=== PATIENT | female | born 1970 | race Caucasian/White ===

== ENCOUNTER 2018-02-13 13:00 | Outpatient (RCR) | payer BC, SELFPAY ==
--- NOTE | 2018-02-12 08:00 | IE_ITS ---
Date: February 12, 2018 Referring: Uche Dyer MD M.D. Diagnosis: Internal derangement of R knee, injected 02/06/18 P.T. 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 She states she was bending down cleaning underneath the bottom of a computer desk, she went to stand up and felt a ripping in her R knee. She had severe pain and had to hobble in order to walk She clocked out of work that day and presented to the Emergency Dept due to her pain level. They provided her with an maria r bandage and gave her crutches which she utilized for about 2 days, eventually had a consultation with Manisha Tse who suggested referral to outpatient PT. She will be following up with him later in the month to determine PT response. She is now ambulating without crutches, but with a limp due to pain on the R side. Utilizes 1 crutch if she is going to be on her feet for some time. She reports a constant sensation of her R LE giving out She really feels she has had no remarkable change in her symptoms since onset of her injury. 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 Pain Location: Posterior knee and medial, anterior knee. Prior Level of Function: WNL Current Level of Function: She has difficulty getting comfortable and falling sleep, awakening 2-3 night. She originally woke up 2-3x a night prior to injury , but was easy for her to fall back to sleep. She is unable to ascend or descend stairs without use of a rail and has to go 1 step at a time, She cannot do any prolonged standing or sitting beyond 30 mins at a time and she cannot do any squatting. 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 Previous Treatment: Injection by Dr. Dyer which only gave her about 48 hours relief. 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 She also takes care of her grandchildren in the evenings, but without difficulty. Comorbidities: Sleep apnea, restless leg, aortic valve replacement Mar 2005, high blood pressure, chronic migraines and headaches, hx of dizziness and hx of a stroke. Falls in the last year: __X__ No ____Yes - How many? ____ - (if over 2, balance SM needs to be completed) Reported hospitalizations in the last year - __X__ No ____ Yes - Dates of admission/reason: Medications: Metoprolol, HCTZ, Warfarin and Iron Quality of Life: ____ Excellent __X__ Good ____ Fair ____ Poor Standardized Measures: LEFS score: 91% OBJECTIVE: Posture: Appears to stand with hyper extension of the L knee, which she is unable to acquire at the R knee due to her pain. Observation: (behavior, atrophy, skin color, etc.) Morbidly obese, visual increase in swelling over the R superior patella compared to the L. Gait: Antalgic, decreased stance R LE, but demonstrating good ROM through all phases. In standing, however she doesn't like to full extend the R knee. Unable to do ascension or dissension of stairs reciprocally, leading with good leg. Palpation: Tenderness along the medial joint line compartment of the R knee compared to the L. Edema: Visually present along the superior patella region R knee. Girth measurements: R superior patella measures 62cm compared to L of 59cm, however has 2cm decrease in size of the R central patella vs the L. ROM: Full and non-irritable even with over pressure, end range extension and flexion. No pain with over pressure into rotation, or valgus and varus positions. Joint Accessory Motion: Patellofemoral motion is WNL, but demonstrating crepitus, tibiofemoral WNL and non-irritable. Strength: 4/5 with pain particularly with quad resistance. Neuro: WNL R LE screen. Balance: Impaired due to pain with R LE weight bearing. Special Tests: (-) Thessaly's, (-) Froilan's, (-) patellofemoral compression, (-) Amanda's, (-) Apley's, (-) Squat test, (-) step up test, but does have crepitus. She is cautious with all movements. Treatment: IE: [id number] Therapeutic procedures ([id number]). Develop and review a HEP (see file for specifics) Direct treatment time: 60 mins Total treatment time: 60 mins ASSESSMENT: Patient is a 47-year-old female, referred for PT services with the diagnosis of R knee internal derangement. Patient presents with clinical signs and symptoms consistent with R knee strain, there is certainly potential for internal derangement, but considering patient's clinical presentation of good ROM, only mild gait antalgia, and lack of response to special testing, feel strain is likely more of a convincing diagnosis at this point. Time will time pending her healing changes and response to PT management, as demonstrated by the following impairment level findings: swelling R knee, poor proprioception of the R LE, gross strength deficits. Impairments are contributing to the following functional limitations: Poor tolerance to prolonged sitting, or weight bearing activity, sleep disruption. Difficulty ascending and descending stairs reciprocally and complaints of discomfort with squatting, unable to carry out job duties Patient is assessed as: ____ Low 46716 __X__ Moderate 87370 ____ High 90527 complexity, based on the following: History: (list): X See comorbidities and social history. Examination: (list): X See above for functional limitations and impairments. Presentation: Stable . X Evolving Unstable Decision-Making: Low complexity X Moderate complexity High complexity % Disability based on LEFS of 91% __X__ Patient requires skilled PT intervention to remediate the above functional limitations to return to: __X__ Premorbid level of function __X__ Return to full functional mobility __X__ Return to work demands Prognosis: ____ Excellent __x__ Good ____ Fair ____ Poor STG: __4__ weeks. 1: LEFS improved to 60% disability. 2: Ascending and descending stairs reciprocally with mild antalgia. 3: Gait pattern on even terrain is non-antalgic. 4: As able to squat down and slate picker a 10# object off the floor without pain exceeding a 2/10. 5: Denies sensation of instability of the R knee. LTG: __10__ weeks. 1: Return to premorbid level of function. 2: Return to full, pain-free, functional mobility and work demands 3: Independent with self-maintenance program. PLAN: Patient to be seen 2 x per week, for 10 weeks, adjusting frequency of visits per patient symptoms and response to treatment. Treatment to include: Aquatic therapy: for initial stages of PT to decompress the joint mainly for pain management to encourage facilitation of better proprioception control, motor control and stabilization, leading her through a series of close and open chain strengthening efforts for strengthening of R LE. Gait Training Therapeutic Exercise for gross open/close chain land base strengthening of the R LE. Manual therapy for mobilization of the R knee and soft tissue efforts as needed and edema reduction effort per session presentation. Thank you for this referral. Please do not hesitate to contact me with any questions or concerns regarding this patient's plan of care.
--- NOTE | 2018-02-13 11:04 | PTTR_ITS ---
DATE: 02/13/18 SUBJECTIVE: Juani states that she is uncomfortable with single-leg activities without support because I don't trust my R knee. OBJECTIVE: * [X] Aquatic Therapy - (90022 x2): Patient completed a therapeutic exercise program in an aquatic setting for LE strengthening and ROM, as per flow sheet. Patient required skilled instruction for appropriate exercise performance and to avoid compensatory movement patterns. Patient was encouraged to perform activities without pool wall support, to focus on improved LE stability. Patient ended with deep water biking. Direct treatment time: 30 minutes Total treatment time: 35 minutes
--- NOTE | 2018-02-20 11:13 | NT_ITS ---
02/20/18 Cancelled today's aquatic therapy session, as her son is on the hospital. Elda Garzon, SERVICE ARCHITECT
--- NOTE | 2018-03-01 11:13 | NT_ITS ---
03/01/18 Cancelled today's scheduled aquatic therapy session. Elda Garzon, LATEX FOAM WORKER
== END 2018-03-09 23:59 | disposition home or self-care (01) ==
LOC: PT 13:00
PROVIDERS: PCP Family Medicine; Referring Provider Orthopaedic Surgery; Visit Provider Orthopaedic Surgery
DX: S89.91XD Unspecified injury of right lower leg, subsequent encounter (principal); M23.91 Unspecified internal derangement of right knee
CPT/HCPCS: 97110; 97113; 97162

== ENCOUNTER 2018-03-02 20:33 | Emergency (ER) | payer BC, SELFPAY ==
[2018-03-02 20:38] VITALS: BP 146/99; PULSE 80; RESP 16; TEMP 36.8; O2SAT 98
[2018-03-02 21:34] LABS: Abs Immature Grans 0.02 k/cumm (0.0-0.09); Absolute Basophil Count 0.03 k/cumm (0.0-0.2); Absolute Eosinophil Count 0.21 k/cumm (0.0-0.7); Absolute Lymphocyte Count 1.84 k/cumm (1.2-3.4); Absolute Monocyte Count 1.17 k/cumm (0.11-0.7); Absolute Neutrophil Count 5.66 k/cumm (1.2-6.7); Basophils % 0.3; Eosinophils % 2.4; HCT 41.9 % (36.0-46.0); HGB 13.7 g/dL (12.0-15.5); Immature Grans % 0.2; Lymphocytes % 20.6; Mean Corp. HGB Concentration 32.7 g/dL (32.0-36.0); Mean Corpuscular Hemoglobin 27.7 pg (27.0-33.0); Mean Corpuscular Volume 84.6 fL (80-95); Mean Platelet Volume 10.3 fL (8.0-11.0); Monocytes % 13.1; Neutrophils % 63.4; Platelet Count 292 x1000/uL (130-400); RBC 4.95 m/cumm (4.00-5.20); RBC Distribution Width 13.9 % (11.7-14.6); White Blood Cell Count 8.93 k/cumm (4.4-10.8)
--- NOTE | 2018-03-02 21:40 | ED.GENADUL_ITS ---
Disposition Clinical Impression: Viral exanthem Disposition: HOME Condition: Fair Instructions: Acute Rash (ED) Additional Instructions: Encourage hydration. Hydrocortisone as needed for itch. Please follow-up with primary care in 1 week if symptoms persist. If you develop new or worsening symptoms please seek care urgently once again. Referrals: Luca Dominguez [Primary Care Provider] - Medical Decision Making - Lab Data Laboratory Tests 03/02/18 03/02/18 21:25 21:25 WBC 8.93 RBC 4.95 Hgb 13.7 Hct 41.9 MCV 84.6 MCH 27.7 MCHC 32.7 RDW 13.9 Plt Count 292 MPV 10.3 Immature Gran % 0.2 Neutrophils % 63.4 Lymphocytes % 20.6 Monocytes % 13.1 Eosinophils % 2.4 Basophils % 0.3 Absolute Neutrophils 5.66 Absolute Lymphocytes 1.84 Absolute Monocytes 1.17 H Absolute Eosinophils 0.21 Absolute Basophils 0.03 Sodium 139 Potassium 3.6 Chloride 104 Carbon Dioxide 27.1 Anion Gap 7.9 BUN 9 Creatinine 0.97 Estimated GFR/1.73 m2 >= 60.00 Glucose 90 Calcium 8.5 Total Bilirubin 0.3 AST 20 ALT 29 Alkaline Phosphatase 89 Total Protein 7.5 Albumin 3.0 L Results reviewed for labs ordered during visit: Yes - Medical Decision Making Patient presents today with chief complaint of rash. Rash is noted initially in the abdomen is since spread to back and extremities. On exam, rash is circular and erythematous with varying sizes. Noted on the abdomen, chest, proximal lower extremities and back. Also Dr. Reynolds to evaluate this rash. Patient has been afebrile. Appears nontoxic. Vital signs are within normal limits. Had initially been questioning possibly tinea infection. However, this is fairly limited to just a few of the areas. Degraded because he did not agree with this assessment. He was more concerned for possible bull's-eye rash. However, there is so many separate lesions is not consistent with this nor do all of these lesions have the appearance of a bull's-eye. With her initial symptoms of headache and neck pain he advises most consistent with a viral exanthem. Patient denies any neck pain or headache at this time. She is afebrile. No nuchal rigidity. Will obtain laboratory evaluation. In particular, we were looking for, cytopenia and elevated liver enzymes to evaluate for possible evidence of tickborne illness. Patient does report that she has history of thrombocytopenia. Laboratory evaluation without significant abnormality. No thrombocytopenia. I did review the patient's previous platelet counts and did not see these being low historically. Liver enzymes within normal limits. No leukocytosis. I discussed these findings with the patient. Advises most consistent with viral exanthem. Tick panel was sent and is pending. Encourage hydration. We discussed symptomatic management. Advised on new or worsening symptoms when to seek care urgently once again. Advise follow-up with primary care in 1 week if symptoms persist. All of her questions and concerns were addressed and she is in agreement this plan. History of Present Illness - General Chief complaint: RashLesion Stated complaint: RASH Time Seen by Provider: 03/02/18 21:09 Source: patient, RN notes reviewed Mode of arrival: ambulatory Limitations: no limitations - History of Present Illness Initial comments: Patient is a 47-year-old female presenting today with chief complaint of rash. Patient reports that she first noted 2 days ago. States that it started on the central abdomen and was pruritic at that time. However, rash has not spread to extremities,, particularly proximal extremities and back. Patient states that they are minimally pruritic at this time, she does have one large area of erythema over the central chest which she states is quite itchy. States that a few days ago she was endorsing headache and neck discomfort. This was after spending several days at [facility] visiting her sick son. However, she reports that the neck discomfort and headache subsided. She denies any fevers or chills. No GI upset. Denies any known tick exposure. States that daughter has had similar symptoms but has not yet begun rash. - Related Data Acetaminophen [Tylenol] 500 mg PO PRN PRN 08/19/13 Ferrous Sulfate [Iron] 325 mg PO BID 05/12/17 Warfarin Sodium [Coumadin] 5 - 15 mg PO HS #100 tab-cap 07/25/17 Hydrochlorothiazide [Hydrodiuril] 25 mg PO DAILY #90 tab-cap 11/27/17 Metoprolol [Lopressor] 1 tab PO BID #180 tab-cap 11/27/17 Allergies Allergy/AdvReac Type Severity Reaction Status Date / Time adhesive Allergy Intermediate plastic Unverified 03/02/18 20:43 tape-blisters Penicillins Allergy Unverified 03/02/18 20:43 ibuprofen AdvReac Unverified 03/02/18 20:43 Review of Systems Constitutional: no symptoms reported, see HPI Respiratory: no symptoms reported Cardiovascular: denies: chest pain Musculoskeletal: denies: back pain, joint swelling, arthralgia Skin: as per HPI Neurological: as per HPI Past Medical History - Past Medical History Medical history: CVA/TIA, hypertension Surgical history: other (Heart valve replacement) - Social History Alcohol use: none Drug use: none General Exam - General Limitations: no limitations General appearance: alert, in no apparent distress - Eye Eye exam: Present: normal apperance - Neck Neck exam: Present: normal inspection - Respiratory Respiratory exam: Present: normal lung sounds bilaterally. Absent: respiratory distress - Cardiovascular Cardiovascular Exam: Present: regular rate, normal rhythm, systolic murmur - GI/Abdominal GI/Abdominal exam: Present: other (Patient has areas of circumferential erythema of varying sizes across the abdomen. There is a pertinent for across the abdomen and one large central 1 over the superior aspect of her chest. Most of these are fairly pale. Some have surrounding area of erythema with area of clearing centrally. The area of erythema over the chest appears excoriated and some deeper red.). Absent: tenderness - Rectal Rectal exam: Present: deferred - Extremities Exam Extremities exam: Absent: normal inspection (Patient has area of circumferential erythema over the proximal thigh. These are fairly dispersed. Nontender. No swelling. No discharge. One is noted on the dorsal aspect of the mid right forearm.) - Back Exam Back exam: Present: rash noted (Rash appears similar to that of the abdomen, fairly diffuse about the back, more dense in the superior aspect. Again, no pain with palpation. No discharge.) - Neurological Exam Neurological exam: Present: alert, normal gait - Psychiatric Psychiatric exam: Present: normal affect, normal mood - Skin Skin exam: Present: rash (As above) Course Vital Signs - 24 hr 03/02/18 20:38 Temperature 36.8 C Pulse 80 Respiratory 16 Rate Blood Pressure 146/99 Pulse Oximetry 98
[2018-03-02 21:48] LABS: ALT 29 U/L (12-78); AST 20 U/L (15-37); Alkaline Phosphatase 89 U/L (46-116); Anion Gap 7.9 mmol/L (3-11); BUN 9 mg/dL (7-18); Bilirubin, Total 0.3 mg/dL (0.2-1.0); CO2 27.1 mmol/L (21.0-32.0); CREATININE 0.97 mg/dL (0.55-1.02); Calcium 8.5 mg/dL (8.5-10.1); Chloride 104 mmol/L (98-107); Glucose 90 mg/dL (70-100); Potassium 3.6 mmol/L (3.5-5.1); Sodium 139 mmol/L (136-145); Total Protein 7.5 g/dL (6.4-8.2)
[2018-03-02 22:07] VITALS: BP 146/99; PULSE 80; RESP 16; TEMP 36.8; O2SAT 98
[2018-03-05 20:53] LABS: Anaplasma phagocytophilum Negative (Negative); B. miyamotoi PCR Negative (Negative); Babesia divergens/MO-1 Negative (Negative); Babesia duncani Negative (Negative); Babesia microti Negative (Negative); Ehrlichia chaffeensis Negative (Negative); Ehrlichia ewingii/canis Negative (Negative); Ehrlichia muris eauclairensis Negative (Negative)
== END 2018-03-02 22:07 | disposition home or self-care (01) ==
LOC: ER 05-08 15:44
PROVIDERS: Physician Assistant; Emergency Provider Emergency Medicine; PCP Family Medicine
DX: B09 Unspecified viral infection characterized by skin and mucous membrane lesions (principal); I10 Essential (primary) hypertension
CPT/HCPCS: 36415; 80053; 99282; 85025; 87798

== ENCOUNTER 2018-05-19 09:57 | Emergency (ER) | payer BC, SELFPAY ==
[2018-05-19 10:00] VITALS: BP 178/103; PULSE 71; RESP 16; TEMP 36.6; O2SAT 97
--- NOTE | 2018-05-19 10:20 | ED.GENADUL_ITS ---
Discharge Plan Disposition Patient Disposition: HOME Condition: Stable Discharge Details Chief Complaint: RespSymp Clinical Impression: Cough Primary Care Provider: Luca Dominguez ED Provider: Florentin Adams Home Meds and New Rx's Prescriptions: New prednisone 20 mg tablet 60 mg PO DAILY 5 Days Qty: 15 RF: 0 doxycycline hyclate 100 mg tablet 100 mg PO BID Qty: 14 RF: 0 Continue ferrous sulfate 325 MG tablet 325 mg PO BID RF: 0 warfarin [Coumadin] 10 MG tablet 5 - 15 mg PO HS Qty: 100 RF: 4 hydrochlorothiazide 25 MG tablet 25 mg PO DAILY Qty: 90 RF: 4 metoprolol tartrate 25 MG tablet 1 tab PO BID Qty: 180 RF: 4 acetaminophen [Mapap Extra Strength] 500 MG tablet 500 mg PO PRN PRNRF: 0 Discharge Instructions Instructions: Acute Cough (ED) Additional Instructions: if symptoms continue this week follow up with your primary care provider. Your blood pressure was elevated here which should be rechecked at your primary care office within 2 weeks You should have evaluation done with your primary care provider to test for copd if you have significant worsening shortness of breath despite using the inhaler return to the emergency department Medical Decision Making 48 yo female with hx of aortic valve replacement on coumadin, tia, asthma, chronic smoker comes in with cough productive of yellow phlegm for a week. She denies fevers, significant dyspnea or chest pressure. She has wheezing at the bases bilaterally, speaking in full sentences. Has mild erythema of posterior pharynx with midline uvula, no pain over hyoid or restricted neck movements so doubt rpa, vessel captain, epiglotitis. Given her smoking hx I suspect she likely has copd and will tx as copd exacerbation with steroids and abx. Given no fever and well apperaance doubt pna and do not feel xray indicated at this time. ADvised f/u with pcp this week and return if worsening Differential Diagnosis copd, asthma, pna, uri HPI General Mode of arrival: ambulatory . Date/Time Provider Initiated Documentation: 05/19/18 10:05 . Limitations to Documentation: no limitations . Information obtained by: patient . History of Present Illness 48 year old F presents to the emergency department with the chief complaint of cough, described as moderate, Patient reports no radiation. Patient started experiencing this week(s) (1) and it has been intermittent. No relieving factors improve symptom(s), No exacerbating factors reported . Patient notes other (sore throat). Patient did receive the following treatments prior to arrival, none Related Data Home Medications Medication Instructions Recorded Confirmed acetaminophen [Mapap Extra 500 mg PO PRN PRN 08/19/13 05/19/18 Strength] ferrous sulfate 325 mg PO BID 05/12/17 05/19/18 warfarin [Coumadin] 5 - 15 mg PO HS #100 tab-cap 07/25/17 05/19/18 hydrochlorothiazide 25 mg PO DAILY #90 tab-cap 11/27/17 05/19/18 metoprolol tartrate 1 tab PO BID #180 tab-cap 11/27/17 05/19/18 doxycycline hyclate 100 mg PO BID #14 tab 05/19/18 prednisone 60 mg PO DAILY 5 Days #15 tab 05/19/18 Previous Rx's Medication Instructions Recorded warfarin [Coumadin] 5 - 15 mg PO HS #100 tab-cap 07/25/17 hydrochlorothiazide 25 mg PO DAILY #90 tab-cap 11/27/17 metoprolol tartrate 1 tab PO BID #180 tab-cap 11/27/17 doxycycline hyclate 100 mg PO BID #14 tab 05/19/18 prednisone 60 mg PO DAILY 5 Days #15 tab 05/19/18 Allergies Allergy/AdvReac Type Severity Reaction Status Date / Time adhesive Allergy Intermediate plastic Unverified 05/19/18 10:04 tape-blisters Penicillins Allergy Unverified 05/19/18 10:04 ibuprofen AdvReac Unverified 05/19/18 10:04 General Stated Complaint: RespSymp SURENDRA: 3 Review of Systems Review of Systems All systems reviewed & are unremarkable except as noted in HPI and below Constitutional Denies fever(s) and Denies weakness Eyes Denies loss of vision ENT Denies change in voice Cardiovascular Denies chest pain Gastrointestinal Denies abdominal pain, Denies nausea and Denies vomiting Genitourinary Denies dysuria Musculoskeletal Denies joint swelling Integumentary/Breasts Denies rash Neurologic Denies loss of vision and Denies weakness Psychiatric Denies depression Endocrine Denies cold intolerance and Denies heat intolerance Allergic/Immunologic Denies urticaria PFSH Family History Mother Neoplasm Father Essential hypertension Heart disease Hyperlipidemia Asthma Sister No problems noted. Sister No problems noted. Brother No problems noted. Grandfather No problems noted. Grandfather No problems noted. Grandmother Heart disease Grandmother No problems noted. Son Depression Son Substance abuse Depression Son Substance abuse Daughter No problems noted. Medical History Abnormal uterine bleeding (AUB) Acute ITP BMI 45.0-49.9, adult Chronic anticoagulation Hypertension Restless leg syndrome Tobacco use Uterine fibroid Social History Smoking/Tobacco Use Status: Current every day Surgical History Dilation and curettage Ligation of fallopian tube Tooth extraction Valve Replacement Exam Const General: no acute distress Orientation: alert HENMT Head: normal to inspection Ears: external ears normal General nose exam: external nose normal Mouth: moist mucous membranes Eyes General: appearance normal, both eyes and all related structures Neck Neck: normal visual inspection Resp Effort & Inspection: normal respiratory effort and able to speak in complete sentences Cardio Rate: regular rate Skin General skin exam: no rashes or lesions noted Neuro General: alert and oriented x3 Extrem General: normal to inspection Psych Mental Status: mental status grossly normal Course Vital Signs Temperature 36.6 C 05/19/18 10:00 Pulse 71 05/19/18 10:00 Respiratory Rate 16 05/19/18 10:00 Blood Pressure 178/103 H 05/19/18 10:00 Pulse Oximetry 97 05/19/18 10:00 Temperature 36.6 C 05/19/18 10:00 Temperature Source Temporal Artery Scan 05/19/18 10:00 Pulse 71 05/19/18 10:00 Respiratory Rate 16 05/19/18 10:00 Respiratory Effort Non-Labored 05/19/18 10:03 Blood Pressure 178/103 H 05/19/18 10:00 Blood Pressure Position Sitting 05/19/18 10:00 Pulse Oximetry 97 05/19/18 10:00 Oxygen Delivery Method Room Air 05/19/18 10:00 Oxygen Flow Rate 0 05/19/18 10:00 Pain Level 5 05/19/18 10:00
[2018-05-19] MEDS: Albuterol HFA 8 GM 60 PUFF INH IH (10:55)
[2018-05-19] MEDS: Inhaler, Assist Device 1 EACH MC (10:57)
[2018-05-19 11:02] VITALS: BP 137/88; PULSE 60; RESP 22; TEMP 36.6; O2SAT 92
[2018-05-19 11:05] VITALS: BP 137/88; PULSE 60; RESP 22; TEMP 36.6; O2SAT 92
== END 2018-05-19 11:08 | disposition home or self-care (01) ==
LOC: ER 10:51
PROVIDERS: Emergency Provider Emergency Medicine; PCP Family Medicine
DX: R05 Cough (principal); J45.909 Unspecified asthma, uncomplicated; I10 Essential (primary) hypertension; F17.210 Nicotine dependence, cigarettes, uncomplicated
CPT/HCPCS: 99283

== ENCOUNTER 2018-05-26 11:24 | Emergency (ER) | payer BC, SELFPAY ==
[2018-05-26 11:55] VITALS: BP 155/91; PULSE 65; RESP 16; TEMP 36.7; O2SAT 95
--- NOTE | 2018-05-26 12:19 | W.ED.GENAD ---
Discharge Plan Disposition Patient Disposition: HOME Condition: Good Discharge Details Chief Complaint: Nk/Back Pain Clinical Impression: Lumbago, URI (upper respiratory infection) Primary Care Provider: Luca Dominguez ED Provider: Herson Hernandez Home Meds and New Rx's Prescriptions: New cyclobenzaprine 10 mg tablet 10 mg PO TID 5 Days Qty: 15 RF: 0 acetaminophen [Mapap Extra Strength] 500 MG tablet 1,000 mg PO Q6H 5 Days Qty: 60 RF: 0 lidocaine [Lidoderm] 1 PATCH patch 1 patch Topical Q24H Qty: 4 RF: 0 benzonatate [Tessalon Perles] 100 mg capsule 100 mg PO TID PRN (Reason: cough) Qty: 20 RF: 0 clotrimazole 2 % cream 1 appful VG ONCE 3 Days RF: 0 No Action ferrous sulfate 325 MG tablet 325 mg PO BID RF: 0 warfarin [Coumadin] 10 MG tablet 5 - 15 mg PO HS Qty: 100 RF: 4 hydrochlorothiazide 25 MG tablet 25 mg PO DAILY Qty: 90 RF: 4 metoprolol tartrate 25 MG tablet 1 tab PO BID Qty: 180 RF: 4 acetaminophen [Mapap Extra Strength] 500 MG tablet 500 mg PO PRN PRNRF: 0 doxycycline hyclate 100 mg tablet 100 mg PO BID Qty: 14 RF: 0 Discharge Instructions Instructions: Low Back Strain (ED) Additional Instructions: Please continue taking your antibiotic until it is completed. Please continue to use your albuterol every 4-6 hours. Do not lift anything heavier than 5 pounds. If you notice any worsening of your symptoms, or any new symptoms such as vomiting, diarrhea, fever, chills, shortness of breath, chest pain, numbness, weakness, or fainting , please return immediately to the emergency department for reevaluation. Please follow up with your primary care provider as soon as possible for reassessment and reevaluation. As always, it was a pleasure participating in your medical care today. Referrals: Luca Dominguez [Primary Care Provider] - Discharge Data Discharge Date/Time-TO BE ENTERED AT DEPARTURE: 05/26/18 13:15 Medical Decision Making This is a very pleasant 48-year-old female with past medical history of an upper respiratory infection has been receiving steroids antibiotics and breathing treatments. However she has had notable coughing, because of this and activities at home feel that she threw out her back. She does demonstrate mild lumbar pain paraspinally, no midline tenderness. Symptoms are made worse with movement, improved by rest Tylenol and Motrin. She has no associated red flags of saddle anesthesia, bowel or bladder incontinence, weakness or numbness or tingling of the lower extremities. Patient's upper respiratory infection symptoms have been notably improving over the last few days per the patient. This time with signs and symptoms consistent with a muscular skeletal low back strain, with no concerning red flags a few she can be safely discharged home. Patient will be started on Flexeril, Tylenol Motrin and Lidoderm patch. Discussed red flags which to return the patient understands I have extensively reviewed the treatment plan and discharge instructions with the patient. I have addressed all patient concerns at this time. The patient was made aware of what symptoms to monitor for that would warrant a return to the emergency department. Discussed the plan with the patient, they demonstrate verbal understanding and agreement with our assessment and plan at this time. . HPI General Date/Time Provider Initiated Documentation: 05/26/18 11:56. HPI Narrative: This is a pleasant 48-year-old female with a past medical history of tobacco use, hypertension, aortic valve replacement on Coumadin, as well as a D&C, who presents today for complaint of back pain. Patient states that she has had an upper respiratory infection for the last week with some associated cough, but no fevers or chills. She has been on an antibiotic, steroids and an inhaler. She is only assisted through her antibiotic dose at this time. Patient states that this morning she woke up and noticed some mild back pain. She did do some extra moving activity and she feels it may have been brought on by her initial coughing episodes. Symptoms are worse when she bends over or tries to lift things up. Improved by Tylenol or Motrin. She denies any red flag symptoms of saddle anesthesia, bowel or bladder incontinence, numbness tingling or weakness of her lower extremities. Patient states that she has thrown her back out in the past and it felt similar to this. Patient denies any other associated complaints at this time. Patient states that she does feel that her cough and upper respiratory infection symptoms are getting better. She is still smoking. She denies any IV or illicit drug use. Related Data Home Medications Medication Instructions Recorded Confirmed acetaminophen [Mapap Extra 500 mg PO PRN PRN 08/19/13 05/26/18 Strength] ferrous sulfate 325 mg PO BID 05/12/17 05/26/18 warfarin [Coumadin] 5 - 15 mg PO HS #100 tab-cap 07/25/17 05/26/18 hydrochlorothiazide 25 mg PO DAILY #90 tab-cap 18 05/26/18 metoprolol tartrate 1 tab PO BID #180 tab-cap 11/27/17 05/26/18 doxycycline hyclate 100 mg PO BID #14 tab 05/19/18 05/26/18 acetaminophen [Mapap Extra 1,000 mg PO Q6H 5 Days #60 tab 05/26/18 Strength] benzonatate [Tessalon Perles] 100 mg PO TID PRN #20 cap 05/26/18 clotrimazole 1 appful VG ONCE 3 Days gm 05/26/18 cyclobenzaprine 10 mg PO TID 5 Days #15 tab 05/26/18 lidocaine [Lidoderm] 1 patch TOPICAL Q24H #4 patch 05/26/18 Previous Rx's Medication Instructions Recorded warfarin [Coumadin] 5 - 15 mg PO HS #100 tab-cap 07/25/17 hydrochlorothiazide 25 mg PO DAILY #90 tab-cap 11/27/17 metoprolol tartrate 1 tab PO BID #180 tab-cap 11/27/17 doxycycline hyclate 100 mg PO BID #14 tab 05/19/18 acetaminophen [Mapap Extra 1,000 mg PO Q6H 5 Days #60 tab 05/26/18 Strength] benzonatate [Tessalon Perles] 100 mg PO TID PRN #20 cap 05/26/18 clotrimazole 1 appful VG ONCE 3 Days gm 05/26/18 cyclobenzaprine 10 mg PO TID 5 Days #15 tab 05/26/18 lidocaine [Lidoderm] 1 patch TOPICAL Q24H #4 patch 05/26/18 Allergies Allergy/AdvReac Type Severity Reaction Status Date / Time adhesive Allergy Intermediate plastic Unverified 05/26/18 11:58 tape-blisters Penicillins Allergy Unverified 05/26/18 11:58 ibuprofen AdvReac Unverified 05/26/18 11:58 General Stated Complaint: Nk/Back Pain SURENDRA: 4 Review of Systems Review of Systems All systems reviewed & are unremarkable except as noted in HPI and below Exam Narrative Exam Narrative: 1.Const: Well-nourished, Well-developed, appearing stated age 2.Eyes: PERRL, no conjunctival injection, and symmetrical lids. 3.ENT: Atraumatic external nose and ears. Moist MM. Neck: Symmetric, trachea midline, No thyromegaly. 4.CVS: +S1/S2, No murmurs or gallops. Peripheral pulses 2+ and equal in all extremities. Brisk capillary refill in all extremities. 5.RESP: Unlabored respiratory effort. Clear to auscultation bilaterally. No wheezes rales or rhonchi 6.GI: Soft, Nontender/Nondistended, No hepatosplenomegaly. No guarding or rebound. 7.MSK: Normocephalic/Atraumatic, Extremities w/o deformity or ttp No cyanosis or clubbing, Normal movement of all extremities. Mild paraspinal tenderness over the lower lumbar region. No midline tenderness to palpation over the CTLS spine. Normal ROM in flexion, extension, side bend, and rotation. Patient has +5 out of 5 strength in the lower extremities in dorsiflexion and plantarflexion, knee flexion and extension, hip flexion and extension. There is +2 over 2 dorsalis pedis pulses bilaterally. There is normal sensation to the skin with light touch at the foot, knee, and hip. Normal saddle sensation. Good sensation over the deep sural nerve area bilaterally. Rectal exam deferred. Reflexes are +2 over 4 in the patellar reflex bilaterally. +5 out of 5 strength in the medial, ulnar, radial nerve distribution bilaterally in the hands as well as intact light touch sensation to these dermatomes on the hands 8.Skin: Warm, Dry. No rashes or lesions. 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 Sensation grossly intact, no focal neurologic deficits. 10.Psych: (AAO) x3. Appropriate mood and affect Course Vital Signs Temperature 36.7 C 05/26/18 11:55 Pulse 65 05/26/18 11:55 Respiratory Rate 16 05/26/18 11:55 Blood Pressure 155/91 H 05/26/18 11:55 Pulse Oximetry 95 05/26/18 11:55 Temperature 36.7 C 05/26/18 11:55 Temperature Source Skin 05/26/18 11:55 Pulse 65 05/26/18 11:55 Respiratory Rate 16 05/26/18 11:55 Respiratory Effort Non-Labored 05/26/18 11:55 Blood Pressure 155/91 H 05/26/18 11:55 Blood Pressure Position Sitting 05/26/18 11:55 Pulse Oximetry 95 05/26/18 11:55 Oxygen Delivery Method Room Air 05/26/18 11:55 Oxygen Flow Rate 0 05/26/18 11:55 Pain Level 10 05/26/18 11:55
[2018-05-26 12:33] LABS: Bilirubin Negative (Negative); Blood Negative (Negative); Clarity Clear; Glucose Negative (Negative); Ketones Negative (Negative); Leukocyte Esterase Negative (Negative); Nitrite Negative (Negative); Specific Gravity 1.025 (1.005-1.025); Urobilinogen 0.2 EU/dL (Up TO 0.2)
[2018-05-26 12:50] LABS: Bacteria Few HPF (Negative); Casts Negative LPF (Negative); Crystals Negative HPF (Negative); Epithelial Cells Moderate HPF (Negative); Mucus Trace (Negative); RBC Negative (0-2); WBC 0-2 HPF (0-5)
[2018-05-26 12:51] LABS: C & S Indicated? No
[2018-05-26] MEDS: Acetaminophen 500 MG TAB 1000 MG PO (13:08)
[2018-05-26] MEDS: Lidocaine 5% Patch 1 PATCH TP (13:09)
[2018-05-26] MEDS: Cyclobenzaprine 10 MG TAB PO (13:09)
--- NOTE | 2018-05-26 23:55 | ED.GENADUL_ITS ---
Discharge Plan Disposition Patient Disposition: HOME Condition: Good Discharge Details Chief Complaint: Nk/Back Pain Clinical Impression: Lumbago, URI (upper respiratory infection) Primary Care Provider: Luca Dominguez ED Provider: Herson Hernandez Home Meds and New Rx's Prescriptions: New cyclobenzaprine 10 mg tablet 10 mg PO TID 5 Days Qty: 15 RF: 0 acetaminophen [Mapap Extra Strength] 500 MG tablet 1,000 mg PO Q6H 5 Days Qty: 60 RF: 0 lidocaine [Lidoderm] 1 PATCH patch 1 patch Topical Q24H Qty: 4 RF: 0 benzonatate [Tessalon Perles] 100 mg capsule 100 mg PO TID PRN (Reason: cough) Qty: 20 RF: 0 clotrimazole 2 % cream 1 appful VG ONCE 3 Days RF: 0 No Action ferrous sulfate 325 MG tablet 325 mg PO BID RF: 0 warfarin [Coumadin] 10 MG tablet 5 - 15 mg PO HS Qty: 100 RF: 4 hydrochlorothiazide 25 MG tablet 25 mg PO DAILY Qty: 90 RF: 4 metoprolol tartrate 25 MG tablet 1 tab PO BID Qty: 180 RF: 4 acetaminophen [Mapap Extra Strength] 500 MG tablet 500 mg PO PRN PRNRF: 0 doxycycline hyclate 100 mg tablet 100 mg PO BID Qty: 14 RF: 0 Discharge Instructions Instructions: Low Back Strain (ED) Additional Instructions: Please continue taking your antibiotic until it is completed. Please continue to use your albuterol every 4-6 hours. Do not lift anything heavier than 5 pounds. If you notice any worsening of your symptoms, or any new symptoms such as vomiting, diarrhea, fever, chills, shortness of breath, chest pain, numbness , weakness, or fainting , please return immediately to the emergency department for reevaluation. Please follow up with your primary care provider as soon as possible for reassessment and reevaluation. As always, it was a pleasure participating in your medical care today. Referrals: Luca Dominguez [Primary Care Provider] - Discharge Data Discharge Date/Time-TO BE ENTERED AT DEPARTURE: 05/26/18 13:15 Medical Decision Making This is a very pleasant 48-year-old female with past medical history of an upper respiratory infection has been receiving steroids antibiotics and breathing treatments. However she has had notable coughing, because of this and activities at home feel that she threw out her back. She does demonstrate mild lumbar pain paraspinally, no midline tenderness. Symptoms are made worse with movement, improved by rest Tylenol and Motrin. She has no associated red flags of saddle anesthesia, bowel or bladder incontinence, weakness or numbness or tingling of the lower extremities. Patient's upper respiratory infection symptoms have been notably improving over the last few days per the patient. This time with signs and symptoms consistent with a muscular skeletal low back strain, with no concerning red flags a few she can be safely discharged home. Patient will be started on Flexeril, Tylenol Motrin and Lidoderm patch. Discussed red flags which to return the patient understands I have extensively reviewed the treatment plan and discharge instructions with the patient. I have addressed all patient concerns at this time. The patient was made aware of what symptoms to monitor for that would warrant a return to the emergency department. Discussed the plan with the patient, they demonstrate verbal understanding and agreement with our assessment and plan at this time. . HPI General Date/Time Provider Initiated Documentation: 05/26/18 11:56 . HPI Narrative: This is a pleasant 48-year-old female with a past medical history of tobacco use, hypertension, aortic valve replacement on Coumadin, as well as a D&C, who presents today for complaint of back pain. Patient states that she has had an upper respiratory infection for the last week with some associated cough, but no fevers or chills. She has been on an antibiotic, steroids and an inhaler. She is only half-way through her antibiotic dose at this time. Patient states that this morning she woke up and noticed some mild back pain. She did do some extra moving activity and she feels it may have been brought on by her initial coughing episodes. Symptoms are worse when she bends over or tries to lift things up. Improved by Tylenol or Motrin. She denies any red flag symptoms of saddle anesthesia, bowel or bladder incontinence, numbness tingling or weakness of her lower extremities. Patient states that she has thrown her back out in the past and it felt similar to this. Patient denies any other associated complaints at this time. Patient states that she does feel that her cough and upper respiratory infection symptoms are getting better. She is still smoking. She denies any IV or illicit drug use. Related Data Home Medications Medication Instructions Recorded Confirmed acetaminophen [Mapap Extra 500 mg PO PRN PRN 08/19/13 05/26/18 Strength] ferrous sulfate 325 mg PO BID 05/12/17 05/26/18 warfarin [Coumadin] 5 - 15 mg PO HS #100 tab-cap 07/25/17 05/26/18 hydrochlorothiazide 25 mg PO DAILY #90 tab-cap 18 05/26/18 metoprolol tartrate 1 tab PO BID #180 tab-cap 11/27/17 05/26/18 doxycycline hyclate 100 mg PO BID #14 tab 05/19/18 05/26/18 acetaminophen [Mapap Extra 1,000 mg PO Q6H 5 Days #60 tab 05/26/18 Strength] benzonatate [Tessalon Perles] 100 mg PO TID PRN #20 cap 05/26/18 clotrimazole 1 appful VG ONCE 3 Days gm 05/26/18 cyclobenzaprine 10 mg PO TID 5 Days #15 tab 05/26/18 lidocaine [Lidoderm] 1 patch TOPICAL Q24H #4 patch 05/26/18 Previous Rx's Medication Instructions Recorded warfarin [Coumadin] 5 - 15 mg PO HS #100 tab-cap 07/25/17 hydrochlorothiazide 25 mg PO DAILY #90 tab-cap 11/27/17 metoprolol tartrate 1 tab PO BID #180 tab-cap 11/27/17 doxycycline hyclate 100 mg PO BID #14 tab 05/19/18 acetaminophen [Mapap Extra 1,000 mg PO Q6H 5 Days #60 tab 05/26/18 Strength] benzonatate [Tessalon Perles] 100 mg PO TID PRN #20 cap 05/26/18 clotrimazole 1 appful VG ONCE 3 Days gm 05/26/18 cyclobenzaprine 10 mg PO TID 5 Days #15 tab 05/26/18 lidocaine [Lidoderm] 1 patch TOPICAL Q24H #4 patch 05/26/18 Allergies Allergy/AdvReac Type Severity Reaction Status Date / Time adhesive Allergy Intermediate plastic Unverified 05/26/18 11:58 tape-blisters Penicillins Allergy Unverified 05/26/18 11:58 ibuprofen AdvReac Unverified 05/26/18 11:58 General Stated Complaint: Nk/Back Pain SURENDRA: 4 Review of Systems Review of Systems All systems reviewed & are unremarkable except as noted in HPI and below Exam Narrative Exam Narrative: 1.Const: Well-nourished, Well-developed, appearing stated age 2.Eyes: PERRL, no conjunctival injection, and symmetrical lids. 3.ENT: Atraumatic external nose and ears. Moist MM. Neck: Symmetric, trachea midline, No thyromegaly. 4.CVS: +S1/S2, No murmurs or gallops. Peripheral pulses 2+ and equal in all extremities. Brisk capillary refill in all extremities. 5.RESP: Unlabored respiratory effort. Clear to auscultation bilaterally. No wheezes rales or rhonchi 6.GI: Soft, Nontender/Nondistended, No hepatosplenomegaly. No guarding or rebound. 7.MSK: Normocephalic/Atraumatic, Extremities w/o deformity or ttp No cyanosis or clubbing, Normal movement of all extremities. Mild paraspinal tenderness over the lower lumbar region. No midline tenderness to palpation over the CTLS spine. Normal ROM in flexion, extension, side bend, and rotation. Patient has + 5 out of 5 strength in the lower extremities in dorsiflexion and plantarflexion , knee flexion and extension, hip flexion and extension. There is +2 over 2 dorsalis pedis pulses bilaterally. There is normal sensation to the skin with light touch at the foot, knee, and hip. Normal saddle sensation. Good sensation over the deep sural nerve area bilaterally. Rectal exam deferred. Reflexes are + 2 over 4 in the patellar reflex bilaterally. +5 out of 5 strength in the medial , ulnar, radial nerve distribution bilaterally in the hands as well as intact light touch sensation to these dermatomes on the hands 8.Skin: Warm, Dry. No rashes or lesions. 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 Sensation grossly intact, no focal neurologic deficits. 10.Psych: (AAO) x3. Appropriate mood and affect Course Vital Signs Temperature 36.7 C 05/26/18 11:55 Pulse 65 05/26/18 11:55 Respiratory Rate 16 05/26/18 11:55 Blood Pressure 155/91 H 05/26/18 11:55 Pulse Oximetry 95 05/26/18 11:55 Temperature 36.7 C 05/26/18 11:55 Temperature Source Skin 05/26/18 11:55 Pulse 65 05/26/18 11:55 Respiratory Rate 16 05/26/18 11:55 Respiratory Effort Non-Labored 05/26/18 11:55 Blood Pressure 155/91 H 05/26/18 11:55 Blood Pressure Position Sitting 05/26/18 11:55 Pulse Oximetry 95 05/26/18 11:55 Oxygen Delivery Method Room Air 05/26/18 11:55 Oxygen Flow Rate 0 05/26/18 11:55 Pain Level 10 05/26/18 11:55
== END 2018-05-26 13:15 | disposition home or self-care (01) ==
PROVIDERS: Emergency Provider Student in an Organized Health Care Education/Training Program; PCP Family Medicine
DX: M54.5 Low back pain (principal); J06.9 Acute upper respiratory infection, unspecified
CPT/HCPCS: 81025; 99283; 81003; 81015

== ENCOUNTER 2018-06-13 00:31 | Outpatient (CLI) | payer BC, SELFPAY ==
--- NOTE | 2018-06-13 15:46 | DI.MRI_ITS ---
SYMPTOM/DIAGNOSIS: RT INTERNAL DERANGEMENT M23.91 MRI RIGHT KNEE: Comparison is made with plain films dated 23 January 2018. The exam is limited by patient body habitus. The knee coil was unable to be used. The spine coil was utilized. Proton density and FS T2 sagittal, T1 and FS T2 coronal, FS T2 sagittal and proton density of leak sagittal sequences were performed. There is a small joint effusion and small Lacy's cyst. The cruciate ligament, lateral collateral ligaments and extensor mechanism appear intact. There is some edema around the medial collateral ligament, greater near the tibial attachment, consistent with a sprain. The menisci are suboptimally evaluated due to decreased resolution on this exam. The medial meniscus appears peripherally displaced and somewhat diminutive consistent with degenerative changes. There is some amorphous increased signal in the body and posterior horn but no definite superimposed tear. There is cartilage thinning over the medial femoral condyle and medial tibial plateau. Additional focal area of cartilage thinning is seen in the anterior aspect of the lateral femoral condyle. The patella cartilage shows normal thickness. There is some lateral patellar subluxation. The patella retinacula appear intact. The marrow signal shows red marrow reconversion, seen with obesity. IMPRESSION: Medial collateral ligament sprain. Degenerative changes of the medial meniscus without definite superimposed tear. Cartilage thinning extending down to bone seen in the anterior aspect of the lateral femoral condyle.
== END 2018-06-13 00:51 ==
PROVIDERS: PCP Family Medicine; Visit Provider Orthopaedic Surgery
DX: M23.91 Unspecified internal derangement of right knee (principal); S83.411A Sprain of medial collateral ligament of right knee, initial encounter; M17.11 Unilateral primary osteoarthritis, right knee; M25.461 Effusion, right knee
CPT/HCPCS: 73721

== ENCOUNTER 2018-06-18 09:24 | Outpatient (CLI) | payer BC, SELFPAY ==
[2018-06-18 10:42] LABS: INR 1.8 (1.0-3.5); Prothrombin Time 17.3 sec (9.3-10.8)
== END 2018-06-18 09:44 ==
PROVIDERS: PCP Family Medicine; Visit Provider Family Medicine
DX: Z95.2 Presence of prosthetic heart valve (principal); Z79.01 Long term (current) use of anticoagulants; Z79.899 Other long term (current) drug therapy
CPT/HCPCS: 36415; 85610

== ENCOUNTER 2018-07-11 09:46 | Outpatient (CLI) | payer SELFPAY ==
[2018-07-11 10:33] LABS: INR 1.9 (1.0-3.5); Prothrombin Time 19.3 sec (9.3-11.0)
== END 2018-07-11 10:06 ==
PROVIDERS: PCP Family Medicine; Visit Provider Family Medicine
DX: Z95.2 Presence of prosthetic heart valve (principal); Z79.01 Long term (current) use of anticoagulants; Z79.899 Other long term (current) drug therapy
CPT/HCPCS: 36415; 85610

== ENCOUNTER 2018-07-19 11:00 | Outpatient (CLI) | payer SELFPAY ==
[2018-07-19 11:42] LABS: Abs Immature Grans 0.03 k/cumm (0.0-0.09); Absolute Basophil Count 0.04 k/cumm (0.0-0.2); Absolute Eosinophil Count 0.19 k/cumm (0.0-0.7); Absolute Lymphocyte Count 2.07 k/cumm (1.2-3.4); Absolute Monocyte Count 0.93 k/cumm (0.11-0.7); Absolute Neutrophil Count 6.03 k/cumm (1.2-6.7); Basophils % 0.4; HCT 47.3 % (36.0-46.0); HGB 15.2 g/dL (12.0-15.5); Immature Grans % 0.3; Lymphocytes % 22.3; Mean Corp. HGB Concentration 32.1 g/dL (32.0-36.0); Mean Corpuscular Hemoglobin 27.3 pg (27.0-33.0); Mean Corpuscular Volume 85.1 fL (80-95); Platelet Count 206 x1000/uL (130-400); RBC 5.56 m/cumm (4.00-5.20); RBC Distribution Width 16.8 % (11.7-14.6); White Blood Cell Count 9.29 k/cumm (4.4-10.8)
[2018-07-19 11:51] LABS: INR 2.7 (0.9-1.1); Prothrombin Time 26.8 sec (9.3-11.0)
== END 2018-07-19 11:20 ==
PROVIDERS: PCP Family Medicine; Visit Provider Family Medicine
DX: Z95.2 Presence of prosthetic heart valve (principal); Z79.01 Long term (current) use of anticoagulants; Z79.899 Other long term (current) drug therapy
CPT/HCPCS: 36415; 85025; 85610

== ENCOUNTER 2019-01-29 16:52 | Emergency (ER) | payer SELFPAY ==
[2019-01-29 16:55] VITALS: BP 173/91; PULSE 83; RESP 20; TEMP 36.8; O2SAT 96
--- NOTE | 2019-01-29 17:37 | ED.GENADUL_ITS ---
Discharge Plan Disposition Patient Disposition: HOME Condition: Stable Discharge Details Chief Complaint: Sorethroat Clinical Impression: Pharyngitis Primary Care Provider: Luca Dominguez ED Provider: Florentin Adams Dorothy Meds and New Rx's Prescriptions: New azithromycin 250 mg tablet See Rx Instructions .ROUTE .COMPLEX Qty: 6 RF: 0 No Action ferrous sulfate 325 MG tablet 325 mg PO BID RF: 0 hydrochlorothiazide 25 MG tablet 25 mg PO DAILY Qty: 90 RF: 4 metoprolol tartrate 25 MG tablet 1 tab PO BID Qty: 180 RF: 4 warfarin [Coumadin] 10 mg tablet 5 - 15 mg PO HS Qty: 100 RF: 4 acetaminophen [Mapap Extra Strength] 500 MG tablet 500 mg PO PRN PRNRF: 0 benzonatate [Tessalon Perles] 100 mg capsule 100 mg PO TID PRN (Reason: cough) Qty: 20 RF: 0 Discharge Instructions Instructions: Pharyngitis (ED) Additional Instructions: follow up with your primary care provider if pain continues after the antibi otics. If you feel more ill, are unable to swallow any liquids return to the emergency department Medical Decision Making 48 yo female comes in with several days of sore throat and cough. Denies dyspnea and has no difficulty swallowing. She is in no distress on exam, does have posterior pharynx erythema, no exudates, midline uvula, no pain over hyoid, no restricted neck movements, no findings to suggest rpa, [employer], epiglotitis or orhter indications to suggest rpa, [employer], epiglotitis. Strep negative, pt requested abx despite this as she states it feels similar to prior strep. Educated on viral causes but still requesting abx, will start her on azithromycin given pcn allergy and return precautions given Differential Diagnosis strep, viral pharyngitis HPI General Mode of arrival: ambulatory . Date/Time Provider Initiated Documentation: 01/29/19 16:59 . Limitations to Documentation: no limitations . Information obtained by: patient . History of Present Illness 48 year old F presents to the emergency department with the chief complaint of sore throat, described as moderate, Quality is described as aching, Patient started experiencing this day(s) (4) and it has been constant. No relieving factors improve symptom(s), No exacerbating factors reported . Patient did receive the following treatments prior to arrival, none Related Data Home Medications Medication Instructions Recorded Confirmed acetaminophen [Mapap Extra 500 mg PO PRN PRN 08/19/13 01/29/19 Strength] ferrous sulfate 325 mg PO BID 05/12/17 01/29/19 hydrochlorothiazide 25 mg PO DAILY #90 tab-cap 18 01/29/19 metoprolol tartrate 1 tab PO BID #180 tab-cap 18 01/29/19 benzonatate [Tessalon Perles] 100 mg PO TID PRN #20 cap 05/26/18 01/29/19 warfarin 10 mg tablet 5 - 15 mg PO HS #100 tab-cap 06/18/18 01/29/19 azithromycin See Rx Instructions .ROUTE 01/29/19 .COMPLEX #6 tab Previous Rx's Medication Instructions Recorded hydrochlorothiazide 25 mg PO DAILY #90 tab-cap 11/27/17 metoprolol tartrate 1 tab PO BID #180 tab-cap 11/27/17 benzonatate [Tessalon Perles] 100 mg PO TID PRN #20 cap 05/26/18 warfarin 10 mg tablet 5 - 15 mg PO HS #100 tab-cap 06/18/18 azithromycin See Rx Instructions .ROUTE 01/29/19 .COMPLEX #6 tab Allergies Allergy/AdvReac Type Severity Reaction Status Date / Time adhesive Allergy Intermediate plastic Verified 01/29/19 16:56 tape-blisters Penicillins Allergy Verified 01/29/19 16:56 ibuprofen AdvReac Verified 01/29/19 16:56 General Stated Complaint: Sorethroat SURENDRA: 4 Review of Systems Review of Systems All systems reviewed & are unremarkable except as noted in HPI and below Constitutional Denies chills and Denies fever(s) Cardiovascular Denies chest pain and Denies dyspnea Respiratory Denies cough and Denies dyspnea Gastrointestinal Denies abdominal pain, Denies nausea and Denies vomiting PFSH Social History Smoking/Tobacco Use Status: Current every day Alcohol Intake: current Alcohol Intake frequency: holidays/special occasions only Drug use: Never Substance use type: does not use Do you feel safe at home: Yes Do you feel safe in your relationship?: Yes Exam Const General: no acute distress Orientation: alert HENMT Head: normal to inspection Ears: external ears normal General nose exam: external nose normal Mouth: moist mucous membranes Eyes General: appearance normal, both eyes and all related structures Neck Neck: normal visual inspection Resp Effort & Inspection: normal respiratory effort and able to speak in complete sentences Cardio Rate: regular rate Skin General skin exam: no rashes or lesions noted Neuro General: alert and oriented x3 Extrem General: normal to inspection Psych Mental Status: mental status grossly normal Course Vital Signs Temperature 36.8 C 01/29/19 16:55 Pulse 83 01/29/19 16:55 Respiratory Rate 20 01/29/19 16:55 Blood Pressure 173/91 H 01/29/19 16:55 Pulse Oximetry 96 01/29/19 16:55 Temperature 36.8 C 01/29/19 16:55 Temperature Source Temporal Artery Scan 01/29/19 16:55 Pulse 83 01/29/19 16:55 Respiratory Rate 20 01/29/19 16:55 Respiratory Effort Non-Labored 01/29/19 16:55 Blood Pressure 173/91 H 01/29/19 16:55 Pulse Oximetry 96 01/29/19 16:55 Oxygen Delivery Method Room Air 01/29/19 16:55 Oxygen Flow Rate 0 01/29/19 16:55 Pain Level 7 01/29/19 16:55 Lab/Test Results Lab/Test Results: 01/29/19 16:58 Pharynx Streptococcus Screen (SASHA) - Pending POC Strep Test-JUAN(Rapid) Start: 01/29/19 16:57 Freq: Status: Complete Protocol: Document 01/29/19 17:06 SGL (Rec: 01/29/19 17:06 SGL [id number]) Strep test-JUAN(Rapid)-POC POC-Strep test-JUAN (Rapid) Negative POC Strep Test-JUAN(Rapid) Start: 01/29/19 17:00 Freq: .Rapid Strep Test Status: Active Protocol: Document 01/29/19 17:07 AB (Rec: 01/29/19 17:07 AB [id number]) Strep test-JUAN(Rapid)-POC POC-Strep test-JUAN (Rapid) Negative POC-Strep test-JUAN (Rapid) Negative
== END 2019-01-29 17:45 | disposition home or self-care (01) ==
PROVIDERS: Emergency Provider Emergency Medicine; PCP Family Medicine
DX: J02.9 Acute pharyngitis, unspecified (principal)
CPT/HCPCS: 87880; 99283; 87081

== ENCOUNTER 2019-05-19 14:58 | Emergency (ER) | payer SELFPAY ==
[2019-05-19 15:00] VITALS: BP 168/107; PULSE 117; RESP 26; TEMP 39.3; O2SAT 100
--- NOTE | 2019-05-19 15:25 | ED.GENADUL_ITS ---
Discharge Plan Disposition Patient Disposition: HOME Condition: Improving Discharge Details Chief Complaint: RespSymp Clinical Impression: Acute viral syndrome Primary Care Provider: Luca Dominguez ED Provider: Rayray Wilkerson Home Meds and New Rx's Prescriptions: No Action ferrous sulfate 325 MG tablet 325 mg PO BID RF: 0 hydrochlorothiazide 25 MG tablet 25 mg PO DAILY Qty: 90 RF: 4 metoprolol tartrate 25 MG tablet 1 tab PO BID Qty: 180 RF: 4 warfarin [Coumadin] 10 mg tablet 5 - 15 mg PO HS Qty: 100 RF: 4 acetaminophen [Mapap Extra Strength] 500 MG tablet 500 mg PO PRN PRNRF: 0 benzonatate [Tessalon Perles] 100 mg capsule 100 mg PO TID PRN (Reason: cough) Qty: 20 RF: 0 Discharge Instructions Instructions: Viral Syndrome (ED) Additional Instructions: 1. Drink plenty of fluids. 2. Continue all medications as prescribed. 3. Acetaminophen 1000mg every 4 hours (up to 5 time a day) and/or ibuprofen 600mg every 6 hours as needed for fever or pain. Return to the Emergency Department (ED) if your condition worsens, does not improve as expected, or for ANY other concerns. Specifically, return if you have new or uncontrolled pain, worsening fever, difficulty breathing, vomiting, or are unable to drink fluids. Stand Alone Forms: Work Release Medical Decision Making 49-year-old woman with a history of chronic anticoagulation, hypertension, tobacco use. Presents with days of congestion, fever/chills, and fatigue. Nonfocal examination except for dry mucosa. Labs significant for WBC = 22, glucose 162, and a negative influenza swab. Clinically improved after receiving IV crystalloid. Discharged with a plan for aggressive oral hydration, OTC analgesics/antipyretics, and outpatient follow-up as needed. Given usual and customary return instructions prior to discharge. Medical Records Medical records reviewed: Yes I reviewed the patient's medical records. Lab Data Lab results reviewed: Yes I reviewed the patient's lab results. HPI 49-year-old woman with a history of ITP, hypertension, restless leg syndrome, and tobacco use. She is chronically anticoagulated on warfarin. Presents with 2 days of fever, weakness, congestion, decreased oral intake. Denies chest pain, palpitations, abdominal pain, change in bowel habits, urinary symptoms. Smokes and uses inhalers at baseline but denies significant dyspnea. She has had no atypical lower extremity pain or swelling. General Date/Time Provider Initiated Documentation: 05/19/19 15:15 . Related Data Home Medications Medication Instructions Recorded Confirmed acetaminophen [Mapap Extra 500 mg PO PRN PRN 08/19/13 05/19/19 Strength] ferrous sulfate 325 mg PO BID 05/12/17 05/19/19 hydrochlorothiazide 25 mg PO DAILY #90 tab-cap 18 05/19/19 metoprolol tartrate 1 tab PO BID #180 tab-cap 18 05/19/19 benzonatate [Tessalon Perles] 100 mg PO TID PRN #20 cap 05/26/18 05/19/19 warfarin 10 mg tablet 5 - 15 mg PO HS #100 tab-cap 06/18/18 05/19/19 Previous Rx's Medication Instructions Recorded hydrochlorothiazide 25 mg PO DAILY #90 tab-cap 11/27/17 metoprolol tartrate 1 tab PO BID #180 tab-cap 11/27/17 benzonatate [Tessalon Perles] 100 mg PO TID PRN #20 cap 05/26/18 warfarin 10 mg tablet 5 - 15 mg PO HS #100 tab-cap 06/18/18 Allergies Allergy/AdvReac Type Severity Reaction Status Date / Time adhesive Allergy Intermediate plastic Verified 05/19/19 15:08 tape-blisters Penicillins Allergy Verified 05/19/19 15:08 ibuprofen AdvReac Verified 05/19/19 15:08 General Stated Complaint: RespSymp SURENDRA: 3 Review of Systems All systems reviewed & are unremarkable except as noted in HPI and below PFSH Medical History Abnormal uterine bleeding (AUB) onset 2005 after AVR and chronic anticoagulation. Nl EMBx 2018. Pt will begin Aygestin for menstrual control. 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 takes Coumadin Hypertension Restless leg syndrome Tobacco use Uterine fibroid Uterus [id number] with multiple uterine fibroids. Surgical History Dilation and curettage Ligation of fallopian tube Tooth extraction WISDOM TEETH REMOVAL Valve Replacement [facility]; [facility] Family History Mother Neoplasm LUNG Father Essential hypertension Heart disease STENTS Hyperlipidemia Asthma Sister No problems noted. Sister No problems noted. Brother No problems noted. Grandfather No problems noted. Grandfather No problems noted. Grandmother , BLOOD CLOTT Heart disease Grandmother No problems noted. Son Depression Son Substance abuse Depression Son Substance abuse Daughter No problems noted. Social History Smoking/Tobacco Use Status: Current every day Tobacco Type: cigarettes Alcohol Intake: current Alcohol Intake frequency: holidays/special occasions only Drug use: Never Substance use type: does not use Do you feel safe at home: Yes Do you feel safe in your relationship?: Yes Exam Narrative Exam Narrative: Nursing note and vital signs have been reviewed and noted. GENERAL: alert, active, uncomfortable in appearance, well -hydrated, well- nourished HEENT: atraumatic/normocephalic, PERRLA, EOMI, conjunctiva clear, external ea rs/canals normal, nasal mucosa normal NECK: supple, full range of motion, no mass, normal lymphadenopathy, no thyromegaly CARDIOVASCULAR: RRR, no murmurs, nl pulses, no edema PULMONARY: nl effort, no audible wheezing or stridor, nl breath sounds with no focal deficit. no chest wall tenderness ABDOMEN: soft, non-tender, non-distended, no mass, no organomegaly EXTREMITY: normal muscle tone, all joints with FROM, no deformity or tenderness SKIN: no exanthem appreciated NEURO: gross motor exam normal, normal stance and gait PSYCH: alert and oriented, Course Vital Signs Vital signs: Vital Signs Temperature 102.7 F H 05/19/19 15:00 Pulse 117 H 05/19/19 15:00 Respiratory Rate 26 H 05/19/19 15:00 Blood Pressure 168/107 H 05/19/19 15:00 Pulse Oximetry 100 05/19/19 15:00 Temperature 102.7 F H 05/19/19 15:00 Temperature Source Oral 05/19/19 15:00 Pulse 117 H 05/19/19 15:00 Respiratory Rate 26 H 05/19/19 15:00 Respiratory Effort 05/19/19 15:10 Respiratory Depth Normal 05/19/19 15:10 Blood Pressure 168/107 H 05/19/19 15:00 Blood Pressure Position Sitting 05/19/19 15:00 Pulse Oximetry 100 05/19/19 15:00 Oxygen Delivery Method Room Air 05/19/19 15:00 Oxygen Flow Rate 0 05/19/19 15:00 Pain Level 10 05/19/19 15:00 Lab/Test Results Lab/Test Results: 05/19/19 15:03 Nasopharynx Influenza Types A,B Antigen - Final
[2019-05-19] MEDS: Normal Saline 1,000 ML 1000 ML IV (15:38)
[2019-05-19 15:41] LABS: Abs Immature Grans 0.08 k/cumm (0.0-0.09); Absolute Basophil Count 0.04 k/cumm (0.0-0.2); Basophils % 0.2; Eosinophils % 0.1; HCT 46.9 % (36.0-46.0); HGB 15.5 g/dL (12.0-15.5); Immature Grans % 0.4; Lymphocytes % 5.4; Mean Corpuscular Hemoglobin 29.2 pg (27.0-33.0); Mean Corpuscular Volume 88.5 fL (80-95); Mean Platelet Volume 10.4 fL (8.0-11.0); Monocytes % 9.8; Neutrophils % 84.1; Platelet Count 191 x1000/uL (130-400); RBC Distribution Width 13.6 % (11.7-14.6); White Blood Cell Count 22.37 k/cumm (4.4-10.8)
[2019-05-19 15:43] LABS: Absolute Eosinophil Count 0.02 k/cumm (0.0-0.7); Absolute Lymphocyte Count 1.21 k/cumm (1.2-3.4); Absolute Monocyte Count 2.19 k/cumm (0.11-0.7); Absolute Neutrophil Count 18.81 k/cumm (1.2-6.7)
[2019-05-19 15:51] LABS: Anion Gap 9.3 mmol/L (3-11); BUN 10 mg/dL (7-18); CO2 26.7 mmol/L (21.0-32.0); CREATININE 1.06 mg/dL (0.55-1.02); Calcium 8.9 mg/dL (8.5-10.1); Chloride 99 mmol/L (98-107); Glucose 162 mg/dL (70-100); Potassium 3.6 mmol/L (3.5-5.1); Sodium 135 mmol/L (136-145)
[2019-05-19 16:15] LABS: Diff Comment Agrees w/ Instrument; RBC Morphology Normal
[2019-05-19] MEDS: Lactated Ringers 1,000 ML 1000 ML IV (16:24)
== END 2019-05-19 17:10 | disposition home or self-care (01) ==
PROVIDERS: Emergency Provider Emergency Medicine; PCP Family Medicine
DX: B34.9 Viral infection, unspecified (principal); I10 Essential (primary) hypertension; Z79.01 Long term (current) use of anticoagulants
CPT/HCPCS: 36415; 80048; 87449; 96360; 96361; 99283; 85025

== ENCOUNTER 2019-05-20 11:49 | Emergency (ER) | payer SELFPAY ==
[2019-05-20 12:01] VITALS: BP 140/91; PULSE 91; RESP 16; TEMP 37; O2SAT 96
--- NOTE | 2019-05-20 12:15 | ED.GENADUL_ITS ---
Discharge Plan Disposition Patient Disposition: HOME Condition: Stable Discharge Details Chief Complaint: Sorethroat Clinical Impression: Strep pharyngitis Primary Care Provider: Luca Dominguez ED Provider: Fifi Flood Home Meds and New Rx's Prescriptions: New clindamycin HCl 300 mg capsule 300 mg PO TID 10 Days Qty: 30 RF: 0 prednisone 20 mg tablet 60 mg PO DAILY Qty: 12 RF: 0 No Action ferrous sulfate 325 MG tablet 325 mg PO BID RF: 0 hydrochlorothiazide 25 MG tablet 25 mg PO DAILY Qty: 90 RF: 4 metoprolol tartrate 25 MG tablet 1 tab PO BID Qty: 180 RF: 4 warfarin [Coumadin] 10 mg tablet 5 - 15 mg PO HS Qty: 100 RF: 4 acetaminophen [Mapap Extra Strength] 500 MG tablet 500 mg PO PRN PRNRF: 0 benzonatate [Tessalon Perles] 100 mg capsule 100 mg PO TID PRN (Reason: cough) Qty: 20 RF: 0 Discharge Instructions Instructions: Clindamycin (By mouth), Prednisone (By mouth), Pharyngitis (ED) Stand Alone Forms: Work Release Referrals: Luca Dominguez [Primary Care Provider] - Discharge Data Discharge Date/Time-TO BE ENTERED AT DEPARTURE: 05/20/19 12:55 Medical Decision Making Juani Arias is a 49 y/o woman with a history of hypertension, aortic valve replacement, TIA, anticoagulated on Coumadin, hypertension who presented to the emergency department with sore throat since last night after being seen here yesterday for fevers, fatigue, generalized body aches over the past 4 to 5 days. On exam patient is well and nontoxic appearing. She has bilateral tonsillar edema and bilateral tonsillar exudates, uvula midline, normal voice, handling secretions without issue, full painless range of motion of the neck. Patient taking p.o. in the emergency department without issue. Concern for bacterial versus viral pharyngitis. Rapid strep is positive. Exam/history is not co nsistent with peritonsillar abscess, retropharyngeal abscess, Ke[place] angina, impending airway compromise, meningitis, sepsis. Given significant tonsillar edema, plan for steroids for comfort, will also treat with clindamycin given penicillin allergy. I had a lengthy discussion with the patient regarding return to emergency department precautions, importance of outpatient follow-up with her PCP, home care. Patient verbalized understanding of the plan was amenable. All questions were answered. Patient was discharged home with clear plan for outpatient follow-up. Medical Records Medical records reviewed: Yes I reviewed the patient's medical records. Lab Data Lab results reviewed: Yes I reviewed the patient's lab results. HPI General Mode of arrival: ambulatory . Date/Time Provider Initiated Documentation: 05/20/19 12:15 . Limitations to Documentation: no limitations . Information obtained by: patient, RN notes reviewed and old records reviewed . HPI Narrative: Juani Arias is a 49 y/o woman with a history of hypertension, aortic valve replacement, TIA, anticoagulated on Coumadin, hypertension presenting to the emergency department with sore throat. Per patient and record review, patient was seen here yesterday for generalized arthralgias and myalgias, fatigue, fever, had screening labs performed, was given IV fluid, discharged home. Patient reports that sore throat developed last night after being seen in ED. She reports that she has continued to have fever, generalized body aches, but now sore throat is her most severe symptom. She reports that she has been able to drink fluids without issue, but has had too much pain with swallowing to food. She denies shortness of breath, vomiting, diarrhea, skin rash. Able to lie flat without issue. Related Data Home Medications Medication Instructions Recorded Confirmed acetaminophen [Mapap Extra 500 mg PO PRN PRN 08/19/13 05/20/19 Strength] ferrous sulfate 325 mg PO BID 05/12/17 05/20/19 hydrochlorothiazide 25 mg PO DAILY #90 tab-cap 11/27/17 05/20/19 metoprolol tartrate 1 tab PO BID #180 tab-cap 11/27/17 05/20/19 benzonatate [Tessalon Perles] 100 mg PO TID PRN #20 cap 05/26/18 05/20/19 warfarin 10 mg tablet 5 - 15 mg PO HS #100 tab-cap 06/18/18 05/20/19 clindamycin HCl 300 mg PO TID 10 Days #30 cap 05/20/19 prednisone 60 mg PO DAILY #12 tab 05/20/19 Previous Rx's Medication Instructions Recorded hydrochlorothiazide 25 mg PO DAILY #90 tab-cap 11/27/17 metoprolol tartrate 1 tab PO BID #180 tab-cap 11/27/17 benzonatate [Tessalon Perles] 100 mg PO TID PRN #20 cap 05/26/18 warfarin 10 mg tablet 5 - 15 mg PO HS #100 tab-cap 06/18/18 clindamycin HCl 300 mg PO TID 10 Days #30 cap 05/20/19 prednisone 60 mg PO DAILY #12 tab 05/20/19 Allergies Allergy/AdvReac Type Severity Reaction Status Date / Time adhesive Allergy Intermediate plastic Verified 05/20/19 12:07 tape-blisters Penicillins Allergy Verified 05/20/19 12:07 ibuprofen AdvReac Verified 05/20/19 12:07 General Stated Complaint: Sorethroat SURENDRA: 4 Review of Systems Narrative: Constitutional: Reports fevers, fatigue Eyes: denies eye pain ENT: denies facial pain, dental pain, reports sore throat Cardiovascular: denies chest pain, edema Respiratory: denies SOB, cough GI: denies abdominal pain, vomiting, diarrhea : denies flank pain MSK: denies back pain, neck pain, reports generalized arthralgias and myalgias Skin: denies rash Neuro: denies headaches, numbness, weakness PFSH Medical History Abnormal uterine bleeding (AUB) onset 2005 after AVR and chronic anticoagulation. Nl EMBx 2018. Pt will begin Aygestin for menstrual control. 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 takes Coumadin Hypertension Restless leg syndrome Tobacco use Uterine fibroid Uterus [id number] with multiple uterine fibroids. Social History Smoking/Tobacco Use Status: Current every day Tobacco Type: cigarettes Alcohol Intake: current Alcohol Intake frequency: holidays/special occasions o nly Drug use: Never Substance use type: does not use Do you feel safe at home: Yes Do you feel safe in your relationship?: Yes Exam Narrative Exam Narrative: Constitutional: well and [id number], pleasant, conversing normally HENT: head atraumatic/normocephalic/normal inspection, mucous membranes moist, tonsils 3+ bilaterally with exudate bilaterally, uvula midline, otherwise normal oropharynx without intraoral lesion, no drooling or pooling of secretions, normal voice, no tongue elevation Eyes: conjunctiva normal, sclera normal, pupils 3mm b/l Neck: no stridor, normal painless ROM, trachea midline, no anterior or posterior lymphadenopathy Chest: normal inspection Resp: normal work of breathing, LCTAB Cardio: normal rate, normal rhythm, no murmur appreciated Back: normal inspection, no rash Skin: warm, dry, normal color, no rash Neuro: alert, not altered, grossly non-focal, normal tone Ext: Moving all extremities equally Psych: normal mood, normal affect, normal behavior Course Vital Signs Vital signs: Vital Signs Temperature 37 C 05/20/19 12:01 Pulse 91 H 05/20/19 12:01 Respiratory Rate 16 05/20/19 12:01 Blood Pressure 140/91 H 05/20/19 12:01 Pulse Oximetry 96 05/20/19 12:01 Temperature 37 C 05/20/19 12:01 Temperature Source Temporal Artery Scan 05/20/19 12:01 Pulse 91 H 05/20/19 12:01 Respiratory Rate 16 05/20/19 12:01 Respiratory Effort Non-Labored 05/20/19 12:06 Blood Pressure 140/91 H 05/20/19 12:01 Blood Pressure Position Sitting 05/20/19 12:01 Pulse Oximetry 96 05/20/19 12:01 Oxygen Delivery Method Room Air 05/20/19 12:01 Oxygen Flow Rate 0 05/20/19 12:01 Pain Level 8 05/20/19 12:01
[2019-05-20] MEDS: predniSONE 20 MG TAB 60 MG PO (12:46)
[2019-05-20] MEDS: Clindamycin 300 MG CAP PO (12:46)
== END 2019-05-20 12:55 | disposition home or self-care (01) ==
PROVIDERS: Emergency Provider Student in an Organized Health Care Education/Training Program; PCP Family Medicine
DX: J02.0 Streptococcal pharyngitis (principal); I10 Essential (primary) hypertension; Z79.01 Long term (current) use of anticoagulants
CPT/HCPCS: 87880; 99283; J7512

== ENCOUNTER 2019-08-26 14:55 | Outpatient (CLI) | payer SELFPAY ==
[2019-08-26 15:43] LABS: Abs Immature Grans 0.01 k/cumm (0.0-0.09); Absolute Basophil Count 0.04 k/cumm (0.0-0.2); Absolute Eosinophil Count 0.21 k/cumm (0.0-0.7); Absolute Lymphocyte Count 2.11 k/cumm (1.2-3.4); Absolute Monocyte Count 1.12 k/cumm (0.11-0.7); Absolute Neutrophil Count 5.85 k/cumm (1.2-6.7); Basophils % 0.4; Eosinophils % 2.2; HCT 46.3 % (36.0-46.0); Immature Grans % 0.1 %; Lymphocytes % 22.6; Mean Corp. HGB Concentration 32.4 g/dL (32.0-36.0); Mean Corpuscular Hemoglobin 28.8 pg (27.0-33.0); Mean Corpuscular Volume 88.9 fL (80-95); Mean Platelet Volume 10.4 fL (8.0-11.0); Neutrophils % 62.7; Platelet Count 228 x1000/uL (130-400); RBC 5.21 m/cumm (4.00-5.20); RBC Distribution Width 13.7 % (11.7-14.6); White Blood Cell Count 9.34 k/cumm (4.4-10.8)
[2019-08-26 15:59] LABS: INR 1.3 (0.9-1.1)
== END 2019-08-26 15:15 ==
PROVIDERS: Visit Provider Family Medicine
DX: Z95.2 Presence of prosthetic heart valve (principal); Z79.899 Other long term (current) drug therapy
CPT/HCPCS: 36415; 85025; 85610

== ENCOUNTER 2020-01-17 15:59 | Outpatient (REF) | payer SELFPAY ==
[2020-01-23 20:34] LABS: SARS-CoV-2 RNA Undetected (Undetected)
== END 2020-01-17 16:19 ==
LOC: NCHCN 15:59
PROVIDERS: PCP Nurse Practitioner Family; Visit Provider Nurse Practitioner Family
DX: Z20.828 Contact with and (suspected) exposure to other viral communicable diseases (principal)
CPT/HCPCS: U0003

== ENCOUNTER 2020-07-16 20:25 | Inpatient (IN) | payer SELFPAY ==
[2020-07-16] VITALS (11 sets, daily range): BP systolic 148–191; BP diastolic 91–147; PULSE 84–97; RESP 12–31; TEMP 36.1; O2SAT 95–99
--- NOTE | 2020-07-16 20:30 | RT.EKG_ITS ---
APPROVED REPORT Exam: Resting ECG Patient Location: E HR:95 bpm ECG Measurements Heart Rate 95 AXIS [place] 172 P 87 QRSd 111 QRS 33 QT 382 T 132 QTc 475 Conclusion Sinus rhythm...normal P axis, V-rate 60- 99 Atrial premature complexes...SV complexes w/ short R-R intvls Probable LVH with secondary repol abnrm...multiple LVH criteria ST elevation, consider inferior injury...ST >0.08mV, II III aVF No elevation in II. Elevation in III. Inconsistent elevation in aVF. No STEMI. Diffuse ST-T wave changes anterior lateral w/ inverted T waves lateral.
--- NOTE | 2020-07-16 20:45 | W.ED.GENAD ---
Discharge Plan Disposition Patient Disposition: [facility] INPATIENT Condition: Poor Discharge Details Chief Complaint: Chest Pain Clinical Impression: Acute myopericarditis Primary Care Provider: Martha Iraheta ED Provider: Jefferson Reynolds [place] Tam[place] and New Rx's Prescriptions: No Action ferrous sulfate 325 MG tablet 325 mg PO BID RF: 0 hydrochlorothiazide 25 mg tablet 25 mg PO DAILY Qty: 30 RF: 0 metoprolol tartrate 25 mg tablet 25 mg PO BID Qty: 60 RF: 0 warfarin [Coumadin] 10 mg tablet 5 - 15 mg PO HS Qty: 35 RF: 0 acetaminophen [Mapap Extra Strength] 500 MG tablet 500 mg PO PRN PRNRF: 0 prednisone 20 mg tablet 60 mg PO DAILY Qty: 12 RF: 0 benzonatate [Tessalon Perles] 100 mg capsule 100 mg PO TID PRN (Reason: cough) Qty: 20 RF: 0 Medical Decision Making Patient presenting with substernal chest pain that is pleuritic in nature but associated with some shortness of breath as well as possibility of viral symptoms. 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 She also is now saying her daughter has similar mild viral symptoms. EKG is significantly changed from previous but that old EKG is normal 5 years old. She now has evidence of LVH with inverted T waves anterior laterally. Questionable mild ST elevation inferiorly. She is on Coumadin for her heart valve so theoretically should not have PE. By Wells criteria she is low risk. However, because of age unable to PERC her out. Have decided to make patient a PUI. Laboratory studies obtained, Covid testing done, portable chest x-ray ordered. Laboratory studies show slightly elevated white count 11.9. Hemoglobin and platelets normal. INR low at 1.8. D-dimer positive at 656. Chemistries unremarkable. Glucose a little high. Liver function normal. Troponin indeterminant at 0.27. BNP elevated at 3327. Portable chest x-ray with possible atypical pneumonia versus mild pulmonary edema. Patient ordered for aspirin and nitroglycerin as well as repeat EKG. Nitroglycerin without change in symptoms. Continues to have mild discomfort. Repeat EKG now shows sinus rhythm with LVH and inverted T waves anteriorly laterally. Really no significant change from earlier tonight. Does not seem cardiac to me but given indeterminate troponin and elevated BNP still have to consider. Doubt PE but with subtherapeutic INR and positive D-dimer also need to consider this. Also still consider Covid given chest x-ray. Could explain indeterminate troponin as myocarditis related to Covid. Rapid Covid test has been obtained. CTA of the chest ordered. Repeat troponin to be done in 1 hour. Rapid Covid came back negative. CTA of the chest negative for PE. Some evidence of pulmonary edema versus atypical pneumonia. With negative Covid and elevated BNP would favor the former. Second troponin obtained and came back positive now at 2.37. Call placed to [facility] to speak to cardiology. Nitroglycerin started. Will discuss with cardiology anticoagulation given her INR is 1.8 on Coumadin as well as Plavix or not. 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 Discussed with cardiology at [facility]. All 3 EKGs sent for review. IV nitroglycerin not really changing her chest pressure. Discussion with cardiology leads us more towards viral myopericarditis as opposed to NSTEMI. Cardiology recommends not doing heparin or Plavix. Would admit for serial troponins and echo and start nonsteroidal treatment for presumed myopericarditis. Case discussed with hospitalist here. Nitroglycerin discontinued. Her nighttime dose of Coumadin ordered. Indomethacin ordered. Patient to be admitted upstairs for further evaluation and management. Medical Records Medical records reviewed: Yes I reviewed the patient's medical records. Lab Data Lab results reviewed: Yes I reviewed the patient's lab results. ECG Data Attestation: I personally reviewed and interpreted this ECG (s) as follows: Interpretation: see EKG HPI General Mode of arrival: ambulatory. Date/Time Provider Initiated Documentation: 07/16/20 20:45. Limitations to Documentation: no limitations. Information obtained by: patient, RN notes reviewed and old records reviewed. HPI Narrative: Patient presents to the ED with complaint of chest pain. Patient reports she developed chest pain around 4 PM. Reports it as being substernal pressure, but worse with inspiration. She used her albuterol inhaler a couple of times which seemed to help some. She did feel short of breath. She still has some discomfort and some shortness of breath tonight, but nothing like she had this afternoon. She is never really had this previously. She does have a [place] [facility] aortic valve. She is on Coumadin. She does smoke. She does have history of hypertension. She denies leg pain or leg swelling. She denies fever. 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 She reports developing runny nose, headache, fatigue, slight cough this morning. She has no GI symptoms. There is no radiation of the chest pain. She decided to come in tonight because she just was not feeling back to normal. Related Data Home Medications Medication Instructions Recorded Confirmed acetaminophen [Mapap Extra 500 mg PO PRN PRN 08/19/13 07/16/20 Strength] ferrous sulfate 325 mg PO BID 05/12/17 07/16/20 benzonatate [Tessalon Perles] 100 mg PO TID PRN #20 cap 05/26/18 05/20/19 prednisone 60 mg PO DAILY #12 tab 05/20/19 hydrochlorothiazide 25 mg tablet 25 mg PO DAILY #30 tab-cap 08/27/19 07/16/20 metoprolol tartrate 25 mg tablet 25 mg PO BID #60 tab-cap 08/27/19 07/16/20 warfarin 10 mg tablet 5 - 15 mg PO HS #35 tab-cap 08/27/19 07/16/20 Previous Rx's Medication Instructions Recorded benzonatate [Tessalon Perles] 100 mg PO TID PRN #20 cap 05/26/18 prednisone 60 mg PO DAILY #12 tab 05/20/19 hydrochlorothiazide 25 mg tablet 25 mg PO DAILY #30 tab-cap 08/27/19 metoprolol tartrate 25 mg tablet 25 mg PO BID #60 tab-cap 08/27/19 warfarin 10 mg tablet 5 - 15 mg PO HS #35 tab-cap 08/27/19 Allergies Allergy/AdvReac Type Severity Reaction Status Date / Time adhesive Allergy Intermediate plastic Verified 07/16/20 20:35 tape-blisters Penicillins Allergy Verified 07/16/20 20:35 ibuprofen AdvReac Verified 07/16/20 20:35 General Stated Complaint: Chest Pain SURENDRA: 2 Review of Systems Narrative: 04/22 Review of Systems completed and is negative except as stated above in HPI (Systems reviewed: Const, Eyes, ENT, Resp, CV, GI, , MSK, Skin, Neuro) [facility] Medical History (Updated 07/17/20 @ 01:50 by Jefferson Reynolds MD) Abnormal uterine bleeding (AUB) onset 2005 after AVR and chronic anticoagulation. Nl EMBx 2018. Pt will begin Aygestin for menstrual control. 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 takes Coumadin Hypertension Restless leg syndrome Tobacco use Uterine fibroid Uterus [id number] with multiple uterine fibroids. Surgical History Dilation and curettage Ligation of fallopian tube Tooth extraction WISDOM TEETH REMOVAL Valve Replacement [facility]; AORTIC Family History Mother Neoplasm LUNG Father Essential hypertension Heart disease STENTS Hyperlipidemia Asthma Sister No problems noted. Sister No problems noted. Brother No problems noted. Grandfather No problems noted. Grandfather No problems noted. Grandmother , BLOOD CLOTT Heart disease Grandmother No problems noted. Son Depression Son Substance abuse Depression Son Substance abuse Daughter No problems noted. Social History Smoking/Tobacco Use Status: Current every day Tobacco Type: cigarettes Smoking risk assessment performed?: Yes Alcohol Intake: current Alcohol Intake frequency: holidays/special occasions only Drug use: Never Substance use type: does not use Do you feel safe at home: Yes Do you feel safe in your relationship?: Yes Exam Narrative Exam Narrative: Const: Obese female in NAD. HEENT: NC/AT. Normal facial exam. Eyes: Normal conjunctiva and sclera. Neck: Supple. Trachea midline. Lungs: Normal respiratory effort. Lungs are clear. Cor: RRR with murmur. Good radial pulses. GI: Soft. NT/ND. No guarding or rebound. Neuro: A+O x 3. Normal speech, mentation, gait. Cranial nerves II - XII grossly intact. No gross motor or sensory deficit. Ext: No C/C/E. No calf tenderness. Skin: Warm and dry without rash. Course Vital Signs Vital signs: Vital Signs Temperature 97.0 F L 07/16/20 20:30 Pulse 97 H 07/16/20 20:30 Respiratory Rate 29 H 07/16/20 20:30 Blood Pressure 191/98 H 07/16/20 20:30 Pulse Oximetry 99 07/16/20 20:30 Temperature 97.0 F L 07/16/20 20:30 Pulse 97 H 07/16/20 20:30 Respiratory Rate 29 H 07/16/20 20:30 Blood Pressure 191/98 H 07/16/20 20:30 Blood Pressure Position Sitting 07/16/20 20:30 Pulse Oximetry 99 07/16/20 20:30 Pain Level 4 07/16/20 20:30
--- NOTE | 2020-07-16 21:00 | DI.RAD_ITS ---
EXAM: XR PORTABLE CHEST AP CLINICAL HISTORY: SOB TECHNIQUE: 2D digital imaging was performed. COMPARISON: CR CHEST 2 VIEWS PA,LAT from 12/09/2016 FINDINGS: MEDIASTINUM: Normal. HEART: Cardiomegaly. Aortic valve replacement. PULMONARY VASCULATURE: Normal. LUNGS: Clear. PLEURAL SPACE: No pleural effusion or pneumothorax. BONE:Within normal limits for the patient's age. Sternal wires are again seen. OTHER FINDINGS:Normal. IMPRESSION: No acute pulmonary findings. DATA REPOSITORY: RADIATION DOSE DELIVERED:
[2020-07-16 21:18] LABS: Abs Immature Grans 0.05 10^3/uL (0.0-0.06); Absolute Basophil Count 0.05 10^3/uL (0.0-0.2); Absolute Eosinophil Count 0.11 10^3/uL (0.0-0.7); Absolute Monocyte Count 0.94 10^3/uL (0.1-0.8); Basophils % 0.4; Eosinophils % 0.9; HCT 47.7 % (36.0-46.0); HGB 15.5 g/dL (11.2-15.7); Immature Grans % 0.4; Lymphocytes % 15.4; MCH 28.9 pg (27.0-33.0); MCHC 32.5 % (32.0-36.0); MCV 88.8 fL (80-95); MPV 10.9 fL (8.0-11.0); Monocytes % 7.9; Nucleated RBC 0 %; Platelet Count 201 10^3/uL (130-400); RBC 5.37 10^6/uL (3.93-5.22); RDW 12.9 % (11.7-14.6); RDW-SD 42.2 fL; WBC 11.91 10^3/uL (4.4-10.8)
[2020-07-16 21:21] LABS: INR 1.8 (0.9-1.1); Prothrombin Time 18.1 sec (9.3-11.0)
[2020-07-16 21:28] LABS: Absolute Lymphocyte Count 1.83 10^3/uL (1.2-3.4); Absolute Neutrophil Count 8.93 10^3/uL (1.2-6.7)
[2020-07-16 21:32] LABS: ALT 27 U/L (14-59); AST 20 U/L (15-37); Albumin 3.2 g/dL (3.4-5.0); Alkaline Phosphatase 70 U/L (46-116); Anion Gap 7.5 mmol/L (3-11); BUN 12 mg/dL (7-18); Bilirubin, Total 0.3 mg/dL (0.2-1.0); CO2 27.5 mmol/L (21.0-32.0); Calcium 8.7 mg/dL (8.5-10.1); Chloride 104 mmol/L (98-107); Estimated GFR 52.58 (mL/min/1.73m2); Glucose 158 mg/dL (74-106); Magnesium 1.8 mg/dL (1.8-2.4); Potassium 3.6 mmol/L (3.5-5.1); Sodium 139 mmol/L (136-145); Total Protein 7.5 g/dL (6.4-8.2)
[2020-07-16 21:36] LABS: NT-proBNP 3327 pg/mL (<300)
[2020-07-16 21:47] LABS: Troponin I 0.27 ng/mL (<0.06)
--- NOTE | 2020-07-16 22:00 | RT.EKG_ITS ---
APPROVED REPORT Exam: Resting ECG Patient Location: E HR:87 bpm ECG Measurements Heart Rate 87 AXIS ID 156 P 81 QRSd 109 QRS 45 QT 401 T 153 QTc 482 Conclusion Sinus rhythm...normal P axis, V-rate 60- 99 Probable LVH with secondary repol abnrm...multiple LVH criteria No ST elevation in inferior leads at all. There are no significant changes compared to prior EKG performed on 07/16/2020 at 20:34.
[2020-07-16] MEDS: Aspirin 81 MG CHEW 324 MG CH (22:07)
[2020-07-16] MEDS: nitroGLYcerin 0.4 MG TAB SL (22:07)
--- NOTE | 2020-07-16 22:15 | DI.CT_ITS ---
EXAM: CT CHEST PE CTA CLINICAL HISTORY: chest pain, subtheraputic INR, SOB, +d-dimer. TECHNIQUE: Imaging Protocol: Axial CT angiography was performed with multi-slice acquisition and mu lti-planar and/or 3D reconstructions. CONTRAST MATERIAL: Intravenous: Omnipaque 350 Contrast volume:100 mL COMPARISON: CR CHEST 2 VIEWS PA,LAT from 12/09/2016 CT ABD PELVIS WITH CONTRAST from 05/08/2017 CR,XR XR PORTABLE CHEST AP from 07/16/2020 FINDINGS: The examination is limited due to patient motion artifact. Tracheobronchial tree: Patent where visualized. Pulmonary parenchyma: No consolidation or dominant measurable mass. No architectural distortion. Pulmonary Arteries: No evidence of filling defect to suggest pulmonary emboli. Mediastinum and Cynthia: No dominant adenopathy or fluid collection. Small hiatal hernia. Visualized thyroid gland: Unremarkable. Pleura: No effusion or pneumothorax. Heart: Cardiomegaly. Aortic valve prosthesis. No coronary artery calcifications are seen. No perica rdial effusion. Aorta: There is ectasia of the ascending aorta measuring up to 3.9 cm. Atherosclerosis. No evidence of dissection. Upper abdomen: Unremarkable. Bones: Normal.Sternal wires are in place. Soft tissues: Unremarkable. IMPRESSION: No evidence of pulmonary embolism, thoracic aortic dissection or aneurysm. RADIATION DOSE DELIVERED: 539.03mGy.cm Total DLP DATA REPOSITORY: All CT scans at this facility are submitted to the National Radiology Data Registry (NRDR) Dose Index Registry (DIR) with the [employer] (ACR). RADIATION OPTIMIZATION: All CT scans at this facility use at least one of these dose optimization te chniques: automated exposure control; mA and/or kV adjustment per patient size (includes targeted exa ms where dose is matched to clinical indication); or iterative reconstruction.
[2020-07-16 22:22] LABS: D-Dimer 656 ng/mlFEU (<500)
--- NOTE | 2020-07-16 22:24 | DI.VRAD_ITS ---
PROCEDURE INFORMATION: Exam: XR Chest, 1 View Exam date and time: 07/16/2020 9:01 PM Age: 50 years old Clinical indication: Other: SOB; Prior surgery; Surgery date: 6+ months; Surgery type: Valve replacement TECHNIQUE: Imaging protocol: XR of the chest Views: 1 view. COMPARISON: CR CHEST 2 VIEWS PA,LAT 12/09/2016 10:34 AM FINDINGS: Lungs: Pulmonary vascular prominence. No convincing consolidation. Pleural space: Suspected small bilateral pleural effusions. no pneumothorax. Heart/Mediastinum: Cardiac silhouette enlarged. Bones/joints: no acute displaced fractures. Other findings: Surgical changes project over the chest. IMPRESSION: Findings suggestive of mild pulmonary edema. Superimposed infection not excluded in the appropriate clinical setting. Dictated and Authenticated by: Joseph Bradford MD. Ordering:NILSA Paulino MD
[2020-07-16 22:39] LABS: Source Nasopharynx
[2020-07-16 23:16] LABS: COVID-19 PCR Negative (Negative); Influenza A PCR Negative (Negative); Influenza B PCR Negative (Negative); RSV PCR Negative (Negative)
[2020-07-16] MEDS: Omnipaque 350 MG/ML 100 ML BTL IJ (23:22)
[2020-07-16] MEDS: Normal Saline Flush 10 ML SYR IVP (23:23)
[2020-07-16] MEDS: Normal Saline - Diluent 50 ML VIAL IV (23:23)
--- NOTE | 2020-07-16 23:49 | DI.VRAD_ITS ---
PROCEDURE INFORMATION: Exam: CT Angiography Chest With Contrast Exam date and time: 07/16/2020 10:30 PM Age: 50 years old Clinical indication: Other: Chest pain, subtheraputic inr, SOB, +d-dimer; Prior surgery; Surgery date: 6+ months TECHNIQUE: Imaging protocol: Computed tomographic angiography of the chest with intravenous contrast. 3D rendering (Not supervised by radiologist): MIP and/or 3D reconstructed images were created by the technologist. Contrast material: OMNIPAQUE 350; Contrast volume: 100 ml; Contrast route: INTRAVENOUS (IV); COMPARISON: CR XR PORTABLE CHEST AP 07/16/2020 9:51 PM FINDINGS: Pulmonary arteries: Main pulmonary artery dilated up to 3.3 cm. This could be seen in the setting of pulmonary hypertension. 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 Thyroid: Visualized thyroid unremarkable. Lungs: Clear central airways. No focal consolidation. there is suggestion of interlobular septal thickening. Please see image 67 series 6. There is limited evaluation lung parenchyma secondary to areas of motion. Faint ground-glass opacities are present. For example please see left lower lobe image 357 series 6. Mild atelectatic changes are present. Pleural space: No pneumothorax. No sizable pleural effusion. Heart: Heart is prominent however this could be at least partly related to the phase of respiration. No evidence of aortic valve replacement. Mediastinal space: Small hiatal hernia. Lymph nodes: Scattered prominent nodes are nonspecific and may be reactive. Liver: Hepatic steatosis. Bones/joints: Bony degenerative changes. No acute fracture or dislocation. Soft tissues: Unremarkable superficial soft tissues. Other findings: Sternal wires. IMPRESSION: 1. No convincing evidence of pulmonary embolus. 2. 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 Follow-up 6 months. 3. Findings are suggestive of mild pulmonary edema. Vague ground-glass opacities present nonspecific however and could be infectious/inflammatory in origin. Clinical correlation advised. 4. Other findings as above. Dictated and Authenticated by: Joseph Bradford MD. Ordering:NILSA Paulino MD
[2020-07-17] VITALS (42 sets, daily range): BP systolic 109–187; BP diastolic 79–138; PULSE 66–116; RESP 17–28; TEMP 36.7; O2SAT 92–97
--- NOTE | 2020-07-17 00:15 | RT.EKG_ITS ---
APPROVED REPORT Exam: Resting ECG Patient Location: E HR:85 bpm ECG Measurements Heart Rate 85 AXIS VA 167 P 105 QRSd 112 QRS 50 QT 420 T 175 QTc 495 Conclusion Sinus rhythm...normal P axis, V-rate 60- 99 Probable LVH with secondary repol abnrm...multiple LVH criteria There are no significant changes compared to prior EKG performed on 07/16/2020 at 22:10.
[2020-07-17 00:23] LABS: Troponin I 2.36 ng/mL (<0.06)
--- NOTE | 2020-07-17 01:59 | W.PM.HP.N ---
Date of service: 07/17/20 Time of Service: 02:00 Assessment and Plan Assessment and plan (1) Acute myopericarditis: Start date: 07/17/20 Status: Acute Assessment and plan: This is a 50-year-old lady presenting with pleuritic type chest pain retrosternally but also associate with some exertion and recent viral infection. She has had elevated troponins and is a smoker chronically with no history of CAD but aortic valve replacement with prosthetic [facility] Klever's valve. There is a question of mild pulmonary edema and infiltrate which may be infectious. He has had no fever. She is COVID-19 negative testing. She will be started on NSAIDs with indomethacin 50 mg twice daily and follow-up echocardiogram in the morning. Cardiology consultation has been placed. Because of the question of pneumonia will cover her for community-acquired pneumonia and hold on diuretics for possible mild pulmonary edema but patient not significantly hypoxic at this time. This can be reviewed after echocardiogram with cardiology consultation. If her troponins worsen consider rediscussion of transfer to [facility] cardiology. Coumadin therapy will be continued. (2) Pneumonia: Start date: 07/17/20 Status: Acute Assessment and plan: Patient will be treated for community-acquired pneumonia with Rocephin and doxycycline. Follow-up imaging. Qualifiers: Pneumonia type: due to unspecified organism Laterality: unspecified laterality Lung location: unspecified part of lung Qualified Code(s): J18.9 - Pneumonia, unspecified organism (3) Aortic valve replaced: Status: Chronic Assessment and plan: Continue Coumadin therapy with monitoring of PT/INR and adjustment to goal. (4) Essential hypertension: Status: Chronic Assessment and plan: Continue output medication monitoring for control with adjustment while in the hospital. Her metoprolol will be increased in dose because of slight increase in hypertension in the ED. (5) Smoker: Status: Chronic Assessment and plan: Patient is allergic to adhesive patches therefore she will give a negative fall inhaler as needed with Ativan for anxiety. She cannot smoke while in the hospital. (6) Hyperglycemia: Start date: 07/17/20 Status: Acute Assessment and plan: Patient has no history of diabetes mellitus but had hypoglycemia in the ED. Monitor before meals and at bedtime glucometers with coverage using short acting insulin as needed. She is overweight and at risk for diabetes mellitus. History of Present Illness History of Present Illness Chief Complaint: Acute onset substernal chest pain Narrative: This is a 50-year-old female patient who was at work at the end of the day and began to have exertional retrosternal chest pain which was worse with deep breathing more than with activity. It began around 4 PM prior to reporting to the ED and with evaluation she was found to have probable acute pericarditis (see ED HPI and medical decision making). She had positive troponins which were increasing with a positive D-dimer and a negative CT scan for PE. Case was discussed with [facility] cardiology and they advised NSAIDs with local hospitalization and evaluation by cardiology if possible. She will require an echocardiogram in the morning. She did have some slight nausea this morning and recently did have viral URI symptoms which have cleared. He does live in a homeless fpc with her family and works of the local [employer]. She did have a rapid COVID-19 test which was negative. 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 She has been on Coumadin. She is a smoker and is overweight. She has had no bleeding sequelae from her Coumadin therapy. He has had no peripheral edema and no history of PND. She denies any GI symptoms and her respiratory symptoms have cleared except for slight cough in the morning. She has no radiation of her chest discomfort which is retrosternal. She has had no diaphoresis. Review of Systems Narrative: As per HPI and 13 point review of systems otherwise unrevealing or stable. [facility] Medical History (Updated 07/17/20 @ 05:38 by Enzo Villanueva) Abnormal uterine bleeding (AUB) onset 2005 after AVR and chronic anticoagulation. Nl EMBx 2018. Pt will begin Aygestin for menstrual control. 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 takes Coumadin Hypertension Restless leg syndrome Tobacco use Uterine fibroid Uterus [id number] with multiple uterine fibroids. Surgical History (Updated 07/17/20 @ 05:38 by Enzo Villanueva) Dilation and curettage Ligation of fallopian tube Tooth extraction WISDOM TEETH REMOVAL Valve Replacement [facility]; AORTIC Family History Mother Neoplasm LUNG Father Essential hypertension Heart disease STENTS Hyperlipidemia Asthma Sister No problems noted. Sister No problems noted. Brother No problems noted. Grandfather No problems noted. Grandfather No problems noted. Grandmother , BLOOD CLOTT Heart disease Grandmother No problems noted. Son Depression Son Substance abuse Depression Son Substance abuse Daughter No problems noted. Social History Smoking/Tobacco Use Status: Current every day Tobacco Type: cigarettes Smoking risk assessment performed?: Yes Alcohol Intake: current Alcohol Intake frequency: holidays/special occasions only Drug use: Never Substance use type: does not use Do you feel safe at home: Yes Do you feel safe in your relationship?: Yes Meds Home Medications and Allergies Home Medications Medication Instructions Recorded Confirmed Type acetaminophen [Mapap Extra 500 mg PO PRN PRN 08/19/13 07/16/20 History Strength] ferrous sulfate 325 mg PO BID 05/12/17 07/16/20 History benzonatate [Tessalon Perles] 100 mg PO TID PRN #20 cap 05/26/18 05/20/19 Rx prednisone 60 mg PO DAILY #12 tab 05/20/19 Rx hydrochlorothiazide 25 mg tablet 25 mg PO DAILY #30 tab-cap 08/27/19 07/16/20 Rx metoprolol tartrate 25 mg tablet 25 mg PO BID #60 tab-cap 08/27/19 07/16/20 Rx warfarin 10 mg tablet 5 - 15 mg PO HS #35 tab-cap 08/27/19 07/16/20 Rx Allergies Allergy/AdvReac Type Severity Reaction Status Date / Time adhesive Allergy Intermediate plastic Verified 07/16/20 20:35 tape-blisters Penicillins Allergy Verified 07/16/20 20:35 ibuprofen AdvReac Verified 07/16/20 20:35 Exam Narrative Exam Narrative: General: Patient appears older than stated age, in no acute distress, normal affect and variation with good eye contact. She does appear fatigued have been up both at night. She is alert and oriented x3. HEENT: Normocephalic, eyes with pupils equal and reactive light symmetrically, extraocular movement intact and sclera anicteric. External ears and nose normal. Oropharynx with moist mucosa and poor dentition with many missing teeth and discoloration of remaining teeth. Neck: Supple without JVD. Back: Stooped posture without CVA tenderness. Lungs: Clear to auscultation and percussion. Breast: Exam deferred. Heart: Regular rate and rhythm with 3-4/6 pansystolic murmur over left sternal border. No gallops or rubs auscultated. Abdomen: Obese contour, soft nontender to palpation with no palpable hepatosplenomegaly. Genitalia/rectal: Exam deferred. Extremities: Obese lower extremities with no pitting edema, no cyanosis or clubbing. Peripheral pulses intact. Joints have fair range of motion. Skin: Normal color, warm and dry. Normal turgor. Neuro: Cranial nerves II through XII grossly intact, no focalizing motor deficits. Psych: Normal mood and affect, no abnormal thought processes. Remote and recent memory intact. Results Imaging Imaging Studies: Exam: CT Angiography Chest With Contrast Exam date and time: 07/16/2020 10:30 PM Age: 50 years old Clinical indication: Other: Chest pain, subtheraputic inr, SOB, +d-dimer; Prior surgery; Surgery date: 6+ months TECHNIQUE: Imaging protocol: Computed tomographic angiography of the chest with intravenous contrast. 3D rendering (Not supervised by radiologist): MIP and/or 3D reconstructed images were created by the technologist. Contrast material: OMNIPAQUE 350; Contrast volume: 100 ml; Contrast route: INTRAVENOUS (IV); COMPARISON: CR XR PORTABLE CHEST AP 07/16/2020 9:51 PM FINDINGS: Pulmonary arteries: Main pulmonary artery dilated up to 3.3 cm. This could be seen in the setting of pulmonary hypertension. 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 Thyroid: Visualized thyroid unremarkable. Lungs: Clear central airways. No focal consolidation. there is suggestion of interlobular septal thickening. Please see image 67 series 6. There is limited evaluation lung parenchyma secondary to areas of motion. Faint ground-glass opacities are present. For example please see left lower lobe image 357 series 6. Mild atelectatic changes are present. Pleural space: No pneumothorax. No sizable pleural effusion. Heart: Heart is prominent however this could be at least partly related to the phase of respiration. No evidence of aortic valve replacement. Mediastinal space: Small hiatal hernia. Lymph nodes: Scattered prominent nodes are nonspecific and may be reactive. Liver: Hepatic steatosis. Bones/joints: Bony degenerative changes. No acute fracture or dislocation. Soft tissues: Unremarkable superficial soft tissues. Other findings: Sternal wires. IMPRESSION: 1. No convincing evidence of pulmonary embolus. 2. 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 Follow-up 6 months. 3. Findings are suggestive of mild pulmonary edema. Vague ground-glass opacities present nonspecific however and could be infectious/inflammatory in origin. Clinical correlation advised. 4. Other findings as above. Dictated and Authenticated by: Joseph Bradford MD. Exam: XR Chest, 1 View Exam date and time: 07/16/2020 9:01 PM Age: 50 years old Clinical indication: Other: SOB; Prior surgery; Surgery date: 6+ months; Surgery type: Valve replacement TECHNIQUE: Imaging protocol: XR of the chest Views: 1 view. COMPARISON: CR CHEST 2 VIEWS PA,LAT 12/09/2016 10:34 AM FINDINGS: Lungs: Pulmonary vascular prominence. No convincing consolidation. Pleural space: Suspected small bilateral pleural effusions. no pneumothorax. Heart/Mediastinum: Cardiac silhouette enlarged. Bones/joints: no acute displaced fractures. Other findings: Surgical changes project over the chest. IMPRESSION: Findings suggestive of mild pulmonary edema. Superimposed infection not excluded in the appropriate clinical setting. Dictated and Authenticated by: Joseph Bradford MD. Labs Result diagrams: 07/16/20 20:44 07/16/20 20:44 Labs: Laboratory Results - last 24 hr 07/16/20 07/16/20 07/16/20 00:08 20:44 20:44 WBC RBC Hgb Hct MCV MCH MCHC RDW Plt Count MPV Immature Gran % Neutrophils % Lymphocytes % Monocytes % Eosinophils % Basophils % Nucleated RBC % Absolute Neutrophils Absolute Lymphocytes Absolute Monocytes Absolute Eosinophils Absolute Basophils PT 18.1 H INR 1.8 H D-Dimer Sodium Potassium Chloride Carbon Dioxide Anion Gap BUN Creatinine Estimated GFR/1.73 m2 Glucose Calcium Magnesium Total Bilirubin AST ALT Alkaline Phosphatase Troponin I 2.36 H* NT-Pro-B Natriuret Pep 3327 H Total Protein Albumin COVID-19 Source SARS-CoV-2 (PCR) Influenza Type A (PCR) Influenza Type B (PCR) RSV (PCR) 07/16/20 07/16/20 07/16/20 20:44 20:44 20:44 WBC 11.91 H RBC 5.37 H Hgb 15.5 Hct 47.7 H MCV 88.8 MCH 28.9 MCHC 32.5 RDW 12.9 Plt Count 201 MPV 10.9 Immature Gran % 0.4 Neutrophils % 75.0 Lymphocytes % 15.4 Monocytes % 7.9 Eosinophils % 0.9 Basophils % 0.4 Nucleated RBC % 0 Absolute Neutrophils 8.93 H Absolute Lymphocytes 1.83 Absolute Monocytes 0.94 H Absolute Eosinophils 0.11 Absolute Basophils 0.05 PT INR D-Dimer 656 H Sodium 139 Potassium 3.6 Chloride 104 Carbon Dioxide 27.5 Anion Gap 7.5 BUN 12 Creatinine 1.10 H Estimated GFR/1.73 m2 52.58 Glucose 158 H Calcium 8.7 Magnesium 1.8 Total Bilirubin 0.3 AST 20 ALT 27 Alkaline Phosphatase 70 Troponin I 0.27 H* NT-Pro-B Natriuret Pep Total Protein 7.5 Albumin 3.2 L COVID-19 Source SARS-CoV-2 (PCR) Influenza Type A (PCR) Influenza Type B (PCR) RSV (PCR) 07/16/20 22:24 WBC RBC Hgb Hct MCV MCH MCHC RDW Plt Count MPV Immature Gran % Neutrophils % Lymphocytes % Monocytes % Eosinophils % Basophils % Nucleated RBC % Absolute Neutrophils Absolute Lymphocytes Absolute Monocytes Absolute Eosinophils Absolute Basophils PT INR D-Dimer Sodium Potassium Chloride Carbon Dioxide Anion Gap BUN Creatinine Estimated GFR/1.73 m2 Glucose Calcium Magnesium Total Bilirubin AST ALT Alkaline Phosphatase Troponin I NT-Pro-B Natriuret Pep Total Protein Albumin COVID-19 Source Nasopharynx SARS-CoV-2 (PCR) Negative Influenza Type A (PCR) Negative Influenza Type B (PCR) Negative RSV (PCR) Negative Last Vital Signs Temp 36.1 C L 07/16/20 20:30 Pulse 82 07/17/20 00:58 Resp 20 07/17/20 00:58 BP 173/113 H 07/17/20 00:58 Pulse Ox 94 07/17/20 00:58 COVID-19 Screening Have you, or household traveled for leisure in last 14 days?: No Had IN PERSON contact w/suspected or confirmed C-19 person: No
[2020-07-17] MEDS: Indomethacin 25 MG CAP 50 MG PO (02:00)
[2020-07-17] MEDS: Warfarin 5 MG TAB PO (02:00)
[2020-07-17] MEDS: Metoprolol 25 MG TAB PO ×3 (03:55→14:37)
[2020-07-17 06:43] LABS: Abs Immature Grans 0.03 10^3/uL (0.0-0.06); Absolute Basophil Count 0.04 10^3/uL (0.0-0.2); Absolute Eosinophil Count 0.13 10^3/uL (0.0-0.7); Absolute Lymphocyte Count 2.03 10^3/uL (1.2-3.4); Absolute Monocyte Count 1.11 10^3/uL (0.1-0.8); Absolute Neutrophil Count 6.72 10^3/uL (1.2-6.7); Basophils % 0.4; Eosinophils % 1.3; HCT 44.8 % (36.0-46.0); HGB 14.7 g/dL (11.2-15.7); Immature Grans % 0.3; Lymphocytes % 20.2; MCH 28.9 pg (27.0-33.0); MCHC 32.8 % (32.0-36.0); MCV 88.2 fL (80-95); MPV 10.9 fL (8.0-11.0); Neutrophils % 66.8; Nucleated RBC 0 %; Platelet Count 176 10^3/uL (130-400); RBC 5.08 10^6/uL (3.93-5.22); RDW 12.8 % (11.7-14.6); RDW-SD 41.7 fL; WBC 10.06 10^3/uL (4.4-10.8)
[2020-07-17 06:57] LABS: ALT 30 U/L (14-59); AST 78 U/L (15-37); Albumin 2.9 g/dL (3.4-5.0); Alkaline Phosphatase 61 U/L (46-116); Anion Gap 3.4 mmol/L (3-11); BUN 9 mg/dL (7-18); Bilirubin, Total 0.6 mg/dL (0.2-1.0); CO2 26.6 mmol/L (21.0-32.0); CREATININE 0.89 mg/dL (0.55-1.02); Calcium 8.3 mg/dL (8.5-10.1); Chloride 105 mmol/L (98-107); Glucose 104 mg/dL (74-106); INR 1.7 (0.9-1.1); Potassium 3.3 mmol/L (3.5-5.1); Sodium 135 mmol/L (136-145); Total Protein 6.5 g/dL (6.4-8.2)
[2020-07-17 07:04] LABS: TSH (W/Ref FT4) 2.18 uIU/mL (0.36-3.74)
[2020-07-17 07:06] LABS: Troponin I 12.93 ng/mL (<0.06)
--- NOTE | 2020-07-17 07:30 | RT.EKG_ITS ---
APPROVED REPORT Exam: Resting ECG Patient Location: I HR:76 bpm ECG Measurements Heart Rate 76 AXIS MT 164 P 93 QRSd 98 QRS 39 QT 447 T 178 QTc 502 Conclusion Sinus rhythm...normal P axis, V-rate 60- 99 Repol abnrm suggests ischemia, anterolateral...ST dep, T neg, I aVL V2-V6
--- NOTE | 2020-07-17 08:19 | W.PM.PROGNOT ---
Subjective Subjective Interval history since last seen: valve put in 15 years ago. EKG changes. CP 2/10. Worse when she lies flat. BP 160-170's? about to be remeasured. HR 70-80's. 01:12: 9 beat run of VTach (ER). ?symptomatic. Objective Last Vital Signs Temp 36.7 C 07/17/20 03:30 Pulse 81 07/17/20 03:30 Resp 21 07/17/20 03:30 BP 187/113 H 07/17/20 03:30 Pulse Ox 94 07/17/20 03:30 Laboratory Results - last 24 hr 07/16/20 07/16/20 07/16/20 00:08 20:44 20:44 WBC RBC Hgb Hct MCV MCH MCHC RDW Plt Count MPV Immature Gran % Neutrophils % Lymphocytes % Monocytes % Eosinophils % Basophils % Nucleated RBC % Absolute Neutrophils Absolute Lymphocytes Absolute Monocytes Absolute Eosinophils Absolute Basophils PT 18.1 H INR 1.8 H D-Dimer Sodium Potassium Chloride Carbon Dioxide Anion Gap BUN Creatinine Estimated GFR/1.73 m2 Glucose Calcium Magnesium Total Bilirubin AST ALT Alkaline Phosphatase Troponin I 2.36 H* NT-Pro-B Natriuret Pep 3327 H Total Protein Albumin TSH COVID-19 Source SARS-CoV-2 (PCR) Influenza Type A (PCR) Influenza Type B (PCR) RSV (PCR) 07/16/20 07/16/20 07/16/20 20:44 20:44 20:44 WBC 11.91 H RBC 5.37 H Hgb 15.5 Hct 47.7 H MCV 88.8 MCH 28.9 MCHC 32.5 RDW 12.9 Plt Count 201 MPV 10.9 Immature Gran % 0.4 Neutrophils % 75.0 Lymphocytes % 15.4 Monocytes % 7.9 Eosinophils % 0.9 Basophils % 0.4 Nucleated RBC % 0 Absolute Neutrophils 8.93 H Absolute Lymphocytes 1.83 Absolute Monocytes 0.94 H Absolute Eosinophils 0.11 Absolute Basophils 0.05 PT INR D-Dimer 656 H Sodium 139 Potassium 3.6 Chloride 104 Carbon Dioxide 27.5 Anion Gap 7.5 BUN 12 Creatinine 1.10 H Estimated GFR/1.73 m2 52.58 Glucose 158 H Calcium 8.7 Magnesium 1.8 Total Bilirubin 0.3 AST 20 ALT 27 Alkaline Phosphatase 70 Troponin I 0.27 H* NT-Pro-B Natriuret Pep Total Protein 7.5 Albumin 3.2 L TSH COVID-19 Source SARS-CoV-2 (PCR) Influenza Type A (PCR) Influenza Type B (PCR) RSV (PCR) 07/16/20 07/17/20 07/17/20 22:24 06:20 06:20 WBC RBC Hgb Hct MCV MCH MCHC RDW Plt Count MPV Immature Gran % Neutrophils % Lymphocytes % Monocytes % Eosinophils % Basophils % Nucleated RBC % Absolute Neutrophils Absolute Lymphocytes Absolute Monocytes Absolute Eosinophils Absolute Basophils PT INR D-Dimer Sodium 135 L Potassium 3.3 L Chloride 105 Carbon Dioxide 26.6 Anion Gap 3.4 BUN 9 Creatinine 0.89 Estimated GFR/1.73 m2 >= 60.00 Glucose 104 D Calcium 8.3 L Magnesium Total Bilirubin 0.6 AST 78 H ALT 30 Alkaline Phosphatase 61 Troponin I NT-Pro-B Natriuret Pep Total Protein 6.5 Albumin 2.9 L TSH 2.18 COVID-19 Source Nasopharynx SARS-CoV-2 (PCR) Negative Influenza Type A (PCR) Negative Influenza Type B (PCR) Negative RSV (PCR) Negative 07/17/20 07/17/20 07/17/20 06:20 06:20 06:20 WBC 10.06 RBC 5.08 Hgb 14.7 Hct 44.8 MCV 88.2 MCH 28.9 MCHC 32.8 RDW 12.8 Plt Count 176 MPV 10.9 Immature Gran % 0.3 Neutrophils % 66.8 Lymphocytes % 20.2 Monocytes % 11.0 Eosinophils % 1.3 Basophils % 0.4 Nucleated RBC % 0 Absolute Neutrophils 6.72 H Absolute Lymphocytes 2.03 Absolute Monocytes 1.11 H Absolute Eosinophils 0.13 Absolute Basophils 0.04 PT 17.0 H INR 1.7 H D-Dimer Sodium Potassium Chloride Carbon Dioxide Anion Gap BUN Creatinine Estimated GFR/1.73 m2 Glucose Calcium Magnesium Total Bilirubin AST ALT Alkaline Phosphatase Troponin I 12.93 H* NT-Pro-B Natriuret Pep Total Protein Albumin TSH COVID-19 Source SARS-CoV-2 (PCR) Influenza Type A (PCR) Influenza Type B (PCR) RSV (PCR)
[2020-07-17] MEDS: Potassium Chloride 20 MEQ TABCR 40 MEQ PO (08:26)
[2020-07-17] MEDS: Ferrous Sulfate 325 MG TAB PO (08:26)
[2020-07-17] MEDS: INDOMETHACIN 50 MG CAP PO (08:26)
[2020-07-17] MEDS: hydroCHLOROthiazide 25 MG TAB PO (08:26)
[2020-07-17] MEDS: cefTRIAXone 1 GM/50 ML BAG IVPB (08:27)
[2020-07-17] MEDS: Normal Saline 500 ML IV (08:30)
--- NOTE | 2020-07-17 08:31 | PDOC.CMIN ---
- If Service Date Differs Date of service: 07/17/20 Time of Service: 08:31 Care Management Initial Assess REASON FOR HOSPITALIZATION:: Myopericarditis PAST MEDICAL HISTORY/PAST SURGICAL HISTORY:: Medical History (Updated 07/17/20 @ 05:38 by Enzo Villanueva). Abnormal uterine bleeding (AUB). onset 2005 after AVR and chronic anticoagulation. Nl EMBx 2018. Pt will begin Aygestin for menstrual control. Acute ITP. BMI 45.0-49.9, adult. Chronic anticoagulation. 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 takes Coumadin. Hypertension. Restless leg syndrome. Tobacco use. Uterine fibroid. Uterus [id number] with multiple uterine fibroids. Surgical History (Updated 07/17/20 @ 05:38 by Enzo Villanueva). Dilation and curettage. Ligation of fallopian tube. Tooth extraction. WISDOM TEETH REMOVAL. Valve Replacement. [facility]; AORTIC PREVIOUS FUNCTIONAL STATUS/SOCIAL/FAMILY SUPPORTS:: Per ED provider, Juani lives in [facility] in a homeless mcc with her Garcia and family. She works at a local [employer] and is independent at baseline. CURRENT FUNCTIONAL STATUS:: CM unable to meet with patient as she is a PUI. She has been accepted at [facility] for transfer as soon as a bed is available. Juani came in with chest pain last evening and now has markedly elevated troponins, the last 2 being 12.93 and 20.11, respectively. ADVANCE DIRECTIVES:: none on file Has patient been provided with info about the portal/API?: No Did the patient sign up for the portal?: No CODE STATUS:: Full Code INSURANCE COVERAGE / FINANCIAL ISSUES:: self pay CURRENT HOME/COMMUNITY SERVICES/EQUIPMENT:: lives with her family in a homeless mcc in [facility] PRIMARY CARE PHYSICIAN:: kandis tan POTENTIAL DISCHARGE NEEDS:: insurance, transfer to [facility] PATIENT/FAMILY EDUCATION NEEDS:: discharge plan, limitations, follow up plan, Ask Me Three, available services TRANSPORTATION:: via helicopter - DART PLAN:: Juani will be transferred to [facility] as soon as a bed is available. Her final discharge plan will be determined by the facility.
[2020-07-17] MEDS: Aspirin E.C. 81 MG TABEC PO (09:01)
[2020-07-17] MEDS: nitroGLYcerin 0.4 MG TAB SL (09:07)
[2020-07-17] MEDS: MAGNESIUM SULFATE 2 GM/50 ML BAG IVPB (09:30)
[2020-07-17] MEDS: DOXYCYCLINE 100 MG in Normal Saline 100 ML IVPB (10:00)
[2020-07-17 11:05] LABS: Troponin I 20.11 ng/mL (<0.06)
[2020-07-17] MEDS: Clopidogrel 300 MG TAB PO (11:24)
--- NOTE | 2020-07-17 11:49 | W.PM.DS.N ---
Date of service: 07/17/20 Time of Service: 11:49 DS: Diagnosis Discharge Diagnosis (1) NSTEMI (non-ST elevated myocardial infarction): Status: Acute (2) Ground glass opacity present on imaging of lung: Status: Acute Asessment and Plan: COVID-19 vs CHF (3) Person under investigation for COVID-19: Status: Acute (4) Aortic valve replaced: Status: Chronic Asessment and Plan: Mechanical valve 15 years ago (5) Subtherapeutic international normalized ratio (INR): Status: Acute (6) Essential hypertension: Status: Chronic (7) Smoker: Status: Chronic (8) Hypokalemia: Status: Acute Discharge Plan Disposition Patient Disposition: [facility] Condition: Serious Discharge Details Reason For Visit: PERICARDITIS,CHF,HTN Admit Date/Time: 07/17/20 01:46 Admit Provider: Enzo Villanueva Attending Provider: Enzo Villanueva Primary Care Provider: Martha Iraheta [facility] Course Hospital Course: Ms Martinez is a 50 year old female with PMHx of mechanical aortic valve, on anticoagulation with coumadin, as well as h/o hypertension, tobacco abuse, obesity, who was a patient in [facility] ICU under the hospitalist service on 07/17/2020 for NSTEMI. The patient presented with chest pain, which was worse on laying down, as well as elevated troponin I of 2.36, so initially it was felt she might have amie/myocarditis. At this point, [facility] [place] recommended initiating NSAIDs rather than starting plavix and heparinization. However, her dynamic changes in the EKG (anterolateral T wave inversions, progressing to leads II, AVG, and V6, while they were initially only present in V3-V5, no NH segment depressions, and a troponin elevation now to 20.11 (2.36-> 0.27->12.93->20.11) are more consistent with an NSTEMI, per my review of the EKGs/data with Dr Rose (even if this is myocarditis, obstructive CAD needs to be ruled out with a cardiac cath). The patient was initiated on heparin gtt, aspirin, plavix, and nitroglycerin gtt. A transfer to [facility] was pursued as [facility] does not have an interventional cardiology service, and the patient was accepted in transfer by Dr Moreno of cardiology. It is important to note that, while the patient had a negative COVID nasopharyngeal PCR, her daughter, who comes to her house, has had respiratory symptoms and has not gotten tested. 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 Not everyone there consistently wears masks, and neither does the patient. The patient herself endorses a cough and diarrhea since yesterday. She denies fevers, chills (other than her normal symptoms of menopause/hot flashes), shortness of breath. Her cough is nonproductive. She has evidence of groundglass opacities on her imaging, and the patient is still being treated as a PUI for COVID-19 at our facility. Total Critical Care time spent on care for patient, consultations, as well as completion of her transfer summary on day of transfer took 90 minutes. Please, look for MAR for the list of inpatient medications. Home Meds and New Rx's Prescriptions: No Action hydrochlorothiazide 25 mg tablet 25 mg PO DAILY Qty: 30 RF: 0 metoprolol tartrate 25 mg tablet 25 mg PO BID Qty: 60 RF: 0 acetaminophen [Mapap Extra Strength] 500 MG tablet 500 mg PO PRN PRNRF: 0 warfarin 10 mg tablet 10 mg PO QPM RF: 0 albuterol sulfate 90 mcg/actuation HFA aerosol inhaler 1 - 2 puff INHALATION Q4H PRN PRNRF: 0 ferrous gluconate 324 mg (38 mg iron) tablet 324 mg PO DAILY RF: 0 Discharge Instructions Instructions: Heart Attack (DC), COVID-19 (Coronavirus Disease 2019) (DC) Referrals: Martha Iraheta [Primary Care Provider] - Activity:: bedrest Diet:: NPO Discharge Orders Discharge Orders: Discharge Order (Routine); Ordered 07/17/20 Ordered By: Ro Vann DS: Summary Status at Discharge Functional status at discharge: independent ambulation Overall status at discharge: patient is not back to baseline Mental Status: mental status grossly normal Speech and Movement: speech and movement normal Mood: congruent mood Affect: normal affect Exam Narrative Exam Narrative: General: Pleasant middle-aged female who coughed twice while I was in the room. No dyspnea/tachypnea/cyanosis on room air. HEENT: EOMI, MMM Heart: RRR, no m/r/g Lungs: CTAB/diminished Abdomen: soft, nontender, nondistended Extremities: nonpitting edema BLEs Psych Mental Status: mental status grossly normal Speech and Movement: speech and movement normal Mood: congruent mood Affect: normal affect DS: Data Vitals/I&O Vitals and I&O: Vital Signs Temperature 36.7 C 07/17/20 08:30 Temperature Source Temporal Artery Scan 07/17/20 08:30 Pulse 67 07/17/20 10:01 Pulse 67 07/17/20 10:01 Respiratory Rate 18 07/17/20 10:01 Respiratory Effort Non-Labored 07/17/20 08:30 Respiratory Depth Normal 07/17/20 08:30 Respiratory Pattern Normal 07/17/20 08:30 Blood Pressure 139/79 07/17/20 10:01 Blood Pressure Mean 92 07/17/20 10:01 Blood Pressure Position Sitting 07/17/20 08:30 Pulse Oximetry 97 07/17/20 10:01 Oxygen Delivery Method Room Air 07/17/20 08:30 Oxygen Flow Rate 0 07/17/20 08:30 Pain Level 2 07/17/20 09:07 Intake & Output 07/16/20 07/16/20 07/17/20 11:59 23:59 11:59 Intake Total 203.40 / 203.40 Output Total 610 / 610 Balance -406.60 / -406.60 Weight 122.47 kg 130.5 kg Intake: IV 53.40 / 53.40 Oral 150 / 150 Output: Urine 610 / 610 Other: Urine Color Straw Urine Appearance Clear Urine Odor Normal Voiding Methods Bedside Commode Data Completed and Pending Completed studies during hospitalization [Text1]: CTA chest: No evidence of pulmonary embolism, thoracic aortic dissection or aneurysm. Preliminary read also states: Likely ectatic ascending aorta. Follow-up 6 months. Findings are suggestive of mild pulmonary edema (not seen clinically). Vague ground-glass opacities present nonspecific however and could be infectious/inflammatory in origin. Clinical correlation advised. CXR: Findings suggestive of mild pulmonary edema. Superimposed infection not excluded in the appropriate clinical setting. Labs on day of discharge: Labs from last 24 hours 07/17/20 07/17/20 07/17/20 13:30 10:30 06:20 WBC RBC Hgb Hct MCV MCH MCHC RDW Plt Count MPV Immature Gran % Neutrophils % Lymphocytes % Monocytes % Eosinophils % Basophils % Nucleated RBC % Absolute Neutrophils Absolute Lymphocytes Absolute Monocytes Absolute Eosinophils Absolute Basophils PT INR D-Dimer Sodium Potassium Chloride Carbon Dioxide Anion Gap BUN Creatinine Estimated GFR/1.73 m2 Glucose Calcium Magnesium Total Bilirubin AST ALT Alkaline Phosphatase Troponin I Pending 20.11 H* 12.93 H* NT-Pro-B Natriuret Pep Total Protein Albumin TSH COVID-19 Source SARS-CoV-2 (PCR) Nasopharyn COVID-19 PCR Influenza Type A (PCR) Influenza Type B (PCR) RSV (PCR) Ref Test Perform Site 07/17/20 07/17/20 07/17/20 06:20 06:20 06:20 WBC 10.06 RBC 5.08 Hgb 14.7 Hct 44.8 MCV 88.2 MCH 28.9 MCHC 32.8 RDW 12.8 Plt Count 176 MPV 10.9 Immature Gran % 0.3 Neutrophils % 66.8 Lymphocytes % 20.2 Monocytes % 11.0 Eosinophils % 1.3 Basophils % 0.4 Nucleated RBC % 0 Absolute Neutrophils 6.72 H Absolute Lymphocytes 2.03 Absolute Monocytes 1.11 H Absolute Eosinophils 0.13 Absolute Basophils 0.04 PT 17.0 H INR 1.7 H D-Dimer Sodium 135 L Potassium 3.3 L Chloride 105 Carbon Dioxide 26.6 Anion Gap 3.4 BUN 9 Creatinine 0.89 Estimated GFR/1.73 m2 >= 60.00 Glucose 104 D Calcium 8.3 L Magnesium Total Bilirubin 0.6 AST 78 H ALT 30 Alkaline Phosphatase 61 Troponin I NT-Pro-B Natriuret Pep Total Protein 6.5 Albumin 2.9 L TSH COVID-19 Source SARS-CoV-2 (PCR) Nasopharyn COVID-19 PCR Influenza Type A (PCR) Influenza Type B (PCR) RSV (PCR) Ref Test Perform Site 07/17/20 07/16/20 07/16/20 06:20 22:24 21:02 WBC RBC Hgb Hct MCV MCH MCHC RDW Plt Count MPV Immature Gran % Neutrophils % Lymphocytes % Monocytes % Eosinophils % Basophils % Nucleated RBC % Absolute Neutrophils Absolute Lymphocytes Absolute Monocytes Absolute Eosinophils Absolute Basophils PT INR D-Dimer Sodium Potassium Chloride Carbon Dioxide Anion Gap BUN Creatinine Estimated GFR/1.73 m2 Glucose Calcium Magnesium Total Bilirubin AST ALT Alkaline Phosphatase Troponin I NT-Pro-B Natriuret Pep Total Protein Albumin TSH 2.18 COVID-19 Source Nasopharynx SARS-CoV-2 (PCR) Negative Pending Nasopharyn COVID-19 PCR Pending Influenza Type A (PCR) Negative Influenza Type B (PCR) Negative RSV (PCR) Negative Ref Test Perform Site Pending 07/16/20 07/16/20 07/16/20 20:44 20:44 20:44 WBC 11.91 H RBC 5.37 H Hgb 15.5 Hct 47.7 H MCV 88.8 MCH 28.9 MCHC 32.5 RDW 12.9 Plt Count 201 MPV 10.9 Immature Gran % 0.4 Neutrophils % 75.0 Lymphocytes % 15.4 Monocytes % 7.9 Eosinophils % 0.9 Basophils % 0.4 Nucleated RBC % 0 Absolute Neutrophils 8.93 H Absolute Lymphocytes 1.83 Absolute Monocytes 0.94 H Absolute Eosinophils 0.11 Absolute Basophils 0.05 PT INR D-Dimer 656 H Sodium 139 Potassium 3.6 Chloride 104 Carbon Dioxide 27.5 Anion Gap 7.5 BUN 12 Creatinine 1.10 H Estimated GFR/1.73 m2 52.58 Glucose 158 H Calcium 8.7 Magnesium 1.8 Total Bilirubin 0.3 AST 20 ALT 27 Alkaline Phosphatase 70 Troponin I 0.27 H* NT-Pro-B Natriuret Pep Total Protein 7.5 Albumin 3.2 L TSH COVID-19 Source SARS-CoV-2 (PCR) Nasopharyn COVID-19 PCR Influenza Type A (PCR) Influenza Type B (PCR) RSV (PCR) Ref Test Perform Site 07/16/20 07/16/20 07/16/20 20:44 20:44 00:08 WBC RBC Hgb Hct MCV MCH MCHC RDW Plt Count MPV Immature Gran % Neutrophils % Lymphocytes % Monocytes % Eosinophils % Basophils % Nucleated RBC % Absolute Neutrophils Absolute Lymphocytes Absolute Monocytes Absolute Eosinophils Absolute Basophils PT 18.1 H INR 1.8 H D-Dimer Sodium Potassium Chloride Carbon Dioxide Anion Gap BUN Creatinine Estimated GFR/1.73 m2 Glucose Calcium Magnesium Total Bilirubin AST ALT Alkaline Phosphatase Troponin I 2.36 H* NT-Pro-B Natriuret Pep 3327 H Total Protein Albumin TSH COVID-19 Source SARS-CoV-2 (PCR) Nasopharyn COVID-19 PCR Influenza Type A (PCR) Influenza Type B (PCR) RSV (PCR) Ref Test Perform Site [facility] Medical History (Updated 07/17/20 @ 11:53 by Ro Vann MD) Abnormal uterine bleeding (AUB) onset 2005 after AVR and chronic anticoagulation. Nl EMBx 2018. Pt will begin Aygestin for menstrual control. 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 takes Coumadin Hypertension Restless leg syndrome Tobacco use Uterine fibroid Uterus [id number] with multiple uterine fibroids. Surgical History (Updated 07/17/20 @ 05:38 by Enzo Villanueva) Dilation and curettage Ligation of fallopian tube Tooth extraction WISDOM TEETH REMOVAL Valve Replacement [facility]; [facility] Family History Mother Neoplasm LUNG Father Essential hypertension Heart disease STENTS Hyperlipidemia Asthma Sister No problems noted. Sister No problems noted. Brother No problems noted. Grandfather No problems noted. Grandfather No problems noted. Grandmother , BLOOD CLOTT Heart disease Grandmother No problems noted. Son Depression Son Substance abuse Depression Son Substance abuse Daughter No problems noted. Social History Smoking/Tobacco Use Status: Current every day Tobacco Type: cigarettes Smoking risk assessment performed?: Yes Alcohol Intake: current Alcohol Intake frequency: holidays/special occasions only Drug use: Never Substance use type: does not use Do you feel safe at home: Yes Do you feel safe in your relationship?: Yes
[2020-07-17 13:58] LABS: C-Reactive Protein 1.16 mg/dL (0.0-0.3)
[2020-07-17 14:07] LABS: Troponin I 26.48 ng/mL (<0.06)
--- NOTE | 2020-07-17 14:15 | RT.EKG_ITS ---
APPROVED REPORT Exam: Resting ECG Patient Location: I HR:76 bpm ECG Measurements Heart Rate 76 AXIS AR 160 P 86 QRSd 99 QRS 40 QT 441 T 149 QTc 496 Conclusion Sinus rhythm...normal P axis, V-rate 60- 99 Abnrm T, consider ischemia, anterolateral lds...T <-0.20mV, I aVL V2-V6
[2020-07-17] MEDS: Acetaminophen 325 MG TAB 650 MG PO (16:31)
[2020-07-18 15:30] LABS: COVID-19 RT-PCR UVMMC Result Negative (Negative)
== END 2020-07-17 16:40 | disposition short-term general hospital (02) | DRG 280 ==
LOC: ER 07-17 02:04 → ICU 07-17 03:07
PROVIDERS: Internal Medicine; Admitting Provider Family Medicine; Emergency Provider Emergency Medicine; PCP Nurse Practitioner Family; Visit Provider Family Medicine
DX: I21.4 Non-ST elevation (NSTEMI) myocardial infarction (principal); J18.9 Pneumonia, unspecified organism; Z68.42 Body mass index [BMI] 45.0-49.9, adult; Z95.2 Presence of prosthetic heart valve; Z79.01 Long term (current) use of anticoagulants; I10 Essential (primary) hypertension; G25.81 Restless legs syndrome; Z86.73 Personal history of transient ischemic attack (TIA), and cerebral infarction without residual deficits; F17.210 Nicotine dependence, cigarettes, uncomplicated; R73.9 Hyperglycemia, unspecified; Z59.0 Homelessness; E87.6 Hypokalemia; E66.9 Obesity, unspecified; R05 Cough; R19.7 Diarrhea, unspecified; R91.8 Other nonspecific abnormal finding of lung field
CPT/HCPCS: 36415; 71275; 80053; 93005; 96365; 96366; 99223; 99285; 99291; U0003; 71045; 83735; 83880; 84443; 84484; 85025; 85379; 85610; 85730; 86140; 93010; J0696; J1650; J3490

== ENCOUNTER → 2020-07-29 04:21 | Outpatient (CLI) | payer SELFPAY ==
[2020-07-29 14:02] LABS: INR 1.6 (0.9-1.1); Prothrombin Time 16.2 sec (9.3-11.0)
== END ==
PROVIDERS: Thoracic Surgery (Cardiothoracic Vascular Surgery); PCP Nurse Practitioner Family
DX: Z95.2 Presence of prosthetic heart valve; Z79.01 Long term (current) use of anticoagulants
CPT/HCPCS: 36415; 85610

== ENCOUNTER → 2020-07-31 02:05 | Outpatient (CLI) | payer SELFPAY ==
[2020-07-31 13:46] LABS: INR 2.2 (0.9-1.1); Prothrombin Time 22.1 sec (9.3-11.0)
== END ==
PROVIDERS: PCP Nurse Practitioner Family; Visit Provider Thoracic Surgery (Cardiothoracic Vascular Surgery)
DX: Z95.2 Presence of prosthetic heart valve (principal); Z79.01 Long term (current) use of anticoagulants
CPT/HCPCS: 36415; 85610

== ENCOUNTER → 2020-08-04 04:02 | Outpatient (CLI) | payer SELFPAY ==
[2020-08-04 11:18] LABS: INR 2.1 (0.9-1.1); Prothrombin Time 20.8 sec (9.3-11.0)
== END ==
PROVIDERS: PCP Nurse Practitioner Family
DX: Z95.2 Presence of prosthetic heart valve (principal); Z79.01 Long term (current) use of anticoagulants
CPT/HCPCS: 36415; 85610

== ENCOUNTER → 2020-08-07 01:43 | Outpatient (CLI) | payer SELFPAY ==
[2020-08-07 10:29] LABS: Prothrombin Time 42.9 sec (9.3-11.0)
[2020-08-07 11:06] LABS: Anion Gap 5.8 mmol/L (3-11); BUN 18 mg/dL (7-18); CO2 28.2 mmol/L (21.0-32.0); Calcium 9.2 mg/dL (8.5-10.1); Chloride 106 mmol/L (98-107); Estimated GFR 58.69 (mL/min/1.73m2); Glucose 96 mg/dL (74-106); Potassium 3.7 mmol/L (3.5-5.1); Sodium 140 mmol/L (136-145)
[2020-08-07 11:07] LABS: INR 4.4 (0.9-1.1)
== END ==
PROVIDERS: Nurse Practitioner Family; PCP Nurse Practitioner Family; Visit Provider Nurse Practitioner Family
DX: I21.4 Non-ST elevation (NSTEMI) myocardial infarction (principal); I10 Essential (primary) hypertension; Z95.2 Presence of prosthetic heart valve; Z79.01 Long term (current) use of anticoagulants
CPT/HCPCS: 36415; 80048; 85610

== ENCOUNTER 2020-08-11 03:17 | Outpatient (CLI) | payer SELFPAY ==
[2020-08-11 11:53] LABS: INR 3.2 (0.9-1.1); Prothrombin Time 31.3 sec (9.3-11.0)
== END 2020-08-11 03:18 | disposition home or self-care (01) ==
PROVIDERS: PCP Nurse Practitioner Family
DX: Z95.2 Presence of prosthetic heart valve (principal); Z79.01 Long term (current) use of anticoagulants
CPT/HCPCS: 36415; 85610

== ENCOUNTER 2020-08-14 01:28 | Outpatient (CLI) | payer SELFPAY ==
[2020-08-14 11:08] LABS: INR 3.1 (0.9-1.1); Prothrombin Time 30.3 sec (9.3-11.0)
== END 2020-08-14 01:29 | disposition home or self-care (01) ==
PROVIDERS: PCP Nurse Practitioner Family
DX: Z95.2 Presence of prosthetic heart valve (principal); Z79.01 Long term (current) use of anticoagulants
CPT/HCPCS: 36415; 85610

== ENCOUNTER 2020-08-19 02:59 | Outpatient (CLI) | payer SELFPAY ==
[2020-08-19 10:31] LABS: INR 3.7 (0.9-1.1); Prothrombin Time 36.3 sec (9.3-11.0)
== END 2020-08-19 03:00 | disposition home or self-care (01) ==
LOC: LBO 02:59
PROVIDERS: PCP Nurse Practitioner Family; Visit Provider Nurse Practitioner Family
DX: Z95.2 Presence of prosthetic heart valve (principal); Z79.01 Long term (current) use of anticoagulants; I25.2 Old myocardial infarction
CPT/HCPCS: 36415; 85610

== ENCOUNTER 2020-08-28 02:40 | Outpatient (CLI) | payer SELFPAY ==
[2020-08-28 13:26] LABS: INR 2.2 (0.9-1.1); Prothrombin Time 21.3 sec (9.3-11.0)
== END 2020-08-28 02:41 | disposition home or self-care (01) ==
PROVIDERS: PCP Nurse Practitioner Family; Visit Provider Internal Medicine Cardiovascular Disease
DX: Z95.2 Presence of prosthetic heart valve (principal); Z79.01 Long term (current) use of anticoagulants
CPT/HCPCS: 36415; 85610

== ENCOUNTER 2020-09-03 03:19 | Outpatient (CLI) | payer SELFPAY ==
[2020-09-03 14:24] LABS: INR 2.3 (0.9-1.1); Prothrombin Time 22.3 sec (9.3-11.0)
== END 2020-09-03 03:20 | disposition home or self-care (01) ==
PROVIDERS: PCP Nurse Practitioner Family; Visit Provider Internal Medicine Cardiovascular Disease
DX: Z95.2 Presence of prosthetic heart valve (principal); Z79.01 Long term (current) use of anticoagulants
CPT/HCPCS: 36415; 85610

== ENCOUNTER 2020-09-20 12:46 | Emergency (ER) | payer SELFPAY ==
[2020-09-20 12:54] VITALS: BP 141/88; PULSE 84; RESP 22; TEMP 36.6; O2SAT 98
[2020-09-20 13:13] VITALS: RESP 20
--- NOTE | 2020-09-20 13:33 | DI.RAD_ITS ---
EXAM: XR CHEST 2V PA LATERAL CLINICAL HISTORY: coughed blood clot TECHNIQUE: 2D digital imaging was performed. COMPARISON: CR,XR XR PORTABLE CHEST AP from 07/16/2020 FINDINGS: The heart is at the upper limits of normal in size.. There is an aortic valve replacement. The lung s are clear and well expanded. No pleural effusion seen. Mediastinal contours appear intact. IMPRESSION: No evidence of acute process. RADIATION DOSE DELIVERED: Total DLP
[2020-09-20 13:34] LABS: Abs Immature Grans 0.04 10^3/uL (0.0-0.06); Absolute Basophil Count 0.07 10^3/uL (0.0-0.2); Absolute Eosinophil Count 0.25 10^3/uL (0.0-0.7); Absolute Lymphocyte Count 1.72 10^3/uL (1.2-3.4); Absolute Monocyte Count 0.94 10^3/uL (0.1-0.8); Absolute Neutrophil Count 6.88 10^3/uL (1.2-6.7); Basophils % 0.7; Eosinophils % 2.5; HCT 44.4 % (36.0-46.0); HGB 14.5 g/dL (11.2-15.7); Immature Grans % 0.4; Lymphocytes % 17.4; MCH 29.1 pg (27.0-33.0); MCHC 32.7 % (32.0-36.0); Monocytes % 9.5; Neutrophils % 69.5; Nucleated RBC 0 %; Platelet Count 224 10^3/uL (130-400); RBC 4.99 10^6/uL (3.93-5.22); RDW-SD 42.5 fL
[2020-09-20 13:48] LABS: ALT 32 U/L (14-59); AST 15 U/L (15-37); Albumin 3.4 g/dL (3.4-5.0); Alkaline Phosphatase 86 U/L (46-116); Anion Gap 7.2 mmol/L (3-11); BUN 15 mg/dL (7-18); Bilirubin, Total 0.4 mg/dL (0.2-1.0); CO2 29.8 mmol/L (21.0-32.0); CREATININE 1.1 mg/dL (0.55-1.02); Calcium 8.9 mg/dL (8.5-10.1); Chloride 105 mmol/L (98-107); Estimated GFR 52.58 (mL/min/1.73m2); Glucose 113 mg/dL (74-106); Potassium 4.1 mmol/L (3.5-5.1); Sodium 142 mmol/L (136-145); Total Protein 7.6 g/dL (6.4-8.2)
--- NOTE | 2020-09-20 13:56 | DI.VRAD_ITS ---
PROCEDURE INFORMATION: Exam: XR Chest Exam date and time: 09/20/2020 1:13 PM Age: 50 years old Clinical indication: Patient HX: Cough blood clot TECHNIQUE: Imaging protocol: XR of the chest Views: 2 views. COMPARISON: CR XR PORTABLE CHEST AP 07/16/2020 9:51 PM FINDINGS: Lungs: Unremarkable. No consolidation. Pleural spaces: Unremarkable. No pleural effusion. No pneumothorax. Heart/Mediastinum: The patient has undergone aortic valve replacement. The cardiac silhouette is enlarged but unchanged. Bones/joints: Unremarkable. IMPRESSION: No acute cardiopulmonary abnormality. Dictated and Authenticated by: Trevor Mcleod MD. Ordering:TAMMY Paula MD
[2020-09-20 13:59] LABS: Prothrombin Time 45.7 sec (9.3-11.0)
[2020-09-20 14:02] LABS: INR 4.7 (0.9-1.1)
--- NOTE | 2020-09-20 16:03 | ED.GENADUL_ITS ---
Discharge Plan Disposition Patient Disposition: HOME Condition: Stable Discharge Details Clinical Impression: Cough with hemoptysis Primary Care Provider: Martha Iraheta ED Provider: Chai Flood Home Meds and New Rx's Prescriptions: Continued hydrochlorothiazide 25 mg tablet 25 mg PO DAILY Qty: 30 RF: 0 acetaminophen [Mapap Extra Strength] 500 MG tablet 500 mg PO PRN PRNRF: 0 albuterol sulfate 90 mcg/actuation HFA aerosol inhaler 1 - 2 puff INHALATION Q4H PRN PRNRF: 0 ferrous gluconate 324 mg (38 mg iron) tablet 324 mg PO BID RF: 0 atorvastatin 80 mg tablet 80 mg PO QPM RF: 0 lisinopril 20 mg tablet 20 mg PO DAILY RF: 0 metoprolol succinate 100 mg tablet extended release 24 hr 100 mg PO DAILY RF: 0 clopidogrel 75 mg tablet 75 mg PO DAILY RF: 0 amlodipine 10 mg tablet 10 mg PO DAILY RF: 0 pantoprazole 40 mg tablet,delayed release (DR/EC) 40 mg PO DAILY RF: 0 nitroglycerin 0.4 mg tablet, sublingual 0.4 mg sublingual PRN PRNRF: 0 aspirin 81 mg Tablet,Chewable 81 mg PO DAILY RF: 0 No Action warfarin 10 mg tablet See Rx Instructions .ROUTE .COMPLEX RF: 0 Discharge Instructions Instructions: Hemoptysis (ED) Additional Instructions: Your claims representative recommended that you take half your normal dose of Coumadin (warfarin) tonight. Contact anticoagulation clinic tomorrow morning to discuss ongoing dosing. Please contact your primary care physician to arrange follow-up. Return to the ER for any worsening or new concerning symptoms. Referrals: Martha Iraheta [Primary Care Provider] - Discharge Data Discharge Date/Time-TO BE ENTERED AT DEPARTURE: 09/20/20 16:44 Medical Decision Making 1610 -- 50-year-old female with history of aortic valve repair, on Coumadin, aspirin and Plavix, here after coughing spell that was productive of bloody sputum.. Patient has no chest pain or shortness of breath and vital signs are within normal limits. I do not suspect pulmonary embolism.. Patient has had recent cough as she has been trying to quit smoking. Suspect bronchial inflammation. Chest x-ray was reviewed interpreted radiology: No acute cardiopulmonary abnormality, cardiac silhouette is enlarged but unchanged. Labs reviewed and no anemia, normal platelets, INR is supratherapeutic at 4.7. Patient reassessed and remains hemodynamically stable with no recurrent hemoptysis. Call to [facility] to discuss case with on-call claims representative, recommended discharge with outpatient follow-up. He receommends 1/2 dose coumadin. HPI General Mode of arrival: ambulatory . Date/Time Provider Initiated Documentation: 09/20/20 13:11 . Limitations to Documentation: no limitations . Information obtained by: patient . HPI Narrative: 50-year-old female with multiple medical problems including history of aortic valve repair, on Coumadin, here today with chief complaint of coughed up a blood clot. Patient notes that she quit smoking 2 weeks ago and has been coughing up clear mucus. Today she coughed up a large blood clot. This occurred 1 to 2 hours prior to arrival. She called her claims representative who recommended she come to the emergency department for evaluation. Patient denies associated chest pain or shortness of breath. She does have a mild sore throat. Related Data Home Medications Medication Instructions Recorded Confirmed acetaminophen [Mapap Extra 500 mg PO PRN PRN 08/19/13 09/20/20 Strength] hydrochlorothiazide 25 mg tablet 25 mg PO DAILY #30 tab-cap 08/27/19 09/20/20 albuterol sulfate 1 - 2 puff INHALATION Q4H PRN PRN 07/17/20 09/20/20 ferrous gluconate 324 mg PO BID 07/17/20 09/20/20 warfarin See Rx Instructions .ROUTE .COMPLEX 07/17/20 09/20/20 amlodipine 10 mg PO DAILY 09/20/20 09/20/20 aspirin 81 mg PO DAILY 09/20/20 09/20/20 atorvastatin 80 mg PO QPM 09/20/20 09/20/20 clopidogrel 75 mg PO DAILY 09/20/20 09/20/20 lisinopril 20 mg PO DAILY 09/20/20 09/20/20 metoprolol succinate 100 mg PO DAILY 09/20/20 09/20/20 nitroglycerin 0.4 mg SUBLINGUAL PRN PRN 09/20/20 09/20/20 pantoprazole 40 mg PO DAILY 09/20/20 09/20/20 Previous Rx's Medication Instructions Recorded hydrochlorothiazide 25 mg tablet 25 mg PO DAILY #30 tab-cap 08/27/19 Allergies Allergy/AdvReac Type Severity Reaction Status Date / Time adhesive Allergy Intermediate plastic Verified 09/20/20 12:58 tape-blisters Penicillins Allergy Verified 09/20/20 12:58 ibuprofen AdvReac Verified 09/20/20 12:58 General Stated Complaint: GenMedical SURENDRA: 3 Review of Systems All systems reviewed & are unremarkable except as noted in HPI and below Constitutional Constitutional: Denies fever(s) Cardiovascular Comments: Chronic unchanged leg swelling bilateral Respiratory Respiratory: Reports as per HPI [facility] Medical History (Updated 09/20/20 @ 16:37 by Chai Flood MD) Abnormal uterine bleeding (AUB) onset 2005 after AVR and chronic anticoagulation. Nl EMBx 2018. Pt will begin Aygestin for menstrual control. 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 takes Coumadin Hypertension Restless leg syndrome Tobacco use Uterine fibroid Uterus [id number] with multiple uterine fibroids. Surgical History Dilation and curettage Ligation of fallopian tube Tooth extraction WISDOM TEETH REMOVAL Valve Replacement [facility]; [facility] Family History Mother Neoplasm LUNG Father Essential hypertension Heart disease STENTS Hyperlipidemia Asthma Sister No problems noted. Sister No problems noted. Brother No problems noted. Grandfather No problems noted. Grandfather No problems noted. Grandmother , BLOOD CLOTT Heart disease Grandmother No problems noted. Son Depression Son Substance abuse Depression Son Substance abuse Daughter No problems noted. Social History Smoking/Tobacco Use Status: Former Tobacco Use Smoking risk assessment performed?: Yes Alcohol Intake: current Alcohol Intake frequency: holidays/special occasions on ly Drug use: Never Substance use type: does not use Do you feel safe at home: Yes Do you feel safe in your relationship?: Yes Exam Const General: cooperative and no acute distress HENMT Mouth: moist mucous membranes Throat: posterior oropharynx normal Eyes Conjunctivae: normal conjunctivae Sclera: normal sclerae Neck Neck: trachea midline and supple Resp Auscultation: clear to auscultation bilaterally, no rales, no rhonchi and no wheezes Cardio Jugular venous pressure: no JVD Rate: regular rate and not tachycardic Rhythm: regular rhythm Heart Sounds: murmur systolic II/ GI Palpation: soft, not firm, no guarding, no masses, not rigid and nontender Skin General skin exam: no rashes or lesions noted Neuro General: patient alert, patient awake, patient oriented x3 and tone normal Extrem General: no edema Psych Appearance: grossly normal Mental Status: mental status grossly normal Speech and Movement: speech and movement normal Course Vital Signs Vital signs: Vital Signs Temperature 36.6 C 09/20/20 12:54 Pulse 84 09/20/20 12:54 Respiratory Rate 22 09/20/20 12:54 Blood Pressure 141/88 H 09/20/20 12:54 Pulse Oximetry 98 09/20/20 12:54 Temperature 36.6 C 09/20/20 12:54 Temperature Source Skin 09/20/20 12:54 Pulse 84 09/20/20 12:54 Respiratory Rate 20 09/20/20 13:13 Respiratory Effort 09/20/20 13:13 Respiratory Depth Normal 09/20/20 13:13 Respiratory Pattern Irregular 09/20/20 13:13 Blood Pressure 141/88 H 09/20/20 12:54 Blood Pressure Position Sitting 09/20/20 12:54 Pulse Oximetry 98 09/20/20 12:54 Oxygen Delivery Method Room Air 09/20/20 12:54 Oxygen Flow Rate 0 09/20/20 12:54 Pain Level 0 09/20/20 12:54 Lab/Test Results Lab/Test Results: Laboratory Tests Range/Units 09/20/20 09/20/20 09/20/20 13:23 13:23 13:23 WBC (4.4-10.8) 10^3/uL 9.90 RBC (3.93-5.22) 10^6/uL 4.99 Hgb (11.2-15.7) g/dL 14.5 Hct (36.0-46.0) % 44.4 MCV (80-95) fL 89.0 MCH (27.0-33.0) pg 29.1 MCHC (32.0-36.0) % 32.7 RDW (11.7-14.6) % 13.0 Plt Count (130-400) 10^3/uL 224 MPV (8.0-11.0) fL 10.0 Immature Gran % 0.4 Neutrophils % 69.5 Lymphocytes % 17.4 Monocytes % 9.5 Eosinophils % 2.5 Basophils % 0.7 Nucleated RBC % % 0 Absolute Neutrophils (1.2-6.7) 10^3/uL 6.88 H Absolute Lymphocytes (1.2-3.4) 10^3/uL 1.72 Absolute Monocytes (0.1-0.8) 10^3/uL 0.94 H Absolute Eosinophils (0.0-0.7) 10^3/uL 0.25 Absolute Basophils (0.0-0.2) 10^3/uL 0.07 PT (9.3-11.0) sec 45.7 H INR (0.9-1.1) 4.7 H* Sodium (136-145) mmol/L 142 Potassium (3.5-5.1) mmol/L 4.1 Chloride (98-107) mmol/L 105 Carbon Dioxide (21.0-32.0) mmol/L 29.8 Anion Gap (3-11) mmol/L 7.2 BUN (7-18) mg/dL 15 Creatinine (0.55-1.02) mg/dL 1.1 H Estimated GFR/1.73 m2 (mL/min/1.73m2) 52.58 Glucose (74-106) mg/dL 113 H Calcium (8.5-10.1) mg/dL 8.9 Total Bilirubin (0.2-1.0) mg/dL 0.4 AST (15-37) U/L 15 ALT (14-59) U/L 32 Alkaline Phosphatase (46-116) U/L 86 Total Protein (6.4-8.2) g/dL 7.6 Albumin (3.4-5.0) g/dL 3.4
[2020-09-20 16:04] VITALS: BP 120/73; PULSE 72; RESP 18; O2SAT 100
== END 2020-09-20 16:44 | disposition home or self-care (01) ==
PROVIDERS: Emergency Provider Student in an Organized Health Care Education/Training Program; PCP Nurse Practitioner Family
DX: R04.2 Hemoptysis (principal); T45.515A Adverse effect of anticoagulants, initial encounter; Z79.01 Long term (current) use of anticoagulants
CPT/HCPCS: 36415; 80053; 99284; 71046; 85025; 85610

== ENCOUNTER 2020-09-23 02:19 | Outpatient (CLI) | payer SELFPAY ==
[2020-09-23 12:59] LABS: INR 1.3 (0.9-1.1); Prothrombin Time 13.3 sec (9.3-11.0)
== END 2020-09-23 02:20 | disposition home or self-care (01) ==
LOC: LBO 02:19
PROVIDERS: PCP Nurse Practitioner Family; Visit Provider Internal Medicine Cardiovascular Disease
DX: Z95.2 Presence of prosthetic heart valve (principal); Z79.01 Long term (current) use of anticoagulants
CPT/HCPCS: 36415; 85610

== ENCOUNTER 2020-09-29 03:44 | Outpatient (CLI) | payer SELFPAY ==
[2020-09-29 11:36] LABS: INR 1.8 (0.9-1.1)
== END 2020-09-29 03:45 | disposition home or self-care (01) ==
LOC: LBO 03:44
PROVIDERS: PCP Nurse Practitioner Family; Visit Provider Internal Medicine Cardiovascular Disease
DX: Z95.2 Presence of prosthetic heart valve (principal); Z79.01 Long term (current) use of anticoagulants
CPT/HCPCS: 36415; 85610

== ENCOUNTER 2020-10-02 02:37 | Outpatient (CLI) | payer SELFPAY ==
[2020-10-02 09:49] LABS: INR 2.3 (0.9-1.1); Prothrombin Time 22.8 sec (9.3-11.0)
== END 2020-10-02 02:38 | disposition home or self-care (01) ==
LOC: LBO 02:37
PROVIDERS: PCP Nurse Practitioner Family; Visit Provider Internal Medicine Cardiovascular Disease
DX: Z95.2 Presence of prosthetic heart valve (principal); Z79.01 Long term (current) use of anticoagulants
CPT/HCPCS: 36415; 85610

== ENCOUNTER 2020-10-09 02:45 | Outpatient (CLI) | payer SELFPAY ==
[2020-10-09 09:56] LABS: INR 2.4 (0.9-1.1); Prothrombin Time 23.5 sec (9.3-11.0)
== END 2020-10-09 02:46 | disposition home or self-care (01) ==
LOC: LBO 02:45
PROVIDERS: PCP Nurse Practitioner Family; Visit Provider Internal Medicine Cardiovascular Disease
DX: Z95.2 Presence of prosthetic heart valve (principal); Z79.01 Long term (current) use of anticoagulants
CPT/HCPCS: 36415; 85610

== ENCOUNTER 2020-10-11 17:03 | Inpatient (IN) | payer SELFPAY ==
[2020-10-11] VITALS (63 sets, daily range): BP systolic 83–136; BP diastolic 49–118; PULSE 60–105; RESP 15–31; TEMP 36.8–37.6; O2SAT 91–98
--- NOTE | 2020-10-11 17:15 | RT.EKG_ITS ---
APPROVED REPORT Exam: Resting ECG Patient Location: E HR:74 bpm ECG Measurements Heart Rate 74 AXIS DE 181 P 63 QRSd 112 QRS 22 QT 384 T 123 QTc 427 Conclusion Sinus rhythm. Q waves lateral age indeterminate.
--- NOTE | 2020-10-11 17:15 | DI.CT_ITS ---
EXAM: CT ABDOMEN PELVIS W CLINICAL HISTORY: RLQ pain, guarding, febrile TECHNIQUE: Imaging Protocol: Axial computed tomography images with coronal and sagittal reformatted images were created and reviewed CONTRAST MATERIAL: Intravenous: Omnipaque 350 Contrast volume:100 mL Oral: No COMPARISON: CT ABD PELVIS WITH CONTRAST from 05/08/[address] CHEST PE CTA from 07/16/2020 FINDINGS: ABDOMEN: Lung Bases: Normal where visualized. Liver: Normal density. No measurable mass. Portal, Superior Mesenteric, and Splenic Veins: Unremarkable. Gallbladder and Biliary Tract: No radiodense calculus or dilation. Pancreas: Normal density, no abnormal calcifications or inflammatory process. Spleen: There are 2 hyperdense foci in the spleen likely reflecting hemangiomas. Adrenals: No suspicious masses. Stable right adrenal nodule. Kidneys: Normal size, contour and axis. No radiodense stones or obstructive uropathy. There are bilat eral renal cysts. No further follow-up is recommended. Abdominal Aorta: Abdominal portion non-dilated. Mild atherosclerosis. Bowel: No evidence of bowel obstruction. Mild circumferential wall thickening in the cecum with mild mesenteric stranding. No evidence of acute appendicitis. Colonic diverticulosis is present but no evidence of acute diverticulitis. Peritoneal Cavity: No ascites, collection or mesenteric inflammatory response. No free air. Lymph Nodes: Within normal limits. Bones: Within normal limits for the patient's age. Stable sclerotic areas in the iliac bones bilater ally. Soft Tissues: Small fat containing umbilical hernia. PELVIS: Bladder: Symmetric distention, no gross wall thickening. Reproductive Organs: Several uterine fibroids are present. Lymph Nodes: Within normal limits. Bones: Within normal limits for the patient's age. IMPRESSION: Thickening of the wall of the cecum with mesenteric stranding suspicious for an inflammatory or infec tious process. A malignant lesion cannot be entirely excluded. RADIATION DOSE DELIVERED: 1,568.89mGy.cm Total DLP DATA REPOSITORY: All CT scans at this facility are submitted to the National Radiology Data Registry (NRDR) Dose Index Registry (DIR) with the [employer] (A[employer]). RADIATION OPTIMIZATION: All CT scans at this facility use at least one of these dose optimization te chniques: automated exposure control; mA and/or kV adjustment per patient size (includes targeted exa ms where dose is matched to clinical indication); or iterative reconstruction.
[2020-10-11 17:38] LABS: Absolute Basophil Count 0.04 10^3/uL (0.0-0.2); Absolute Neutrophil Count 15.45 10^3/uL (1.2-6.7); Basophils % 0.2; Eosinophils % 0.3; HCT 42.8 % (36.0-46.0); Immature Grans % 0.5; Lymphocytes % 8.4; MCH 28.9 pg (27.0-33.0); MCHC 32.7 % (32.0-36.0); MCV 88.2 fL (80-95); Monocytes % 11.1; Neutrophils % 79.5; Nucleated RBC 0 %; Platelet Count 235 10^3/uL (130-400); RBC 4.85 10^6/uL (3.93-5.22); RDW 13.2 % (11.7-14.6); WBC 19.43 10^3/uL (4.4-10.8)
--- NOTE | 2020-10-11 17:38 | ED.GENADUL_ITS ---
Discharge Plan Discharge Details Chief Complaint: Abd Prob Primary Care Provider: Martha Iraheta ED Provider: Jacquie Ahuja Home Meds and New Rx's Prescriptions: No Action hydrochlorothiazide 25 mg tablet 25 mg PO DAILY Qty: 30 RF: 0 acetaminophen [Mapap Extra Strength] 500 MG tablet 500 mg PO PRN PRNRF: 0 warfarin 10 mg tablet See Rx Instructions .ROUTE .COMPLEX RF: 0 albuterol sulfate 90 mcg/actuation HFA aerosol inhaler 1 - 2 puff INHALATION Q4H PRN PRNRF: 0 ferrous gluconate 324 mg (38 mg iron) tablet 324 mg PO BID RF: 0 atorvastatin 80 mg tablet 80 mg PO QPM RF: 0 lisinopril 20 mg tablet 20 mg PO DAILY RF: 0 metoprolol succinate 100 mg tablet extended release 24 hr 100 mg PO DAILY RF: 0 clopidogrel 75 mg tablet 75 mg PO DAILY RF: 0 amlodipine 10 mg tablet 10 mg PO DAILY RF: 0 pantoprazole 40 mg tablet,delayed release (DR/EC) 40 mg PO DAILY RF: 0 nitroglycerin 0.4 mg tablet, sublingual 0.4 mg sublingual PRN PRNRF: 0 aspirin 81 mg Tablet,Chewable 81 mg PO DAILY RF: 0 Medical Decision Making Patient with evidence of inflammatory changes around her cecum consistent with possible typhlitis She was initiated on aztreonam and Flagyl, she has an elevated lactate of 1.6, leukocytosis of 19,000 INR of 2.8, consistent with chronic anticoagulation EKG does not show acute pathology I did consult with pharmacy given patient's medical complexity and allergy profile Recommendation for aztreonam and Flagyl Received 1 L normal saline, hemodynamically stable Agreeable to admission at this time Reviewed the [facility] interpretation Case discussed with Dr. Montoya who believes patient likely has itchy findings consistent with pericecal inflammation and recommends IV antibiotics and admission Case was discussed with admitting hospitalist, Dr. Hagen who evaluated the patient I did consider mesenteric ischemia and other pathologies for pain, however given chronic anticoagulation I think this is less likely Differential Diagnosis Differential Diagnosis: Appendicitis, pyelonephritis, diverticulitis, colitis Medical Records Medical records reviewed: Yes I reviewed the patient's medical records. Lab Data Lab results reviewed: Yes I reviewed the patient's lab results. HPI This 50-year-old female presents with report of abdominal pain that came on suddenly last evening. She has had fever and chills. T-max of 103 at home. Daughter reportedly had nausea, vomiting, diarrhea but patient does not have any of these symptoms. Her daughter with febrile reportedly. Patient denies cough or shortness of breath. Pain is exacerbated with movement. Has had pressure in the bladder region without any dysuria. Denies history of similar symptoms in the past. Denies any risk of sexually transmitted disease. Denies chest discomfort. Pain has been persistent since onset reportedly. General Date/Time Provider Initiated Documentation: 10/11/20 17:03 . Related Data Home Medications Medication Instructions Recorded Confirmed acetaminophen [Mapap Extra 500 mg PO PRN PRN 08/19/13 10/11/20 Strength] hydrochlorothiazide 25 mg tablet 25 mg PO DAILY #30 tab-cap 08/27/19 10/11/20 albuterol sulfate 1 - 2 puff INHALATION Q4H PRN PRN 07/17/20 10/11/20 ferrous gluconate 324 mg PO BID 07/17/20 10/11/20 warfarin See Rx Instructions .ROUTE .COMPLEX 07/17/20 10/11/20 amlodipine 10 mg PO DAILY 09/20/20 10/11/20 aspirin 81 mg PO DAILY 09/20/20 10/11/20 atorvastatin 80 mg PO QPM 09/20/20 10/11/20 clopidogrel 75 mg PO DAILY 09/20/20 10/11/20 lisinopril 20 mg PO DAILY 09/20/20 10/11/20 metoprolol succinate 100 mg PO DAILY 09/20/20 10/11/20 nitroglycerin 0.4 mg SUBLINGUAL PRN PRN 09/20/20 10/11/20 pantoprazole 40 mg PO DAILY 09/20/20 10/11/20 Previous Rx's Medication Instructions Recorded hydrochlorothiazide 25 mg tablet 25 mg PO DAILY #30 tab-cap 08/27/19 Allergies Allergy/AdvReac Type Severity Reaction Status Date / Time adhesive Allergy Intermediate plastic Verified 10/11/20 17:10 tape-blisters Penicillins Allergy Verified 10/11/20 17:10 ibuprofen AdvReac Verified 10/11/20 17:10 General Stated Complaint: Abd Prob SURENDRA: 3 Review of Systems Narrative: Review of systems obtained x7 aside from where indicated in HPI [facility] Medical History (Updated 09/20/20 @ 16:37 by Chai Flood MD) Abnormal uterine bleeding (AUB) onset 2005 after AVR and chronic anticoagulation. Nl EMBx 2018. Pt will begin Aygestin for menstrual control. 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 Surgical History Dilation and curettage Ligation of fallopian tube Tooth extraction WISDOM TEETH REMOVAL Valve Replacement [facility]; [facility] Family History Mother Neoplasm LUNG Father Essential hypertension Heart disease STENTS Hyperlipidemia Asthma Sister No problems noted. Sister No problems noted. Brother No problems noted. Grandfather No problems noted. Grandfather No problems noted. Grandmother , BLOOD CLOTT Heart disease Grandmother No problems noted. Son Depression Son Substance abuse Depression Son Substance abuse Daughter No problems noted. Social History Smoking/Tobacco Use Status: Former Tobacco Use Smoking risk assessment performed?: Yes Alcohol Intake: current Alcohol Intake frequency: holidays/special occasions only Drug use: Never Substance use type: does not use Do you feel safe at home: Yes Do you feel safe in your relationship?: Yes Exam Const General: cooperative and no acute distress Orientation: alert and oriented x3 HENMT Other: Moist mucous membrane Chest Chest: normal inspection of the chest Resp Effort & Inspection: normal respiratory effort Auscultation: clear to auscultation bilaterally Cardio Rate: regular rate and tachycardic Rhythm: regular rhythm GI Palpation: tender Other: No CVA tenderness, guarding Skin General skin exam: no rashes or lesions noted Neuro General: patient alert and patient oriented x3 Extrem Other: 1+ edema bilaterally lower extremities, neurovascularly intact Course Vital Signs Vital signs: Vital Signs Temperature 37.0 C 10/11/20 17:06 Pulse 97 H 10/11/20 17:06 Respiratory Rate 18 10/11/20 17:06 Blood Pressure 136/118 H 10/11/20 17:06 Pulse Oximetry 98 10/11/20 17:06 Temperature 37.0 C 10/11/20 17:06 Temperature Source Skin 10/11/20 17:06 Pulse 81 10/11/20 17:31 Pulse 83 10/11/20 17:31 Respiratory Rate 20 10/11/20 17:20 Respiratory Effort Non-Labored 10/11/20 17:34 Blood Pressure 99/70 L 10/11/20 17:31 Blood Pressure Mean 77 10/11/20 17:31 Blood Pressure Position Sitting 10/11/20 17:06 Pulse Oximetry 97 10/11/20 17:31 Oxygen Delivery Method Room Air 10/11/20 17:06 Oxygen Flow Rate 0 10/11/20 17:06 Pain Level 10 10/11/20 17:06 Lab/Test Results Lab/Test Results: 10/11/20 17:29 Blood Blood Culture - Pending 10/11/20 17:28 Blood Blood Culture - Pending
[2020-10-11 17:42] LABS: Lactate 1.6 mmol/L (0.6-1.4)
[2020-10-11] MEDS: Normal Saline 1,000 ML 1000 ML IV (17:44)
[2020-10-11] MEDS: fentaNYL 100 MCG/2 ML VIAL 75 MCG IVP ×2 (17:44→20:15)
[2020-10-11 17:55] LABS: INR 2.8 (0.9-1.1); Prothrombin Time 27.5 sec (9.3-11.0)
[2020-10-11 17:57] LABS: Absolute Eosinophil Count 0.06 10^3/uL (0.0-0.7); Absolute Lymphocyte Count 1.63 10^3/uL (1.2-3.4); Absolute Monocyte Count 2.16 10^3/uL (0.1-0.8); Diff Comment Diff Reviewed
[2020-10-11 17:58] LABS: RBC Morphology Normal
[2020-10-11 17:59] LABS: ALT 28 U/L (14-59); AST 14 U/L (15-37); Albumin 3.3 g/dL (3.4-5.0); Alkaline Phosphatase 83 U/L (46-116); BUN 13 mg/dL (7-18); CREATININE 1.2 mg/dL (0.55-1.02); Chloride 102 mmol/L (98-107); Estimated GFR 47.55 (mL/min/1.73m2); Glucose 148 mg/dL (74-106); Lipase 111 U/L (73-393); Potassium 3.3 mmol/L (3.5-5.1); Sodium 137 mmol/L (136-145); Total Protein 7.8 g/dL (6.4-8.2)
[2020-10-11] MEDS: Omnipaque 350 MG/ML 100 ML BTL IJ (18:32)
[2020-10-11] MEDS: Normal Saline - Diluent 50 ML VIAL IV (18:33)
[2020-10-11] MEDS: metroNIDAZOLE 500 MG/100 ML BAG 100 MG IVPB (19:04)
[2020-10-11 19:14] LABS: Source Nasal/Nares
[2020-10-11 19:35] LABS: Bilirubin Negative (Negative); Blood Trace-intact (Negative); Clarity Clear (Clear); Glucose Negative (Negative); Ketones Negative (Negative); Leukocyte Esterase Negative (Negative); Nitrite Negative (Negative); Specific Gravity 1.015 (1.005-1.025); Urobilinogen 0.2 EU/dL (Up TO 0.2)
--- NOTE | 2020-10-11 19:39 | DI.VRAD_ITS ---
PROCEDURE INFORMATION: Exam: CT Abdomen And Pelvis With Contrast Exam date and time: 10/11/2020 5:31 PM Age: 50 years old Clinical indication: Other: Guarding, febrile rlq TECHNIQUE: Imaging protocol: Computed tomography of the abdomen and pelvis with contrast. Total images: 1410 COMPARISON: CT ABD PELVIS WITH CONTRAST 05/08/2017 9:40 AM FINDINGS: Lungs: Status post aortic valve replacement. Liver: Homogeneously enhances without mass. Gallbladder and bile ducts: No calcified stones, wall thickening or biliary dilatation. Pancreas: No mass or peripancreatic edema. Spleen: Homogeneously enhances. No splenomegaly. Adrenal glands: There is a tiny stable nodule involving the lateral limb of the right adrenal gland. Kidneys and ureters: There are few renal cysts . Solitary punctate right cortical calcification with small right renal scars. No hydronephrosis. Stomach and bowel: There are scattered colonic diverticula. There is no evidence of terminal ileitis. There is circumferential wall thickening of the cecum. There is submucosal edema. Minimal adjacent mesenteric stranding. No definite diverticula at the level of the cecum. No small bowel dilatation. Appendix: The appendix is noninflamed. Intraperitoneal space: No free air or free fluid. Vasculature: No abdominal aortic aneurysm. Lymph nodes: No significant adenopathy. Urinary bladder: No definite bladder wall thickening. Reproductive: There is a mildly hyperdense 3 cm right uterine fibroid with smaller left-sided partially calcified fibroid. Bones/joints: There is significant degenerative disc disease at L5-S1. Soft tissues: There is a small umbilical hernia. IMPRESSION: Findings consistent with localized inflammation at the level of the cecum. Differential includes diverticulitis, typhlitis and less likely focal ischemic colitis. Malignant lesion although less likely cannot be completely excluded given the focal nature of the process. Dictated and Authenticated by: Uche Amador MD. Ordering:CHANTAL Dhillon MD
[2020-10-11 19:47] LABS: Bacteria Few HPF (Negative); C & S Indicated? No/Sq. Contamination; Casts Negative LPF (Negative); Crystals Negative HPF (Negative); Epithelial Cells Many HPF (Negative); Mucus Negative (Negative); RBC Negative HPF (0-2)
[2020-10-11 20:02] LABS: COVID-19 PCR Negative (Negative)
--- NOTE | 2020-10-11 20:55 | W.PM.HP.N ---
Date of service: 10/11/20 Time of Service: 20:55 Assessment and Plan Assessment and plan (1) Enterocolitis: Status: Acute Assessment and plan: Nonspecific and focal pericecal enterocolitis. Possible diverticulitis, and I also wonder about relation to daughter's gastroenteritis, possible variant presentation? In any case I think it fair to say we are presumably dealing with some infectious process and will continue empiric abx pending cxx. Will hold Coumadin (given abx) and track INR. Will also hold BP meds (other than beta marilou) until certain that hemodynamics stable. History of Present Illness History of Present Illness Chief Complaint: abdominal pain Narrative: 50 female reports one day of gradual onset RLQ pain (NB, ER report indicates sudden onset, but she is very clear to me that this was gradual). Pain is non-radiating, and worse with for example ghtting a bump in the road while driving. No N/V but does have loss of appetite. No trouble with urine. Last BM around the time of pain onset (unsure if before or after), passing flatus since. Has had fever up to 103. Daughter has apparently had some sort of gastroenteritis, manifesting with nausea, vomiting and diarrhea. In ER findings of note for white count 19, negative urine, and CT showing scattered diverticuli and focal pericecal inflammatory changes, without any definitely involved diverticuli; appendix normal. Case reviewed with surgery who it is reported did not feel this was a surgical matter and advised empiric abx. Patient has been given Aztronam and Flagyl and I was asked to see her. Review of Systems All systems reviewed & are unremarkable except as noted in HPI and below PFSH Medical History (Updated 10/11/20 @ 21:07 by Enzo Hagen MD) Abnormal uterine bleeding (AUB) onset 2005 after AVR and chronic anticoagulation. Nl EMBx 2018. Pt will begin Aygestin for menstrual control. 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 Surgical History Dilation and curettage Ligation of fallopian tube Tooth extraction WISDOM TEETH REMOVAL Valve Replacement [facility]; [facility] Family History Mother Neoplasm LUNG Father Essential hypertension Heart disease STENTS Hyperlipidemia Asthma Sister No problems noted. Sister No problems noted. Brother No problems noted. Grandfather No problems noted. Grandfather No problems noted. Grandmother , BLOOD CLOTT Heart disease Grandmother No problems noted. Son Depression Son Substance abuse Depression Son Substance abuse Daughter No problems noted. Social History Smoking/Tobacco Use Status: Former Tobacco Use Smoking risk assessment performed?: Yes Alcohol Intake: current Alcohol Intake frequency: holidays/special occasions only Drug use: Never Substance use type: does not use Do you feel safe at home: Yes Do you feel safe in your relationship?: Yes Meds Home Medications and Allergies Allergies Allergy/AdvReac Type Severity Reaction Status Date / Time adhesive Allergy Intermediate plastic Verified 10/11/20 17:10 tape-blisters Penicillins Allergy Verified 10/11/20 17:10 ibuprofen AdvReac Verified 10/11/20 17:10 Home Medications Medication Instructions Recorded Confirmed Type acetaminophen [Mapap Extra 500 mg PO PRN PRN 08/19/13 10/11/20 History Strength] hydrochlorothiazide 25 mg tablet 25 mg PO DAILY #30 tab-cap 08/27/19 10/11/20 Rx albuterol sulfate 1 - 2 puff INHALATION Q4H PRN PRN 07/17/20 10/11/20 History ferrous gluconate 324 mg PO BID 07/17/20 10/11/20 History warfarin See Rx Instructions .ROUTE .COMPLEX 07/17/20 10/11/20 History amlodipine 10 mg PO DAILY 09/20/20 10/11/20 History aspirin 81 mg PO DAILY 09/20/20 10/11/20 History atorvastatin 80 mg PO QPM 09/20/20 10/11/20 History clopidogrel 75 mg PO DAILY 09/20/20 10/11/20 History lisinopril 20 mg PO DAILY 09/20/20 10/11/20 History metoprolol succinate 100 mg PO DAILY 09/20/20 10/11/20 History nitroglycerin 0.4 mg SUBLINGUAL PRN PRN 09/20/20 10/11/20 History pantoprazole 40 mg PO DAILY 09/20/20 10/11/20 History Exam Narrative Exam Narrative: 110/73, 74, 37.6, 25, 96% RA. HEENT anicteric; neck supple; lungs clear; heart RRR with mechanical S2; abdomen +BS, soft, minikmal RLQ and LLQ tenderness w/o rebound; extremities w/o pitting edema; neuro Ox3, moves all 4s. Results Labs Result diagrams: 10/11/20 17:29 10/11/20 17:29 Labs: Laboratory Results - last 24 hr 10/11/20 10/11/20 10/11/20 17:29 17:29 17:29 WBC 19.43 H RBC 4.85 Hgb 14.0 Hct 42.8 MCV 88.2 MCH 28.9 MCHC 32.7 RDW 13.2 Plt Count 235 MPV 10.0 Immature Gran % 0.5 Neutrophils % 79.5 Lymphocytes % 8.4 Monocytes % 11.1 Eosinophils % 0.3 Basophils % 0.2 Nucleated RBC % 0 Absolute Neutrophils 15.45 H Absolute Lymphocytes 1.63 Absolute Monocytes 2.16 H Absolute Eosinophils 0.06 Absolute Basophils 0.04 RBC Morphology Normal PT INR VBG Lactate 1.6 H Sodium 137 Potassium 3.3 L Chloride 102 Carbon Dioxide 28.0 Anion Gap 7.0 BUN 13 Creatinine 1.2 H Estimated GFR/1.73 m2 47.55 Glucose 148 H Calcium 9.0 Total Bilirubin 1.0 AST 14 L ALT 28 Alkaline Phosphatase 83 Total Protein 7.8 Albumin 3.3 L Lipase 111 Urine Color Urine Clarity Urine pH Ur Specific [place] Urine Protein Urine Ketones Urine Blood Urine Nitrite Urine Bilirubin Urine Urobilinogen Ur Leukocyte Esterase Urine RBC Urine WBC Ur Epithelial Cells Urine Crystals Urine Bacteria Urine Casts Urine Mucus Ur Culture Indicated? Urine Glucose COVID-19 Source SARS-CoV-2 (PCR) 10/11/20 10/11/20 10/11/20 17:29 18:02 18:45 WBC RBC Hgb Hct MCV MCH MCHC RDW Plt Count MPV Immature Gran % Neutrophils % Lymphocytes % Monocytes % Eosinophils % Basophils % Nucleated RBC % Absolute Neutrophils Absolute Lymphocytes Absolute Monocytes Absolute Eosinophils Absolute Basophils RBC Morphology PT 27.5 H INR 2.8 H VBG Lactate Sodium Potassium Chloride Carbon Dioxide Anion Gap BUN Creatinine Estimated GFR/1.73 m2 Glucose Calcium Total Bilirubin AST ALT Alkaline Phosphatase Total Protein Albumin Lipase Urine Color Urine Clarity Urine pH Ur Specific [place] Urine Protein Urine Ketones Urine Blood Urine Nitrite Urine Bilirubin Urine Urobilinogen Ur Leukocyte Esterase Urine RBC Urine WBC Ur Epithelial Cells Urine Crystals Urine Bacteria Urine Casts Urine Mucus Ur Culture Indicated? Urine Glucose COVID-19 Source Cancelled Nasal/nares SARS-CoV-2 (PCR) Cancelled Negative 10/11/20 18:55 WBC RBC Hgb Hct MCV MCH MCHC RDW Plt Count MPV Immature Gran % Neutrophils % Lymphocytes % Monocytes % Eosinophils % Basophils % Nucleated RBC % Absolute Neutrophils Absolute Lymphocytes Absolute Monocytes Absolute Eosinophils Absolute Basophils RBC Morphology PT INR VBG Lactate Sodium Potassium Chloride Carbon Dioxide Anion Gap BUN Creatinine Estimated GFR/1.73 m2 Glucose Calcium Total Bilirubin AST ALT Alkaline Phosphatase Total Protein Albumin Lipase Urine Color Yellow Urine Clarity Clear Urine pH 6.0 Ur Specific [place] 1.015 Urine Protein 100 H Urine Ketones Negative Urine Blood Trace-intact H Urine Nitrite Negative Urine Bilirubin Negative Urine Urobilinogen 0.2 Ur Leukocyte Esterase Negative Urine RBC Negative Urine WBC 3-5 Ur Epithelial Cells Many Urine Crystals Negative Urine Bacteria Few Urine Casts Negative Urine Mucus Negative Ur Culture Indicated? No/sq. contamination Urine Glucose Negative COVID-19 Source SARS-CoV-2 (PCR) Last Vital Signs Temp 37.6 C 10/11/20 19:06 Pulse 73 10/11/20 19:16 Resp 25 H 10/11/20 19:10 BP 110/63 10/11/20 19:16 Pulse Ox 96 10/11/20 19:20 COVID-19 Screening Have you, or household traveled for leisure in last 14 days?: No Had IN PERSON contact w/suspected or confirmed C-19 person: No
[2020-10-11] MEDS: Normal Saline Flush 10 ML SYR IVP (23:54)
[2020-10-11] MEDS: Zolpidem 5 MG TAB PO (23:54)
[2020-10-11] MEDS: POTASSIUM CHLORIDE/0.9% NACL 1,000 ML 150 MEQ IV (23:55)
[2020-10-12] VITALS (8 sets, daily range): BP systolic 89–114; BP diastolic 58–74; PULSE 66–71; RESP 18–24; TEMP 37–37.9; O2SAT 88–97
[2020-10-12] MEDS: Acetaminophen 325 MG TAB 650 MG PO ×2 (00:38→16:44)
[2020-10-12] MEDS: metroNIDAZOLE 500 MG/100 ML BAG 100 MG IVPB ×4 (01:37→21:31)
[2020-10-12] MEDS: AZTREONAM 2,000 MG in Normal Saline 100 ML 200 MG IVPB ×3 (05:08→20:28)
[2020-10-12 07:26] LABS: INR 2.6 (0.9-1.1); Prothrombin Time 25.3 sec (9.3-11.0)
[2020-10-12 07:33] LABS: HCT 39.7 % (36.0-46.0); HGB 12.7 g/dL (11.2-15.7); MCH 29.3 pg (27.0-33.0); MCV 91.5 fL (80-95); MPV 10.4 fL (8.0-11.0); Platelet Count 179 10^3/uL (130-400); RBC 4.34 10^6/uL (3.93-5.22); RDW 13.5 % (11.7-14.6); RDW-SD 45.9 fL; WBC 13.58 10^3/uL (4.4-10.8)
[2020-10-12 07:39] LABS: BUN 15 mg/dL (7-18); CREATININE 1.1 mg/dL (0.55-1.02); Calcium 8.5 mg/dL (8.5-10.1); Chloride 103 mmol/L (98-107); Estimated GFR 52.58 (mL/min/1.73m2); Glucose 94 mg/dL (74-106); Potassium 3.5 mmol/L (3.5-5.1); Sodium 137 mmol/L (136-145)
[2020-10-12] MEDS: Normal Saline Flush 10 ML SYR IVP ×3 (07:53→20:29)
[2020-10-12] MEDS: MORPHine 4 MG/ML SYR IVP ×2 (07:53→12:33)
[2020-10-12] MEDS: POTASSIUM CHLORIDE/0.9% NACL 1,000 ML 150 MEQ IV (07:53)
[2020-10-12] MEDS: Pantoprazole 40 MG TABCR PO (07:54)
[2020-10-12] MEDS: Metoprolol CR 100 MG TABCR PO (07:55)
[2020-10-12] MEDS: Ferrous Gluconate 324 MG TAB PO ×2 (07:55→20:28)
[2020-10-12] MEDS: Aspirin 81 MG CHEW PO (07:55)
[2020-10-12] MEDS: Clopidogrel 75 MG TAB PO (07:55)
--- NOTE | 2020-10-12 09:32 | PDOC.CMIN ---
- If Service Date Differs Date of service: 10/12/20 Time of Service: 09:32 Care Management Initial Assess REASON FOR HOSPITALIZATION:: Focal Enterocolitis PAST MEDICAL HISTORY/PAST SURGICAL HISTORY:: Abnormal uterine bleeding (AUB). onset 2005 after AVR and chronic anticoagulation. Nl EMBx 2018. Pt will begin Aygestin for menstrual control. Acute ITP. BMI 45.0-49.9, adult. Chronic anticoagulation. 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 takes Coumadin. Hypertension. Restless leg syndrome. Tobacco use. Uterine fibroid. Uterus [id number] with multiple uterine fibroids. Dilation and curettage. Ligation of fallopian tube. Tooth extraction. WISDOM TEETH REMOVAL. Valve Replacement. [facility]; [facility] PREVIOUS FUNCTIONAL STATUS/SOCIAL/FAMILY SUPPORTS:: Juani resides in [facility] with her , Garcia. CURRENT FUNCTIONAL STATUS:: CM spoke with Juani in the morning over the phone to confirm cell phone number on file is accurate. Per chart review, Juani was connected to [employer] at [employer] re: insurance support previously and outreach was attempted in September. CM sent updated referral to [employer] requesting insurance support, providing contact info including direct number to patient room. ADVANCE DIRECTIVES:: None on file. Has patient been provided with info about the portal/API?: Yes Did the patient sign up for the portal?: Yes (Previously) CODE STATUS:: Full Code INSURANCE COVERAGE / FINANCIAL ISSUES:: Self Pay-referral sent to [employer]. CURRENT HOME/COMMUNITY SERVICES/EQUIPMENT:: None, currently. PRIMARY CARE PHYSICIAN:: Martha Iraheta POTENTIAL DISCHARGE NEEDS:: Follow up appointment with PCP, insurance attachment. PATIENT/FAMILY EDUCATION NEEDS:: Review discharge instructions, discuss [employer]. ANTICIPATED BARRIERS TO DISCHARGE:: None identified. TRANSPORTATION:: Via private vehicle with family or via [facility]. PLAN:: Juani continues to be closely monitored and treated. CM faxed referral to [employer] for insurance support, and will support patient in connecting to additional services. Anticipate she will transport via private vehicle with family or via RCT.
--- NOTE | 2020-10-12 12:17 | W.PM.PROGNOT ---
Date of Service Date of service: 10/12/20 Time of Service: 12:17 Assessment and Plan Assessment and plan (1) Enterocolitis: Status: Acute Assessment and plan: Suspected infectious enterocolitis. WBC improved with empiric aztreonam/flagyl - continue. Tolerating clears. Consult general surgery - ?diverticulitis. (2) Acute CHF: Status: Acute Assessment and plan: Causing hypoxia. D/c IVF and give one dose of lasix. Obtain CXR. Obtain Echo. COVID-19 negative. (3) Aortic valve replaced: Status: Chronic Assessment and plan: Resume anticoagulation if no surgical interventions planned. Monitor volume status. Obtain echo. (4) Anticoagulated on warfarin: Status: Acute Assessment and plan: As above (5) Discharge planning issues: Status: Acute Assessment and plan: Full code. Continues to require hospitalization. Subjective Subjective Interval history since last seen: Ms Martinez c/o shortness of breath which is new to her this morning. Denies dizziness, chest pain, nausea. ABdominal pain in RLQ is not stopping her from eating a clear liquid tray. States her mitral valve needs to be replaced again and verbalizes concern that her diuretic was held this morning. Exam Narrative Exam Narrative: General: pleasant obese female who is mildly tachypenic on 2L of O2 HEENT: EOMI, MMM Heart: RRR, LUCHO of mechanical valve Lungs: diminished breath sounds B Abdomen: soft, tender in RLQ Extremities: +2 BLE edema - worse than her baseline Objective Last Vital Signs Temp 37.0 C 10/12/20 11:25 Pulse 71 10/12/20 11:25 Resp 24 10/12/20 11:25 BP 103/69 10/12/20 11:25 Pulse Ox 94 10/12/20 11:53 Laboratory Results - last 24 hr 10/11/20 10/11/20 10/11/20 17:29 17:29 17:29 WBC 19.43 H RBC 4.85 Hgb 14.0 Hct 42.8 MCV 88.2 MCH 28.9 MCHC 32.7 RDW 13.2 Plt Count 235 MPV 10.0 Immature Gran % 0.5 Neutrophils % 79.5 Lymphocytes % 8.4 Monocytes % 11.1 Eosinophils % 0.3 Basophils % 0.2 Nucleated RBC % 0 Absolute Neutrophils 15.45 H Absolute Lymphocytes 1.63 Absolute Monocytes 2.16 H Absolute Eosinophils 0.06 Absolute Basophils 0.04 RBC Morphology Normal PT INR VBG Lactate 1.6 H Sodium 137 Potassium 3.3 L Chloride 102 Carbon Dioxide 28.0 Anion Gap 7.0 BUN 13 Creatinine 1.2 H Estimated GFR/1.73 m2 47.55 Glucose 148 H Calcium 9.0 Total Bilirubin 1.0 AST 14 L ALT 28 Alkaline Phosphatase 83 Total Protein 7.8 Albumin 3.3 L Lipase 111 Urine Color Urine Clarity Urine pH Ur Specific [place] Urine Protein Urine Ketones Urine Blood Urine Nitrite Urine Bilirubin Urine Urobilinogen Ur Leukocyte Esterase Urine RBC Urine WBC Ur Epithelial Cells Urine Crystals Urine Bacteria Urine Casts Urine Mucus Ur Culture Indicated? Urine Glucose COVID-19 Source SARS-CoV-2 (PCR) 10/11/20 10/11/20 10/11/20 17:29 18:02 18:45 WBC RBC Hgb Hct MCV MCH MCHC RDW Plt Count MPV Immature Gran % Neutrophils % Lymphocytes % Monocytes % Eosinophils % Basophils % Nucleated RBC % Absolute Neutrophils Absolute Lymphocytes Absolute Monocytes Absolute Eosinophils Absolute Basophils RBC Morphology PT 27.5 H INR 2.8 H VBG Lactate Sodium Potassium Chloride Carbon Dioxide Anion Gap BUN Creatinine Estimated GFR/1.73 m2 Glucose Calcium Total Bilirubin AST ALT Alkaline Phosphatase Total Protein Albumin Lipase Urine Color Urine Clarity Urine pH Ur Specific [place] Urine Protein Urine Ketones Urine Blood Urine Nitrite Urine Bilirubin Urine Urobilinogen Ur Leukocyte Esterase Urine RBC Urine WBC Ur Epithelial Cells Urine Crystals Urine Bacteria Urine Casts Urine Mucus Ur Culture Indicated? Urine Glucose COVID-19 Source Cancelled Nasal/nares SARS-CoV-2 (PCR) Cancelled Negative 10/11/20 10/12/20 10/12/20 18:55 06:40 06:40 WBC 13.58 H D RBC 4.34 Hgb 12.7 Hct 39.7 MCV 91.5 D MCH 29.3 MCHC 32.0 RDW 13.5 Plt Count 179 MPV 10.4 Immature Gran % Neutrophils % Lymphocytes % Monocytes % Eosinophils % Basophils % Nucleated RBC % Absolute Neutrophils Absolute Lymphocytes Absolute Monocytes Absolute Eosinophils Absolute Basophils RBC Morphology PT INR VBG Lactate Sodium 137 Potassium 3.5 Chloride 103 Carbon Dioxide 24.0 Anion Gap 10.0 BUN 15 Creatinine 1.1 H Estimated GFR/1.73 m2 52.58 Glucose 94 D Calcium 8.5 Total Bilirubin AST ALT Alkaline Phosphatase Total Protein Albumin Lipase Urine Color Yellow Urine Clarity Clear Urine pH 6.0 Ur Specific [place] 1.015 Urine Protein 100 H Urine Ketones Negative Urine Blood Trace-intact H Urine Nitrite Negative Urine Bilirubin Negative Urine Urobilinogen 0.2 Ur Leukocyte Esterase Negative Urine RBC Negative Urine WBC 3-5 Ur Epithelial Cells Many Urine Crystals Negative Urine Bacteria Few Urine Casts Negative Urine Mucus Negative Ur Culture Indicated? No/sq. contamination Urine Glucose Negative COVID-19 Source SARS-CoV-2 (PCR) 10/12/20 06:40 WBC RBC Hgb Hct MCV MCH MCHC RDW Plt Count MPV Immature Gran % Neutrophils % Lymphocytes % Monocytes % Eosinophils % Basophils % Nucleated RBC % Absolute Neutrophils Absolute Lymphocytes Absolute Monocytes Absolute Eosinophils Absolute Basophils RBC Morphology PT 25.3 H INR 2.6 H VBG Lactate Sodium Potassium Chloride Carbon Dioxide Anion Gap BUN Creatinine Estimated GFR/1.73 m2 Glucose Calcium Total Bilirubin AST ALT Alkaline Phosphatase Total Protein Albumin Lipase Urine Color Urine Clarity Urine pH Ur Specific [place] Urine Protein Urine Ketones Urine Blood Urine Nitrite Urine Bilirubin Urine Urobilinogen Ur Leukocyte Esterase Urine RBC Urine WBC Ur Epithelial Cells Urine Crystals Urine Bacteria Urine Casts Urine Mucus Ur Culture Indicated? Urine Glucose COVID-19 Source SARS-CoV-2 (PCR)
[2020-10-12] MEDS: Furosemide 20 MG/2 ML VIAL IVP (12:32)
--- NOTE | 2020-10-12 12:35 | DI.RAD_ITS ---
EXAM: XR PORTABLE CHEST AP CLINICAL HISTORY: new hypoxia and shortness of breath TECHNIQUE: 2D digital imaging was performed. COMPARISON: CR,XR XR PORTABLE CHEST AP from 07/16/2020 FINDINGS: MEDIASTINUM: Normal. HEART: Normal. PULMONARY VASCULATURE: Normal. LUNGS: Clear. PLEURAL SPACE: No pleural effusion or pneumothorax. BONE:Within normal limits for the patient's age. Sternal wires are in place. There is an aortic demetrius ve replacement. OTHER FINDINGS:Normal. IMPRESSION: No acute pulmonary findings. DATA REPOSITORY: RADIATION DOSE DELIVERED:
--- NOTE | 2020-10-12 13:12 | SCONE_ITS ---
Date of service: 10/12/20 Time of Service: 13:12 Assessment and Plan Assessment and plan (1) Enterocolitis: Status: Acute Assessment and plan: Infectious versus autoimmune. She has been on antibiotics. She is not had a bowel movement since she has been in the hospital. She has never had anything like this before. There is no family history of inflammatory bowel disease or colorectal cancer. Her daughter may or may not have been sick as well. Patiently just had an NSTEMI in July that was amendable to percutaneous stenting. They were treating her medically. Patient is currently being evalu ated because she continues to have a symptomatic critical aortic stenosis. She has a [facility] valve in place. There cardiology is going to repeat her echo and a CT angiogram in October. If she still has problems with the valve and they again to schedule her for valve replacement surgery. Patient is fully anticoagulated on Coumadin. She is an extremely poor surgical candidate at this time. I recommend that we repeat the CT scan with IV and oral contrast. Continue antibiotics. Will continue to follow. If her condition changes then she would need to be transferred to [facility] for any consideration of any interventions. Given her recent DC she is extremely poor candidate for any surgical procedures. Patient is chronically anticoagulated. So most likely any Hemoccults would be come back as positive and I do not think it is prudent to perform this test. 45 minutes is spent on consultation of this patient. In discussing the case with Dr. Moore. Reviewing her echo and her cardiac [place] [facility] [place] [facility] and reviewing her labs including CBC, comp, INR. (2) NSTEMI (non-ST elevated myocardial infarction): Status: Acute (3) TIA due to embolism: Status: Acute (4) Smoker: Status: Chronic (5) BMI 40.0-44.9, adult: Status: Acute (6) Aortic valve replaced: Status: Chronic History of Present Illness Narrative: Today she is feeling ok. She still has pain in the RLQ. She doesn't have fever/chills any longer. It hurts when she gets up adn moves around. No n/v. She is not able to move her bowels. She is passing gas. She is tolerating clears. She has never had bowel problems in the past. No family hx of IBD or CRC. SHe has not had rectal bleeding. She has not had problems w/ her bowels prior to this. She is passing gas. She has not had wt loss. She did have an nSTEMI in July. She had a cath and a total occlusion of the LCX that they were not able to stent. She is also waiting to have a revision of aortic vavlve. She is on ASA/plavix/coumadin. Last time he saw cardiology was in 09/11/2020. They did a MAYE which did show that her left ventricular function was normal. She still has symptomatic aortic stenosis. They feel that there is granulation tissue around the valve that is causing it to not see properly. They recommend repeat CT angio of the heart and echo in October. If it is not any better than she needs to have her valve redone. From H&P:Chief Complaint: abdominal pain Narrative: 50 female reports one day of gradual onset RLQ pain (NB, ER report indicates sudden onset, but she is very clear to me that this was gradual). Pain is non-radiating, and worse with for example ghtting a bump in the road while driving. No N/V but does have loss of appetite. No trouble with urine. Last BM around the time of pain onset (unsure if before or after), passing flatus since. Has had fever up to 103. Daughter has apparently had some sort of gastroenteritis, manifesting with nausea, vomiting and diarrhea. In ER findings of note for white count 19, negative urine, and CT showing scattered diverticuli and focal pericecal inflammatory changes, without any definitely involved diverticuli; appendix normal. CT: Thickening of the wall of the cecum with mesenteric stranding suspicious for an inflammatory or infectious process. A malignant lesion cannot be entirely excluded. Consults Consult date: 10/12/20 [facility] Medical History (Updated 10/12/20 @ 21:12 by Ida Knight DO) Abnormal uterine bleeding (AUB) onset 2005 after AVR and chronic anticoagulation. Nl EMBx 2018. Pt will begin Aygestin for menstrual control. 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 takes Coumadin Hypertension Restless leg syndrome Tobacco use Uterine fibroid Uterus [id number] with multiple uterine fibroids. Surgical History (Updated 10/12/20 @ 21:12 by Ida Knight DO) Dilation and curettage Ligation of fallopian tube Tooth extraction WISDOM TEETH REMOVAL Valve Replacement [facility]; AORTIC Family History Mother Neoplasm LUNG Father Essential hypertension Heart disease STENTS Hyperlipidemia Asthma Sister No problems noted. Sister No problems noted. Brother No problems noted. Grandfather No problems noted. Grandfather No problems noted. Grandmother , BLOOD CLOTT Heart disease Grandmother No problems noted. Son Depression Son Substance abuse Depression Son Substance abuse Daughter No problems noted. Social History Smoking/Tobacco Use Status: Former Tobacco Use Smoking risk assessment performed?: Yes Alcohol Intake: current Alcohol Intake frequency: holidays/special occasions only Drug use: Never Substance use type: does not use Do you feel safe at home: Yes Do you feel safe in your relationship?: Yes Exam Const General: cooperative, comfortable and no acute distress Nutritional Appearance: obese Orientation: alert, awake, oriented x3 and oriented to person Eyes General: appearance normal, both eyes and all related structures Visual Waters: normal visual waters by confrontation Eyelids: eyelids normal Sclera: sclerae normal Pupils: PERRL Resp Effort & Inspection: normal respiratory effort and able to speak in complete sentences Auscultation: clear to auscultation bilaterally Cardio Rate: regular rate Rhythm: regular rhythm Heart Sounds: click GI Inspection: normal to inspection and obesity Palpation: soft, hernia and tender in the RLQ; with no rebound tenderness and Rovsing's sign negative Auscultation: normal bowel sounds Neuro General: patient alert, patient awake, patient oriented x3 and moves all extremities Results Last Vital Signs Temp 37.0 C 10/12/20 11:25 Pulse 71 10/12/20 11:25 Resp 24 10/12/20 11:25 BP 103/69 10/12/20 11:25 Pulse Ox 94 10/12/20 11:53 Labs Result diagrams: 10/12/20 06:40 10/12/20 06:40 Labs: Laboratory Results - last 24 hr 10/11/20 10/11/20 10/11/20 17:29 17:29 17:29 WBC 19.43 H RBC 4.85 Hgb 14.0 Hct 42.8 MCV 88.2 MCH 28.9 MCHC 32.7 RDW 13.2 Plt Count 235 MPV 10.0 Immature Gran % 0.5 Neutrophils % 79.5 Lymphocytes % 8.4 Monocytes % 11.1 Eosinophils % 0.3 Basophils % 0.2 Nucleated RBC % 0 Absolute Neutrophils 15.45 H Absolute Lymphocytes 1.63 Absolute Monocytes 2.16 H Absolute Eosinophils 0.06 Absolute Basophils 0.04 RBC Morphology Normal PT INR VBG Lactate 1.6 H Sodium 137 Potassium 3.3 L Chloride 102 Carbon Dioxide 28.0 Anion Gap 7.0 BUN 13 Creatinine 1.2 H Estimated GFR/1.73 m2 47.55 Glucose 148 H Calcium 9.0 Total Bilirubin 1.0 AST 14 L ALT 28 Alkaline Phosphatase 83 Total Protein 7.8 Albumin 3.3 L Lipase 111 Urine Color Urine Clarity Urine pH Ur Specific [place] Urine Protein Urine Ketones Urine Blood Urine Nitrite Urine Bilirubin Urine Urobilinogen Ur Leukocyte Esterase Urine RBC Urine WBC Ur Epithelial Cells Urine Crystals Urine Bacteria Urine Casts Urine Mucus Ur Culture Indicated? Urine Glucose COVID-19 Source SARS-CoV-2 (PCR) 10/11/20 10/11/20 10/11/20 17:29 18:02 18:45 WBC RBC Hgb Hct MCV MCH MCHC RDW Plt Count MPV Immature Gran % Neutrophils % Lymphocytes % Monocytes % Eosinophils % Basophils % Nucleated RBC % Absolute Neutrophils Absolute Lymphocytes Absolute Monocytes Absolute Eosinophils Absolute Basophils RBC Morphology PT 27.5 H INR 2.8 H VBG Lactate Sodium Potassium Chloride Carbon Dioxide Anion Gap BUN Creatinine Estimated GFR/1.73 m2 Glucose Calcium Total Bilirubin AST ALT Alkaline Phosphatase Total Protein Albumin Lipase Urine Color Urine Clarity Urine pH Ur Specific [place] Urine Protein Urine Ketones Urine Blood Urine Nitrite Urine Bilirubin Urine Urobilinogen Ur Leukocyte Esterase Urine RBC Urine WBC Ur Epithelial Cells Urine Crystals Urine Bacteria Urine Casts Urine Mucus Ur Culture Indicated? Urine Glucose COVID-19 Source Cancelled Nasal/nares SARS-CoV-2 (PCR) Cancelled Negative 10/11/20 10/12/20 10/12/20 18:55 06:40 06:40 WBC 13.58 H D RBC 4.34 Hgb 12.7 Hct 39.7 MCV 91.5 D MCH 29.3 MCHC 32.0 RDW 13.5 Plt Count 179 MPV 10.4 Immature Gran % Neutrophils % Lymphocytes % Monocytes % Eosinophils % Basophils % Nucleated RBC % Absolute Neutrophils Absolute Lymphocytes Absolute Monocytes Absolute Eosinophils Absolute Basophils RBC Morphology PT INR VBG Lactate Sodium 137 Potassium 3.5 Chloride 103 Carbon Dioxide 24.0 Anion Gap 10.0 BUN 15 Creatinine 1.1 H Estimated GFR/1.73 m2 52.58 Glucose 94 D Calcium 8.5 Total Bilirubin AST ALT Alkaline Phosphatase Total Protein Albumin Lipase Urine Color Yellow Urine Clarity Clear Urine pH 6.0 Ur Specific [place] 1.015 Urine Protein 100 H Urine Ketones Negative Urine Blood Trace-intact H Urine Nitrite Negative Urine Bilirubin Negative Urine Urobilinogen 0.2 Ur Leukocyte Esterase Negative Urine RBC Negative Urine WBC 3-5 Ur Epithelial Cells Many Urine Crystals Negative Urine Bacteria Few Urine Casts Negative Urine Mucus Negative Ur Culture Indicated? No/sq. contamination Urine Glucose Negative COVID-19 Source SARS-CoV-2 (PCR) 10/12/20 06:40 WBC RBC Hgb Hct MCV MCH MCHC RDW Plt Count MPV Immature Gran % Neutrophils % Lymphocytes % Monocytes % Eosinophils % Basophils % Nucleated RBC % Absolute Neutrophils Absolute Lymphocytes Absolute Monocytes Absolute Eosinophils Absolute Basophils RBC Morphology PT 25.3 H INR 2.6 H VBG Lactate Sodium Potassium Chloride Carbon Dioxide Anion Gap BUN Creatinine Estimated GFR/1.73 m2 Glucose Calcium Total Bilirubin AST ALT Alkaline Phosphatase Total Protein Albumin Lipase Urine Color Urine Clarity Urine pH Ur Specific [place] Urine Protein Urine Ketones Urine Blood Urine Nitrite Urine Bilirubin Urine Urobilinogen Ur Leukocyte Esterase Urine RBC Urine WBC Ur Epithelial Cells Urine Crystals Urine Bacteria Urine Casts Urine Mucus Ur Culture Indicated? Urine Glucose COVID-19 Source SARS-CoV-2 (PCR)
--- NOTE | 2020-10-12 14:03 | DI.US_ITS ---
APPROVED REPORT EXAM: Comprehensive 2D, Doppler, and color-flow Echocardiogram Patient Location: In-Patient Room/Bed: [facility] [place] [facility] Supervisor: Renetta Ramos RDCS (AE) Indications: Acute CHF, Mechanical aortic valve Other Information Study Quality: Fair. Technically limited study due to body habitus. Conclusion Left Ventricle : The left ventricle is normal size. Left ventricular systolic function is borderline. Mild concentric left ventricular hypertrophy. Regional wall motion is normal. LVEF is 55%. The diast olic function is abnormal. Right Ventricle : The right ventricle is normal size. The right ventricular systolic function is norm al. The RVSP is 33.8mmHg. Atria : The left atrium size is normal. The right atrium size is normal. Aortic Valve : Mechanical aortic valve is present. Appears well-seated without any significant parav alvular leak. No hemodynamically significant valvular aortic stenosis. No aortic regurgitation is pre sent. Mitral Valve : Moderate mitral annular calcification. Trace to mild mitral regurgitation. No evidence of mitral valve stenosis. Great Vessels : The aortic root is normal in size. The ascending aorta is moderately dilated (4.0cm). Aortic arch is normal in caliber. IVC is normal in size and collapses >50% with inspiration. Please see remainder of study for further details. Wall motion Left Ventricle The left ventricle is normal size. Left ventricular systolic function is borderline. Mild concentric left ventricular hypertrophy. Regional wall motion is normal. The diastolic function is abnormal. The re is no ventricular septal defect visualized. LVEF is 55%. Right Ventricle The right ventricle is normal size. The right ventricular systolic function is normal. The RVSP is 33 .8mmHg. Atria The left atrium size is normal. The right atrium size is normal. The interatrial septum is intact wit h no evidence for an atrial septal defect. Aortic Valve Mechanical aortic valve is present. Appears well-seated without any significant paravalvular leak. No hemodynamically significant valvular aortic stenosis. No aortic regurgitation is present. Mitral Valve Moderate mitral annular calcification. No evidence of mitral valve stenosis. Trace to mild mitral reg urgitation. Tricuspid Valve The tricuspid valve is normal in structure. There is no tricuspid valve stenosis. Mild tricuspid regu rgitation. Pulmonic Valve Pulmonic valve is grossly normal in structure. There is no pulmonic valvular stenosis. Trace pulmonic regurgitation. Great Vessels The aortic root is normal in size. The ascending aorta is moderately dilated (4.0cm). Aortic arch is normal in caliber. IVC is normal in size and collapses >50% with inspiration. Pericardium There is no pericardial effusion. 2D Dimensions IVSD d PLAX 1.35 cm F: 0.6-1.0 LV Vol A2C d MOD 144.3 mL LVPW d PLAX 1.32 cm F: 0.6 - 1.0 LV Vol A4C d MOD 157.0 mL LVID d PLAX 5.03 cm F: 3.8 - 5.2 LA vol/ BSA A2C s A-L 25.0 mL/m2 LVDs 3.45 cm F: 2.2 - 3.5 LA vol/ BSA A4C s A-L 30.0 mL/m2 Ao Root d 2.78 cm F: 2.7 - 3.3 LA Vol/ BSA Biplane s A-L 29.6 mL/m2 RA Area A4C 26.05 cm2 LA Area A4C s MOD 22.38 cm2 RA Vol/ BSA A4C s A-L 41.9 mL/m2 LA Area A2C s MOD 18.94 cm2 Ao Asc Diam d 3.99 cm F: 2.3 - 3.1 LV EF A4C MOD 55.4 % LV EF Teichholz 58.6 % LV EF A2C MOD 55.2 % LVEF ([employer]) 54.99 % F: 54 - 74 LV EF Biplane MOD 55.0 % LV Volume 108.59 mL F: 46 - 106 SV 82.95 mL LV Volume Index 47.83 mL/m2 F: 29 - 61 SV Index 36.48 mL/m2 LV Vol Biplane MOD 150.8 mL FS 31.10 % M-Mode TAPSE 2.28 cm (M/F) >1.7 LV Diastology MV E' medial 0.075 (>0.07 m/s) E/A Ratio 1.1 LV E/e MED 15.20 (<14) MV E Vmax 1.15 (0.4-1.3 m/s) MV E' lateral 0.077 (>0.1 m/s) MV A Vmax 1.00 (0.4-1.3 m/s) LV E/e LAT 14.85 (<14) MV E/A Ratio 1.09 MV E/E' medial 15.24 MV E/E' lateral 14.85 Aortic Valve LVOT Area 3.03 cm2 AoV Area Vmax 0.85 cm2 LVOT Vmax 1.16 m/s AoV Area/ BSA (Vmax) 0.37 cm2/m2 LVOT Mean Robbie. 0.99 m/s CLARISSA Mean Robbie. 0.95 cm2 LVOT Peak Grad 5.4 mmHg CLARISSA Mean Robbie. Index 0.42 cm2/m2 LVOT Mean Grad 4.0 mmHg LVOT VTI 0.287 m LVOT Diam s 1.95 cm AoV Vmax 4.13 m/s Velocity Ratio 0.28 AoV Mean Robbie. 3.14 m/s AoV Peak Grad 68.4 mmHg LVOT SV 86.88 mL AoV Mean Grad 42.6 mmHg AoV VTI 0.904 m AoV Area VTI 0.96 cm2 AoV Area/ BSA (VTI) 0.42 cm/m2 Mitral Valve MV DT 251 (160-240 msec) MV PHT 73 msec MV Area PHT 3.02 cm2 MV VTI 0.524 m MV VTI Annulus 0.507 m MV Area VTI 1.60 (4.0-6.0 cm2) Pulmonary Valve PV Vmax 1.24 (0.5-1.5 m/s) RVOT Peak Gr. 4.05 mmHg PV Peak Grad 6.2 mmHg RVOT Mean Gr. 2.00 mmHg PV Mean Grad 3.1 mmHg RVOT VTI 0.192 m PV VTI 0.230 m RVOT Vmax 1.01 m/s Tricuspid Valve TR Peak Grad 30.7 mmHg TR Vmax 2.77 m/s RA Pressure 3.00 mmHg RVSP (TR) 33.8 mmHg
--- NOTE | 2020-10-12 14:38 | CHAPLAIN ---
Juani was up in a chair when I visited. She asked for a warm blanket. She is in touch with her , but he has not had the two COVID vaccine shots, so he is not permitted by hospital, to visit. I will continue to visit Juani.
[2020-10-12] MEDS: Atorvastatin 40 MG TAB 80 MG PO (20:28)
[2020-10-12] MEDS: Nicotine 7 MG/24 HR PATCH TD (21:57)
[2020-10-13] VITALS (7 sets, daily range): BP systolic 102–144; BP diastolic 69–85; PULSE 60–70; RESP 18–23; TEMP 36.6–36.9; O2SAT 94–98
[2020-10-13] MEDS: metroNIDAZOLE 500 MG/100 ML BAG 100 MG IVPB ×4 (02:01→20:51)
[2020-10-13] MEDS: Normal Saline Flush 10 ML SYR IVP ×3 (02:01→20:45)
[2020-10-13] MEDS: Acetaminophen 325 MG TAB 650 MG PO ×2 (02:10→07:41)
[2020-10-13] MEDS: AZTREONAM 2,000 MG in Normal Saline 100 ML 200 MG IVPB ×3 (03:25→20:46)
[2020-10-13 06:58] LABS: Abs Immature Grans 0.05 10^3/uL (0.0-0.06); Absolute Basophil Count 0.05 10^3/uL (0.0-0.2); Absolute Eosinophil Count 0.15 10^3/uL (0.0-0.7); Absolute Monocyte Count 1.44 10^3/uL (0.1-0.8); Basophils % 0.4; Eosinophils % 1.3; HCT 35.5 % (36.0-46.0); HGB 11.4 g/dL (11.2-15.7); Immature Grans % 0.4; Lymphocytes % 16.1; MCH 28.9 pg (27.0-33.0); MCHC 32.1 % (32.0-36.0); MCV 89.9 fL (80-95); MPV 10.4 fL (8.0-11.0); Monocytes % 12.2; Neutrophils % 69.6; Nucleated RBC 0 %; Platelet Count 185 10^3/uL (130-400); RBC 3.95 10^6/uL (3.93-5.22); RDW 13.5 % (11.7-14.6); RDW-SD 44.7 fL; WBC 11.77 10^3/uL (4.4-10.8)
[2020-10-13 07:05] LABS: Absolute Lymphocyte Count 1.89 10^3/uL (1.2-3.4); Absolute Neutrophil Count 8.19 10^3/uL (1.2-6.7)
[2020-10-13 07:13] LABS: Anion Gap 5.4 mmol/L (3-11); BUN 12 mg/dL (7-18); CO2 28.6 mmol/L (21.0-32.0); CREATININE 1.2 mg/dL (0.55-1.02); Calcium 8.4 mg/dL (8.5-10.1); Chloride 104 mmol/L (98-107); Estimated GFR 47.55 (mL/min/1.73m2); Glucose 99 mg/dL (74-106); Potassium 3.4 mmol/L (3.5-5.1); Sodium 138 mmol/L (136-145)
[2020-10-13 07:17] LABS: C-Reactive Protein 10.63 mg/dL (0.0-0.3); Magnesium 1.8 mg/dL (1.8-2.4)
[2020-10-13] MEDS: Aspirin 81 MG CHEW PO (07:41)
[2020-10-13] MEDS: Ferrous Gluconate 324 MG TAB PO ×2 (07:41→20:50)
[2020-10-13] MEDS: Pantoprazole 40 MG TABCR PO (07:41)
[2020-10-13] MEDS: Metoprolol CR 100 MG TABCR PO (07:41)
[2020-10-13] MEDS: Clopidogrel 75 MG TAB PO (07:42)
--- NOTE | 2020-10-13 08:00 | W.PM.PROGNOT ---
Documented by User: ELLE Johnston 10/13/20 08:04 Date of Service Date of service: 10/13/20 Time of Service: 08:01 Assessment and Plan Assessment and plan (1) Enterocolitis: Status: Acute Assessment and plan: Infectious versus autoimmune. Abd pain has improved. (+) Flatus & BM Encouraged ambulation as tolerated Activities OOB as tolerated Continue Pulmonary Toilet. Continue medical management and antibiotics. (2) NSTEMI (non-ST elevated myocardial infarction): Status: Acute (3) Smoker: Status: Chronic (4) BMI 40.0-44.9, adult: Status: Acute (5) Aortic valve replaced: Status: Chronic Subjective Subjective Interval history since last seen: Patient reports that her abdominal pain has improved and is no longer constant. Her abdomen waxes and wanes. (+) Flatus and BM Denies any nausea or vomiting. Exam Const General: cooperative, healthy appearing and comfortable Orientation: alert and oriented x3 Resp Effort & Inspection: normal respiratory effort, no audible wheezes and no cough GI Inspection: normal to inspection and obesity Palpation: soft, no guarding and tender in the RLQ Auscultation: normal bowel sounds Objective Last Vital Signs Temp 36.7 C 10/13/20 07:22 Pulse 70 10/13/20 07:22 Resp 21 10/13/20 07:22 BP 130/85 10/13/20 07:22 Pulse Ox 98 10/13/20 07:22 Laboratory Results - last 24 hr 10/13/20 10/13/20 10/13/20 06:19 06:19 06:19 WBC 11.77 H RBC 3.95 Hgb 11.4 Hct 35.5 L MCV 89.9 MCH 28.9 MCHC 32.1 RDW 13.5 Plt Count 185 MPV 10.4 Immature Gran % 0.4 Neutrophils % 69.6 Lymphocytes % 16.1 Monocytes % 12.2 Eosinophils % 1.3 Basophils % 0.4 Nucleated RBC % 0 Absolute Neutrophils 8.19 H Absolute Lymphocytes 1.89 Absolute Monocytes 1.44 H Absolute Eosinophils 0.15 Absolute Basophils 0.05 Sodium 138 Potassium 3.4 L Chloride 104 Carbon Dioxide 28.6 Anion Gap 5.4 BUN 12 Creatinine 1.2 H Estimated GFR/1.73 m2 47.55 Glucose 99 Calcium 8.4 L Magnesium 1.8 C-Reactive Protein 10.63 H Documented by User: Ida Knight, 10/13/20 16:16 Assessment and Plan Assessment and plan (1) NSTEMI (non-ST elevated myocardial infarction): Status: Acute Assessment and plan: I did review her CT w/ Dr. Fuentes. The CT looks signif worse today. There is increase swelling and area w/ ni the cecum and TI. There is also fluid in pelvis- but not abscess. But clinically pt is improved. PT is NOT a candidate for CE b/c of her recent [place] & critical . GI did not feel there was a roll for steriods as clinically she is improving. continue medical management. (2) Valve Replacement: Status: None (3) Chronic anticoagulation: Status: None (4) BMI 45.0-49.9, adult: Status: None
[2020-10-13] MEDS: Omnipaque 350 MG/ML 50 ML BTL IJ (09:24)
[2020-10-13] MEDS: Breeza Beverage 473 ML BTL PO (09:26)
[2020-10-13] MEDS: Omnipaque 350 MG/ML 100 ML BTL IJ (09:54)
[2020-10-13] MEDS: Normal Saline - Diluent 50 ML VIAL IV (09:55)
--- NOTE | 2020-10-13 10:05 | DI.CT_ITS ---
EXAM: CT ABDOMEN PELVIS W INDICATION: F/u enteritis. COMPARISON: CT CT ABDOMEN PELVIS W from 10/11/2020 TECHNIQUE: FINDINGS: CT examination of the abdomen and pelvis was performed with a bolus infusion of 100 cc of Omnipaque 3 50. Oral contrast was administered as well. Images obtained through the lung bases are unremarkable . The liver is mildly enlarged but otherwise unremarkable.. Gallbladder and bile ducts are CT normal. Pancreas appears normal. Spleen is unremarkable in appearance. Adrenals appear normal. The kidneys are unremarkable with no evidence of hydronephrosis, nephrolithiasis, or renal mass.. Ur inary bladder unremarkable. Abdominal aorta is of normal diameter and no major vascular abnormality is seen. No abdominal wall hernia. No abdominal or pelvic adenopathy. Contour abnormalities of the uterus noted consistent with multiple fibroids. There is marked deformity of the cecum with Viktoria cecal fat infiltration, the findings are more promin ent than on prior examination of October 11. There also appears to be wall thickening of the terminal ileum. Remainder of the colon and small bowel is unremarkable. There is moderate free fluid in the pelvis. IMPRESSION: Increasing cecal wall thickening and Viktoria cecal fat inflammation and increasing free fluid in the pel vis since prior examination of October 11. Normal appearance of the appendix. Findings as described are suggestive of an inflammatory process, malignancy not excluded on the basis of this examination. RADIATION DOSE DELIVERED: 1,602.59mGy.cm Total DLP 1,602.59mGy.cm Total DLP RADIATION OPTIMIZATION: All CT scans at this facility use at least one of these dose optimization te chniques: automated exposure control; mA and/or kV adjustment per patient size (includes targeted exa ms where dose is matched to clinical indication); or iterative reconstruction.
--- NOTE | 2020-10-13 11:10 | PDOC.CMDIS ---
LACE Index Scoring Tool - Questions: Length of Stay (in days): 2 Acuity (Admit via E.D.?): Yes E.D. Visits: 1 - Answers: Total Score: 6 Risk of Readmission: Low Risk Care Management Discharge Reason for Hospitalization: Focal Enterocolitis Discharge Plan: Juani will return home when ready per MD. FRANCOIS referral completed for insurance support. Juani will transport via private vehicle with family or via RCT. Patient/Family Education Needs: Review discharge instructions, discuss Ask Me Three.
[2020-10-13] MEDS: POTASSIUM CHLORIDE 20 MEQ/100 ML BAG 50 MEQ IVPB ×2 (11:34→13:16)
[2020-10-13] MEDS: MAGNESIUM SULFATE 2 GM/50 ML BAG IVPB (11:34)
--- NOTE | 2020-10-13 14:00 | RT.EKG_ITS ---
APPROVED REPORT Exam: Resting ECG Patient Location: I HR:62 bpm ECG Measurements Heart Rate 62 AXIS NE 199 P 65 QRSd 111 QRS 17 QT 429 T 118 QTc 435 Conclusion Sinus rhythm...normal P axis, V-rate 60- 99 Abnormal T, consider ischemia, lateral leads...T <-0.20mV, I aVL V5 V6
[2020-10-13 14:41] LABS: Troponin I < 0.05 ng/mL (<0.06)
--- NOTE | 2020-10-13 16:35 | CMPROGNOTE_ITS ---
Care Management Progress Note S/O: Per MD: Per Dr Knight's recommendation, I discussed the case with GI as the patient's CT looks worse. Per Dr Alexandra, since the patient is clinically improving and CT imaging may be delayed at showing improvement, we will continue current management. The patient will need an outpatient colonoscopy at [facility]. However, if she clinically worsens, we are instructed to call back and transfer would be pursued at that point. Juani's diet will continue to be advanced if tolerated. No change to overall plan. CM continues to follow. A: 50 year old female admitted to [facility] P: Juani continues to be closely monitored and treated. FRANCOIS CHW Crystal reported Juani is ineligible for financial assistance or DIANE, information on BC/BS and MVP will be provided. Anticipate Juani will transport home via private vehicle with family.
--- NOTE | 2020-10-13 16:38 | PGE_ITS ---
Date of Service Date of service: 10/13/20 Time of Service: 16:38 Assessment and Plan Assessment and plan (1) Enterocolitis: Status: Acute Assessment and plan: Suspected infectious enterocolitis (foodborne). WBC improved with empiric aztreonam/flagyl - continue. Discussed with surgery - advance diet. Await calprotectin. See Discussion re colonoscopy - would need to be done at a tertiary care facility likely as outpatient due to patient's cardiac history. (2) Acute CHF: Status: Resolved Assessment and plan: Hypoxia resolved. COVID-19 negative. (3) Aortic valve replaced: Status: Chronic Assessment and plan: Resume anticoagulation Monitor volume status. (4) Anticoagulated on warfarin: Status: Acute Assessment and plan: As above (5) IRA on CPAP: Status: Chronic Assessment and plan: Noncompliant at home. Will trial here. (6) Discharge planning issues: Status: Acute Assessment and plan: Full code. Continues to require hospitalization. Subjective Subjective Interval history since last seen: Ms Martinez felt better today. She had not required morphine for abdominal pain since yesterday. She did report diarrhea. Denies dizziness. Did have an episode of chest pain radiating to her L arm - resolved on its own. Denied shortness of breath. Denied nausea. Was interested in having her diet advanced. Per Dr Knight's recommendation, I discussed the case with GI as the patient's CT looks worse. Per Dr Alexandra, since the patient is clinically improving and CT imaging may be delayed at showing improvement, we will continue current management. The patient will need an outpatient colonoscopy at [facility]. However, if she clinically worsens, we are instructed to call back and transfer would be pursued at that point. Exam Narrative Exam Narrative: General: pleasant obese female who is mildly tachypenic on 2L of O2 HEENT: EOMI, MMM Heart: RRR, LUCHO of mechanical valve Lungs: diminished breath sounds B Abdomen: soft, nontender on mild palpation of RLQ Extremities: +2 BLE edema - at her baseline Objective Last Vital Signs Temp 36.8 C 10/13/20 14:09 Pulse 60 10/13/20 14:09 Resp 23 10/13/20 14:09 BP 116/80 10/13/20 14:09 Pulse Ox 95 10/13/20 14:09 Laboratory Results - last 24 hr 10/13/20 10/13/20 10/13/20 06:19 06:19 06:19 WBC 11.77 H RBC 3.95 Hgb 11.4 Hct 35.5 L MCV 89.9 MCH 28.9 MCHC 32.1 RDW 13.5 Plt Count 185 MPV 10.4 Immature Gran % 0.4 Neutrophils % 69.6 Lymphocytes % 16.1 Monocytes % 12.2 Eosinophils % 1.3 Basophils % 0.4 Nucleated RBC % 0 Absolute Neutrophils 8.19 H Absolute Lymphocytes 1.89 Absolute Monocytes 1.44 H Absolute Eosinophils 0.15 Absolute Basophils 0.05 Sodium 138 Potassium 3.4 L Chloride 104 Carbon Dioxide 28.6 Anion Gap 5.4 BUN 12 Creatinine 1.2 H Estimated GFR/1.73 m2 47.55 Glucose 99 Calcium 8.4 L Magnesium 1.8 Troponin I C-Reactive Protein 10.63 H 10/13/20 14:10 WBC RBC Hgb Hct MCV MCH MCHC RDW Plt Count MPV Immature Gran % Neutrophils % Lymphocytes % Monocytes % Eosinophils % Basophils % Nucleated RBC % Absolute Neutrophils Absolute Lymphocytes Absolute Monocytes Absolute Eosinophils Absolute Basophils Sodium Potassium Chloride Carbon Dioxide Anion Gap BUN Creatinine Estimated GFR/1.73 m2 Glucose Calcium Magnesium Troponin I < 0.05 C-Reactive Protein
[2020-10-13 17:25] LABS: Prothrombin Time 19.8 sec (9.3-11.0)
[2020-10-13 20:28] LABS: Troponin I < 0.05 ng/mL (<0.06)
[2020-10-13] MEDS: Atorvastatin 40 MG TAB 80 MG PO (20:50)
[2020-10-13] MEDS: Warfarin 5 MG TAB 10 MG PO (20:50)
[2020-10-13 21:51] LABS: Campylobacter PCR Negative (Negative); Salmonella PCR Negative (Negative); Shiga Toxin PCR Negative (Negative); Shigella/Enteroinvasive Ecoli Negative (Negative)
[2020-10-14] VITALS (7 sets, daily range): BP systolic 106–144; BP diastolic 69–79; PULSE 51–91; RESP 18; TEMP 35.6–36.9; O2SAT 95
[2020-10-14] MEDS: Normal Saline Flush 10 ML SYR IVP ×2 (01:46→20:26)
[2020-10-14] MEDS: Zolpidem 5 MG TAB PO ×2 (01:46→21:49)
[2020-10-14] MEDS: MORPHine 4 MG/ML SYR IVP (01:47)
[2020-10-14] MEDS: metroNIDAZOLE 500 MG/100 ML BAG 100 MG IVPB ×4 (01:48→20:26)
[2020-10-14] MEDS: AZTREONAM 2,000 MG in Normal Saline 100 ML 200 MG IVPB ×3 (03:59→20:24)
[2020-10-14 07:14] LABS: Abs Immature Grans 0.04 10^3/uL (0.0-0.06); Absolute Basophil Count 0.04 10^3/uL (0.0-0.2); Absolute Eosinophil Count 0.27 10^3/uL (0.0-0.7); Absolute Lymphocyte Count 1.58 10^3/uL (1.2-3.4); Absolute Monocyte Count 0.83 10^3/uL (0.1-0.8); Basophils % 0.5; Eosinophils % 3.1; HCT 36.2 % (36.0-46.0); HGB 11.7 g/dL (11.2-15.7); Immature Grans % 0.5; Lymphocytes % 18.2; MCH 28.9 pg (27.0-33.0); MCHC 32.3 % (32.0-36.0); MCV 89.4 fL (80-95); MPV 9.8 fL (8.0-11.0); Monocytes % 9.6; Neutrophils % 68.1; Nucleated RBC 0 %; Platelet Count 182 10^3/uL (130-400); RBC 4.05 10^6/uL (3.93-5.22); RDW 13.2 % (11.7-14.6); RDW-SD 43.3 fL; WBC 8.66 10^3/uL (4.4-10.8)
[2020-10-14 07:27] LABS: Anion Gap 4.8 mmol/L (3-11); BUN 12 mg/dL (7-18); CO2 28.2 mmol/L (21.0-32.0); Calcium 8.6 mg/dL (8.5-10.1); Chloride 105 mmol/L (98-107); Estimated GFR 58.69 (mL/min/1.73m2); Glucose 108 mg/dL (74-106); Potassium 3.5 mmol/L (3.5-5.1); Sodium 138 mmol/L (136-145)
[2020-10-14 07:43] LABS: INR 1.8 (0.9-1.1); Prothrombin Time 18.2 sec (9.3-11.0)
[2020-10-14] MEDS: Aspirin 81 MG CHEW PO (08:27)
[2020-10-14] MEDS: Pantoprazole 40 MG TABCR PO (08:28)
[2020-10-14] MEDS: Metoprolol CR 100 MG TABCR PO (08:28)
[2020-10-14] MEDS: Clopidogrel 75 MG TAB PO (08:28)
[2020-10-14] MEDS: Ferrous Gluconate 324 MG TAB PO ×2 (08:28→20:25)
--- NOTE | 2020-10-14 12:32 | RESPIRATORY ---
Pt stated to RT that she has not used her own home BiPAP unit in over 2 years and is unsure if her settings are still correct on her unit as her grandkids have played with it multiple times. Pt used to use [employer] for supplies.
--- NOTE | 2020-10-14 17:57 | PDOC.CMPRO ---
Care Management Progress Note S/O: Juani's diet continues to be advanced, she was sitting up in her chair, getting ready to eat dinner when CM met with her. No change to overall plan, Juani advised she does not yet know when she will return home; she shared no concerns at this time. CM continues to follow. A: 50 year old female admitted to [facility] P: Juani continues to be closely monitored and treated. FRANCOIS CHW Crystal reported Juani is ineligible for financial assistance or DIANE, information on BC/BS and MVP will be provided. No additional services anticipated at this time. Juani will transport home via private vehicle with family.
--- NOTE | 2020-10-14 19:06 | W.PM.PROGNOT ---
Date of Service Date of service: 10/14/20 Time of Service: 19:07 Assessment and Plan Assessment and plan (1) Enterocolitis: Status: Acute Assessment and plan: Suspected infectious enterocolitis (foodborne). Improving empiric aztreonam/flagyl - continue. Calprotectin pending. See Discussion re colonoscopy - would need to be done at a tertiary care facility likely as outpatient due to patient's cardiac history. (2) Acute CHF: Status: Resolved Assessment and plan: Hypoxia resolved. COVID-19 negative. (3) Aortic valve replaced: Status: Chronic Assessment and plan: Resume anticoagulation Monitor volume status. (4) Anticoagulated on warfarin: Status: Acute Assessment and plan: As above (5) IRA on CPAP: Status: Chronic Assessment and plan: Noncompliant at home. Did not use this last night. (6) Discharge planning issues: Status: Acute Assessment and plan: Full code. Continues to require hospitalization. Subjective Subjective Interval history since last seen: Feels better. Stool no longer as liquid and is now yellow. NO n/v. Tolerating PO. Did need morphine for pain. Denies dizziness, chest pain, shortness of breath. Exam Narrative Exam Narrative: General: pleasant obese female not on O2, A&Ox3, tearful HEENT: EOMI, MMM Heart: RRR, LUCHO of mechanical valve Lungs: diminished breath sounds B Abdomen: soft, tender on mild palpation of RLQ Extremities: +2 BLE edema - at her baseline Objective Last Vital Signs Temp 35.6 C L 10/14/20 11:21 Pulse 51 L 10/14/20 11:21 Resp 18 10/14/20 11:21 BP 106/69 10/14/20 11:21 Pulse Ox 95 10/14/20 11:21 Laboratory Results - last 24 hr 10/13/20 10/13/20 10/14/20 05:15 20:05 07:06 WBC RBC Hgb Hct MCV MCH MCHC RDW Plt Count MPV Immature Gran % Neutrophils % Lymphocytes % Monocytes % Eosinophils % Basophils % Nucleated RBC % Absolute Neutrophils Absolute Lymphocytes Absolute Monocytes Absolute Eosinophils Absolute Basophils PT INR Sodium Potassium Chloride Carbon Dioxide Anion Gap BUN Creatinine Estimated GFR/1.73 m2 Glucose Calcium Magnesium 2.0 Troponin I < 0.05 C-Reactive Protein 6.70 H Stool Campylobacter PCR Negative Stool Salmonella PCR Negative Stool Shigella PCR Negative Shiga Toxin (PCR) Negative 10/14/20 10/14/20 10/14/20 07:06 07:06 07:06 WBC 8.66 RBC 4.05 Hgb 11.7 Hct 36.2 MCV 89.4 MCH 28.9 MCHC 32.3 RDW 13.2 Plt Count 182 MPV 9.8 Immature Gran % 0.5 Neutrophils % 68.1 Lymphocytes % 18.2 Monocytes % 9.6 Eosinophils % 3.1 Basophils % 0.5 Nucleated RBC % 0 Absolute Neutrophils 5.90 Absolute Lymphocytes 1.58 Absolute Monocytes 0.83 H Absolute Eosinophils 0.27 Absolute Basophils 0.04 PT 18.2 H INR 1.8 H Sodium 138 Potassium 3.5 Chloride 105 Carbon Dioxide 28.2 Anion Gap 4.8 BUN 12 Creatinine 1.0 Estimated GFR/1.73 m2 58.69 Glucose 108 H Calcium 8.6 Magnesium Troponin I C-Reactive Protein Stool Campylobacter PCR Stool Salmonella PCR Stool Shigella PCR Shiga Toxin (PCR)
[2020-10-14] MEDS: Nicotine 21 MG/24 HR PATCH TD (20:23)
[2020-10-14] MEDS: Atorvastatin 40 MG TAB 80 MG PO (20:25)
[2020-10-14] MEDS: Acetaminophen 325 MG TAB 650 MG PO (20:40)
[2020-10-15 00:35] VITALS: BP 99/52; PULSE 66; RESP 20; TEMP 36.5; O2SAT 93
[2020-10-15] MEDS: metroNIDAZOLE 500 MG/100 ML BAG 100 MG IVPB ×3 (01:54→13:47)
[2020-10-15] MEDS: AZTREONAM 2,000 MG in Normal Saline 100 ML 200 MG IVPB ×2 (03:41→11:27)
[2020-10-15 07:17] VITALS: BP 135/81; PULSE 65; RESP 21; TEMP 36.5; O2SAT 95
[2020-10-15 07:31] VITALS: PULSE 60
[2020-10-15 07:32] LABS: Abs Immature Grans 0.03 10^3/uL (0.0-0.06); Absolute Basophil Count 0.04 10^3/uL (0.0-0.2); Absolute Eosinophil Count 0.24 10^3/uL (0.0-0.7); Absolute Monocyte Count 0.67 10^3/uL (0.1-0.8); Absolute Neutrophil Count 5.76 10^3/uL (1.2-6.7); Basophils % 0.5; HCT 36.4 % (36.0-46.0); HGB 11.7 g/dL (11.2-15.7); Immature Grans % 0.4; Lymphocytes % 15.1; MCH 28.7 pg (27.0-33.0); MCHC 32.1 % (32.0-36.0); MCV 89.4 fL (80-95); MPV 10.2 fL (8.0-11.0); Monocytes % 8.4; Neutrophils % 72.6; Nucleated RBC 0 %; Platelet Count 207 10^3/uL (130-400); RBC 4.07 10^6/uL (3.93-5.22); RDW 13.2 % (11.7-14.6); RDW-SD 43.3 fL; WBC 7.94 10^3/uL (4.4-10.8)
[2020-10-15 07:46] LABS: INR 1.8 (0.9-1.1); Prothrombin Time 17.7 sec (9.3-11.0)
[2020-10-15] MEDS: Nicotine 21 MG/24 HR PATCH TD (07:46)
[2020-10-15] MEDS: Normal Saline Flush 10 ML SYR IVP ×6 (07:46→14:55)
[2020-10-15 07:47] LABS: Anion Gap 5.6 mmol/L (3-11); BUN 9 mg/dL (7-18); C-Reactive Protein 3.39 mg/dL (0.0-0.3); CO2 27.4 mmol/L (21.0-32.0); CREATININE 0.9 mg/dL (0.55-1.02); Calcium 8.6 mg/dL (8.5-10.1); Chloride 108 mmol/L (98-107); Glucose 103 mg/dL (74-106); Magnesium 1.9 mg/dL (1.8-2.4); Potassium 3.8 mmol/L (3.5-5.1); Sodium 141 mmol/L (136-145)
[2020-10-15] MEDS: Ferrous Gluconate 324 MG TAB PO (07:47)
[2020-10-15] MEDS: Clopidogrel 75 MG TAB PO (07:47)
[2020-10-15] MEDS: Metoprolol CR 100 MG TABCR PO (07:47)
[2020-10-15] MEDS: Aspirin 81 MG CHEW PO (07:47)
[2020-10-15] MEDS: Normal Saline 500 ML 100 ML IVPB (07:47)
[2020-10-15] MEDS: Pantoprazole 40 MG TABCR PO (07:47)
[2020-10-15 11:17] VITALS: BP 125/85; PULSE 72; RESP 18; TEMP 36.8; O2SAT 99
--- NOTE | 2020-10-15 13:43 | DSE_ITS ---
Date of service: 10/15/20 Time of Service: 13:43 DS: Diagnosis Discharge Diagnosis (1) Foodborne gastroenteritis: Status: Acute (2) Acute CHF: Status: Resolved (3) Aortic valve replaced: Status: Chronic (4) Anticoagulated on warfarin: Status: Chronic (5) IRA on CPAP: Status: Chronic Asessment and Plan: Noncompliant with CPAP (6) COVID-19 ruled out by laboratory testing: Status: Ruled-out Discharge Plan Disposition Patient Disposition: HOME Condition: Improving Discharge Details Reason For Visit: FOCAL ENTEROCOLITIS Admit Date/Time: 10/11/20 21:17 Admit Provider: Enzo Hagen Attending Provider: Enzo Hagen [facility]: Ms Martinez is a 50 year old female with PMHx of CAD s/p NSTEMI in 07/2020, mechanical aortic valve on anticoagulation, hypertension, IRA noncompliant with CPAP, who was a patient on [facility] hospitalist service from 10/11/20 until 10/15/2020 for foodborne gastroenteritis/enterocolitis. She was treated with empiric aztreonam and flagyl with significant improvement of her symptoms, even though there was a radiologic worsening of it on CT. She was seen by general surgery in consultation and a consultation with GI at [facility] was suggested. The patient is not a candidate for a colonoscopy at our facility due to the recent NSTEMI in 07/30 for which endovascular treatment was not successful. [facility] GI did not feel that the patient required an inpatient colonoscopy as she was clinically improving, but she does need an outpatient colonoscopy based on her age- appropriate screening. Her stool studies were negative for Campylobacter, Salmonella, and Shigella. Calprotecting is still pending at the time of her discharge. She is being discharged home today with 5 days of ciprofloxacin, metronidazole, prn antiemetics, a referral to [facility] GI, and a follow up with her PCP in 1-2 weeks. Care for patient as well as completion of her discharge summary on day of discharge took 45 minutes. Home Meds and New Rx's Prescriptions: New nicotine 21 mg/24 hr Patch 24 Hour 21 mg transdermal DAILY Qty: 30 RF: 0 ciprofloxacin HCl [Cipro] 250 mg tablet 250 mg PO BID Qty: 10 RF: 0 metronidazole 500 mg tablet 500 mg PO Q8H Qty: 15 RF: 0 lisinopril-hydrochlorothiazide 10-12.5 mg tablet 1 tab PO DAILY Qty: 30 RF: 0 Continued acetaminophen [Mapap Extra Strength] 500 MG tablet 500 mg PO PRN PRNRF: 0 warfarin 10 mg tablet See Rx Instructions .ROUTE .COMPLEX RF: 0 albuterol sulfate 90 mcg/actuation HFA aerosol inhaler 1 - 2 puff INHALATION Q4H PRN PRNRF: 0 ferrous gluconate 324 mg (38 mg iron) tablet 324 mg PO BID RF: 0 atorvastatin 80 mg tablet 80 mg PO QPM RF: 0 metoprolol succinate 100 mg tablet extended release 24 hr 100 mg PO DAILY RF: 0 clopidogrel 75 mg tablet 75 mg PO DAILY RF: 0 amlodipine 10 mg tablet 10 mg PO DAILY RF: 0 pantoprazole 40 mg tablet,delayed release (DR/EC) 40 mg PO DAILY RF: 0 nitroglycerin 0.4 mg tablet, sublingual 0.4 mg sublingual PRN PRNRF: 0 aspirin 81 mg Tablet,Chewable 81 mg PO DAILY RF: 0 Discontinued hydrochlorothiazide 25 mg tablet 25 mg PO DAILY Qty: 30 RF: 0 lisinopril 20 mg tablet 20 mg PO DAILY RF: 0 Discharge Instructions Stand Alone Forms: Nursing Discharge Form Referrals: GASTROENTEROLOGY,[facility] [OTHER] - Martha Iraheta [Primary Care Provider] - Activity:: Activity as Tolerated Equipment/Supplies:: No Equipment Needed Diet:: As Tolerated Discharge Orders Discharge Orders: Discharge Order (Routine); Ordered 10/15/20 Ordered By: Ro Vann DS: Summary Time Spent with Patient providing and/or coordinating discharge services: Greater than 30 minutes Status at Discharge Functional status at discharge: independent ambulation Overall status at discharge: patient is progressing back to baseline Mental Status: mental status grossly normal Speech and Movement: speech and movement normal Mood: congruent mood Affect: normal affect Exam Narrative Exam Narrative: General: pleasant obese female not on O2, A&Ox3, looks better HEENT: EOMI, MMM Heart: RRR, LUCHO of mechanical valve Lungs: diminished breath sounds B Abdomen: soft, tender on mild palpation of RLQ Extremities: +2 BLE edema - at her baseline Psych Mental Status: mental status grossly normal Speech and Movement: speech and movement normal Mood: congruent mood Affect: normal affect DS: Data Vitals/I&O Vitals and I&O: Vital Signs Temperature 36.8 C 10/15/20 11:17 Temperature Source Tympanic 10/15/20 11:17 Pulse 72 10/15/20 11:17 Pulse Rhythm Regular 10/15/20 07:45 Pulse 66 10/11/20 22:46 Respiratory Rate 18 10/15/20 11:17 Respiratory Effort Non-Labored 10/15/20 07:45 Respiratory Depth Normal 10/15/20 07:45 Respiratory Pattern Normal 10/15/20 07:45 Blood Pressure 125/85 10/15/20 11:17 Blood Pressure Mean 64 10/11/20 22:46 Blood Pressure Position Sitting 10/11/20 17:06 Pulse Oximetry 99 10/15/20 11:17 Oxygen Delivery Method Room Air 10/15/20 11:17 Oxygen Flow Rate 0 10/15/20 11:17 Fraction of Inspired Oxygen (FIO2) 21 10/14/20 03:33 Pain Level 1 10/15/20 11:27 Comment 10/13/20 14:09 Intake & Output 10/14/20 10/15/20 10/15/20 23:59 11:59 23:59 Intake Total 520 / 1400 1081.667 / 1390.000 308.333 / 1390.000 Balance 520 / 1400 1081.667 / 1390.000 308.333 / 1390.000 Intake: IV 400 / 800 601.667 / 670.000 68.333 / 670.000 Oral 120 / 600 480 / 720 240 / 720 Other: Urine Color Yellow Urine Appearance Clear Clear Urine Odor None Comment Per pt. report, void x1 in the toilet. Per pt. report, void x1 in the toilet. Stool Size Moderate Stool Characteristics Soft Formed Voiding Methods Toilet Toilet Data Completed and Pending Completed studies during hospitalization [Text1]: CT abdomen/pelvis 10/11/20: Thickening of the wall of the cecum with mesenteric stranding suspicious for an inflammatory or infectious process. A malignant lesion cannot be entirely excluded. CXR: No acute pulmonary findings. Echo 10/12/20: Left Ventricle : The left ventricle is normal size. Left ventricular systolic function is borderline. Mild concentric left ventricular hypertrophy. Regional wall motion is normal. LVEF is 55%. The diastolic function is abnormal. Right Ventricle : The right ventricle is normal size. The right ventricular systolic function is normal. The RVSP is 33.8mmHg. Atria : The left atrium size is normal. The right atrium size is normal. Aortic Valve : Mechanical aortic valve is present. Appears well-seated without any significant paravalvular leak. No hemodynamically significant valvular aortic stenosis. No aortic regurgitation is present. Mitral Valve : Moderate mitral annular calcification. Trace to mild mitral regurgitation. No evidence of mitral valve stenosis. Great Vessels : The aortic root is normal in size. The ascending aorta is moderately dilated (4.0cm). Aortic arch is normal in caliber. IVC is normal in size and collapses >50% with inspiration. Please see remainder of study for further details. CT abdomen/pelvis 10/13/20: Increasing cecal wall thickening and Viktoria cecal fat inflammation and increasing free fluid in the pelvis since prior examination of October 11. Normal appearance of the appendix. Findings as described are suggestive of an inflammatory process, malignancy not excluded on the basis of this examination. Labs on day of discharge: Labs from last 24 hours 10/15/20 10/15/20 10/15/20 06:43 06:43 06:43 WBC 7.94 RBC 4.07 Hgb 11.7 Hct 36.4 MCV 89.4 MCH 28.7 MCHC 32.1 RDW 13.2 Plt Count 207 MPV 10.2 Immature Gran % 0.4 Neutrophils % 72.6 Lymphocytes % 15.1 Monocytes % 8.4 Eosinophils % 3.0 Basophils % 0.5 Nucleated RBC % 0 Absolute Neutrophils 5.76 Absolute Lymphocytes 1.20 Absolute Monocytes 0.67 Absolute Eosinophils 0.24 Absolute Basophils 0.04 PT 17.7 H INR 1.8 H Sodium 141 Potassium 3.8 Chloride 108 H Carbon Dioxide 27.4 Anion Gap 5.6 BUN 9 Creatinine 0.9 Estimated GFR/1.73 m2 >= 60.00 Glucose 103 Calcium 8.6 Magnesium C-Reactive Protein 10/15/20 06:43 WBC RBC Hgb Hct MCV MCH MCHC RDW Plt Count MPV Immature Gran % Neutrophils % Lymphocytes % Monocytes % Eosinophils % Basophils % Nucleated RBC % Absolute Neutrophils Absolute Lymphocytes Absolute Monocytes Absolute Eosinophils Absolute Basophils PT INR Sodium Potassium Chloride Carbon Dioxide Anion Gap BUN Creatinine Estimated GFR/1.73 m2 Glucose Calcium Magnesium 1.9 C-Reactive Protein 3.39 H Preliminary micro results at discharge 10/11/20 17:55 Blood Culture - Preliminary Blood NO GROWTH 72 HOURS 10/11/20 17:29 Blood Culture - Preliminary Blood NO GROWTH 72 HOURS PFSH Medical History (Updated 10/15/20 @ 13:45 by Ro Vann MD) Abnormal uterine bleeding (AUB) onset 2005 after AVR and chronic anticoagulation. Nl EMBx 2018. Pt will begin Aygestin for menstrual control. 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 takes Coumadin Hypertension IRA on CPAP Restless leg syndrome Tobacco use Uterine fibroid Uterus [id number] with multiple uterine fibroids. Surgical History (Updated 10/12/20 @ 21:12 by Ida Knight DO) Dilation and curettage Ligation of fallopian tube Tooth extraction WISDOM TEETH REMOVAL Valve Replacement [facility]; [facility] Family History Mother Neoplasm LUNG Father Essential hypertension Heart disease STENTS Hyperlipidemia Asthma Sister No problems noted. Sister No problems noted. Brother No problems noted. Grandfather No problems noted. Grandfather No problems noted. Grandmother , BLOOD CLOTT Heart disease Grandmother No problems noted. Son Depression Son Substance abuse Depression Son Substance abuse Daughter No problems noted. Social History Smoking/Tobacco Use Status: Former Tobacco Use Smoking risk assessment performed?: Yes Alcohol Intake: current Alcohol Intake frequency: holidays/special occasions only Drug use: Never Substance use type: does not use Do you feel safe at home: Yes Do you feel safe in your relationship?: Yes
[2020-10-15 15:06] LABS: C Diff PCR Negative (Negative)
--- NOTE | 2020-10-15 16:05 | CMDISCH_ITS ---
- If Service Date Differs Date of service: 10/15/20 Time of Service: 16:06 LACE Index Scoring Tool - Questions: Length of Stay (in days): 4 - 6 Acuity (Admit via E.D.?): Yes Comorbidities: Previous M.I., Congestive Heart Failure E.D. Visits: 3 - Answers: Total Score: 13 Risk of Readmission: High Risk Care Management Discharge Reason for Hospitalization: Focal Enterocolitis Discharge Plan: Juani will return home today with no additional services. JAIR p rovided [employer] coupons to Juani for her new prescriptions, as she does not currently have insurance. JAIR connected her with [employer], and although she doesn't qualify for [facility], they have given her resources for other insurance options. She will follow up with her PCP and discharge plan of care. Patient/Family Education Needs: Review discharge instructions regarding activity levels and medications, discussion of self care needs including ask me three.
[2020-10-15 17:44] LABS: Calprotectin 79.8 mcg/g
== END 2020-10-15 15:18 | disposition home or self-care (01) | DRG 392 ==
LOC: ER 21:33 → MS 22:57
PROVIDERS: Internal Medicine; Nurse Practitioner Acute Care; Surgery; Admitting Provider General Practice; Emergency Provider Physician Assistant; PCP Nurse Practitioner Family; Visit Provider General Practice
DX: A05.9 Bacterial foodborne intoxication, unspecified (principal); Z68.42 Body mass index [BMI] 45.0-49.9, adult; G25.81 Restless legs syndrome; F17.210 Nicotine dependence, cigarettes, uncomplicated; D25.9 Leiomyoma of uterus, unspecified; R09.02 Hypoxemia; I50.9 Heart failure, unspecified; I11.0 Hypertensive heart disease with heart failure; E66.9 Obesity, unspecified; G47.33 Obstructive sleep apnea (adult) (pediatric); I35.0 Nonrheumatic aortic (valve) stenosis; Z20.822 Contact with and (suspected) exposure to COVID-19; I25.2 Old myocardial infarction; Z95.4 Presence of other heart-valve replacement; Z86.73 Personal history of transient ischemic attack (TIA), and cerebral infarction without residual deficits; Z79.01 Long term (current) use of anticoagulants
CPT/HCPCS: 36415; 80048; 80053; 83690; 85027; 87040; 87493; 87505; 87635; 93005; 96361; 96365; 96375; 96376; 99222; 99232; 99233; 99239; 99254; 99285; 71045; 74177; 81003; 81015; 83605; 83735; 83993; 84484; 85025; 85610; 86140; 93010; 93306; 94660; J1941; J2270; J3010; J3480; J3490; Q9967

== ENCOUNTER 2020-10-28 03:20 | Outpatient (CLI) | payer SELFPAY ==
[2020-10-28 09:50] LABS: INR 2.1 (0.9-1.1); Prothrombin Time 20.6 sec (9.3-11.0)
== END 2020-10-28 03:21 | disposition home or self-care (01) ==
LOC: LBO 03:20
PROVIDERS: PCP Nurse Practitioner Family; Visit Provider Internal Medicine Cardiovascular Disease
DX: Z95.2 Presence of prosthetic heart valve (principal); Z79.01 Long term (current) use of anticoagulants
CPT/HCPCS: 36415; 85610

== ENCOUNTER 2020-11-11 04:35 | Outpatient (CLI) | payer SELFPAY ==
[2020-11-11 11:39] LABS: INR 2.1 (0.9-1.1); Prothrombin Time 21.1 sec (9.3-11.0)
== END 2020-11-11 04:36 | disposition home or self-care (01) ==
LOC: LBO 04:35
PROVIDERS: PCP Nurse Practitioner Family; Visit Provider Internal Medicine Cardiovascular Disease
DX: Z95.2 Presence of prosthetic heart valve (principal); Z79.01 Long term (current) use of anticoagulants
CPT/HCPCS: 36415; 85610

== ENCOUNTER 2020-11-30 02:24 | Outpatient (CLI) | payer SELFPAY ==
[2020-11-30 12:00] LABS: INR 2.2 (0.9-1.1); Prothrombin Time 21.7 sec (9.3-11.0)
== END 2020-11-30 02:25 | disposition home or self-care (01) ==
PROVIDERS: PCP Nurse Practitioner Family; Visit Provider Internal Medicine Cardiovascular Disease
DX: Z95.2 Presence of prosthetic heart valve (principal); Z79.01 Long term (current) use of anticoagulants
CPT/HCPCS: 36415; 85610

== ENCOUNTER 2020-12-02 15:01 | Emergency (ER) | payer SELFPAY ==
[2020-12-02] VITALS (25 sets, daily range): BP systolic 116–190; BP diastolic 69–140; PULSE 69–85; RESP 16–27; TEMP 36.7; O2SAT 94–98
--- NOTE | 2020-12-02 15:00 | RT.EKG_ITS ---
APPROVED REPORT Exam: Resting ECG Reason for Exam: chest pain Patient Location: E HR:77 bpm ECG Measurements Heart Rate 77 AXIS IN 166 P 91 QRSd 111 QRS 27 QT 420 T 117 QTc 477 Conclusion Sinus rhythm...normal P axis, V-rate 60- 99 Repol abnrm suggests ischemia, lateral leads...ST dep, T neg, I aVL V5 V6
--- NOTE | 2020-12-02 15:19 | ED.GENADUL_ITS ---
Discharge Plan Disposition Patient Disposition: HOME Condition: Stable Discharge Details Clinical Impression: Chest pain, Shortness of breath, Cough Primary Care Provider: Martha Iraheta ED Provider: Florentin Adams Home Meds and New Rx's Prescriptions: New doxycycline hyclate 100 mg tablet 100 mg PO BID Qty: 14 RF: 0 Continued acetaminophen [Mapap Extra Strength] 500 MG tablet 500 mg PO PRN PRNRF: 0 warfarin 10 mg tablet See Rx Instructions .ROUTE .COMPLEX RF: 0 albuterol sulfate 90 mcg/actuation HFA aerosol inhaler 1 - 2 puff INHALATION Q4H PRN PRNRF: 0 ferrous gluconate 324 mg (38 mg iron) tablet 324 mg PO BID RF: 0 atorvastatin 80 mg tablet 80 mg PO QPM RF: 0 metoprolol succinate 100 mg tablet extended release 24 hr 100 mg PO DAILY RF: 0 clopidogrel 75 mg tablet 75 mg PO DAILY RF: 0 amlodipine 10 mg tablet 10 mg PO DAILY RF: 0 pantoprazole 40 mg tablet,delayed release (DR/EC) 40 mg PO DAILY RF: 0 nitroglycerin 0.4 mg tablet, sublingual 0.4 mg sublingual PRN PRNRF: 0 aspirin 81 mg Tablet,Chewable 81 mg PO DAILY RF: 0 nicotine 21 mg/24 hr Patch 24 Hour 21 mg transdermal DAILY Qty: 30 RF: 0 ciprofloxacin HCl [Cipro] 250 mg tablet 250 mg PO BID Qty: 10 RF: 0 metronidazole 500 mg tablet 500 mg PO Q8H Qty: 15 RF: 0 lisinopril-hydrochlorothiazide 10-12.5 mg tablet 1 tab PO DAILY Qty: 30 RF: 0 Discharge Instructions Additional Instructions: You blood work and ekg's did not show any concerning findings to suggest a heart attack. your cat scan did not show any blood clots but you do have evidence of a lung infection follow up with your primary care provider within [address] advise [address] findings and you should have follow up imaging to make sure the infection has resolved if you feel more ill, have worsening difficulty breathing or pain return to the emergency department Medical Decision Making 50 year old female with PMHx of CAD s/p NSTEMI in 07/2020, mechanical aortic valve on anticoagulation, hypertension, IRA, chf, smoker, who comes in with chief complaint of a pinching sensation in her chest starting around 2pm while not exerting herself. She now states the pain is gone. She has also noted a productive cough and dyspnea since yesterday, denies fevers. She is speaking clearly on exam in no distress with clear lungs, does have swollen legs equally without calf tenderness and unclear if this is a change from baseline. EKG nondiagnostic and symptoms seem atypical for acs, will obtain troponin. Given the cough and dyspnea concern for pneumonia vs PE, will obtain CTA to evaluate further for this. No tearing back pain and normal vascular exam so doubt dissection ct shows no pe, stable ascending thoracic aortic aneurysm and atypical infectious appearing infiltrate in right lower lobe. Covid test pending. She remains stable without pain, plan on delta troponin and ecg. Will cover for possible cap with doxy as she has penicillin allergy second troponin and ecg unremarkable and she has been eating and walking without symptoms. Feels well enough for d/c which I feel is reasonable for outpatient management. SHe will f/u with pcp and return precautions given Differential Diagnosis Differential Diagnosis: acs, esophageal spasm, pneumonia, pe Medical Records Medical records reviewed: Yes I reviewed the patient's medical records. Imaging Data Radiologic Study: Attestation: I personally reviewed and interpreted this imaging study as follows: Imaging: CT Scan Radiologist's impression: 1. No PE identified 2. New micronodular infiltrate in right lower lobe anteriorly with associated mild bronchial wall thickening. This is likely due to an atypical infection. Recommend follow-up in 3 months. 2. Aortic valve replacement with a stable 4.3 x 4.1 cm ascending thoracic aortic aneurysm Lab Data Lab results reviewed: Yes I reviewed the patient's lab results. ECG Data Attestation: I personally reviewed and interpreted this ECG (s) as follows: Prior ECG tracings: available for review Interpretation: sinus rhythm, rate of [address] t wave ischemic findings compared to old ekg 2nd ekg shows sinus rhythm, rate of 71, no acute changes from 1st ekg HPI General Mode of arrival: ambulatory . Date/Time Provider Initiated Documentation: 12/02/20 15:08 . Limitations to Documentation: no limitations . Information obtained by: patient . History of Present Illness 50 year old F presents to the emergency department with the chief complaint of chest pinching sensation, described as moderate, Quality is described as other (pinching), and is localized to the chest. Patient reports no radiation. Patient started experiencing this hour(s) (2) and it has been now resolved. No exacerbating factors reported . Patient notes cough. Related Data Home Medications Medication Instructions Recorded Confirmed acetaminophen [Mapap Extra 500 mg PO PRN PRN 08/19/13 10/11/20 Strength] albuterol sulfate 1 - 2 puff INHALATION Q4H PRN PRN 07/17/20 10/11/20 ferrous gluconate 324 mg PO BID 07/17/20 10/11/20 warfarin See Rx Instructions .ROUTE .COMPLEX 07/17/20 10/11/20 amlodipine 10 mg PO DAILY 09/20/20 10/11/20 aspirin 81 mg PO DAILY 09/20/20 10/11/20 atorvastatin 80 mg PO QPM 09/20/20 10/11/20 clopidogrel 75 mg PO DAILY 09/20/20 10/11/20 metoprolol succinate 100 mg PO DAILY 09/20/20 10/11/20 nitroglycerin 0.4 mg SUBLINGUAL PRN PRN 09/20/20 10/11/20 pantoprazole 40 mg PO DAILY 09/20/20 10/11/20 ciprofloxacin HCl [Cipro] 250 mg PO BID #10 tab 10/15/20 lisinopril-hydrochlorothiazide 1 tab PO DAILY #30 tab 10/15/20 metronidazole 500 mg PO Q8H #15 tab 10/15/20 nicotine 21 mg TRANSDERMAL DAILY #30 ea 10/15/20 doxycycline hyclate 100 mg PO BID #14 tab 12/02/20 Previous Rx's Medication Instructions Recorded ciprofloxacin HCl [Cipro] 250 mg PO BID #10 tab 10/15/20 lisinopril-hydrochlorothiazide 1 tab PO DAILY #30 tab 10/15/20 metronidazole 500 mg PO Q8H #15 tab 10/15/20 nicotine 21 mg TRANSDERMAL DAILY #30 ea 10/15/20 doxycycline hyclate 100 mg PO BID #14 tab 12/02/20 Allergies Allergy/AdvReac Type Severity Reaction Status Date / Time adhesive Allergy Intermediate plastic Verified 12/02/20 15:21 tape-blisters Penicillins Allergy Verified 12/02/20 15:21 ibuprofen AdvReac Verified 12/02/20 15:21 General SURENDRA: 3 Review of Systems All systems reviewed & are unremarkable except as noted in HPI and below Constitutional Constitutional: Denies chills, Denies fever(s) and Denies weakness Gastrointestinal Gastrointestinal: Denies abdominal pain, Denies nausea and Denies vomiting Neurologic Neurologic: Denies weakness [facility] Medical History (Updated 12/02/20 @ 18:07 by Florentin Adams MD) Abnormal uterine bleeding (AUB) onset 2005 after AVR and chronic anticoagulation. Nl EMBx 2018. Pt will begin Aygestin for menstrual control. 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 takes Coumadin Hypertension IRA on CPAP Restless leg syndrome Tobacco use Uterine fibroid Uterus [id number] with multiple uterine fibroids. Surgical History (Updated 10/12/20 @ 21:12 by Ida Knight DO) Dilation and curettage Ligation of fallopian tube Tooth extraction WISDOM TEETH REMOVAL Valve Replacement [facility]; AORTIC Family History Mother Neoplasm LUNG Father Essential hypertension Heart disease STENTS Hyperlipidemia Asthma Sister No problems noted. Sister No problems noted. Brother No problems noted. Grandfather No problems noted. Grandfather No problems noted. Grandmother , BLOOD CLOTT Heart disease Grandmother No problems noted. Son Depression Son Substance abuse Depression Son Substance abuse Daughter No problems noted. Social History Smoking/Tobacco Use Status: Former Tobacco Use Smoking risk assessment performed?: Yes Alcohol Intake: current Alcohol Intake frequency: holidays/special occasions only Drug use: Never Substance use type: does not use Do you feel safe at home: Yes Do you feel safe in your relationship?: Yes Exam Const General: no acute distress Orientation: alert [facility] Head: normal to inspection Ears: external ears normal General nose exam: external nose normal Mouth: moist mucous membranes Eyes General: appearance normal, both eyes and all related structures Neck Neck: normal visual inspection Resp Effort & Inspection: normal respiratory effort and able to speak in complete sentences Cardio Rate: regular rate GI Palpation: soft, not rigid and nontender Skin General skin exam: no rashes or lesions noted Neuro General: patient alert and patient oriented x3 Extrem General: normal to inspection Psych Mental Status: mental status grossly normal
--- NOTE | 2020-12-02 15:28 | DI.CT_ITS ---
Exam(s) CT CHEST PE CTA EXAM: CT CHEST PE CTA CLINICAL HISTORY: chest pain and dyspnea. TECHNIQUE: Imaging Protocol: CT angiography of the chest was performed using pulmonary embolus maria del carmen col. Multi planar reconstructions were performed. CONTRAST MATERIAL: Intravenous: Omnipaque 350 Contrast volume: 100 cc COMPARISON: CT CT ABDOMEN PELVIS W from 10/13/2020 FINDINGS: CHEST: PULMONARY ARTERIES: There are no intraluminal filling defects to suggest acute pulmonary emboli. LUNGS: There is mild subtle infiltrate in the right lower lobe. No pleural effusions. Slightly incr eased markings also noted in the left lower lobe but these may be exaggerated by respiratory motion a rtifact.. No pleural effusion on either side. There are no significant focal findings in the trache a and mainstem bronchi. MEDIASTINUM: There is no hilar nor mediastinal adenopathy. Visualized thyroid unremarkable. CARDIAC: There is sternotomy wires.Mild cardiomegaly. Prosthetic aortic valve. The diameter of the ascending thoracic aorta is minimally prominent. No dissection. There is no significant shift of th e interventricular septum. PARTIALLY VISUALIZED UPPERMOST ABDOMEN: No obvious findings OSSEOUS: No significant osseous lesions.. IMPRESSION: 1. No evidence of acute pulmonary emboli. No evidence of pulmonary infarction.No pleural effusions. 2. However, there is mild infiltrate in the right lower lobe noted. No intrathoracic adenopathy. 3. Slightly increased markings in the left lower lobe are probably exaggerated by respiratory motion artifact. RADIATION DOSE DELIVERED: 550.81mGy.cm Total DLP DATA REPOSITORY: All CT scans at this facility are submitted to the National Radiology Data Registry (NRDR) Dose Index Registry (DIR) with the [employer] (ACR). RADIATION OPTIMIZATION: All CT scans at this facility use at least one of these dose optimization te chniques: automated exposure control; mA and/or kV adjustment per patient size (includes targeted exa ms where dose is matched to clinical indication); or iterative reconstruction.
[2020-12-02 15:35] LABS: Abs Immature Grans 0.03 10^3/uL (0.0-0.06); Absolute Basophil Count 0.07 10^3/uL (0.0-0.2); Absolute Eosinophil Count 0.32 10^3/uL (0.0-0.7); Absolute Lymphocyte Count 1.86 10^3/uL (1.2-3.4); Absolute Monocyte Count 1.19 10^3/uL (0.1-0.8); Absolute Neutrophil Count 6.42 10^3/uL (1.2-6.7); Basophils % 0.7; Eosinophils % 3.2; HCT 42.9 % (36.0-46.0); HGB 13.8 g/dL (11.2-15.7); Immature Grans % 0.3; Lymphocytes % 18.8; MCH 28.9 pg (27.0-33.0); MCHC 32.2 % (32.0-36.0); MCV 89.7 fL (80-95); Nucleated RBC 0 %; Platelet Count 214 10^3/uL (130-400); RBC 4.78 10^6/uL (3.93-5.22); RDW 12.8 % (11.7-14.6); RDW-SD 42.1 fL; WBC 9.89 10^3/uL (4.4-10.8)
[2020-12-02] MEDS: Omnipaque 350 MG/ML 100 ML BTL IJ (15:45)
[2020-12-02] MEDS: Normal Saline - Diluent 50 ML VIAL IV (15:46)
[2020-12-02 15:49] LABS: INR 2.6 (0.9-1.1); PTT Activated 35.4 sec (21.0-27.5); Prothrombin Time 25.6 sec (9.3-11.0)
[2020-12-02 15:55] LABS: ALT 29 U/L (14-59); AST 18 U/L (15-37); Albumin 3.2 g/dL (3.4-5.0); Alkaline Phosphatase 79 U/L (46-116); Anion Gap 7.7 mmol/L (3-11); BUN 15 mg/dL (7-18); Bilirubin, Total 0.3 mg/dL (0.2-1.0); CO2 30.3 mmol/L (21.0-32.0); CREATININE 1.1 mg/dL (0.55-1.02); Calcium 8.9 mg/dL (8.5-10.1); Chloride 105 mmol/L (98-107); Estimated GFR 52.58 (mL/min/1.73m2); Glucose 114 mg/dL (74-106); Lipase 166 U/L (73-393); Magnesium 1.9 mg/dL (1.8-2.4); NT-proBNP 641 pg/mL (<300); Potassium 3.8 mmol/L (3.5-5.1); Sodium 143 mmol/L (136-145); Total Protein 7.4 g/dL (6.4-8.2); Troponin I < 0.05 ng/mL (<0.06)
[2020-12-02 16:26] LABS: Source Nasal/Nares
--- NOTE | 2020-12-02 16:44 | DI.VRAD_ITS ---
PROCEDURE INFORMATION: Exam: CTA Chest With Contrast Exam date and time: 12/02/2020 3:51 PM Age: 50 years old Clinical indication: Other: Chest pain and dyspnea; Prior surgery; Surgery type: 2011 aortic valve replacement TECHNIQUE: Imaging protocol: Computed tomographic angiography of the chest with contrast. 3D rendering (Not supervised by radiologist): MIP and/or 3D reconstructed images were created by the technologist. Contrast material: OMNI 350; Contrast volume: 100 ml; Contrast route: INTRAVENOUS (IV); COMPARISON: CT CHEST PE CTA 07/16/2020 10:58 PM FINDINGS: Images are degraded by motion, especially the left lower lung. Pulmonary arteries: Normal. No pulmonary emboli. Aorta: Ascending thoracic aortic aneurysm measuring approximately 4.3 x 4.1 cm in AP and transverse dimensions, grossly unchanged from 07/16/2020. Lungs: New nodular infiltrate in right lower lobe anteriorly with associated mild bronchial wall thickening. Pleural spaces: Unremarkable. No pneumothorax. No pleural effusion. Heart: Aortic valve replacement. Lymph nodes: Unremarkable. No enlarged lymph nodes. Bones/joints: Sternotomy. Soft tissues: Unremarkable. IMPRESSION: 1. No pulmonary embolism identified 2. New micronodular infiltrate in right lower lobe anteriorly with associated mild bronchial wall thickening. This is likely due to an atypical infection. Recommend follow-up in 3 months. 2. Aortic valve replacement with a stable 4.3 x 4.1 cm ascending thoracic aortic aneurysm Dictated and Authenticated by: Arlette Ferris MD. Ordering:ALICIA Lerma MD
[2020-12-02 17:19] LABS: COVID-19 PCR Negative (Negative)
--- NOTE | 2020-12-02 18:00 | RT.EKG_ITS ---
APPROVED REPORT Exam: Resting ECG Reason for Exam: chest pain Patient Location: E HR:71 bpm ECG Measurements Heart Rate 71 AXIS ID 169 P 89 QRSd 110 QRS 25 QT 438 T 112 QTc 477 Conclusion Sinus rhythm...normal P axis, V-rate 60- 99 Abnormal T, consider ischemia, lateral leads...T <-0.20mV, I aVL V5 V6 no significant changes from 1st ekg
[2020-12-02 18:25] LABS: Troponin I < 0.05 ng/mL (<0.06)
== END 2020-12-02 18:52 | disposition home or self-care (01) ==
PROVIDERS: Emergency Provider Emergency Medicine; PCP Nurse Practitioner Family
DX: R07.89 Other chest pain (principal); R06.02 Shortness of breath; R05 Cough; R79.89 Other specified abnormal findings of blood chemistry; I11.0 Hypertensive heart disease with heart failure; I50.9 Heart failure, unspecified; Z03.818 Encounter for observation for suspected exposure to other biological agents ruled out
CPT/HCPCS: 36415; 71275; 80053; 83690; 87635; 93005; 99285; 83735; 83880; 84484; 85025; 85610; 85730; 93010; J3490

== ENCOUNTER 2020-12-07 11:15 | Emergency (ER) | payer SELFPAY ==
--- NOTE | 2020-12-07 11:36 | ED.GENADUL_ITS ---
Discharge Plan Disposition Patient Disposition: HOME Condition: Improving Discharge Details Clinical Impression: Acute bronchospasm, Pneumonia, On antibiotic therapy Primary Care Provider: Martha Iraheta ED Provider: Sandy Milton Home Meds and New Rx's Prescriptions: New prednisone 20 mg tablet See Rx Instructions .ROUTE .COMPLEX Qty: 18 RF: 0 benzonatate [Tessalon Perles] 100 mg capsule 100 mg PO TID PRN (Reason: cough) Qty: 14 RF: 0 albuterol sulfate 90 mcg/actuation aerosol powdr breath activated 2 inh IH Q6H PRN (Reason: shortness of breath or wheezing) Qty: 1 RF: 0 Continued acetaminophen [Mapap Extra Strength] 500 MG tablet 500 mg PO PRN PRNRF: 0 warfarin 10 mg tablet See Rx Instructions .ROUTE .COMPLEX RF: 0 albuterol sulfate 90 mcg/actuation HFA aerosol inhaler 1 - 2 puff INHALATION Q4H PRN PRNRF: 0 ferrous gluconate 324 mg (38 mg iron) tablet 324 mg PO BID RF: 0 atorvastatin 80 mg tablet 80 mg PO QPM RF: 0 metoprolol succinate 100 mg tablet extended release 24 hr 100 mg PO DAILY RF: 0 clopidogrel 75 mg tablet 75 mg PO DAILY RF: 0 amlodipine 10 mg tablet 10 mg PO DAILY RF: 0 pantoprazole 40 mg tablet,delayed release (DR/EC) 40 mg PO DAILY RF: 0 nitroglycerin 0.4 mg tablet, sublingual 0.4 mg sublingual PRN PRNRF: 0 aspirin 81 mg Tablet,Chewable 81 mg PO DAILY RF: 0 nicotine 21 mg/24 hr Patch 24 Hour 21 mg transdermal DAILY Qty: 30 RF: 0 lisinopril-hydrochlorothiazide 10-12.5 mg tablet 1 tab PO DAILY Qty: 30 RF: 0 doxycycline hyclate 100 mg tablet 100 mg PO BID Qty: 14 RF: 0 Discharge Instructions Instructions: How to Stop Smoking (ED), Bronchospasm (ED), Pneumonia (ED) Additional Instructions: Drink plenty of fluids and get plenty of rest. Take the antibiotics as directed until finished. Your prescriptions has been sent electronically to your pharmacy. Call the pharmacy to make sure your prescriptions are ready before pickup. Take the pre scriptions as directed. Follow-up with your primary care doctor in 1 week. Return to the emergency department with any worsening or new concerning symptoms. Discharge Data Discharge Date/Time-TO BE ENTERED AT DEPARTURE: 12/07/20 13:56 Discharge Physician: Sandy Milton Medical Decision Making 50-year-old female with a history of CAD s/p NSTEMI in 07/2020, mechanical aortic valve on anticoagulation, hypertension, IRA, chf, smoker seen here 5 days ago for cough and shortness of breath and discharged home with doxycycline for pneumonia presents today with worsening cough and shortness of breath. Normal respiratory rate and oxygen saturation. She is afebrile and appears nontoxic. She is speaking in full sentences without signs of distress. She has wheezing and rhonchi throughout. Patient is a smoker. Will obtain a chest x- ray, give a DuoNeb and oral steroids. She has history of tubal ligation and denies . Chest x-ray reviewed and negative. Patient reassessed and she states she feels much better. She declines additional neb treatment. As patient is on warfarin, will not switch to Levaquin. She has an allergy to penicillin, so will not add Augmentin. Advised that she will likely see improvement with the addition of steroids and cough suppressant. Advised on the importance of smoking cessation. Advised to follow up with the primary care doctor for re-evaluation. Usual and customary return precautions given prior to discharge. Medical Records Medical records reviewed: Yes I reviewed the patient's medical records. Imaging Data Radiologic Study: Radiologist's impression: XR Chest Exam date and time: 12/07/2020 12:09 PM Age: 50 years old Clinical indication: Condition or disease; Other: F/u pnemonia; Prior surgery; Surgery date: 6+ months TECHNIQUE: Imaging protocol: XR of the chest. Views: 2 views. COMPARISON: CR XR PORTABLE CHEST AP 10/12/2020 12:26 PM FINDINGS: Lungs: Unremarkable. No consolidation. Pleural spaces: Unremarkable. No pleural effusion. No pneumothorax. Heart/Mediastinum: Aortic valve replacement Bones/joints: Median sternotomy IMPRESSION: No focal consolidation HPI General Mode of arrival: ambulatory . Date/Time Provider Initiated Documentation: 12/07/20 11:36 . Limitations to Documentation: no limitations . Information obtained by: patient . HPI Narrative: Patient is a 50yo female with a history of CAD s/p NSTEMI in 07/2020, mechanical aortic valve on anticoagulation, hypertension, IRA, chf, smoker diagnosed here last week with pneumonia on doxycycline presents for worsening cough and shortness of breath. She smokes approximately 4 to 5 cigarettes daily. She has been taking her doxycycline as directed. She has an inhaler at home that she uses as needed but has not been using it as she thought it would make her cough worse. She denies any fever, chest pain, vomiting. She states she has had a normal appetite. Related Data Home Medications Medication Instructions Recorded Confirmed acetaminophen [Mapap Extra 500 mg PO PRN PRN 08/19/13 12/07/20 Strength] albuterol sulfate 1 - 2 puff INHALATION Q4H PRN PRN 07/17/20 12/07/20 ferrous gluconate 324 mg PO BID 07/17/20 12/07/20 warfarin See Rx Instructions .ROUTE .COMPLEX 07/17/20 12/07/20 amlodipine 10 mg PO DAILY 09/20/20 12/07/20 aspirin 81 mg PO DAILY 09/20/20 12/07/20 atorvastatin 80 mg PO QPM 09/20/20 12/07/20 clopidogrel 75 mg PO DAILY 09/20/20 12/07/20 metoprolol succinate 100 mg PO DAILY 09/20/20 12/07/20 nitroglycerin 0.4 mg SUBLINGUAL PRN PRN 09/20/20 12/07/20 pantoprazole 40 mg PO DAILY 09/20/20 12/07/20 lisinopril-hydrochlorothiazide 1 tab PO DAILY #30 tab 10/15/20 12/07/20 nicotine 21 mg TRANSDERMAL DAILY #30 ea 10/15/20 doxycycline hyclate 100 mg PO BID #14 tab 12/02/20 12/07/20 albuterol sulfate 2 inh IH Q6H PRN #1 each 12/07/20 benzonatate [Tessalon Perles] 100 mg PO TID PRN #14 cap 12/07/20 prednisone See Rx Instructions .ROUTE 12/07/20 .COMPLEX #18 tab Previous Rx's Medication Instructions Recorded lisinopril-hydrochlorothiazide 1 tab PO DAILY #30 tab 10/15/20 nicotine 21 mg TRANSDERMAL DAILY #30 ea 10/15/20 doxycycline hyclate 100 mg PO BID #14 tab 12/02/20 albuterol sulfate 2 inh IH Q6H PRN #1 each 12/07/20 benzonatate [Tessalon Perles] 100 mg PO TID PRN #14 cap 12/07/20 prednisone See Rx Instructions .ROUTE 12/07/20 .COMPLEX #18 tab Allergies Allergy/AdvReac Type Severity Reaction Status Date / Time adhesive Allergy Intermediate plastic Verified 12/07/20 11:45 tape-blisters Penicillins Allergy Verified 12/07/20 11:45 ibuprofen AdvReac Verified 12/07/20 11:45 General SURENDRA: 2 Review of Systems All systems reviewed & are unremarkable except as noted in HPI and below Constitutional Constitutional: Reports as per HPI, Denies chills and Denies fever(s) Eyes Eyes: Denies blurry vision ENT Ears, Nose, Mouth, and Throat: Denies dizziness, Denies sore throat and Denies throat swelling Cardiovascular Cardiovascular: Denies chest pain and Reports dyspnea Respiratory Respiratory: Reports cough and Reports dyspnea Gastrointestinal Gastrointestinal: Denies abdominal pain, Denies diarrhea and Denies vomiting Genitourinary Genitourinary: Denies hematuria and Denies dysuria Musculoskeletal Musculoskeletal: Denies back pain and Denies numbness Integumentary/Breasts Skin/Breast: Denies lesions and Denies rash Neurologic Neurologic: Denies dizziness, Denies localized weakness and Denies numbness Allergic/Immunologic Allergic/Immunologic: Denies throat swelling [facility] Medical History (Updated 12/07/20 @ 12:48 by Sandy Milton DO) Abnormal uterine bleeding (AUB) onset 2005 after AVR and chronic anticoagulation. Nl EMBx 2018. Pt will begin Aygestin for menstrual control. 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 takes Coumadin Hypertension IRA on CPAP Restless leg syndrome Tobacco use Uterine fibroid Uterus [id number] with multiple uterine fibroids. Surgical History (Updated 10/12/20 @ 21:12 by Ida Knight DO) Dilation and curettage Ligation of fallopian tube Tooth extraction WISDOM TEETH REMOVAL Valve Replacement [facility]; AORTIC Family History Mother Neoplasm LUNG Father Essential hypertension Heart disease STENTS Hyperlipidemia Asthma Sister No problems noted. Sister No problems noted. Brother No problems noted. Grandfather No problems noted. Grandfather No problems noted. Grandmother , BLOOD CLOTT Heart disease Grandmother No problems noted. Son Depression Son Substance abuse Depression Son Substance abuse Daughter No problems noted. Social History Smoking/Tobacco Use Status: Former Tobacco Use Smoking risk assessment performed?: Yes Alcohol Intake: current Alcohol Intake frequency: holidays/special occasions only Drug use: Never Substance use type: does not use Do you feel safe at home: Yes Do you feel safe in your relationship?: Yes Exam Const General: cooperative and no acute distress HENMT Head: normal to inspection Face and sinus: normal facial exam Eyes General: appearance normal, both eyes and all related structures EOM: EOM intact bilaterally Neck Neck: normal visual inspection and No submandibular swelling Lymphatic: no lymphadenopathy noted Chest Chest: normal inspection of the chest and no tenderness Resp Effort & Inspection: normal respiratory effort and able to speak in complete sentences Auscultation: wheezes expiratory wheezes and inspiratory wheezes Cardio Rate: regular rate Rhythm: regular rhythm Skin General skin exam: no rashes or lesions noted Neuro General: patient alert, patient awake and patient oriented x3 Cognition: normal cognition Speech: speech normal Motor: muscle tone normal throughout Sensory Exam: no sensory deficits noted Extrem General: normal to inspection, full ROM, capillary refill normal, no calf tenderness bilaterally and no edema Psych Appearance: grossly normal Mental Status: mental status grossly normal Speech and Movement: speech and movement normal Affect: normal affect
[2020-12-07 11:41] VITALS: BP 145/69; PULSE 68; RESP 22; TEMP 36.3; O2SAT 96
--- NOTE | 2020-12-07 12:00 | DI.RAD_ITS ---
Exam(s) XR CHEST 2V PA LATERAL EXAM: XR CHEST 2V PA LATERAL CLINICAL HISTORY: cough, sob, recent RLL pneumonia, assess if worse TECHNIQUE: 2D digital imaging was performed. COMPARISON: CR XR PORTABLE CHEST AP from 10/12/2020 FINDINGS: MEDIASTINUM: Normal. HEART: Normal. Aortic valve replacement. PULMONARY VASCULATURE: Normal. LUNGS: Clear. PLEURAL SPACE: No pleural effusion or pneumothorax. BONE:Within normal limits for the patient's age. Sternotomy wires are present. OTHER FINDINGS:Normal. IMPRESSION: No acute pulmonary findings. DATA REPOSITORY: RADIATION DOSE DELIVERED:
--- NOTE | 2020-12-07 12:56 | DI.VRAD_ITS ---
PROCEDURE INFORMATION: Exam: XR Chest Exam date and time: 12/07/2020 12:09 PM Age: 50 years old Clinical indication: Condition or disease; Other: F/u pnemonia; Prior surgery; Surgery date: 6+ months TECHNIQUE: Imaging protocol: XR of the chest. Views: 2 views. COMPARISON: CR XR PORTABLE CHEST AP 10/12/2020 12:26 PM FINDINGS: Lungs: Unremarkable. No consolidation. Pleural spaces: Unremarkable. No pleural effusion. No pneumothorax. Heart/Mediastinum: Aortic valve replacement Bones/joints: Median sternotomy IMPRESSION: No focal consolidation Dictated and Authenticated by: Pam Mendez MD. Ordering:SHWETA Delgado MD
[2020-12-07] MEDS: predniSONE 20 MG TAB 60 MG PO (12:59)
[2020-12-07 13:00] VITALS: PULSE 72; RESP 20; RESP 4; RESP 7; O2SAT 95
[2020-12-07] MEDS: Albuterol/Ipratropium 3 ML UPD VIAL UPD (13:00)
[2020-12-07 13:30] VITALS: PULSE 67; RESP 18; RESP 4; RESP 7; O2SAT 97
[2020-12-07 13:50] VITALS: BP 120/89; PULSE 67; RESP 22; TEMP 36.2; O2SAT 96
[2020-12-07] MEDS: Benzonatate 100 MG CAP 300 MG PO (13:50)
== END 2020-12-07 13:56 | disposition home or self-care (01) ==
PROVIDERS: Emergency Provider Physician Assistant; PCP Nurse Practitioner Family
DX: J98.01 Acute bronchospasm (principal); J18.9 Pneumonia, unspecified organism; F17.210 Nicotine dependence, cigarettes, uncomplicated
CPT/HCPCS: 94640; 99284; 71046; J7512; J7620

== ENCOUNTER 2020-12-17 03:05 | Outpatient (CLI) | payer SELFPAY ==
[2020-12-17 12:10] LABS: Prothrombin Time 61.4 sec (9.3-11.0)
[2020-12-17 12:27] LABS: INR 6.4 (0.9-1.1)
== END 2020-12-17 03:06 | disposition home or self-care (01) ==
LOC: LBO 03:05
PROVIDERS: PCP Nurse Practitioner Family; Visit Provider Internal Medicine Cardiovascular Disease
DX: Z95.2 Presence of prosthetic heart valve (principal); Z79.01 Long term (current) use of anticoagulants
CPT/HCPCS: 36415; 85610

== ENCOUNTER 2020-12-21 17:05 | Outpatient (CLI) | payer SELFPAY ==
[2020-12-21 13:15] LABS: INR 1.2 (0.9-1.1); Prothrombin Time 11.6 sec (9.3-11.0)
== END 2020-12-21 17:06 | disposition home or self-care (01) ==
LOC: LBO 12-23 17:06
PROVIDERS: PCP Nurse Practitioner Family; Visit Provider Internal Medicine Cardiovascular Disease
DX: Z79.01 Long term (current) use of anticoagulants (principal); Z95.2 Presence of prosthetic heart valve
CPT/HCPCS: 36415; 85610

== ENCOUNTER 2020-12-21 22:14 | Emergency (ER) | payer SELFPAY ==
[2020-12-21] VITALS (22 sets, daily range): BP systolic 92–153; BP diastolic 60–87; PULSE 78–86; RESP 1–29; TEMP 37.1; O2SAT 93–100
--- NOTE | 2020-12-21 22:15 | RT.EKG_ITS ---
APPROVED REPORT Exam: Resting ECG Reason for Exam: SOB Patient Location: E HR:82 bpm ECG Measurements Heart Rate 82 AXIS LA 170 P 73 QRSd 110 QRS 26 QT 393 T 114 QTc 467 Conclusion Sinus rhythm...normal P axis, V-rate 60- 99 Ventricular premature complex...V complex w/ short R-R interval Abnormal T, consider ischemia, lateral leads...T <-0.20mV, I aVL V5 V6 Physician: minimal depression in V2-V4, no stemi. these appear to be new changes compared to prior ek g
[2020-12-21 22:42] LABS: Abs Immature Grans 0.09 10^3/uL (0.0-0.06); Absolute Basophil Count 0.06 10^3/uL (0.0-0.2); Absolute Eosinophil Count 0.27 10^3/uL (0.0-0.7); Absolute Lymphocyte Count 1.96 10^3/uL (1.2-3.4); Absolute Monocyte Count 1.68 10^3/uL (0.1-0.8); Basophils % 0.4; Eosinophils % 1.9; HCT 45.2 % (36.0-46.0); HGB 14.4 g/dL (11.2-15.7); Immature Grans % 0.6; MCH 29.4 pg (27.0-33.0); MCHC 31.9 % (32.0-36.0); MCV 92.2 fL (80-95); MPV 10.2 fL (8.0-11.0); Neutrophils % 71.1; Nucleated RBC 0 %; Platelet Count 197 10^3/uL (130-400); RDW 13.1 % (11.7-14.6); RDW-SD 44.2 fL; WBC 13.98 10^3/uL (4.4-10.8)
--- NOTE | 2020-12-21 22:45 | DI.RAD_ITS ---
Exam(s) XR PORTABLE CHEST AP EXAM: XR PORTABLE CHEST AP CLINICAL HISTORY: SOB, HX Pneumonia TECHNIQUE: 2D digital imaging was performed. COMPARISON: CR,XR XR CHEST 2V PA LATERAL from 09/20/2020 CR XR PORTABLE CHEST AP from 10/12/2020 CR,XR XR CHEST 2V PA LATERAL from 12/07/2020 FINDINGS: MEDIASTINUM: Normal. HEART: Normal. Aortic valve prosthesis. PULMONARY VASCULATURE: Normal. LUNGS: No significant change in appearance of the lungs compared to prior examinations. PLEURAL SPACE: No pleural effusion or pneumothorax. BONE:Within normal limits for the patient's age. Median sternotomy. OTHER FINDINGS:Normal. IMPRESSION: No focal consolidating infiltrates. No evidence to suggest congestive heart failure. DATA REPOSITORY: RADIATION DOSE DELIVERED:
[2020-12-21 22:47] LABS: Absolute Neutrophil Count 9.94 10^3/uL (1.2-6.7)
--- NOTE | 2020-12-21 22:51 | W.ED.GENAD ---
Discharge Plan Disposition Patient Disposition: HOME Condition: Stable Discharge Details Clinical Impression: Shortness of breath Primary Care Provider: Martha Iraheta ED Provider: Florentin Adams Home Meds and New Rx's Prescriptions: New prednisone 20 mg tablet 60 mg PO DAILY 4 Days Qty: 12 RF: 0 doxycycline hyclate 100 mg tablet 100 mg PO BID Qty: 14 RF: 0 Continued acetaminophen [Mapap Extra Strength] 500 MG tablet 500 mg PO PRN PRNRF: 0 lisinopril 20 mg tablet 20 mg PO DAILY RF: 0 hydrochlorothiazide 25 mg Tablet 25 mg PO DAILY RF: 0 warfarin 10 mg tablet See Rx Instructions .ROUTE .COMPLEX RF: 0 albuterol sulfate 90 mcg/actuation HFA aerosol inhaler 1 - 2 puff INHALATION Q4H PRN PRNRF: 0 ferrous gluconate 324 mg (38 mg iron) tablet 324 mg PO BID RF: 0 atorvastatin 80 mg tablet 80 mg PO QPM RF: 0 metoprolol succinate 100 mg tablet extended release 24 hr 100 mg PO DAILY RF: 0 clopidogrel 75 mg tablet 75 mg PO DAILY RF: 0 amlodipine 10 mg tablet 10 mg PO DAILY RF: 0 pantoprazole 40 mg tablet,delayed release (DR/EC) 40 mg PO DAILY RF: 0 nitroglycerin 0.4 mg tablet, sublingual 0.4 mg sublingual PRN PRNRF: 0 aspirin 81 mg Tablet,Chewable 81 mg PO DAILY RF: 0 Discharge Instructions Instructions: COPD (Chronic Obstructive Pulmonary Disease) (ED) Additional Instructions: I suspect that you have copd and should get pulmonary function testing done if it hasn't been done recently, discuss this with your primary care provider follow up with your primary care provider within 1 week if you feel more ill, have worsening difficulty breathing return to the emergency department Discharge Data Discharge Date/Time-TO BE ENTERED AT DEPARTURE: 12/22/20 02:05 Medical Decision Making <Itzel Snowden - Last Filed: 12/23/20 08:08> 50-year-old female with a past medical history of NSTEMI in July 2020, TIA, mechanical aorta on anticoagulation, CHF, pneumonia, hypertension who is a daily smoker presents with shortness of breath coughing which began while at work tonight around six or 7 PM. She also reports associated with some chest tightness that she attributed to the coughing which began around that same time. She was recently diagnosed with pneumonia December 07 and was given doxycycline and prednisone which she has since finished. She reports left taking an albuterol neb this afternoon. She denies any fever she reports productive cough of white clear sputum. She is not currently vaccinated for Covid. Work-up ordered including CBC, CMP, serial troponins, chest x-ray, Covid testing did make patient a PUI due to unvaccinated status and shortness of breath. Albuterol ipratropium neb ordered, 125mg Solu-Medrol, Nitropaste ordered. 2223: EKG was reviewed by Dr. Hernandez ER attending, please see his official report and reading. There is questionable ST depression in V2 V3 V4. Patient changes in the anterior leads, old EKG available for review. 2314: 1 inch Nitropaste ordered for possible ischemic changes on EKG, and blood pressure after application is 94/72 instructed staff nurse midwife to remove Nitropaste. 2344: BP improved to 134 systolic. She is c/o 3/10 chest tightness. Wheezing has improved status post nebulizer. I did discuss admission for observation, patient is requesting to wait for the second troponin level which is due at approximately 1 AM deformity on admission versus charge home, patient still having some coughing. Imaging protocol: XR of the chest. Views: 1 view. Total images: 1 COMPARISON: CR XR CHEST 2V PA LATERAL 12/07/2020 12:22 PM FINDINGS: Lungs: Normal pulmonary expansion. Mild central vascular congestion. No gross pulmonary infiltrates. Mild peribronchial thickening and perihilar stranding suggesting possible bronchitis. Pleural spaces: No pleural effusion. No pneumothorax. Heart/Mediastinum: Heart size within normal limits for portable AP technique. Prosthetic heart valve noted with prior median sternotomy. No tracheal/mediastinal shift. Bones/joints: No acute osseous abnormalities are identified. IMPRESSION: 1. No gross pulmonary infiltrates. 2. Mild peribronchial thickening and perihilar stranding suggesting possible bronchitis. 3. Mild vascular congestion. Thank you for allowing us to participate in the care of your patient. Dictated and Authenticated by: Yunior Joseph MD Care is to be handed off to oncoming provider Sp Adams MD pending second troponin and disposition. Second troponin is due at approximately 1:30 AM. I did discuss options with patient regarding discharge home versus waiting and admission. Patient states that she would prefer to wait for the second troponin. Differential diagnosis includes NSTEMI, coronary artery disease, bronchitis, pneumonia, CHF, COVID-19. <Florentin Adams MD - Last Filed: 12/22/20 02:00> Patient states she feels better after neb and has no chest pain and has only mild apical wheezing on exam bilaterally now. She is not formally diagnosed with copd to her knowledge though I suspect she does have this given her extensive smoking history. I offered observation admission but she declined and would prefer outpatient management rather than admission which I feel is reasonable given reassuring workup today. Will start her on doxy for copd exacerbation and steroids and return precautions given Lab Data Lab results reviewed: Yes I reviewed the patient's lab results. ECG Data Attestation: I personally reviewed and interpreted this ECG (s) as follows: Prior ECG tracings: available for review Interpretation: 2nd ekg show sinus rhythm, rate of 78, pr 172, no acute changes from first ekg HPI <Itzel Snowden - Last Filed: 12/23/20 08:08> General Mode of arrival: ambulatory. Date/Time Provider Initiated Documentation: 12/21/20 22:15. Limitations to Documentation: no limitations. Information obtained by: patient. HPI Narrative: 50-year-old female with a past medical history of NSTEMI in July 2020, TIA, mechanical aorta on anticoagulation, CHF, pneumonia, hypertension who is a daily smoker presents with shortness of breath coughing which began while at work tonight around six or 7 PM. She also reports associated with some chest tightness that she attributed to the coughing which began around that same time. She was recently diagnosed with pneumonia December 07 and was given doxycycline and prednisone which she has since finished. She reports left taking an albuterol neb this afternoon. She denies any fever she reports productive cough of white clear sputum. She is not currently vaccinated for Covid. Related Data Home Medications Medication Instructions Recorded Confirmed acetaminophen [Mapap Extra 500 mg PO PRN PRN 08/19/13 12/22/20 Strength] albuterol sulfate 1 - 2 puff INHALATION Q4H PRN PRN 07/17/20 12/22/20 ferrous gluconate 324 mg PO BID 07/17/20 12/22/20 warfarin See Rx Instructions .ROUTE .COMPLEX 07/17/20 12/21/20 amlodipine 10 mg PO DAILY 09/20/20 12/22/20 aspirin 81 mg PO DAILY 09/20/20 12/22/20 atorvastatin 80 mg PO QPM 09/20/20 12/22/20 clopidogrel 75 mg PO DAILY 09/20/20 12/22/20 metoprolol succinate 100 mg PO DAILY 09/20/20 12/22/20 nitroglycerin 0.4 mg SUBLINGUAL PRN PRN 09/20/20 12/21/20 pantoprazole 40 mg PO DAILY 09/20/20 12/21/20 hydrochlorothiazide 25 mg PO DAILY 12/21/20 12/22/20 lisinopril 20 mg PO DAILY 12/21/20 12/22/20 doxycycline hyclate 100 mg PO BID #14 tab 12/22/20 prednisone 60 mg PO DAILY 4 Days #12 tab 12/22/20 Previous Rx's Medication Instructions Recorded doxycycline hyclate 100 mg PO BID #14 tab 12/22/20 prednisone 60 mg PO DAILY 4 Days #12 tab 12/22/20 Allergies Allergy/AdvReac Type Severity Reaction Status Date / Time adhesive Allergy Intermediate plastic Verified 12/21/20 22:22 tape-blisters Penicillins Allergy Verified 12/21/20 22:22 ibuprofen AdvReac Verified 12/21/20 22:22 General Stated Complaint: RespSymp SURENDRA: 2 Review of Systems <Itzel Snowden RebelMouse Last Filed: 12/23/20 08:08> Narrative: Constitutional: Negative for weight loss, alert and oriented, well groomed, obese body habitus, appears comfortable. HEENT: Denies trauma, headaches, blurry vision, nasal discharge, sore throat, trouble swallowing. Chest: Denies positive chest tightness palpitations, irregular rhythm.. Respiratory: Denies hemoptysis. Positive shortness of breath and cough productive of white clear sputum GI: Denies abdominal pain, nausea, vomiting, diarrhea, constipation. : Denies dysuria, hematuria, flank pain, rectal bleeding. Neuro: Denies dizziness, blurry vision, weakness, syncope, headache or facial numbness. Hematologic: Denies easy bruising, intolerance to heat or cold, hair loss. PFS <Itzel Snowden Pixafy Filed: 12/23/20 08:08> Medical History Abnormal uterine bleeding (AUB) onset 2005 after AVR and chronic anticoagulation. Nl EMBx 2018. Pt will begin Aygestin for menstrual control. 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 takes Coumadin Hypertension IRA on CPAP Restless leg syndrome Tobacco use Uterine fibroid Uterus [id number] with multiple uterine fibroids. Surgical History Dilation and curettage Ligation of fallopian tube Tooth extraction WISDOM TEETH REMOVAL Valve Replacement [facility]; [facility] Family History Mother Neoplasm LUNG Father Essential hypertension Heart disease STENTS Hyperlipidemia Asthma Sister No problems noted. Sister No problems noted. Brother No problems noted. Grandfather No problems noted. Grandfather No problems noted. Grandmother , BLOOD CLOTT Heart disease Grandmother No problems noted. Son Depression Son Substance abuse Depression Son Substance abuse Daughter No problems noted. Social History Smoking/Tobacco Use Status: Former Tobacco Use Smoking risk assessment performed?: Yes Alcohol Intake: current Alcohol Intake frequency: holidays/special occasions only Drug use: Never Substance use type: does not use Do you feel safe at home: Yes Do you feel safe in your relationship?: Yes Exam <Itzel Snowden - Last Filed: 12/23/20 08:08> Narrative Exam Narrative: Constitutional: Alert and oriented x3. Appears stated age. Obese body habitus. Head: Normocephalic, no trauma. Eyes: Pupils PERRLA, Red reflex noted, EOM's intact. Eyelids symmetrical without lesions, discharge, or swelling. ENT: Bilateral TM's WNL, External ear normal to inspection, no mastoid TTP, swelling, or erythema, Nasal turbinates WNL, no nasal discharge. Normal dentition, Posterior pharynx WNL, no exudate. Chest: RRR, Normal S1, S2, distal pulses intact. Resp: Expiratory wheezes noted in upper lobes bilaterally, no rales, or rhonchi. Abdomen: Soft, nondistended nontender with palpation. Musculoskeletal: Normal gait, 5/5 strength to all four extremities. No pitting edema noted to bilateral lower extremities. Skin: No suspicious rashes or lesions. Capillary refill less than 2 sec. Neurologic: Cranial nerves II-XII intact. Alert and oriented x 3. DTR's intact. Hematologic/Lymphatic: No ecchymosis, no lymphadenopathy. Course <Itzel Snowden - Last Filed: 12/23/20 08:08> Vital Signs Vital signs: Vital Signs Temperature 37.1 C 12/21/20 22:17 Respiratory Rate 16 12/21/20 22:17 Blood Pressure 153/87 H 12/21/20 22:17 Temperature 37.1 C 12/21/20 22:17 Respiratory Rate 16 12/21/20 22:17 Blood Pressure 153/87 H 12/21/20 22:17 Blood Pressure Position Sitting 12/21/20 22:17 Oxygen Delivery Method Room Air 12/21/20 22:17 Oxygen Flow Rate 0 12/21/20 22:17 Pain Level 0 12/21/20 22:17 Sign Out <Itzel Snowden - Last Filed: 12/23/20 08:08> Sign Out Data: Sign Out Comment: Pending second Troponin and disposition. Suspect Bronchitis, R/O NSTEMI Last updated by Itzel Snowden at 12/22/20 00:02
[2020-12-21 22:56] LABS: ALT 36 U/L (14-59); AST 21 U/L (15-37); Albumin 3.3 g/dL (3.4-5.0); Alkaline Phosphatase 68 U/L (46-116); Anion Gap 6.2 mmol/L (3-11); BUN 16 mg/dL (7-18); Bilirubin, Total 0.4 mg/dL (0.2-1.0); CO2 30.8 mmol/L (21.0-32.0); Calcium 8.6 mg/dL (8.5-10.1); Chloride 107 mmol/L (98-107); Estimated GFR 58.69 (mL/min/1.73m2); Glucose 105 mg/dL (74-106); Potassium 3.4 mmol/L (3.5-5.1); Sodium 144 mmol/L (136-145); Total Protein 7.4 g/dL (6.4-8.2)
[2020-12-21 22:58] LABS: Troponin I < 0.05 ng/mL (<0.06)
[2020-12-21 23:01] LABS: Diff Comment Agrees w/ Instrument; RBC Morphology Normal
[2020-12-21] MEDS: nitroGLYcerin 2% 1 INCH/1 GM PKT TP (23:14)
[2020-12-21] MEDS: methylPREDNISolone SUCC 125 MG VIAL IVP (23:14)
[2020-12-21] MEDS: Albuterol/Ipratropium 3 ML UPD VIAL UPD (23:15)
--- NOTE | 2020-12-21 23:18 | NUR.NOTE ---
FAMILY MEMBER JOSE JERMAINE [phone] Note:
[2020-12-21 23:28] LABS: INR 1.2 (0.9-1.1); PTT Activated 26.5 sec (21.0-27.5); Prothrombin Time 12.3 sec (9.3-11.0)
[2020-12-21 23:34] LABS: NT-proBNP 615 pg/mL (<300)
--- NOTE | 2020-12-21 23:54 | DI.VRAD_ITS ---
PROCEDURE INFORMATION: Exam: XR Chest Exam date and time: 12/21/2020 10:50 PM Age: 50 years old Clinical indication: Shortness of breath; Prior surgery; Patient HX: SOB, HX pneumonia TECHNIQUE: Imaging protocol: XR of the chest. Views: 1 view. Total images: 1 COMPARISON: CR XR CHEST 2V PA LATERAL 12/07/2020 12:22 PM FINDINGS: Lungs: Normal pulmonary expansion. Mild central vascular congestion. No gross pulmonary infiltrates. Mild peribronchial thickening and perihilar stranding suggesting possible bronchitis. Pleural spaces: No pleural effusion. No pneumothorax. Heart/Mediastinum: Heart size within normal limits for portable AP technique. Prosthetic heart valve noted with prior median sternotomy. No tracheal/mediastinal shift. Bones/joints: No acute osseous abnormalities are identified. IMPRESSION: 1. No gross pulmonary infiltrates. 2. Mild peribronchial thickening and perihilar stranding suggesting possible bronchitis. 3. Mild vascular congestion. Dictated and Authenticated by: Yunior Joseph MD. Ordering:SAMANTHA Robbins MD
[2020-12-22] VITALS (29 sets, daily range): BP systolic 73–135; BP diastolic 33–102; PULSE 50–87; RESP 17–31; O2SAT 89–94
[2020-12-22 00:04] LABS: COVID-19 PCR Negative (Negative)
--- NOTE | 2020-12-22 01:00 | RT.EKG_ITS ---
APPROVED REPORT Exam: Resting ECG Reason for Exam: sob Patient Location: E HR:78 bpm ECG Measurements Heart Rate 78 AXIS MT 172 P 72 QRSd 111 QRS 31 QT 431 T 105 QTc 491 Conclusion Sinus rhythm...normal P axis, V-rate 60- 99 Probable lateral infarct, old...Q>35mS, abnormal ST-T, V5-6 I aVL no significant changes from first ekg
[2020-12-22 01:43] LABS: Troponin I < 0.05 ng/mL (<0.06)
[2020-12-22] MEDS: Doxycycline Hyclate 100 MG CAP PO (02:02)
== END 2020-12-22 02:05 | disposition home or self-care (01) ==
PROVIDERS: Registered Nurse Emergency; Emergency Provider Emergency Medicine; PCP Nurse Practitioner Family
DX: R06.02 Shortness of breath (principal)
CPT/HCPCS: 80053; 87635; 93005; 94640; 96374; 99284; 71045; 83880; 84484; 85025; 85610; 85730; 93010; 99283; J2930; J7620

== ENCOUNTER 2020-12-24 02:58 | Outpatient (CLI) | payer SELFPAY ==
[2020-12-24 12:08] LABS: INR 1.6 (0.9-1.1)
== END 2020-12-24 02:59 | disposition home or self-care (01) ==
PROVIDERS: PCP Nurse Practitioner Family; Visit Provider Internal Medicine Cardiovascular Disease
DX: Z79.01 Long term (current) use of anticoagulants (principal); Z95.2 Presence of prosthetic heart valve
CPT/HCPCS: 36415; 85610

== ENCOUNTER 2020-12-30 02:15 | Outpatient (CLI) | payer SELFPAY ==
[2020-12-30 09:30] LABS: INR 2.5 (0.9-1.1); Prothrombin Time 24.5 sec (9.3-11.0)
== END 2020-12-30 02:16 | disposition home or self-care (01) ==
LOC: LBO 02:15
PROVIDERS: PCP Nurse Practitioner Family; Visit Provider Internal Medicine Cardiovascular Disease
DX: Z95.2 Presence of prosthetic heart valve (principal); Z79.01 Long term (current) use of anticoagulants
CPT/HCPCS: 36415; 85610

== ENCOUNTER 2021-01-06 03:24 | Outpatient (CLI) | payer SELFPAY ==
[2021-01-06 10:19] LABS: INR 3.2 (0.9-1.1)
== END 2021-01-06 03:25 | disposition home or self-care (01) ==
LOC: LBO 03:25
PROVIDERS: PCP Nurse Practitioner Family; Visit Provider Internal Medicine Cardiovascular Disease
DX: Z95.2 Presence of prosthetic heart valve (principal); Z79.01 Long term (current) use of anticoagulants
CPT/HCPCS: 36415; 85610

== ENCOUNTER 2021-01-13 02:14 | Outpatient (CLI) | payer SELFPAY ==
[2021-01-14 13:18] LABS: COVID-19 RT-PCR UVMMC Result Negative (Negative)
== END 2021-01-13 02:15 | disposition home or self-care (01) ==
LOC: LBO 02:14
PROVIDERS: PCP Nurse Practitioner Family; Visit Provider Physician Assistant
DX: Z20.822 Contact with and (suspected) exposure to COVID-19 (principal); R50.9 Fever, unspecified; R05 Cough
CPT/HCPCS: U0003

== ENCOUNTER 2021-01-15 01:59 | Outpatient (CLI) | payer SELFPAY ==
[2021-01-15 16:32] LABS: INR 3.6 (0.9-1.1)
== END 2021-01-15 02:00 | disposition home or self-care (01) ==
LOC: LBO 01:59
PROVIDERS: PCP Nurse Practitioner Family; Visit Provider Internal Medicine Cardiovascular Disease
DX: Z95.2 Presence of prosthetic heart valve (principal); Z79.01 Long term (current) use of anticoagulants
CPT/HCPCS: 36415; 85610

== ENCOUNTER 2021-01-20 19:52 | Emergency (ER) | payer SELFPAY ==
[2021-01-20 19:57] VITALS: BP 135/82; PULSE 82; RESP 20; TEMP 36.2; O2SAT 95
--- NOTE | 2021-01-20 20:05 | W.ED.GENAD ---
Discharge Plan Disposition Patient Disposition: HOME Condition: Stable Discharge Details Clinical Impression: Pharyngitis Primary Care Provider: Martha [place]heta ED Provider: Kody Gibbons Home Meds and New Rx's Prescriptions: Continued acetaminophen [Mapap Extra Strength] 500 MG tablet 500 mg PO PRN PRNRF: 0 lisinopril 20 mg tablet 20 mg PO DAILY RF: 0 hydrochlorothiazide 25 mg Tablet 25 mg PO DAILY RF: 0 warfarin 10 mg tablet See Rx Instructions .ROUTE .COMPLEX RF: 0 albuterol sulfate 90 mcg/actuation HFA aerosol inhaler 1 - 2 puff INHALATION Q4H PRN PRNRF: 0 ferrous gluconate 324 mg (38 mg iron) tablet 324 mg PO BID RF: 0 atorvastatin 80 mg tablet 80 mg PO QPM RF: 0 metoprolol succinate 100 mg tablet extended release 24 hr 100 mg PO DAILY RF: 0 clopidogrel 75 mg tablet 75 mg PO DAILY RF: 0 amlodipine 10 mg tablet 10 mg PO DAILY RF: 0 pantoprazole 40 mg tablet,delayed release (DR/EC) 40 mg PO DAILY RF: 0 nitroglycerin 0.4 mg tablet, sublingual 0.4 mg sublingual PRN PRNRF: 0 aspirin 81 mg Tablet,Chewable 81 mg PO DAILY RF: 0 promethazine-DM 6.25-15 mg/5 mL syrup 5 ml PO Q6H PRN PRNRF: 0 Discharge Instructions Instructions: Pharyngitis (ED) Additional Instructions: Rapid strep is negative, culture pending. Single dose of oral steroids given here in the ER. Salt water gargles as tolerated. [id number] Tylenol as directed. Chloraseptic [place] as directed as well. If culture is positive we will contact you to place you on antibiotics. Please watch for new or worsening symptoms and return to the ER for any concerns. Lastly, I recommend reaching out your primary care provider tomorrow to discuss your ER visit and need for outpatient reevaluation. Medical Decision Making 50-year-old female complaining of sore throat and throat swelling over the past couple of days, primary concern of strep throat. Clinically she appears well, nontoxic, speaks in full sentences, manages her secretions, and is afebrile. No evidence of trismus or nuchal rigidity. Airway is patent. No evidence of peritonsillar abscess. Will obtain rapid strep. Rapid strep negative, culture pending Discussed results with patient. Given she cannot take anti-inflammatories, will give a single dose of Decadron now for her mild irritation and swelling. Recommend salt water gargles, Chloraseptic spray and Tylenol. She will be contacted if her culture grows bacteria. She was encouraged to return to the ER for new or worsening symptoms. Standard discharge and return precautions given This documentation was generated using [employer] dictation system, please disregard any oddities of phrase or misspellings. Medical Records Medical records reviewed: Yes I reviewed the patient's medical records. Lab Data Lab results reviewed: Yes I reviewed the patient's lab results. Labs: Rapid strep negative, culture pending HPI General Mode of arrival: ambulatory. Date/Time Provider Initiated Documentation: 01/20/21 19:55. Limitations to Documentation: no limitations. Information obtained by: patient. HPI Narrative: This is a 50-year-old female, past medical history that includes ITP, BMI of 45.2, chronic anticoagulation, hypertension, smoker, negative Covid test less than 2 weeks ago, presenting to the ER reporting slightly sore throat and swollen tonsils for the past couple of days. She denies fever, ear pain, difficulty speaking or swallowing, cough, headache. Does report mild postnasal drip. She denies recent travel or sick contacts. She has not taken any [id number] medications for symptoms. She states that she has had strep frequently in the past and is her primary concern today. Related Data Home Medications Medication Instructions Recorded Confirmed acetaminophen [Mapap Extra 500 mg PO PRN PRN 08/19/13 01/20/21 Strength] albuterol sulfate 1 - 2 puff INHALATION Q4H PRN PRN 07/17/20 01/20/21 ferrous gluconate 324 mg PO BID 07/17/20 01/20/21 warfarin See Rx Instructions .ROUTE .COMPLEX 07/17/20 01/20/21 amlodipine 10 mg PO DAILY 09/20/20 01/20/21 aspirin 81 mg PO DAILY 09/20/20 01/20/21 atorvastatin 80 mg PO QPM 09/20/20 01/20/21 clopidogrel 75 mg PO DAILY 09/20/20 01/20/21 metoprolol succinate 100 mg PO DAILY 09/20/20 01/20/21 nitroglycerin 0.4 mg SUBLINGUAL PRN PRN 09/20/20 01/20/21 pantoprazole 40 mg PO DAILY 09/20/20 01/20/21 hydrochlorothiazide 25 mg PO DAILY 12/21/20 01/20/21 lisinopril 20 mg PO DAILY 12/21/20 01/20/21 promethazine-DM 5 ml PO Q6H PRN PRN 01/20/21 01/20/21 Allergies Allergy/AdvReac Type Severity Reaction Status Date / Time adhesive Allergy Intermediate plastic Verified 12/21/20 22:22 tape-blisters Penicillins Allergy Verified 12/21/20 22:22 ibuprofen AdvReac Verified 12/21/20 22:22 General Stated Complaint: Sorethroat SURENDRA: 4 Review of Systems Constitutional Constitutional: Denies fever(s) and Denies headache(s) ENT Ears, Nose, Mouth, and Throat: Denies headache(s) and Reports sore throat Cardiovascular Cardiovascular: Denies chest pain and Denies dyspnea Respiratory Respiratory: Denies cough and Denies dyspnea Gastrointestinal Gastrointestinal: Denies abdominal pain, Denies nausea and Denies vomiting Neurologic Neurologic: Denies headache(s) [facility] Medical History Abnormal uterine bleeding (AUB) onset 2005 after AVR and chronic anticoagulation. Nl EMBx 2018. Pt will begin Aygestin for menstrual control. 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 takes Coumadin Hypertension IRA on CPAP Restless leg syndrome Tobacco use Uterine fibroid Uterus [id number] with multiple uterine fibroids. Surgical History Dilation and curettage Ligation of fallopian tube Tooth extraction WISDOM TEETH REMOVAL Valve Replacement [facility]; [facility] Family History Mother Neoplasm LUNG Father Essential hypertension Heart disease STENTS Hyperlipidemia Asthma Sister No problems noted. Sister No problems noted. Brother No problems noted. Grandfather No problems noted. Grandfather No problems noted. Grandmother , BLOOD CLOTT Heart disease Grandmother No problems noted. Son Depression Son Substance abuse Depression Son Substance abuse Daughter No problems noted. Social History Smoking/Tobacco Use Status: Current every day Tobacco Type: cigarettes Smoking risk assessment performed?: Yes Alcohol Intake: current Alcohol Intake frequency: holidays/special occasions only Drug use: Never Substance use type: does not use Do you feel safe at home: Yes Do you feel safe in your relationship?: Yes Exam Const General: cooperative, healthy appearing, comfortable and no acute distress Orientation: alert and awake [facility] Head: normal to inspection, normocephalic and atraumatic Ears: external ears normal, TM's normal bilaterally and EAC's normal General nose exam: external nose normal Face and sinus: normal facial exam Mouth: moist mucous membranes Teeth and gingiva: dentition normal Throat: uvula midline, abnormal tonsil bilaterally erythema and hypertrophy 1+, posterior oropharynx abnormal erythema, uvula not displaced and no uvular edema Eyes General: appearance normal, both eyes and all related structures Conjunctivae: conjunctivae normal Neck Neck: normal visual inspection, full ROM, no lymphadenopathy, trachea midline, supple and nontender Resp Effort & Inspection: normal respiratory effort and able to speak in complete sentences Auscultation: clear to auscultation bilaterally Cardio Rate: regular rate Rhythm: regular rhythm Skin General skin exam: no rashes or lesions noted Neuro General: patient alert, patient awake, moves all extremities and no focal motor deficits Sensory Exam: no sensory deficits noted Psych Appearance: grossly normal Mental Status: mental status grossly normal Course Vital Signs Vital signs: Vital Signs Temperature 36.2 C L 01/20/21 19:57 Pulse 82 01/20/21 19:57 Respiratory Rate 20 01/20/21 19:57 Blood Pressure 135/82 01/20/21 19:57 Pulse Oximetry 95 01/20/21 19:57 Temperature 36.2 C L 01/20/21 19:57 Temperature Source Temporal Artery Scan 01/20/21 19:57 Pulse 82 01/20/21 19:57 Respiratory Rate 20 01/20/21 19:57 Respiratory Effort Non-Labored 01/20/21 20:00 Blood Pressure 135/82 01/20/21 19:57 Blood Pressure Position Sitting 01/20/21 19:57 Pulse Oximetry 95 01/20/21 19:57 Oxygen Delivery Method Room Air 01/20/21 19:57 Oxygen Flow Rate 0 01/20/21 19:57 Pain Level 2 01/20/21 19:57
[2021-01-20] MEDS: Dexamethasone 4 MG TAB 10 MG PO (20:25)
== END 2021-01-20 21:35 | disposition home or self-care (01) ==
PROVIDERS: Emergency Provider Physician Assistant; PCP Nurse Practitioner Family
DX: J02.9 Acute pharyngitis, unspecified (principal); J35.1 Hypertrophy of tonsils
CPT/HCPCS: 87880; 99283; 87081; J8540

== ENCOUNTER 2021-03-08 12:23 | Outpatient (REF) | payer MEDICAID, SELFPAY ==
[2021-03-08 16:59] LABS: Prothrombin Time 27.9 sec (9.3-11.0)
[2021-03-08 17:00] LABS: INR 2.8 (0.9-1.1)
== END 2021-03-08 12:24 | disposition home or self-care (01) ==
LOC: LBN 12:23
PROVIDERS: PCP Nurse Practitioner Family; Visit Provider Student in an Organized Health Care Education/Training Program
DX: Z95.2 Presence of prosthetic heart valve (principal); Z79.01 Long term (current) use of anticoagulants
CPT/HCPCS: 85610

== ENCOUNTER 2021-03-17 11:01 | Emergency (ER) | payer MEDICAID, SELFPAY ==
--- NOTE | 2021-03-17 11:00 | RT.EKG_ITS ---
APPROVED REPORT Exam: Resting ECG Reason for Exam: Chest pain Patient Location: E HR:71 bpm ECG Measurements Heart Rate 71 AXIS VT 209 P 59 QRSd 161 QRS 3 QT 483 T 66 QTc 525 Conclusion Sinus rhythm...normal P axis, V-rate 60- 99 Borderline prolonged VT interval...VT >202, V-rate 50- 90 Probable left atrial enlargement...P >50mS, <-0.10mV V1 Right bundle branch block...QRSd>120, terminal axis(90,270) Probable lateral infarct, old...Q>35mS, abnormal ST-T, V5-6 I aVL I have reviewed and interpreted ECG and agree with software generated interpretation.
[2021-03-17 11:32] VITALS: BP 168/88; PULSE 72; RESP 18; TEMP 36.6; O2SAT 95
--- NOTE | 2021-03-17 11:50 | W.ED.GENAD ---
Discharge Plan Disposition Patient Disposition: AGAINST MEDICAL ADVICE Condition: Serious Discharge Details Clinical Impression: Chest pain, Acute dyspnea Primary Care Provider: Martha Iraheta ED Provider: Itzel Snowden Home Meds and New Rx's Prescriptions: No Action acetaminophen [Mapap Extra Strength] 500 MG tablet 500 mg PO PRN PRNRF: 0 lisinopril 20 mg tablet 20 mg PO DAILY RF: 0 warfarin 10 mg tablet See Rx Instructions .ROUTE .COMPLEX RF: 0 albuterol sulfate 90 mcg/actuation HFA aerosol inhaler 1 - 2 puff INHALATION Q4H PRN PRNRF: 0 ferrous gluconate 324 mg (38 mg iron) tablet 324 mg PO BID RF: 0 atorvastatin 80 mg tablet 80 mg PO QPM RF: 0 metoprolol succinate 100 mg tablet extended release 24 hr 100 mg PO DAILY RF: 0 clopidogrel 75 mg tablet 75 mg PO DAILY RF: 0 amlodipine 10 mg tablet 10 mg PO DAILY RF: 0 pantoprazole 40 mg tablet,delayed release (DR/EC) 40 mg PO DAILY RF: 0 nitroglycerin 0.4 mg tablet, sublingual 0.4 mg sublingual PRN PRNRF: 0 aspirin 81 mg Tablet,Chewable 81 mg PO DAILY RF: 0 Discharge Instructions Instructions: Chest Pain (ED), Dyspnea (ED) Additional Instructions: At this time you have opted to leave AGAINST MEDICAL ADVICE prior to completing the work-up. At this time we cannot rule out any major issue including heart attack, pulmonary embolism, pneumonia or other serious medical condition. Please return to the emergency room if you change your mind or if you have worsening symptoms. Discharge Data Discharge Date/Time-TO BE ENTERED AT DEPARTURE: 03/17/21 11:53 Medical Decision Making 50-year-old female presents to the ER with chief complaint of chest pain and shortness of breath described as pressure in a band around the left side of her chest status post aortic valve replacement on February 11. Patient was sent here by urgent care which she was seen prior to arrival. Upon my entering the room patient is standing fully dressed requesting to leave AGAINST MEDICAL ADVICE. Patient is complaining of anxiety and not wanting to complete the work-up. Patient is alert and oriented does not appear to be under the influence of any substances. I did discuss the risk of her leaving prior to the work-up including and up to disability and . I did discuss the risk for CA, pulmonary embolism, pneumonia or other serious medical condition. Patient verbalized understanding and still opted to leave AGAINST MEDICAL ADVICE. Patient did get an EKG completed and did consent for Covid swab. Patient requesting to leave AMA prior to the completion of exam and workup. The patient appears clinically sober and is not under the influence of any known substances. Discussed risks and benefits with patient. Patient verbalizes understanding of situation and the risks of leaving including worsening condition, developing disability, including but not limited to . Discussed results of labs and imaging, if they were performed and recommendations for further treatment and/or observation. The patient verbalizes understanding of the results discussed. At this time patient has opted to leave against medical advice. Patient is alert and oriented and has the capacity to make own decisions. Patient left prior to my full examination and/or lab results. Patient was self ambulatory upon leaving. HPI General Mode of arrival: ambulatory. Date/Time Provider Initiated Documentation: 03/17/21 11:07. Information obtained by: patient, RN notes reviewed and old records reviewed. HPI Narrative: 50-year-old female presents to the ER with chief complaint of chest pain and shortness of breath described as pressure in a band around the left side of her chest status post aortic valve replacement on February 11. Patient was sent here by urgent care which she was seen prior to arrival. Upon my entering the room patient is standing fully dressed requesting to leave AGAINST MEDICAL ADVICE. Patient is complaining of anxiety and not wanting to complete the work-up. Patient is alert and oriented does not appear to be under the influence of any substances. I did discuss the risk of her leaving prior to the work-up including and up to disability and . I did discuss the risk for CA, pulmonary embolism, pneumonia or other serious medical condition. Patient verbalized understanding and still opted to leave AGAINST MEDICAL ADVICE. Patient did get an EKG completed and did consent for Covid swab. Related Data Home Medications Medication Instructions Recorded Confirmed acetaminophen [Mapap Extra 500 mg PO PRN PRN 08/19/13 03/17/21 Strength] albuterol sulfate 1 - 2 puff INHALATION Q4H PRN PRN 07/17/20 03/17/21 ferrous gluconate 324 mg PO BID 07/17/20 03/17/21 warfarin See Rx Instructions .ROUTE .COMPLEX 07/17/20 03/17/21 amlodipine 10 mg PO DAILY 09/20/20 03/17/21 aspirin 81 mg PO DAILY 09/20/20 03/17/21 atorvastatin 80 mg PO QPM 09/20/20 03/17/21 clopidogrel 75 mg PO DAILY 09/20/20 03/17/21 metoprolol succinate 100 mg PO DAILY 09/20/20 03/17/21 nitroglycerin 0.4 mg SUBLINGUAL PRN PRN 09/20/20 03/17/21 pantoprazole 40 mg PO DAILY 09/20/20 03/17/21 lisinopril 20 mg PO DAILY 12/21/20 03/17/21 Allergies Allergy/AdvReac Type Severity Reaction Status Date / Time adhesive Allergy Intermediate plastic Verified 03/17/21 11:40 tape-blisters Penicillins Allergy Verified 03/17/21 11:40 ibuprofen AdvReac Verified 03/17/21 11:40 General Stated Complaint: Chest Pain SURENDRA: 2 [facility] Medical History Abnormal uterine bleeding (AUB) onset 2005 after AVR and chronic anticoagulation. Nl EMBx 2017. Pt will begin Aygestin for menstrual control. 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 takes Coumadin Hypertension IRA on CPAP Restless leg syndrome Tobacco use Uterine fibroid Uterus [id number] with multiple uterine fibroids. Surgical History Dilation and curettage Ligation of fallopian tube Tooth extraction WISDOM TEETH REMOVAL Valve Replacement [facility]; [facility] Family History Mother Neoplasm LUNG Father Essential hypertension Heart disease STENTS Hyperlipidemia Asthma Sister No problems noted. Sister No problems noted. Brother No problems noted. Grandfather No problems noted. Grandfather No problems noted. Grandmother , BLOOD CLOTT Heart disease Grandmother No problems noted. Son Depression Son Substance abuse Depression Son Substance abuse Daughter No problems noted. Social History Smoking/Tobacco Use Status: Current every day Tobacco Type: cigarettes Smoking risk assessment performed?: Yes Alcohol Intake: current Alcohol Intake frequency: holidays/special occasions only Drug use: Never Substance use type: does not use Do you feel safe at home: Yes Do you feel safe in your relationship?: Yes Course Vital Signs Vital signs: Vital Signs Temperature 36.6 C 03/17/21 11:32 Pulse 72 03/17/21 11:32 Respiratory Rate 18 03/17/21 11:32 Blood Pressure 168/88 H 03/17/21 11:32 Pulse Oximetry 95 03/17/21 11:32 Temperature 36.6 C 03/17/21 11:32 Temperature Source Temporal Artery Scan 03/17/21 11:32 Pulse 72 03/17/21 11:32 Respiratory Rate 18 03/17/21 11:32 Respiratory Effort 03/17/21 11:37 Blood Pressure 168/88 H 03/17/21 11:32 Blood Pressure Position Supine 03/17/21 11:32 Pulse Oximetry 95 03/17/21 11:32 Oxygen Delivery Method Room Air 03/17/21 11:32 Oxygen Flow Rate 0 03/17/21 11:32 Pain Level 5 03/17/21 11:32
[2021-03-17 11:56] LABS: Source Nasal/Nares
[2021-03-17 12:54] LABS: COVID-19 PCR Negative (Negative)
== END 2021-03-17 11:53 | disposition left against medical advice (07) ==
PROVIDERS: Emergency Provider Registered Nurse Emergency; PCP Nurse Practitioner Family
DX: R07.89 Other chest pain (principal); R06.00 Dyspnea, unspecified; Z53.29 Procedure and treatment not carried out because of patient's decision for other reasons; F41.9 Anxiety disorder, unspecified
CPT/HCPCS: 80053; 87635; 93005; 99283; 83735; 84484; 85025; 85379; 85610; 85730; 93010; 99281

== ENCOUNTER 2021-04-09 02:16 | Outpatient (CLI) | payer MEDICAID, SELFPAY ==
[2021-04-09 12:52] LABS: Prothrombin Time 29.4 sec (9.3-11.0)
== END 2021-04-09 02:17 | disposition home or self-care (01) ==
LOC: LBO 02:16
PROVIDERS: PCP Nurse Practitioner Family; Visit Provider Internal Medicine Cardiovascular Disease
DX: Z79.01 Long term (current) use of anticoagulants (principal); Z95.2 Presence of prosthetic heart valve
CPT/HCPCS: 36415; 85610

== ENCOUNTER 2021-04-16 02:17 | Outpatient (CLI) | payer MEDICAID, SELFPAY ==
[2021-04-16 15:50] LABS: Prothrombin Time 29.7 sec (9.3-11.0)
== END 2021-04-16 02:18 | disposition home or self-care (01) ==
LOC: LBO 02:17
PROVIDERS: PCP Nurse Practitioner Family; Visit Provider Student in an Organized Health Care Education/Training Program
DX: Z79.01 Long term (current) use of anticoagulants (principal)
CPT/HCPCS: 36415; 85610

== ENCOUNTER 2021-04-23 02:41 | Outpatient (CLI) | payer MEDICAID, SELFPAY ==
[2021-04-23 11:20] LABS: INR 3.7 (0.9-1.1); Prothrombin Time 35.9 sec (9.3-11.0)
== END 2021-04-23 02:42 | disposition home or self-care (01) ==
LOC: LBO 02:41
PROVIDERS: PCP Nurse Practitioner Family; Visit Provider Student in an Organized Health Care Education/Training Program
DX: Z79.01 Long term (current) use of anticoagulants (principal); Z95.2 Presence of prosthetic heart valve
CPT/HCPCS: 36415; 85610

== ENCOUNTER 2021-04-30 09:30 | Outpatient (CLI) | payer MEDICAID, SELFPAY ==
[2021-04-30 16:54] LABS: Prothrombin Time 19.4 sec (9.3-11.0)
== END 2021-04-30 09:31 | disposition home or self-care (01) ==
LOC: LBO 09:31
PROVIDERS: PCP Nurse Practitioner Family; Visit Provider Student in an Organized Health Care Education/Training Program
DX: Z79.01 Long term (current) use of anticoagulants (principal)
CPT/HCPCS: 36415; 85610

== ENCOUNTER 2021-05-11 02:25 | Outpatient (CLI) | payer MEDICAID, SELFPAY ==
[2021-05-11 10:41] LABS: Anion Gap 4.6 mmol/L (3-11); BUN 10 mg/dL (7-18); CO2 31.4 mmol/L (21.0-32.0); CREATININE 0.8 mg/dL (0.55-1.02); Calcium 8.9 mg/dL (8.5-10.1); Chloride 109 mmol/L (98-107); Glucose 88 mg/dL (74-106); Potassium 4.3 mmol/L (3.5-5.1); Sodium 145 mmol/L (136-145)
[2021-05-11 10:56] LABS: INR 3.5 (0.9-1.1); Prothrombin Time 33.7 sec (9.3-11.0)
== END 2021-05-11 02:26 | disposition home or self-care (01) ==
LOC: LBO 02:25
PROVIDERS: Internal Medicine Cardiovascular Disease; PCP Nurse Practitioner Family; Visit Provider Student in an Organized Health Care Education/Training Program
DX: I35.0 Nonrheumatic aortic (valve) stenosis (principal); Z79.01 Long term (current) use of anticoagulants
CPT/HCPCS: 36415; 80048; 85610

== ENCOUNTER 2021-06-01 04:27 | Outpatient (CLI) | payer MEDICAID, SELFPAY ==
[2021-06-01 11:57] LABS: INR 1.2 (0.9-1.1); Prothrombin Time 12.2 sec (9.3-11.0)
== END 2021-06-01 04:28 | disposition home or self-care (01) ==
PROVIDERS: PCP Nurse Practitioner Family; Visit Provider Student in an Organized Health Care Education/Training Program
DX: Z79.01 Long term (current) use of anticoagulants (principal)
CPT/HCPCS: 36415; 85610

== ENCOUNTER 2021-06-08 02:54 | Outpatient (CLI) | payer MEDICAID, SELFPAY ==
[2021-06-08 15:15] LABS: INR 1.3 (0.9-1.1); Prothrombin Time 12.8 sec (9.3-11.0)
== END 2021-06-08 02:55 | disposition home or self-care (01) ==
LOC: LBO 02:54
PROVIDERS: PCP Nurse Practitioner Family; Visit Provider Student in an Organized Health Care Education/Training Program
DX: Z79.01 Long term (current) use of anticoagulants (principal)
CPT/HCPCS: 36415; 85610

== ENCOUNTER 2021-06-15 02:48 | Outpatient (CLI) | payer MEDICAID, SELFPAY ==
[2021-06-15 13:01] LABS: INR 2.7 (0.9-1.1); Prothrombin Time 26.1 sec (9.3-11.0)
== END 2021-06-15 02:49 | disposition home or self-care (01) ==
LOC: LBO 02:48
PROVIDERS: PCP Nurse Practitioner Family; Visit Provider Student in an Organized Health Care Education/Training Program
DX: Z79.01 Long term (current) use of anticoagulants (principal)
CPT/HCPCS: 36415; 85610

== ENCOUNTER 2021-06-22 03:04 | Outpatient (CLI) | payer MEDICAID, SELFPAY ==
[2021-06-22 09:49] LABS: INR 2.2 (0.9-1.1)
== END 2021-06-22 03:05 | disposition home or self-care (01) ==
LOC: LBO 03:04
PROVIDERS: PCP Nurse Practitioner Family; Visit Provider Student in an Organized Health Care Education/Training Program
DX: I35.0 Nonrheumatic aortic (valve) stenosis (principal); Z95.2 Presence of prosthetic heart valve; Z79.01 Long term (current) use of anticoagulants
CPT/HCPCS: 36415; 85610

== ENCOUNTER 2021-07-01 03:20 | Outpatient (CLI) | payer MEDICAID, SELFPAY ==
[2021-07-01 11:17] LABS: INR 2.9 (0.9-1.1); Prothrombin Time 28.3 sec (9.3-11.0)
== END 2021-07-01 03:21 | disposition home or self-care (01) ==
LOC: LBO 03:20
PROVIDERS: PCP Nurse Practitioner Family; Visit Provider Student in an Organized Health Care Education/Training Program
DX: Z79.01 Long term (current) use of anticoagulants (principal)
CPT/HCPCS: 36415; 85610

== ENCOUNTER 2021-07-14 03:54 | Outpatient (CLI) | payer MEDICAID, SELFPAY ==
[2021-07-14 10:32] LABS: INR 2.4 (0.9-1.1); Prothrombin Time 23.4 sec (9.3-11.0)
== END 2021-07-14 03:55 | disposition home or self-care (01) ==
LOC: LBO 03:54
PROVIDERS: PCP Nurse Practitioner Family; Visit Provider Student in an Organized Health Care Education/Training Program
DX: Z79.01 Long term (current) use of anticoagulants (principal)
CPT/HCPCS: 36415; 85610

== ENCOUNTER 2021-07-20 02:39 | Outpatient (CLI) | payer MEDICAID, SELFPAY ==
[2021-07-20 12:36] LABS: Prothrombin Time 29.5 sec (9.3-11.0)
== END 2021-07-20 02:40 | disposition home or self-care (01) ==
PROVIDERS: PCP Nurse Practitioner Family; Visit Provider Student in an Organized Health Care Education/Training Program
DX: Z79.01 Long term (current) use of anticoagulants (principal)
CPT/HCPCS: 36415; 85610

== ENCOUNTER 2021-08-17 02:11 | Outpatient (CLI) | payer OTHER, MEDICAID, SELFPAY ==
[2021-08-17 14:14] LABS: INR 1.1 (0.9-1.1); Prothrombin Time 11.5 sec (9.3-11.0)
== END 2021-08-17 02:12 | disposition home or self-care (01) ==
LOC: LBO 02:11
PROVIDERS: PCP Nurse Practitioner Family; Visit Provider Student in an Organized Health Care Education/Training Program
DX: Z79.01 Long term (current) use of anticoagulants (principal); I35.0 Nonrheumatic aortic (valve) stenosis
CPT/HCPCS: 36415; 85610

== ENCOUNTER 2021-08-20 02:35 | Outpatient (CLI) | payer OTHER, MEDICAID, SELFPAY ==
[2021-08-20 13:54] LABS: INR 2.1 (0.9-1.1); Prothrombin Time 20.7 sec (9.3-11.0)
== END 2021-08-20 02:36 | disposition home or self-care (01) ==
LOC: LBO 02:35
PROVIDERS: PCP Nurse Practitioner Family; Visit Provider Student in an Organized Health Care Education/Training Program
DX: I35.0 Nonrheumatic aortic (valve) stenosis (principal); Z79.01 Long term (current) use of anticoagulants
CPT/HCPCS: 36415; 85610

== ENCOUNTER 2021-09-03 04:01 | Outpatient (CLI) | payer OTHER, MEDICAID, SELFPAY ==
[2021-09-03 14:10] LABS: INR 2.8 (0.9-1.1); Prothrombin Time 27.4 sec (9.3-11.0)
== END 2021-09-03 04:02 | disposition home or self-care (01) ==
LOC: LBO 04:02
PROVIDERS: PCP Nurse Practitioner Family; Visit Provider Student in an Organized Health Care Education/Training Program
DX: I35.0 Nonrheumatic aortic (valve) stenosis (principal); Z79.01 Long term (current) use of anticoagulants
CPT/HCPCS: 36415; 85610

== ENCOUNTER 2021-10-08 02:42 | Outpatient (CLI) | payer MEDICAID, SELFPAY | END 2021-10-08 02:43 | disposition home or self-care (01) | PROVIDERS: PCP Nurse Practitioner Family; Visit Provider Student in an Organized Health Care Education/Training Program | CPT/HCPCS: 36415; 82306; 82607; 85610 ==

== ENCOUNTER 2021-10-11 04:25 | Outpatient (CLI) | payer OTHER, MEDICAID, SELFPAY ==
[2021-10-11 17:10] LABS: Prothrombin Time 29.4 sec (9.3-11.0)
[2021-10-11 17:37] LABS: Vitamin B12 1038 pg/mL (193-986)
== END 2021-10-11 04:26 | disposition home or self-care (01) ==
LOC: LBO 04:25
PROVIDERS: PCP Nurse Practitioner Family; Visit Provider Student in an Organized Health Care Education/Training Program
DX: E53.8 Deficiency of other specified B group vitamins (principal); E55.9 Vitamin D deficiency, unspecified; Z79.01 Long term (current) use of anticoagulants
CPT/HCPCS: 36415; 82306; 82607; 85610

== ENCOUNTER 2021-10-29 01:48 | Outpatient (CLI) | payer MEDICAID, SELFPAY | END 2021-10-29 01:49 | disposition home or self-care (01) | LOC: LBO 01:48 | PROVIDERS: PCP Nurse Practitioner Family; Visit Provider Student in an Organized Health Care Education/Training Program ==

== ENCOUNTER 2021-11-25 03:50 | Outpatient (CLI) | payer OTHER, MEDICAID, SELFPAY ==
[2021-11-25 13:03] LABS: INR 1.5 (0.9-1.1); Prothrombin Time 14.7 sec (9.3-11.0)
== END 2021-11-25 03:51 | disposition home or self-care (01) ==
LOC: LBO 03:50
PROVIDERS: PCP Nurse Practitioner Family; Visit Provider Student in an Organized Health Care Education/Training Program
DX: Z79.01 Long term (current) use of anticoagulants (principal); I35.0 Nonrheumatic aortic (valve) stenosis; Z95.2 Presence of prosthetic heart valve
CPT/HCPCS: 36415; 85610

== ENCOUNTER 2021-12-02 03:18 | Outpatient (CLI) | payer OTHER, MEDICAID, SELFPAY ==
[2021-12-02 08:21] LABS: INR 2.4 (0.9-1.1); Prothrombin Time 23.8 sec (9.3-11.0)
== END 2021-12-02 03:19 | disposition home or self-care (01) ==
LOC: LBO 03:18
PROVIDERS: PCP Nurse Practitioner Family; Visit Provider Student in an Organized Health Care Education/Training Program
DX: Z79.01 Long term (current) use of anticoagulants (principal); I35.0 Nonrheumatic aortic (valve) stenosis; Z95.2 Presence of prosthetic heart valve
CPT/HCPCS: 36415; 85610

== ENCOUNTER 2021-12-16 02:38 | Outpatient (CLI) | payer OTHER, MEDICAID, SELFPAY ==
[2021-12-16 15:47] LABS: INR 1.5 (0.9-1.1); Prothrombin Time 14.9 sec (9.3-11.0)
== END 2021-12-16 02:39 | disposition home or self-care (01) ==
LOC: LBO 02:38
PROVIDERS: PCP Nurse Practitioner Family; Visit Provider Student in an Organized Health Care Education/Training Program
DX: I35.0 Nonrheumatic aortic (valve) stenosis (principal); Z95.2 Presence of prosthetic heart valve; Z79.01 Long term (current) use of anticoagulants
CPT/HCPCS: 36415; 85610

== ENCOUNTER 2021-12-29 02:14 | Outpatient (CLI) | payer OTHER, MEDICAID, SELFPAY ==
[2021-12-29 14:54] LABS: INR 2.8 (0.9-1.1); Prothrombin Time 26.4 sec (9.3-11.0)
== END 2021-12-29 02:15 | disposition home or self-care (01) ==
LOC: LBO 02:15
PROVIDERS: PCP Nurse Practitioner Family; Visit Provider Student in an Organized Health Care Education/Training Program
DX: I35.0 Nonrheumatic aortic (valve) stenosis (principal); Z95.2 Presence of prosthetic heart valve; Z79.01 Long term (current) use of anticoagulants
CPT/HCPCS: 36415; 85610

== ENCOUNTER 2022-02-03 03:04 | Outpatient (CLI) | payer OTHER, MEDICAID, SELFPAY ==
[2022-02-03 15:06] LABS: Prothrombin Time 37.3 sec (9.3-11.0)
== END 2022-02-03 03:05 | disposition home or self-care (01) ==
LOC: LBO 03:05
PROVIDERS: PCP Nurse Practitioner Family; Visit Provider Student in an Organized Health Care Education/Training Program
DX: I35.0 Nonrheumatic aortic (valve) stenosis (principal); Z95.2 Presence of prosthetic heart valve; Z79.01 Long term (current) use of anticoagulants
CPT/HCPCS: 36415; 85610

== ENCOUNTER 2022-02-05 13:19 | Outpatient (REF) | payer OTHER, MEDICAID, SELFPAY ==
[2022-02-07 15:56] LABS: COVID-19 RT-PCR UVMMC Result Negative (Negative)
== END 2022-02-05 13:20 | disposition home or self-care (01) ==
LOC: LBN 13:19
PROVIDERS: PCP Nurse Practitioner Family; Visit Provider Nurse Practitioner Family
DX: R06.02 Shortness of breath (principal); Z20.822 Contact with and (suspected) exposure to COVID-19
CPT/HCPCS: U0003

== ENCOUNTER 2022-02-14 03:51 | Outpatient (CLI) | payer OTHER, MEDICAID, SELFPAY ==
[2022-02-14 16:35] LABS: INR 1.8 (0.9-1.1); Prothrombin Time 17.2 sec (9.3-11.0)
== END 2022-02-14 03:52 | disposition home or self-care (01) ==
LOC: LBO 03:51
PROVIDERS: PCP Nurse Practitioner Family; Visit Provider Student in an Organized Health Care Education/Training Program
DX: Z79.01 Long term (current) use of anticoagulants (principal); J18.9 Pneumonia, unspecified organism
CPT/HCPCS: 36415; 85610

== ENCOUNTER 2022-02-25 01:42 | Outpatient (CLI) | payer OTHER, MEDICAID, SELFPAY ==
[2022-02-25 14:14] LABS: INR 3.1 (0.9-1.1); Prothrombin Time 28.7 sec (9.3-11.0)
== END 2022-02-25 01:43 | disposition home or self-care (01) ==
LOC: LBO 01:42
PROVIDERS: PCP Nurse Practitioner Family; Visit Provider Student in an Organized Health Care Education/Training Program
DX: Z79.01 Long term (current) use of anticoagulants (principal)
CPT/HCPCS: 36415; 85610

== ENCOUNTER 2022-03-18 01:56 | Outpatient (CLI) | payer OTHER, MEDICAID, SELFPAY ==
[2022-03-18 16:12] LABS: INR 1.3 (0.9-1.1); Prothrombin Time 13.2 sec (9.3-11.0)
== END 2022-03-18 01:57 | disposition home or self-care (01) ==
LOC: LBO 01:56
PROVIDERS: PCP Nurse Practitioner Family; Visit Provider Student in an Organized Health Care Education/Training Program
DX: Z79.01 Long term (current) use of anticoagulants (principal); I35.0 Nonrheumatic aortic (valve) stenosis
CPT/HCPCS: 36415; 85610

== ENCOUNTER 2022-04-01 00:56 | Outpatient (CLI) | payer OTHER, MEDICAID, SELFPAY ==
[2022-04-01 15:35] LABS: INR 2.2 (0.9-1.1); Prothrombin Time 20.8 sec (9.3-11.0)
== END 2022-04-01 00:57 | disposition home or self-care (01) ==
LOC: LBO 00:56
PROVIDERS: PCP Nurse Practitioner Family; Visit Provider Student in an Organized Health Care Education/Training Program
DX: I35.0 Nonrheumatic aortic (valve) stenosis (principal); Z79.01 Long term (current) use of anticoagulants
CPT/HCPCS: 36415; 85610

== ENCOUNTER 2022-04-21 02:37 | Outpatient (CLI) | payer OTHER, MEDICAID, SELFPAY ==
[2022-04-21 14:57] LABS: INR 2.7 (0.9-1.1); Prothrombin Time 25.3 sec (9.3-11.0)
== END 2022-04-21 02:38 | disposition home or self-care (01) ==
LOC: LBO 02:37
PROVIDERS: PCP Nurse Practitioner Family; Visit Provider Student in an Organized Health Care Education/Training Program
DX: Z95.2 Presence of prosthetic heart valve (principal)
CPT/HCPCS: 36415; 85610

== ENCOUNTER 2022-05-25 02:52 | Outpatient (CLI) | payer OTHER, MEDICAID, SELFPAY ==
[2022-05-25 13:01] LABS: INR 1.5 (0.9-1.1); Prothrombin Time 14.4 sec (9.3-11.0)
== END 2022-05-25 02:53 | disposition home or self-care (01) ==
LOC: LBO 02:52
PROVIDERS: PCP Nurse Practitioner Family; Visit Provider Student in an Organized Health Care Education/Training Program
DX: Z95.2 Presence of prosthetic heart valve (principal); I35.0 Nonrheumatic aortic (valve) stenosis; Z79.01 Long term (current) use of anticoagulants
CPT/HCPCS: 36415; 85610

== ENCOUNTER 2022-06-03 01:31 | Outpatient (CLI) | payer OTHER, MEDICAID, SELFPAY ==
[2022-06-03 13:38] LABS: INR 1.5 (0.9-1.1); Prothrombin Time 14.8 sec (9.3-11.0)
== END 2022-06-03 01:32 | disposition home or self-care (01) ==
LOC: LBO 01:31
PROVIDERS: PCP Nurse Practitioner Family; Visit Provider Student in an Organized Health Care Education/Training Program
DX: Z95.2 Presence of prosthetic heart valve (principal)
CPT/HCPCS: 36415; 85610

== ENCOUNTER 2022-06-14 03:25 | Outpatient (CLI) | payer OTHER, MEDICAID, SELFPAY ==
[2022-06-14 09:13] LABS: INR 2.2 (0.9-1.1); Prothrombin Time 20.7 sec (9.3-11.0)
== END 2022-06-14 03:26 | disposition home or self-care (01) ==
LOC: LBO 03:25
PROVIDERS: PCP Nurse Practitioner Family; Visit Provider Student in an Organized Health Care Education/Training Program
DX: Z95.2 Presence of prosthetic heart valve (principal)
CPT/HCPCS: 36415; 85610

== ENCOUNTER 2022-07-08 03:09 | Outpatient (CLI) | payer OTHER, MEDICAID, SELFPAY ==
--- OUTSIDE RECORDS SUMMARY | 2022-07-08 03:11 | XMS_ITS ---
:1970 Author Organization [facility] Address [address], [place] [id number] Care Team Providers Name Role Phone Roman Wilkins Unavailable Unavailable PROBLEMS Type Condition ICD9-CM [id number] Onset Condition SNOMED Cod e Code Code Dates Status Problem History of Z95.2 Active 901501559 367089 mechanical aortic valve replacement Problem Nonrheumatic I35.0 Active 5309549 aortic (valve) stenosis Problem Ischemic I25.5 Active 992897412 cardiomyopathy Problem Vitamin D E55.9 Active 80344151 deficiency, unspecified Problem Morbidly obese E66.01 Active 14357 6002 Problem RLS (restless legs G25.81 Active 3 1696527 syndrome) Problem Body mass index Z68.43 Active 4085 12257 (BMI) of 50-59.9 in adult Problem Coronary artery I25.10 Active 4510 [id number] disease involving [place] coronary artery of [place] heart without angina pectoris Problem Essential I10 Active 83318457 hypertension Problem Morbid obesity E66.01 Active Problem IRA (obstructive G47.33 Active 434 07232 sleep apnea) ALLERGIES Substance Reaction Event Type Date Status iblood thinners CIS-low platelets Non Drug Allergy Aug, Act juan francisco Latex blisters Drug Allergy Aug, Active Ibuprofen nausea, vomitting Drug Allergy Aug, Active nicotine patches dermatits Non Drug Allergy Aug, Active Penicillin Unknown Drug Allergy Aug, Active ENCOUNTERS Encounter Location Date Diagnosis [facility] [address] [place], [place] [id number] [facility] [address] [place] [address] Feb, [address] [place], [place] [id number] [facility] [address] [facility] Jan, RLS (restless legs [address] syndrome) G25.81 [place], [place] [id number] [facility] [address] [facility] November, RLS (restless legs [address] syndrome) G25.81 [place], [place] [id number] [facility] [address] [place] [address] Sep, RLS (restless legs [address] syndrome) G25.81 [place], [place] [id number] [facility] [address] [place] [address] Sep, [address] [place], [place] [id number] [facility] [address] [place] [address] Sep, [address] [place] [id number] [address] Sep, [address] [place], [place] [facility] [id number] [facility] [address] [place] [address] [address], [address] [place] [id number] [facility] [address] [place] [address] Aug, [address] [place], [place] [id number] [facility] [address] [place] [address] Aug, IRA (obstructive sleep [address] apnea) G47.33 ; Restless [place], [place] leg syndrome G25 .81 ; [id number] Morbid obesity E 66.01 ; Essential hypert ension I10 ; Coronary a rtery disease involvin g [place] coronary artery of [place] heart without an jignesh pectoris I25.10 ; Ischemic cardiom yopathy I25.5 ; Nonrheum atic aortic (valve) s tenosis I35.0 ; History of mechanical aorti c valve replacement Z95. 2 ; Fatigue associat ed with anemia D64.9 ; O ther fatigue R53.83 a nd Vitamin D defici ency, unspecified E55. [address] Aug, Otolaryngology [address] [place], [place] [id number] IMMUNIZATIONS No Known Immunizations SOCIAL HISTORY Qualifiers Date Current Smoker REASON FOR REFERRAL FUNCTIONAL STATUS PLAN OF CARE Activity Details Follow Up After home sleep apnea test Reason: Pending Test HOME SLEEP STUDY VITAL SIGNS Height 65 in 2021-08-30 Weight 317 lbs 2021-08-30 Heart Rate 84 /min 2021-08-30 Oximetry 96 2021-08-30 BMI 52.75 kg/m2 2021-08-30 Blood pressure systolic 126 mm Hg 2021-08-30 Blood pressure diastolic 88 mm Hg 2021-08-30 MEDICATIONS Medication Instructions Dosage Frequency Start End Duration Statu s Date Lasix 20 MG Orally Once a 1 tablet 24h 30 day(s) Act juan francisco day Aspirin 81 81 MG Orally Once a 1 tablet 24h 30 day(s ) Active day rOPINIRole HCl 2 Orally Once a 1 tablet 1 24h November, day s Active MG day to 3 hours 2021 before bedtime rOPINIRole HCl 1 TAKE 1 30 Active MG TABLET BY MOUTH EVERY NIGHT 1 TO 3 HOURS BEFORE BEDTIME Atorvastatin Orally Once a 1 tablet 24h 30 day(s) Ac tive Calcium 80 MG day Potassium as directed Active Chloride - Pantoprazole Orally Once a 1 tablet 24h 30 day(s) Ac tive Sodium 40 MG day Tylenol Extra Orally every 6 1 tablet as 6h Active Strength 500 MG hrs needed Warfarin Sodium Orally Once a 1 tablet 24h 30 day(s) Active 5 MG day rOPINIRole HCl Orally Once a 1 tablet 1 24h Sep, Active 0.5 MG day to 3 hours 2021 before bedtime Albuterol Inhalation 1 puff as 4h Active Sulfate HFA 108 every 4 hrs needed (90 Base) MCG/ACT Ferrous Orally Once a 1 tablet 24h 30 day(s) Active Gluconate 324 day with water (38 Fe) MG or juice between meals Nicotrol 10 MG Inhalation 16 1 cartridge Active time(s) a day as needed PROCEDURES No Known procedures RESULTS Name Result Date Reference Range CBC, WITH AUTO DIFF 2021-08-30 WBC 10.4 4.8-10.8 RBC 5.33 4.20-5.40 HGB 14.9 12.0-16.0 HCT 47.5 37.0-47.0 MCV 89.1 81.0-99.0 MCH 28.0 27.0-31.0 MCHC 31.4 32.0-37.0 RDW-CV 15.3 11.5-14.5 PLT 224 130-400 MPV 10.2 7.4-10.4 NE% 68.9 42.2-75.2 LY% 17.2 20.5-51.1 MO% 10.3 1.7-9.3 EO% 2.6 0.9-2.9 BA% 0.7 0.0-0.8 NE# 7.1 1.4-6.5 LY# 1.8 1.2-3.4 MO# 1.1 0.1-0.6 EO# 0.3 0.0-0.2 BA# 0.1 0.0-0.2 FERRITIN 2021-08-30 FERRITIN 52.3 11.0-307.0 VITAMIN B12 & FOLATE 2021-08-30 VIT B12 217 180-914 FOLATE 7.4 >=6.0 COMPREHENSIVE METABOLIC 2021-08-30 PROFILE SODIUM 141 134-143 POTASSIUM 3.9 3.5-5.1 CHLORIDE 103 98-111 CO2 29 22-32 CALCIUM 9.2 8.9-10.3 GLUCOSE 92 74-106 BUN 14 8-26 CREATININE 0.97 0.44-1.00 TOTAL BILIRUBIN 0.9 0.3-1.2 TOTAL PROTEIN 7.0 6.5-8.1 ALBUMIN 3.5 3.5-5.0 ALKALINE PHOS 70 32-92 AST 20 15-41 ALT 22 14-54 A/GAP 9.0 3.0-12.0 B/CR 14.4 8.0-20.0 OSMOLARITY 281 275-295 GLOBULIN 3.5 2.3-3.5 A/G 1.0 1.0-2.5 IRON/TRANSFERRIN PANEL 2021-08-30 IRON 76 28-170 TRANSFERRIN 283 192-382 TIBC 396 250-400 IRON SATURATION 19 20-55 VITAMIN D - 25(OH) 2021-08-30 VIT D 7.4 30.0-100.0 VIT D INTERP VIT D STATUS RANGE Deficient <20 ng/mL Insufficiency 20-30 ng/mL Sufficiency 30-100 ng/mL Toxicity >100 ng/mL COMMENT Patients that have undergone fluorescein dye angiography without allowing enough time for clearance of the fluorescein dye may have falsely elevated Vitamin D levels. 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 2. Pt needs to bring SD card., NCSLEEP IRA on CPAP, Pt needs to bring SD card, pre-load, [place] SLEEP - IRA on CPAP Insurance Providers [facility] Health Member Patient Patient Patient Patient Patient Subscriber Subscriber Subscriber Group Insurance Plan Plan Plan Plan ID Relationship Address Phone Name Date of ID Name Date of No Type Insurance Insurance Insurance Coverage to Subscriber Address Phone Name Dates R [phone] R self Juani [id number] [address] [place] [address] [facility] [address] [place] [phone] [place] Juani [id number] [place]ID [id number] [place] [id number]
[2022-07-08 16:37] LABS: INR 1.1 (0.9-1.1); Prothrombin Time 10.8 sec (9.3-11.0)
== END 2022-07-08 03:10 | disposition home or self-care (01) ==
LOC: LBO 03:10
PROVIDERS: PCP Nurse Practitioner Family; Visit Provider Student in an Organized Health Care Education/Training Program
DX: Z95.2 Presence of prosthetic heart valve (principal); Z79.01 Long term (current) use of anticoagulants; I35.0 Nonrheumatic aortic (valve) stenosis
CPT/HCPCS: 36415; 85610

== ENCOUNTER 2022-07-15 02:42 | Outpatient (CLI) | payer OTHER, MEDICAID, SELFPAY ==
[2022-07-15 15:43] LABS: INR 2.7 (0.9-1.1); Prothrombin Time 25.9 sec (9.3-11.0)
[2022-07-15 16:12] LABS: Anion Gap 6.8 mmol/L (3-11); BUN 10 mg/dL (7-18); CO2 31.2 mmol/L (21.0-32.0); CREATININE 0.9 mg/dL (0.55-1.02); Calcium 9.1 mg/dL (8.5-10.1); Chloride 103 mmol/L (98-107); Estimated GFR 76.92 (mL/min/1.73m2); Glucose 98 mg/dL (74-106); Potassium 3.6 mmol/L (3.5-5.1); Sodium 141 mmol/L (136-145)
== END 2022-07-15 02:43 | disposition home or self-care (01) ==
LOC: LBO 02:42
PROVIDERS: PCP Nurse Practitioner Family; Visit Provider Student in an Organized Health Care Education/Training Program
DX: I35.0 Nonrheumatic aortic (valve) stenosis (principal); Z95.2 Presence of prosthetic heart valve; Z79.01 Long term (current) use of anticoagulants
CPT/HCPCS: 36415; 80048; 85610

== ENCOUNTER 2022-07-29 01:43 | Outpatient (CLI) | payer OTHER, MEDICAID, SELFPAY ==
--- OUTSIDE RECORDS SUMMARY | 2022-07-29 01:45 | XMS_ITS ---
:1970 Author Organization [facility] Address [address], [place] [id number] Care Team Providers Name Role Phone Roman Wilkins Unavailable Unavailable PROBLEMS Type Condition ICD9-CM [id number] Onset Condition SNOMED Cod e Code Code Dates Status Problem History of Z95.2 Active 830387142 289077 mechanical aortic valve replacement Problem Nonrheumatic I35.0 Active 1963674 aortic (valve) stenosis Problem Ischemic I25.5 Active 348500546 cardiomyopathy Problem Vitamin D E55.9 Active 93031857 deficiency, unspecified Problem Morbidly obese E66.01 Active 30703 6002 Problem RLS (restless legs G25.81 Active 3 2339328 syndrome) Problem Body mass index Z68.43 Active 4085 20102 (BMI) of 50-59.9 in adult Problem Coronary artery I25.10 Active 4510 01345987601 disease involving [place] coronary artery of [place] heart without angina pectoris Problem Essential I10 Active 75814843 hypertension Problem Morbid obesity E66.01 Active Problem IRA (obstructive G47.33 Active 785 57029 sleep apnea) ALLERGIES Substance Reaction Event Type Date Status iblood thinners CIS-low platelets Non Drug Allergy Aug, Act juan francisco Latex blisters Drug Allergy Aug, Active Ibuprofen nausea, vomitting Drug Allergy Aug, Active nicotine patches dermatits Non Drug Allergy Aug, Active Penicillin Unknown Drug Allergy Aug, Active ENCOUNTERS Encounter Location Date Diagnosis [facility] [address], [address] [place], [place] [id number] [facility] [address] [place] [address] Feb, Road [address] [place], [place] [id number] [facility] [address] [facility] Jan, RLS (restless legs [address] syndrome) G25.81 [place], [place] [id number] [facility] [address] [facility] November, RLS (restless legs [address] syndrome) G25.81 [place] [id number] [facility] [address] [place] [address] Sep, RLS (restless legs [address] syndrome) G25.81 [place], [place] [id number] [facility] [address] [place] [address] Sep, Road [place], [place] [id number] [facility] [address] [place] [address], [address] [place] [id number] [address] Sep, Healthcare [address] [place], [place] [facility] [id number] [facility] [address] [place] [address] Sep, Road [place], [place] [id number] [facility] [address] [place] [address] Aug, Road [place], [place] [id number] [facility] [address] [place] [address] Aug, IRA (obstructive sleep [address] apnea) G47.33 ; Restless [place], [place] leg syndrome G25 .81 ; [id number] Morbid obesity E 66.01 ; Essential hypert ension I10 ; Coronary a rtery disease involvin g [place] coronary artery of [place] heart without an jignesh pectoris I25.10 ; Ischemic cardiom yopathy I25.5 ; Nonrheum atic aortic (valve) s tenosis I35.0 ; History of mechanical aorti c valve replacement Z95. 2 ; Fatigue associat ed with anemia D64.9 ; O ther fatigue R53.83 a nd Vitamin D defici ency, unspecified E55. 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 2. Pt needs to bring SD card., NCSLEEP IRA on CPAP, Pt needs to bring SD card, pre-load, [place] SLEEP - IRA on CPAP Insurance Providers [facility] Patient Patient Patient Patient Patient Subscriber Subscriber Subscriber Group Insurance Plan Plan Plan Plan ID Relationship Address Phone Name Date of ID Name Date of No Type Insurance Insurance Insurance Coverage to Subscriber Address Phone Name Dates R [phone] [place] self Juani [id number] [place] [address] [facility] [address] [place] [phone] [place] self Juani [id number] MEDICAID [employer] 06 MEDICAID [place] [id number]
[2022-07-29 16:10] LABS: INR 2.8 (0.9-1.1); Prothrombin Time 26.6 sec (9.3-11.0)
== END 2022-07-29 01:44 | disposition home or self-care (01) ==
LOC: LBO 01:43
PROVIDERS: PCP Nurse Practitioner Family; Visit Provider Student in an Organized Health Care Education/Training Program
DX: Z95.2 Presence of prosthetic heart valve (principal)
CPT/HCPCS: 36415; 85610

== ENCOUNTER 2022-09-06 02:35 | Outpatient (CLI) | payer OTHER, MEDICAID, SELFPAY ==
[2022-09-06 16:37] LABS: INR 1.4 (0.9-1.1); Prothrombin Time 14.1 sec (9.3-11.0)
[2022-09-06 17:18] LABS: Anion Gap 5.9 mmol/L (3-11); BUN 13 mg/dL (7-18); CO2 30.1 mmol/L (21.0-32.0); Chloride 105 mmol/L (98-107); Estimated GFR 67.78 (mL/min/1.73m2); Glucose 119 mg/dL (74-106); Potassium 3.7 mmol/L (3.5-5.1); Sodium 141 mmol/L (136-145)
== END 2022-09-06 02:36 | disposition home or self-care (01) ==
LOC: LBO 02:35
PROVIDERS: PCP Nurse Practitioner Family; Visit Provider Student in an Organized Health Care Education/Training Program
DX: I35.0 Nonrheumatic aortic (valve) stenosis (principal); Z95.2 Presence of prosthetic heart valve
CPT/HCPCS: 36415; 80048; 85610

== ENCOUNTER 2022-09-16 02:23 | Outpatient (CLI) | payer OTHER, MEDICAID, SELFPAY ==
--- OUTSIDE RECORDS SUMMARY | 2022-09-16 02:26 | XMS_ITS ---
Author Name Roman Wilkins Address [address] [place], [place] [id number] Organization [facility] Address [address] [place], [place] [address] Care Team Providers Care Redrying Machine Operator Name Role Phone Roman Wilkins Unavailable [phone] PROBLEMS Type Condition ICD9-CM Code [id number] Code Onset Dates Condition Status SNOMED Code Problem History of mechanical aortic valve replacement Z95.2 Active 1809824111 89065 Problem Nonrheumatic aortic (valve) stenosis I35.0 Active 9310024 Problem Ischemic cardiomyopathy I25.5 Active 248976888 Problem Vitamin D deficiency, unspecified E55.9 Active 94769975 Problem Morbidly obese E66.01 Active 420891425 Problem RLS (restless legs syndrome) G25.81 Active 42624610 Problem Body mass index (BMI) of 50-59.9 in adult Z68.43 Active 879948766 Problem Coronary artery disease involving [place] coronary artery of [place] heart without angina pectoris I25.10 Active 753721845543 103 Problem Essential hypertension I10 Active 03357936 Problem Morbid obesity E66.01 Active Problem IRA (obstructive sleep apnea) G47.33 Active 00395772 ALLERGIES Substance Reaction Event Type Date Status iblood thinners CIS-low platelets Non Drug Allergy Aug, Active Latex blisters Drug Allergy Aug, Active Ibuprofen nausea, vomitting Drug Allergy Aug, Act juan francisco nicotine patches dermatits Non Drug Allergy Aug, Active Penicillin Unknown Drug Allergy 21 Feb, 2022 Active ENCOUNTERS Encounter Location Date Diagnosis [facility] [address] [place], [place] [id number] Mar, [facility] [address] [place], [place] [id number] Feb, [facility] [address] [place], [place] [id number] Jan, RLS (restless legs syndrome) G25.81 [facility] [address] [place], [place] [id number] November, RLS (restless legs syndrome) G25.81 [facility] [address] [facility] [address] [place], [place] [id number] Sep, RLS (restless legs syndrome) G25.81 [facility] [address] [place], [place] [id number] Sep, [facility] [address] [place], [place] [id number] Sep, [facility] Occupational Health Department [address] [place], [place] [id number] Sep, [facility] [address] [place], [place] [id number] Sep, [facility] [address] [place], [place] [id number] Aug, [facility] [address] [place], [place] [id number] Aug, IRA (obstructive sleep apnea) G47.33 ; Restless leg syndrome G25.81 ; Morbid obesity E66.01 ; Essential hypertension I10 ; Coronary artery disease involving [place] coronary artery of [place] heart without angina pectoris I25.10 ; Ischemic cardiomyopathy I25.5 ; Nonrheumatic aortic (valve) stenosis I35.0 ; History of mechanical aortic valve replacement Z95.2 ; Fatigue associated with anemia D64.9 ; Other fatigue R53.83 and Vitamin D deficiency, unspecified E55.9 [facility]ol[facility] [address] [facility] [address] [place], [place] [id number] Aug, IMMUNIZATIONS No Known Immunizations SOCIAL HISTORY Qualifiers Date Current Smoker REASON FOR REFERRAL FUNCTIONAL STATUS PLAN OF CARE Activity Details VITAL SIGNS Height 65 in 2021-08-30 Weight 317 lbs 2021-08-30 Heart Rate 84 /min 2021-08-30 Oximetry 96 2021-08-30 BMI 52.75 kg/m2 2021-08-30 Blood pressure systolic 126 mm Hg Blood pressure diastolic 88 mm Hg 2021-08 MEDICATIONS Medication Instructions Dosage Frequency Start Date End Date Duration Status Lasix 20 MG Orally Once a day 1 tablet 24h 30 day(s) Active Aspirin 81 81 MG Orally Once a day 1 tablet 24h 30 day(s) Active rOPINIRole HCl 2 MG Orally Once a day 1 tablet 1 to 3 hours before bedtime 24h November, 90 days Active rOPINIRole HCl 1 MG TAKE 1 TABLET BY MOUTH EVERY NIGHT 1 TO 3 HOURS BEFORE BEDTIME 30 Active Atorvastatin Calcium 80 MG Orally Once a day 1 tablet 24h 30 day(s) Active Potassium Chloride - as directed Active Pantoprazole Sodium 40 MG Orally Once a day 1 tablet 24h 30 day(s) Active Tylenol Extra Strength 500 MG Orally every 6 hrs 1 tablet as needed 6h Active Warfarin Sodium 5 MG Orally Once a day 1 tablet 24h 30 day(s) Active rOPINIRole HCl 0.5 MG Orally Once a day 1 tablet 1 to 3 hours before bedtime 24h Sep, 90 days Active Albuterol Sulfate HFA 108 (90 Base) MCG/ACT Inhalation every 4 hrs 1 puff as needed 4h Active Ferrous Gluconate 324 (38 Fe) MG Orally Once a day 1 tablet with water or juice between meals 24h 30 day(s) Active Nicotrol 10 MG Inhalation 16 time(s) a day 1 cartridge as needed Active PROCEDURES No Known procedures RESULTS Name Result [...] 217 180-914 FOLATE 7.4 >=6.0 COMPREHENSIVE METABOLIC PROFILE 2021-08-30 SODIUM 141 134-143 POTASSIUM 3.9 3.5-5.1 CHLORIDE [...] Toxicity >100 ng/mL COMMENT Patients that have u ndergone fluorescein dye angiography without allowing enough time for clearance of the fluorescein dye may have falsely elevated Vitamin D levels. 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 2. Pt needs to bring SD card., NCSLEEP IRA on CPAP, Pt needs to bringSD card, pre-load, [place] SLEEP - IRA on CPAP Insurance Providers Health Insurance Type Health Plan Insurance Address Health Plan Insurance Phone Health Plan Insurance Name Health Plan Coverage Dates Member ID Patient Relationship to Subscriber Patient Address Patient Phone Patient Name Patient Date of Subscriber ID Subscriber Name Subscriber Date of Group No UMR [address] [address] [facility] [address] UMR self Juani [place] [id number] [place] MEDICAID [address] [facility] [id number] [place] self Ju[place] [id number]
[2022-09-16 15:51] LABS: INR 1.5 (0.9-1.1); Prothrombin Time 15.5 sec (9.3-11.0)
== END 2022-09-16 02:24 | disposition home or self-care (01) ==
LOC: LBO 02:24
PROVIDERS: PCP Nurse Practitioner Family; Visit Provider Student in an Organized Health Care Education/Training Program
DX: Z95.2 Presence of prosthetic heart valve (principal)
CPT/HCPCS: 36415; 85610

== ENCOUNTER 2022-09-23 02:00 | Outpatient (CLI) | payer OTHER, MEDICAID, SELFPAY ==
--- OUTSIDE RECORDS SUMMARY | 2022-09-23 02:03 | XMS_ITS ---
Author Name Roman Wilkins Address [address] [place], [place] [address] Organization [facility] Address [address] [place], [place] [address] Care Team Providers Care Computer Patternmaker Name Role Phone Roman Wilkins Unavailable [phone] PROBLEMS Type Condition ICD9-CM Code [id number] Code Onset Dates Condition Status SNOMED Code Problem History of mechanical aortic valve replacement Z95.2 Active 3381192489 04916 Problem Nonrheumatic aortic (valve) stenosis I35.0 Active 2094292 Problem Ischemic cardiomyopathy I25.5 Active 126914586 Problem Vitamin D deficiency, unspecified E55.9 Active 49143932 Problem Morbidly obese E66.01 Active 346524057 Problem RLS (restless legs syndrome) G25.81 Active 11377485 Problem Body mass index (BMI) of 50-59.9 in adult Z68.43 Active 651804595 Problem Coronary artery disease involving [place] coronary artery of unga heart without angina pectoris I25.10 Active 128512159312 103 Problem Essential hypertension I10 Active 23825327 Problem Morbid obesity E66.01 Active Problem IRA (obstructive sleep apnea) G47.33 Active 23638733 ALLERGIES Substance Reaction Event Type Date Status iblood thinners CIS-low platelets Non Drug Allergy Aug, Active Latex blisters Drug Allergy Aug, Active Ibuprofen nausea, vomitting Drug Allergy Aug, Act juan francisco nicotine patches dermatits Non Drug Allergy Aug, Active Penicillin Unknown Drug Allergy 21 Feb, 2022 Active ENCOUNTERS Encounter Location Date Diagnosis [facility] [address] [place], [place] [id number] Mar, [facility] [address] [place], [place] [id number] Feb, [facility] [address] [place], [place] [id number] Jan, RLS (restless legs syndrome) G25.81 [facility] [address] [place], [place] [id number] November, RLS (restless legs syndrome) G25.81 [facility] [address] [facility] [address] [place], [place] [id number] Sep, RLS (restless legs syndrome) G25.81 [facility] [address] [place], [place] [id number] Sep, [facility] [address] [place], [place] [id number] Sep, [facility] Occupational Health Department [address] [place], [place] [id number] Sep, [facility] [address] [place], [place] [id number] Sep, [facility] [address] [place], [place] [id number] Aug, [facility] [address] [place], [place] [id number] Aug, IRA (obstructive sleep apnea) G47.33 ; Restless leg syndrome G25.81 ; Morbid obesity E66.01 ; Essential hypertension I10 ; Coronary artery disease involving [place] coronary artery of un[place] heart without angina pectoris I25.10 ; Ischemic cardiomyopathy I25.5 ; Nonrheumatic aortic (valve) stenosis I35.0 ; History of mechanical aortic valve replacement Z95.2 ; Fatigue associated with anemia D64.9 ; Other fatigue R53.83 and Vitamin D deficiency, unspecified E55.9 [facility] Otolaryngology 600 [facility] [address] [place], [place] [id number] Aug, IMMUNIZATIONS No Known Immunizations SOCIAL HISTORY [...] READY FOR REVIEW, [place] SLEEP - HSAT PRODUCT SAFETY TECHNICAL ASSISTANT:BEDTIME: 10:30 PM, HSAT picking crew supervisor appt , [place] SLEEP -HSAT PRODUCT SAFETY TECHNICAL ASSISTANT: BEDTIME: 9:00 PM, Medication refill/reschedule HSAT appt, [...] Date of Group No UMR [address] [address] [facility] [address] UMR self Juani [place] [id number] 54 [place] MED[place] [address] [facility] [id number] [place] self Ju[place] [id number]
[2022-09-23 16:59] LABS: Prothrombin Time 46.5 sec (9.3-11.0)
[2022-09-23 17:21] LABS: INR 4.6 (0.9-1.1)
== END 2022-09-23 02:01 | disposition home or self-care (01) ==
LOC: LBO 02:02
PROVIDERS: PCP Nurse Practitioner Family; Visit Provider Student in an Organized Health Care Education/Training Program
DX: Z95.2 Presence of prosthetic heart valve (principal); Z79.01 Long term (current) use of anticoagulants
CPT/HCPCS: 36415; 85610

== ENCOUNTER 2022-09-30 02:59 | Outpatient (CLI) | payer OTHER, MEDICAID, SELFPAY ==
[2022-09-30 16:16] LABS: INR 1.4 (0.9-1.1); Prothrombin Time 13.8 sec (9.3-11.0)
== END 2022-09-30 03:00 | disposition home or self-care (01) ==
LOC: LBO 03:01
PROVIDERS: PCP Nurse Practitioner Family; Visit Provider Student in an Organized Health Care Education/Training Program
DX: Z95.2 Presence of prosthetic heart valve (principal)
CPT/HCPCS: 36415; 85610

== ENCOUNTER 2022-10-14 02:44 | Outpatient (CLI) | payer OTHER, MEDICAID, SELFPAY ==
--- OUTSIDE RECORDS SUMMARY | 2022-10-14 02:48 | XMS_ITS ---
Author Name Roman Wilkins Address [address] [place], [place] [address] Organization [facility] Address [address] [place], [place] [address] Care Team Providers Care Egg Processing Supervisor Name Role Phone Roman Wilkins Unavailable [phone] PROBLEMS Type Condition ICD9-CM Code [id number] Code Onset Dates Condition Status SNOMED Code Problem History of mechanical aortic valve replacement Z95.2 Active 5837170478 07892 Problem Nonrheumatic aortic (valve) stenosis I35.0 Active 5774039 Problem Ischemic cardiomyopathy I25.5 Active 950985283 Problem Vitamin D deficiency, unspecified E55.9 Active 63112825 Problem Morbidly obese E66.01 Active 662486870 Problem RLS (restless legs syndrome) G25.81 Active 27045286 Problem Body mass index (BMI) of 50-59.9 in adult Z68.43 Active 656312167 Problem Coronary artery disease involving [place] coronary artery of [place] heart without angina pectoris I25.10 Active 646665858099 103 Problem Essential hypertension I10 Active 49278771 Problem Morbid obesity E66.01 Active Problem IRA (obstructive sleep apnea) G47.33 Active 00748721 ALLERGIES Substance Reaction Event Type Date Status Penicillin Unknown Drug Allergy Aug, Active Latex blisters Drug Allergy Aug, Active Ibuprofen nausea, vomitting Drug Allergy Aug, Act juan francisco nicotine patches dermatits Non Drug Allergy Aug, Active iblood thinners CIS-low platelets Non Drug Allergy 21 Feb, 2022 Active ENCOUNTERS Encounter Location Date Diagnosis [facility] [address] [place], [place] [id number] Mar, [facility] [address] [place], [place] [id number] Feb, [facility] [address] [place], [place] [id number] Jan, RLS (restless legs syndrome) G25.81 [facility] [address] [place], [place] [id number] November, RLS (restless legs syndrome) G25.81 [facility] [address] [facility] [address] [place], [place] [id number] Sep, RLS (restless legs syndrome) G25.81 [facility] [address] [place], [place] [id number] Sep, [facility] [address] [place], [place] [id number] Sep, [facility] Occupational Health Department [address] [place], [place] [id number] Sep, [facility] [address] [place], [place] [id number] Sep, [facility] [address] [place], [place] [id number] Aug, [facility] [address] [place], [place] [id number] Aug, IRA (obstructive sleep apnea) G47.33 ; Restless leg syndrome G25.81 ; Morbid obesity E66.01 ; Essential hypertension I10 ; Coronary artery disease involving [place] coronary artery of [place] heart without angina pectoris I25.10 ; Ischemic cardiomyopathy I25.5 ; Nonrheumatic aortic (valve) stenosis I35.0 ; History of mechanical aortic valve replacement Z95.2 ; Fatigue associated with anemia D64.9 ; Other fatigue R53.83 and Vitamin D deficiency, unspecified E55.9 [facility] [address] [facility] [address] [place], [place] [id number] Aug, IMMUNIZATIONS No Known Immunizations SOCIAL HISTORY [...] READY FOR REVIEW, [place] SLEEP - HSAT FILLER LEAF CUTTER LONG:BEDTIME: 10:30 PM, HSAT hand picker appt , [place] SLEEP -HSAT FILLER LEAF CUTTER LONG: BEDTIME: 9:00 PM, Medication refill/reschedule HSAT appt, [...] Date of Group No UMR [address] [address] [facility] [address] UMR self Juani [place] [id number] 54 [place] [address] [facility] [id number] [place] self Ju[place] [id number]
[2022-10-14 16:29] LABS: Prothrombin Time 45.5 sec (9.3-11.0)
[2022-10-14 16:48] LABS: INR 4.5 (0.9-1.1)
== END 2022-10-14 02:45 | disposition home or self-care (01) ==
LOC: LBO 02:45
PROVIDERS: PCP Nurse Practitioner Family; Visit Provider Student in an Organized Health Care Education/Training Program
DX: Z95.2 Presence of prosthetic heart valve (principal); I35.0 Nonrheumatic aortic (valve) stenosis; Z79.01 Long term (current) use of anticoagulants
CPT/HCPCS: 36415; 85610

== ENCOUNTER 2022-10-28 02:08 | Outpatient (CLI) | payer OTHER, MEDICAID, SELFPAY ==
[2022-10-28 16:26] LABS: INR 2.1 (0.9-1.1)
== END 2022-10-28 02:09 | disposition home or self-care (01) ==
LOC: LBO 02:08
PROVIDERS: PCP Nurse Practitioner Family; Visit Provider Student in an Organized Health Care Education/Training Program
DX: C68.9 Malignant neoplasm of urinary organ, unspecified (principal)
CPT/HCPCS: 36415; 85610

== ENCOUNTER 2022-11-08 21:03 | Outpatient (REF) | payer OTHER, MEDICAID, SELFPAY ==
[2022-11-08 21:20] LABS: Abs Immature Grans 0.05 10^3/uL (0.0-0.06); Absolute Basophil Count 0.08 10^3/uL (0.0-0.2); Absolute Eosinophil Count 0.26 10^3/uL (0.0-0.7); Absolute Lymphocyte Count 2.39 10^3/uL (1.2-3.4); Basophils % 0.7; Eosinophils % 2.3; HCT 50.6 % (36.0-46.0); HGB 16.3 g/dL (11.2-15.7); Immature Grans % 0.4; Lymphocytes % 20.8; MCH 28.3 pg (27.0-33.0); MCHC 32.2 % (32.0-36.0); MCV 88 fL (80-95); MPV 10.9 fL (8.0-11.0); Monocytes % 11.1; Neutrophils % 64.7; Platelet Count 231 10^3/uL (130-400); RBC 5.75 10^6/uL (3.93-5.22); RDW 13.3 % (11.7-14.6); RDW-SD 43.3 fL; WBC 11.49 10^3/uL (4.4-10.8)
[2022-11-08 21:23] LABS: Absolute Monocyte Count 1.28 10^3/uL (0.1-0.8); Absolute Neutrophil Count 7.43 10^3/uL (1.2-6.7); ESR 37 mm/hr (0-30)
[2022-11-08 22:22] LABS: ALT 29 U/L (14-59); AST 18 U/L (15-37); Albumin 3.4 g/dL (3.4-5.0); Alkaline Phosphatase 89 U/L (46-116); BUN 13 mg/dL (7-18); Bilirubin, Total 0.3 mg/dL (0.2-1.0); CREATININE 1.1 mg/dL (0.55-1.02); Calcium 9.1 mg/dL (8.5-10.1); Chloride 104 mmol/L (98-107); Estimated GFR 60.46 (mL/min/1.73m2); Glucose 97 mg/dL (74-106); Magnesium 1.8 mg/dL (1.8-2.4); Potassium 4.1 mmol/L (3.5-5.1); Sodium 139 mmol/L (136-145); TSH 2.84 uIU/mL (0.36-3.74); Total Protein 7.6 g/dL (6.4-8.2); Vitamin B12 648 pg/mL (193-986)
== END 2022-11-08 21:04 | disposition home or self-care (01) ==
LOC: LBN 21:03
PROVIDERS: PCP Nurse Practitioner Family; Visit Provider Nurse Practitioner Family
DX: R20.2 Paresthesia of skin (principal); R70.0 Elevated erythrocyte sedimentation rate
CPT/HCPCS: 80053; 85652; 82607; 83735; 84443; 85025; 86140

== ENCOUNTER 2022-11-11 02:02 | Outpatient (CLI) | payer OTHER, MEDICAID, SELFPAY ==
--- OUTSIDE RECORDS SUMMARY | 2022-11-11 02:04 | XMS_ITS ---
Author Name Roman Wilkins Address [address] [place], [place] [address] Organization [facility] Address [address] [place], [place] [address] Care Team Providers Care Line Installation Supervisor Name Role Phone Roman Wilkins Unavailable [phone] PROBLEMS Type Condition ICD9-CM Code SBP32-KV Code Onset Dates Condition Status SNOMED Code Problem History of mechanical aortic valve replacement Z95.2 Active 9873571066 71643 Problem Nonrheumatic aortic (valve) stenosis I35.0 Active 3652117 Problem Ischemic cardiomyopathy I25.5 Active 490831517 Problem Vitamin D deficiency, unspecified E55.9 Active 18497138 Problem Morbidly obese E66.01 Active 638833599 Problem RLS (restless legs syndrome) G25.81 Active 03003492 Problem Body mass index (BMI) of 50-59.9 in adult Z68.43 Active 503544110 Problem Coronary artery disease involving [place] coronary artery of [place] heart without angina pectoris I25.10 Active 243218601235 103 Problem Essential hypertension I10 Active 28436403 Problem Morbid obesity E66.01 Active Problem IRA (obstructive sleep apnea) G47.33 Active 47662992 ALLERGIES Substance Reaction Event Type Date Status Penicillin Unknown Drug Allergy Aug, Active Latex blisters Drug Allergy Aug, Active Ibuprofen nausea, vomitting Drug Allergy Aug, Act juan francisco nicotine patches dermatits Non Drug Allergy Aug, Active iblood thinners CIS-low platelets Non Drug Allergy 21 Feb, 2022 Active ENCOUNTERS Encounter Location Date Diagnosis [facility] [address] [place], [place] [id number] Mar, [facility] [address] [place], [place] [id number] Feb, [facility] [address] [place], [place] [id number] Jan, RLS (restless legs syndrome) G25.81 [facility] [address] [place], [place] [id number] November, RLS (restless legs syndrome) G25.81 [facility] [address] [facility] [address] [place], [place] [id number] Sep, RLS (restless legs syndrome) G25.81 [facility] [address] [place], [place] [id number] Sep, [facility] [address] [place] [id number] Sep, [facility] Occupational Health Department [address] [place], [place] [id number] Sep, [facility] [address] [place], [place] [id number] Sep, [facility] [address] [place], [place] [id number] Aug, [facility] [address] [place], [place] [id number] Aug, IRA (obstructive sleep apnea) G47.33 ; Restless leg syndrome G25.81 ; Morbid obesity E66.01 ; Essential hypertension I10 ; Coronary artery disease involving [place] coronary artery of [place] heart without angina pectoris I25.10 ; Ischemic cardiomyopathy I25.5 ; Nonrheumatic aortic (valve) stenosis I35.0 ; History of mechanical aortic valve replacement Z95.2 ; Fatigue associated with anemia D64.9 ; Other fatigue R53.83 and Vitamin D deficiency, unspecified E55.9 [facility] 600 [facility] [address] [place], [place] [id number] Aug, IMMUNIZATIONS No Known Immunizations SOCIAL HISTORY [...] READY FOR REVIEW, [place] SLEEP - HSAT SPINNER BOX:BEDTIME: 10:30 PM, HSAT pick remover appt , [place] SLEEP -HSAT SPINNER BOX: BEDTIME: 9:00 PM, Medication refill/reschedule HSAT appt, [...] Date of Group No UMR [address] [address] [facility] [address] UMR self Ju[place] [id number] 54 [place] [address] [facility] [id number] [place] self Ju[place] [id number]
[2022-11-11 16:29] LABS: INR 3.4 (0.9-1.1); Prothrombin Time 34.2 sec (9.3-11.0)
== END 2022-11-11 02:03 | disposition home or self-care (01) ==
LOC: LBO 02:02
PROVIDERS: PCP Nurse Practitioner Family; Visit Provider Student in an Organized Health Care Education/Training Program
DX: Z95.2 Presence of prosthetic heart valve (principal); Z79.01 Long term (current) use of anticoagulants; I35.0 Nonrheumatic aortic (valve) stenosis
CPT/HCPCS: 36415; 85610

== ENCOUNTER 2022-11-18 01:53 | Outpatient (CLI) | payer OTHER, MEDICAID, SELFPAY ==
[2022-11-18 16:33] LABS: Prothrombin Time 20.7 sec (9.3-11.0)
== END 2022-11-18 01:54 | disposition home or self-care (01) ==
PROVIDERS: PCP Nurse Practitioner Family; Visit Provider Student in an Organized Health Care Education/Training Program
DX: I35.0 Nonrheumatic aortic (valve) stenosis (principal); Z95.2 Presence of prosthetic heart valve; Z79.01 Long term (current) use of anticoagulants
CPT/HCPCS: 36415; 85610

== ENCOUNTER 2022-12-09 02:45 | Outpatient (CLI) | payer OTHER, MEDICAID, SELFPAY ==
[2022-12-09 16:03] LABS: INR 1.7 (0.9-1.1); Prothrombin Time 17.6 sec (9.3-11.0)
== END 2022-12-09 02:46 | disposition home or self-care (01) ==
LOC: LBO 02:45
PROVIDERS: PCP Nurse Practitioner Family; Visit Provider Student in an Organized Health Care Education/Training Program
DX: Z95.2 Presence of prosthetic heart valve (principal); Z79.01 Long term (current) use of anticoagulants; I34.0 Nonrheumatic mitral (valve) insufficiency
CPT/HCPCS: 36415; 85610

== ENCOUNTER 2023-01-02 03:18 | Outpatient (CLI) | payer OTHER, MEDICAID, SELFPAY ==
[2023-01-02 16:44] LABS: INR 3.3 (0.9-1.1); Prothrombin Time 33.6 sec (9.3-11.0)
== END 2023-01-02 03:19 | disposition home or self-care (01) ==
LOC: LBO 03:18
PROVIDERS: PCP Nurse Practitioner Family; Visit Provider Student in an Organized Health Care Education/Training Program
DX: Z95.2 Presence of prosthetic heart valve (principal)
CPT/HCPCS: 36415; 85610

== ENCOUNTER 2023-01-23 04:20 | Outpatient (CLI) | payer OTHER, MEDICAID, SELFPAY ==
[2023-01-23 16:22] LABS: INR 1.8 (0.9-1.1); Prothrombin Time 18.7 sec (9.3-11.0)
== END 2023-01-23 04:21 | disposition home or self-care (01) ==
LOC: LBO 04:20
PROVIDERS: PCP Nurse Practitioner Family; Visit Provider Student in an Organized Health Care Education/Training Program
DX: Z95.2 Presence of prosthetic heart valve (principal)
CPT/HCPCS: 36415; 85610

== ENCOUNTER 2023-02-07 19:30 | Emergency (ER) | payer OTHER, MEDICAID, SELFPAY ==
[2023-02-07 19:46] VITALS: BP 158/86; PULSE 84; TEMP 36.6; O2SAT 94
--- NOTE | 2023-02-07 20:08 | ED.GENADUL_ITS ---
Discharge Plan Disposition Patient Disposition: Home Condition: Stable Discharge Details Clinical Impression: Acute viral pharyngitis Primary Care Provider: Unknown,Unknown ED Provider: Itzel Snowden Home Meds and New Rx's Prescriptions: New azithromycin 500 mg tablet 500 mg PO DAILY 5 Days Qty: 5 0RF No Action acetaminophen [Mapap Extra Strength] 500 MG tablet 500 mg PO PRN PRN lisinopril 20 mg tablet 20 mg PO DAILY Patient Comments: TAKE 1 TABLET BY MOUTH EVERY DAY warfarin 10 mg tablet See Rx Instructions .ROUTE .COMPLEX Patient Comments: TAKE 1 TABLET BY MOUTH DAILY EVERY DAY EXCEPT MONDAY, ON MONDAY TAKES 12.5MG Rx Instructions: 10MG PO QPM MONDAY, MONDAY, MONDAY, SUNDAYS 12.5MG PO QPM ON MONDAY, MONDAY, FRIDAYS albuterol sulfate 90 mcg/actuation HFA aerosol inhaler 1 - 2 puff INHALATION Q4H PRN PRN Patient Comments: INL 1 TO 2 INHALATIONS PO Q 4 TO 6 H PRF WHZ Rx Instructions: 1-2 PUFFS Q4-6H PRN WHZ ferrous gluconate 324 mg (38 mg iron) tablet 324 mg PO BID atorvastatin 80 mg tablet 80 mg PO QPM Patient Comments: TAKE ONE TABLET BY MOUTH EVERY EVENING metoprolol succinate 100 mg tablet extended release 24 hr 100 mg PO DAILY Patient Comments: TAKE ONE TABLET BY MOUTH EVERY DAY clopidogrel 75 mg tablet 75 mg PO DAILY Patient Comments: TAKE ONE TABLET BY MOUTH EVERY DAY amlodipine 10 mg tablet 10 mg PO DAILY Patient Comments: TAKE ONE TABLET BY MOUTH EVERY DAY pantoprazole 40 mg tablet,delayed release (DR/EC) 40 mg PO DAILY Patient Comments: TAKE ONE TABLET BY MOUTH EVERY DAY nitroglycerin 0.4 mg tablet, sublingual 0.4 mg sublingual PRN PRN Patient Comments: PLACE 1 TABLET UNDER TONGUE EVERY 5 MINUTES NEEDED FOR CHEST PAIN aspirin 81 mg Tablet,Chewable 81 mg PO DAILY Discharge Instructions Instructions: Upper Respiratory Infection (ED) Additional Instructions: At this time the rapid strep swab is negative however due to your past medical history I will go ahead and give you azithromycin which is an antibiotic. Take this for 5 days with yogurt or a probiotic. Gargle with warm salt water up to 3 times daily as needed. You may take [id number] sore throat remedies such as throat lozenges, honey and tea and lemon. At this time we are unable to rule out COVID or flu. Follow up with primary care provider in 3-5 days. Return to ED sooner if any worsening or concerns. Increase oral fluids. Please take Tylenol with food every 4-6 hours as needed for pain and swelling. Medical Decision Making 52-year-old female presents to the ER with a chief complaint of sore throat headache which began this morning. She reports recent sick contact with strep. They are refusing COVID flu RSV swabs upon arrival. Did not take any medications prior to arrival. Does have a past medical history of pneumonia, obstructive sleep apnea, CHF surgical history includes aortic valve replacement, she is a daily smoker. Rapid strep negative, posterior oropharynx is erythemic tonsils are 2+ bilaterally uvula is midline. No cervical lymphadenopathy. No exudate noted. Speaking in full sentences. Patient given azithromycin due to her comorbidities. Rapid strep is negative however she does have some pharyngitis. This text was generated using [employer] dictation system, please disregard any oddities of phrase or misspellings. HPI General Mode of arrival: ambulatory . Date/Time Provider Initiated Documentation: 02/07/23 19:32 . Limitations to Documentation: no limitations . Information obtained by: patient, RN notes reviewed and old records reviewed . HPI Narrative: 52-year-old female presents to the ER with a chief complaint of sore throat headache which began this morning. She reports recent sick contact with strep. They are refusing COVID flu RSV swabs upon arrival. Did not take any medications prior to arrival. Does have a past medical history of pneumonia, obstructive sleep apnea, CHF surgical history includes aortic valve replacement, she is a daily smoker. Related Data Home Medications Medication Instructions Recorded Confirmed acetaminophen 500 mg tablet (Mapap 500 mg PO PRN PRN 08/19/13 03/17/21 Extra Strength) albuterol sulfate 90 mcg/actuation 1 - 2 puff inhalation Q4H PRN PRN 07/17/20 03/17/21 aerosol inhaler ferrous gluconate 324 mg (38 mg 324 mg PO BID 07/17/20 03/17/21 iron) tablet warfarin 10 mg tablet See Rx Instructions .Route .COMPLEX 07/17/20 03/17/21 amlodipine 10 mg tablet 10 mg PO DAILY 09/20/20 03/17/21 aspirin 81 mg chewable tablet 81 mg PO DAILY 09/20/20 03/17/21 atorvastatin 80 mg tablet 80 mg PO QPM 09/20/20 03/17/21 clopidogrel 75 mg tablet 75 mg PO DAILY 09/20/20 03/17/21 metoprolol succinate 100 mg 100 mg PO DAILY 09/20/20 03/17/21 tablet,extended release 24 hr nitroglycerin 0.4 mg sublingual 0.4 mg sublingual PRN PRN 09/20/20 03/17/21 tablet pantoprazole 40 mg tablet,delayed 40 mg PO DAILY 09/20/20 03/17/21 release lisinopril 20 mg tablet 20 mg PO DAILY 12/21/20 03/17/21 azithromycin 500 mg tablet 500 mg PO DAILY 5 days #5 tabs 02/07/23 Previous Rx's Medication Instructions Recorded azithromycin 500 mg tablet 500 mg PO DAILY 5 days #5 tabs 02/07/23 Allergies Allergy/AdvReac Type Severity Reaction Status Date / Time adhesive Allergy Intermediate plastic Verified 03/17/21 11:40 tape-blisters Penicillins Allergy Verified 03/17/21 11:40 ibuprofen AdvReac Verified 03/17/21 11:40 General Stated Complaint: Sorethroat SURENDRA: 4 Review of Systems All systems reviewed & are unremarkable except as noted in HPI and below Constitutional Constitutional: Reports headache(s) ENT Ears, Nose, Mouth, and Throat: Reports as per HPI, Denies dysphagia, Reports headache(s) and Reports sore throat Cardiovascular Cardiovascular: Denies chest pain and Denies leg edema Respiratory Respiratory: Denies change in phlegm color, Denies chest congestion, Reports cough and Denies wheezing Gastrointestinal Gastrointestinal: Denies dysphagia, Denies diarrhea, Denies nausea and Denies vomiting Neurologic Neurologic: Reports headache(s) Allergic/Immunologic Allergic/Immunologic: Denies wheezing [facility] All Active Problems (Updated 02/07/23 @ 20:18 by Itzel Snowden NP) Chest pain (Acute) Shortness of breath (Acute) Cough (Acute) Acute bronchospasm (Acute) Pneumonia (Acute) On antibiotic therapy (Acute) Shortness of breath (Acute) Pharyngitis (Acute) Chest pain (Acute) Acute dyspnea (Acute) Acute viral pharyngitis (Acute) Foodborne gastroenteritis (Acute) IRA on CPAP (Chronic) Discharge planning issues (Acute) Enterocolitis (Acute) Cough with hemoptysis (Acute) Ground glass opacity present on imaging of lung (Acute) Hypokalemia (Acute) Subtherapeutic international normalized ratio (INR) (Acute) NSTEMI (non-ST elevated myocardial infarction) (Acute) Person under investigation for COVID-19 (Acute) Pneumonia (Acute) Hyperglycemia (Acute) Acute myopericarditis (Acute) Chronic anticoagulation (Acute) Internal derangement of right knee (Chronic) TIA due to embolism (Acute 10/04/16) Smoker (Chronic) Intramural leiomyoma of uterus (Acute 06/08/17) Multiple uterine fibroids-left lower quadrant pain, bladder pressure. 08/10/17. [facility] [place]Onc consult. Recommended Aygestin therapy and surgery if Aygestin not effective. Headache (Acute) Essential hypertension (Chronic 09/20/13) BMI 40.0-44.9, adult (Acute 06/08/17) Aortic valve replaced (Chronic) [facility] Anticoagulated on warfarin (Chronic) AVR/TIA goal 2.5-3.5 Abnormal uterine bleeding (Acute 08/10/17) onset after aortic valve replacement 2005. 08/10/17 EMBx: inactive endometrium with breakdown. No dysplasia. Medical History Abnormal uterine bleeding (AUB) onset 2005 after AVR and chronic anticoagulation. Nl EMBx 2018. Pt will begin Aygestin for menstrual control. 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 takes Coumadin Hypertension IRA on CPAP Restless leg syndrome Tobacco use Uterine fibroid Uterus [id number] with multiple uterine fibroids. Surgical History Dilation and curettage Ligation of fallopian tube Tooth extraction WISDOM TEETH REMOVAL Valve Replacement [facility]; AORTIC Family History Mother Neoplasm LUNG Father Essential hypertension Heart disease STENTS Hyperlipidemia Asthma Sister No problems noted. Sister No problems noted. Brother No problems noted. Grandfather No problems noted. Grandfather No problems noted. Grandmother , BLOOD CLOTT Heart disease Grandmother No problems noted. Son Depression Son Substance abuse Depression Son Substance abuse Daughter No problems noted. Social History Smoking/Tobacco Use Status: Current every day Tobacco Type: cigarettes Smoking risk assessment performed?: Yes Alcohol Intake: current Alcohol Intake frequency: holidays/special occasions only Drug use: Never Substance use type: does not use Do you feel safe at home: Yes Do you feel safe in your relationship?: Yes Exam Narrative Exam Narrative: Constitutional: Alert and oriented x3. Appears stated age. Obese body habitus. Head: Normocephalic, no trauma. Eyes: Pupils PERRL, Red reflex noted, EOM's intact. Eyelids symmetrical without lesions, discharge, or swelling. ENT: Bilateral TM's WNL, External ear normal to inspection, no mastoid TTP, swelling, or erythema, Nasal turbinates WNL, no nasal discharge. Normal dentition, Posterior pharynx erythemic, tonsils 2+ bilaterally uvula midline, no exudate. Chest: RRR, Normal S1, S2, distal pulses intact. Resp: Lungs clear to auscultation bilaterally, no wheezes, rales, or rhonchi. Abdomen: Soft, non-distended, Normoactive bowel sounds all 4 quads. Musculoskeletal: Normal gait, 5/5 strength to all four extremities. Skin: No suspicious rashes or lesions. Capillary refill less than 2 sec. Neurologic: Cranial nerves II-XII intact. Alert and oriented x 3. Hematologic/Lymphatic: No ecchymosis, no lymphadenopathy. Course Vital Signs Vital signs: Vital Signs Temperature 36.6 C 02/07/23 19:46 Pulse 84 02/07/23 19:46 Blood Pressure 158/86 H 02/07/23 19:46 Pulse Oximetry 94 02/07/23 19:46 Temperature 36.6 C 02/07/23 19:46 Temperature Source Oral 02/07/23 19:46 Pulse 84 02/07/23 19:46 Respiratory Effort Normal, Non-Labored 02/07/23 19:49 Blood Pressure 158/86 H 02/07/23 19:46 Pulse Oximetry 94 02/07/23 19:46 Oxygen Delivery Method Room Air 02/07/23 19:46 Oxygen Flow Rate 0 02/07/23 19:46 Pain Level 0 02/07/23 19:46 Lab/Test Results Lab/Test Results: 02/07/23 20:05 Pharynx Group A Streptococcus Culture - Pending POC Strep Test-JUAN(Rapid) Start: 02/07/23 19:32 Freq: .Rapid Strep Test Status: Active Protocol: Document 02/07/23 20:04 CB (Rec: 02/07/23 20:04 CB [id number]) Strep test-JUAN(Rapid)-POC POC-Strep test-JUAN (Rapid) Negative POC-Strep test-JUAN (Rapid) Negative
[2023-02-07] MEDS: Azithromycin 250 MG TAB 500 MG PO (20:25)
== END 2023-02-07 20:26 | disposition home or self-care (01) ==
PROVIDERS: Emergency Provider Registered Nurse Emergency
DX: J02.8 Acute pharyngitis due to other specified organisms (principal); I10 Essential (primary) hypertension; R51.9 Headache, unspecified; I25.2 Old myocardial infarction; F17.210 Nicotine dependence, cigarettes, uncomplicated; Z86.73 Personal history of transient ischemic attack (TIA), and cerebral infarction without residual deficits; Z79.01 Long term (current) use of anticoagulants
CPT/HCPCS: 99283; 87081; 99282

== ENCOUNTER 2023-03-02 11:33 | Outpatient (CLI) | payer OTHER, MEDICAID, SELFPAY ==
[2023-03-02 13:05] LABS: INR 2.8 (0.9-1.1)
== END 2023-03-02 11:34 | disposition home or self-care (01) ==
PROVIDERS: Visit Provider Student in an Organized Health Care Education/Training Program
DX: I35.0 Nonrheumatic aortic (valve) stenosis (principal); Z95.2 Presence of prosthetic heart valve; Z79.01 Long term (current) use of anticoagulants
CPT/HCPCS: 36415; 85610

== ENCOUNTER 2023-04-05 13:57 | Outpatient (CLI) | payer OTHER, MEDICAID, SELFPAY ==
[2023-04-05 16:09] LABS: INR 1.8 (0.9-1.1); Prothrombin Time 18.7 sec (9.3-11.0)
== END 2023-04-05 13:58 | disposition home or self-care (01) ==
LOC: LBO 13:57
PROVIDERS: Visit Provider Student in an Organized Health Care Education/Training Program
DX: I35.0 Nonrheumatic aortic (valve) stenosis (principal); Z95.2 Presence of prosthetic heart valve; Z79.01 Long term (current) use of anticoagulants
CPT/HCPCS: 36415; 85610

== ENCOUNTER 2023-05-11 02:53 | Outpatient (CLI) | payer OTHER, SELFPAY ==
[2023-05-11 07:49] LABS: INR 1.9 (0.9-1.1); Prothrombin Time 17.8 sec (9.1-11.1)
== END 2023-05-11 02:54 | disposition home or self-care (01) ==
PROVIDERS: Visit Provider Student in an Organized Health Care Education/Training Program
DX: I35.0 Nonrheumatic aortic (valve) stenosis (principal)
CPT/HCPCS: 36415; 85610

== ENCOUNTER 2023-05-21 14:08 | Emergency (ER) | payer BC, SELFPAY ==
[2023-05-21 14:15] VITALS: PULSE 73; RESP 14; TEMP 36.7; O2SAT 97
[2023-05-21 14:22] VITALS: BP 173/92
--- NOTE | 2023-05-21 14:27 | ED.GENADUL_ITS ---
Discharge Plan Disposition Patient Disposition: Home Condition: Good Discharge Details Clinical Impression: COVID-19 Primary Care Provider: Erin Mon ED Provider: Mimi Clark Home Meds and New Rx's Prescriptions: No Action acetaminophen [Mapap Extra Strength] 500 MG tablet 500 mg PO PRN PRN lisinopril 20 mg tablet 20 mg PO DAILY Patient Comments: TAKE 1 TABLET BY MOUTH EVERY DAY warfarin 10 mg tablet See Rx Instructions .ROUTE .COMPLEX Patient Comments: TAKE 1 TABLET BY MOUTH DAILY EVERY DAY EXCEPT MONDAY, ON MONDAY TAKES 12.5MG Rx Instructions: 10MG PO QPM MONDAY, MONDAY, MONDAY, SUNDAYS 12.5MG PO QPM ON MONDAY, MONDAY, FRIDAYS albuterol sulfate 90 mcg/actuation HFA aerosol inhaler 1 - 2 puff INHALATION Q4H PRN PRN Patient Comments: INL 1 TO 2 INHALATIONS PO Q 4 TO 6 H PRF WHZ Rx Instructions: 1-2 PUFFS Q4-6H PRN WHZ ferrous gluconate 324 mg (38 mg iron) tablet 324 mg PO BID atorvastatin 80 mg tablet 80 mg PO QPM Patient Comments: TAKE ONE TABLET BY MOUTH EVERY EVENING metoprolol succinate 100 mg tablet extended release 24 hr 100 mg PO DAILY Patient Comments: TAKE ONE TABLET BY MOUTH EVERY DAY clopidogrel 75 mg tablet 75 mg PO DAILY Patient Comments: TAKE ONE TABLET BY MOUTH EVERY DAY amlodipine 10 mg tablet 10 mg PO DAILY Patient Comments: TAKE ONE TABLET BY MOUTH EVERY DAY pantoprazole 40 mg tablet,delayed release (DR/EC) 40 mg PO DAILY Patient Comments: TAKE ONE TABLET BY MOUTH EVERY DAY aspirin 81 mg Tablet,Chewable 81 mg PO DAILY Discharge Instructions Instructions: COVID-19 (Coronavirus Disease 2019) (ED) Additional Instructions: Continue your home inhaler. Call your primary care doctor tomorrow to schedule an appointment within the next week to follow up on your visit here. Return to the emergency department for new or worsening symptoms, including if your breathing worsens or if you have any other concerns. Stand Alone Forms: Work Release Referrals: Erin Mon [Primary Care Provider] - Discharge Data Discharge Date/Time-TO BE ENTERED AT DEPARTURE: 05/21/23 14:44 Medical Decision Making 53yo F with HTN, asthma, COVID + 8 days ago, presenting with persistant URI symptoms including cough and shortness of breath. Does not feel up to going to work tomorrow, requesting work note. Vital signs and physical exam reassuring, no hypoxia or increased work of breathing, lungs clear. Is hypertensive, reports BP usually runs around 160 systolic here 170's. History not concerning for acute coronary syndrome, pulmonary edema, or bacterial pneumonia. Not septic. PERC negative, would not pursue pulmonary embolism. Symptoms consistent with expected course of COVID. Will not get labs/CXR/EKG. Advised symptomatic treatment at home, PCP followup for symptoms and for hypertension, work note provided. Discharged home; discharge instructions including return precautions were reviewed with patient who verbalized understanding. All questions were answered and they are in full agreement with the plan. HPI General Mode of arrival: ambulatory . Date/Time Provider Initiated Documentation: 05/21/23 14:12 . Limitations to Documentation: no limitations . Information obtained by: patient . HPI Narrative: 53yo F with HTN, asthma, COVID + 8 days ago, presenting with perstient URI symptoms. Has cough, shortness of breath worse with exertion, easily fatigued. Diarrhea, no vomiting or abdominal pain. No chest pain or LE edema. No fevers, chills, rash, or other concerns. Started an antiviral medication (she cannot recall which, likely paxlovid) which she took for two days but discontinued because of the onset of diarrhea. Presents to the ED because she does not feel up to going to work tomorrow, requesting work note. Related Data Home Medications Medication Instructions Recorded Confirmed acetaminophen 500 mg tablet (Mapap 500 mg PO PRN PRN 08/19/13 05/21/23 Extra Strength) albuterol sulfate 90 mcg/actuation 1 - 2 puff inhalation Q4H PRN PRN 07/17/20 05/21/23 aerosol inhaler ferrous gluconate 324 mg (38 mg 324 mg PO BID 07/17/20 05/21/23 iron) tablet warfarin 10 mg tablet See Rx Instructions .Route .COMPLEX 07/17/20 05/21/23 amlodipine 10 mg tablet 10 mg PO DAILY 09/20/20 05/21/23 aspirin 81 mg chewable tablet 81 mg PO DAILY 09/20/20 05/21/23 atorvastatin 80 mg tablet 80 mg PO QPM 09/20/20 05/21/23 clopidogrel 75 mg tablet 75 mg PO DAILY 09/20/20 05/21/23 metoprolol succinate 100 mg 100 mg PO DAILY 09/20/20 05/21/23 tablet,extended release 24 hr pantoprazole 40 mg tablet,delayed 40 mg PO DAILY 09/20/20 05/21/23 release lisinopril 20 mg tablet 20 mg PO DAILY 12/21/20 05/21/23 Allergies Allergy/AdvReac Type Severity Reaction Status Date / Time adhesive Allergy Intermediate plastic Verified 05/21/23 14:21 tape-blisters Penicillins Allergy Verified 05/21/23 14:21 ibuprofen AdvReac Verified 05/21/23 14:21 General Stated Complaint: RespSymp SURENDRA: 3 Review of Systems Narrative: see HPI PFSH All Active Problems (Updated 05/21/23 @ 14:29 by Mimi Clark MD) COVID-19 (Acute) Acute dyspnea (Acute) Chest pain (Acute) Pharyngitis (Acute) Shortness of breath (Acute) On antibiotic therapy (Acute) Pneumonia (Acute) Acute bronchospasm (Acute) Cough (Acute) Shortness of breath (Acute) Chest pain (Acute) Foodborne gastroenteritis (Acute) IRA on CPAP (Chronic) Discharge planning issues (Acute) Enterocolitis (Acute) Cough with hemoptysis (Acute) Ground glass opacity present on imaging of lung (Acute) Hypokalemia (Acute) Subtherapeutic international normalized ratio (INR) (Acute) NSTEMI (non-ST elevated myocardial infarction) (Acute) Person under investigation for COVID-19 (Acute) Pneumonia (Acute) Hyperglycemia (Acute) Acute myopericarditis (Acute) Chronic anticoagulation (Acute) Internal derangement of right knee (Chronic) TIA due to embolism (Acute 10/04/16) Smoker (Chronic) Intramural leiomyoma of uterus (Acute 06/08/17) Multiple uterine fibroids-left lower quadrant pain, bladder pressure. 08/10/17. [facility] [place] Facility Technician/Onc consult. Recommended Aygestin therapy and surgery if Aygestin not effective. Headache (Acute) Essential hypertension (Chronic 09/20/13) BMI 40.0-44.9, adult (Acute 06/08/17) Aortic valve replaced (Chronic) [facility] Anticoagulated on warfarin (Chronic) AVR/TIA goal 2.5-3.5 Abnormal uterine bleeding (Acute 08/10/17) onset after aortic valve replacement 2005. 08/10/17 EMBx: inactive endometrium with breakdown. No dysplasia. Medical History Abnormal uterine bleeding (AUB) onset 2005 after AVR and chronic anticoagulation. Nl EMBx 2018. Pt will begin Aygestin for menstrual control. 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 takes Coumadin Hypertension IRA on CPAP Restless leg syndrome Tobacco use Uterine fibroid Uterus [id number] with multiple uterine fibroids. Surgical History Dilation and curettage Ligation of fallopian tube Tooth extraction WISDOM TEETH REMOVAL Valve Replacement [facility]; AORTIC Family History Mother Neoplasm LUNG Father Essential hypertension Heart disease STENTS Hyperlipidemia Asthma Sister No problems noted. Sister No problems noted. Brother No problems noted. Grandfather No problems noted. Grandfather No problems noted. Grandmother , BLOOD CLOTT Heart disease Grandmother No problems noted. Son Depression Son Substance abuse Depression Son Substance abuse Daughter No problems noted. Social History Smoking/Tobacco Use Status: Current every day Tobacco Type: cigarettes Smoking risk assessment performed?: Yes Alcohol Intake: current Alcohol Intake frequency: holidays/special occasions only Drug use: Never Substance use type: does not use Do you feel safe at home: Yes Do you feel safe in your relationship?: Yes Exam Narrative Exam Narrative: General: Alert, well nourished, in no acute distress. Head: Normocephalic, atraumatic Neck: Trachea midline, Neck supple. Cardiac: RRR, no murmurs appreciated Resp: No respiratory distress. CTAB. No wheeze. No increased work of breathing. Intermittent cough. Abd: Soft, non-distended, nontender Extremities: No deformities. Neurologic: GCS 15. Moves all extremities freely against gravity Course Vital Signs Vital signs: Vital Signs Temperature 36.7 C 05/21/23 14:15 Pulse 73 05/21/23 14:15 Respiratory Rate 14 05/21/23 14:15 Pulse Oximetry 97 05/21/23 14:15 Temperature 36.7 C 05/21/23 14:15 Temperature Source Skin 05/21/23 14:15 Pulse 73 05/21/23 14:15 Respiratory Rate 14 05/21/23 14:15 Respiratory Effort Normal 05/21/23 14:22 Respiratory Depth Normal 05/21/23 14:22 Blood Pressure 173/92 H 05/21/23 14:22 Blood Pressure Position Sitting 05/21/23 14:15 Pulse Oximetry 97 05/21/23 14:15 Oxygen Delivery Method Room Air 05/21/23 14:15 Oxygen Flow Rate 0 05/21/23 14:15
== END 2023-05-21 14:44 | disposition home or self-care (01) ==
PROVIDERS: Emergency Provider Student in an Organized Health Care Education/Training Program; PCP Student in an Organized Health Care Education/Training Program
DX: U07.1 COVID-19 (principal)
CPT/HCPCS: 99281; 99282

== ENCOUNTER 2023-05-28 12:48 | Emergency (ER) | payer BC, SELFPAY ==
[2023-05-28 13:21] VITALS: BP 169/94; PULSE 84; RESP 18; TEMP 36.9; O2SAT 95
--- NOTE | 2023-05-28 13:58 | ED.GENADUL_ITS ---
Discharge Plan Disposition Patient Disposition: Home Condition: Stable Discharge Details Clinical Impression: Post-COVID chronic fatigue Primary Care Provider: Erin Mon ED Provider: Itzel Snowden Home Meds and New Rx's Prescriptions: Continued acetaminophen [Mapap Extra Strength] 500 MG tablet 500 mg PO PRN PRN lisinopril 20 mg tablet 20 mg PO DAILY Patient Comments: TAKE 1 TABLET BY MOUTH EVERY DAY warfarin 10 mg tablet See Rx Instructions .ROUTE .COMPLEX Patient Comments: TAKE 1 TABLET BY MOUTH DAILY EVERY DAY EXCEPT MONDAY, ON MONDAY TAKES 12.5MG Rx Instructions: 10MG PO QPM MONDAY, MONDAY, MONDAY, SUNDAYS 12.5MG PO QPM ON MONDAY, MONDAY, FRIDAYS albuterol sulfate 90 mcg/actuation HFA aerosol inhaler 1 - 2 puff INHALATION Q4H PRN PRN Patient Comments: INL 1 TO 2 INHALATIONS PO Q 4 TO 6 H PRF WHZ Rx Instructions: 1-2 PUFFS Q4-6H PRN WHZ ferrous gluconate 324 mg (38 mg iron) tablet 324 mg PO BID atorvastatin 80 mg tablet 80 mg PO QPM Patient Comments: TAKE ONE TABLET BY MOUTH EVERY EVENING metoprolol succinate 100 mg tablet extended release 24 hr 100 mg PO DAILY Patient Comments: TAKE ONE TABLET BY MOUTH EVERY DAY clopidogrel 75 mg tablet 75 mg PO DAILY Patient Comments: TAKE ONE TABLET BY MOUTH EVERY DAY amlodipine 10 mg tablet 10 mg PO DAILY Patient Comments: TAKE ONE TABLET BY MOUTH EVERY DAY aspirin 81 mg Tablet,Chewable 81 mg PO DAILY Discharge Instructions Instructions: Fatigue (ED) Additional Instructions: Follow up with primary care provider in 3-5 days. Return to ED sooner if any worsening or concerns. Increase oral fluids. Please take Tylenol or Ibuprofen with food every 4-6 hours as needed for pain and swelling. Stand Alone Forms: Work Release Referrals: Erin Mon [Primary Care Provider] - 3 days Medical Decision Making 53 year old female presents to the ED with URI type symptoms, fatigue, headache and cough at night which is having her have problems sleeping. She does use albuterol inhaler at home. Shilpa Cao ordered. This text was generated using [employer] system, please disregard any oddities of phrase or misspellings. HPI General Mode of arrival: ambulatory . Date/Time Provider Initiated Documentation: 05/28/23 13:27 . Limitations to Documentation: no limitations . Information obtained by: patient, RN notes reviewed and old records reviewed . HPI Narrative: 53 year old female presents to the ED with URI type symptoms, fatigue, headache and cough at night which is having her have problems sleeping. She does use albuterol inhaler at home. Related Data Home Medications Medication Instructions Recorded Confirmed acetaminophen 500 mg tablet (Mapap 500 mg PO PRN PRN 08/19/13 05/28/23 Extra Strength) albuterol sulfate 90 mcg/actuation 1 - 2 puff inhalation Q4H PRN PRN 07/17/20 1 07/28/22 aerosol inhaler ferrous gluconate 324 mg (38 mg 324 mg PO BID 07/17/20 05/28/23 iron) tablet warfarin 10 mg tablet See Rx Instructions .Route .COMPLEX 07/17/20 05/28/23 amlodipine 10 mg tablet 10 mg PO DAILY 09/20/20 05/28/23 aspirin 81 mg chewable tablet 81 mg PO DAILY 09/20/20 05/28/23 atorvastatin 80 mg tablet 80 mg PO QPM 09/20/20 05/28/23 clopidogrel 75 mg tablet 75 mg PO DAILY 09/20/20 05/28/23 metoprolol succinate 100 mg 100 mg PO DAILY 09/20/20 05/28/23 tablet,extended release 24 hr lisinopril 20 mg tablet 20 mg PO DAILY 12/21/20 05/28/23 Allergies Allergy/AdvReac Type Severity Reaction Status Date / Time adhesive Allergy Intermediate plastic Verified 05/28/23 13:21 tape-blisters Penicillins Allergy Verified 05/28/23 13:21 ibuprofen AdvReac Verified 05/28/23 13:21 General Stated Complaint: RespSymp SURENDRA: 3 Review of Systems All systems reviewed & are unremarkable except as noted in HPI and below ENT Ears, Nose, Mouth, and Throat: Reports sinus pressure Respiratory Respiratory: Reports cough PFSH All Active Problems (Updated 05/28/23 @ 14:01 by Itzel Snowden NP) Post-COVID chronic fatigue (Acute) COVID-19 (Acute) Acute dyspnea (Acute) Chest pain (Acute) Pharyngitis (Acute) Shortness of breath (Acute) On antibiotic therapy (Acute) Pneumonia (Acute) Acute bronchospasm (Acute) Cough (Acute) Shortness of breath (Acute) Chest pain (Acute) Foodborne gastroenteritis (Acute) IRA on CPAP (Chronic) Discharge planning issues (Acute) Enterocolitis (Acute) Cough with hemoptysis (Acute) Ground glass opacity present on imaging of lung (Acute) Hypokalemia (Acute) Subtherapeutic international normalized ratio (INR) (Acute) NSTEMI (non-ST elevated myocardial infarction) (Acute) Person under investigation for COVID-19 (Acute) Pneumonia (Acute) Hyperglycemia (Acute) Acute myopericarditis (Acute) Chronic anticoagulation (Acute) Internal derangement of right knee (Chronic) TIA due to embolism (Acute 10/04/16) Smoker (Chronic) Intramural leiomyoma of uterus (Acute 06/08/17) Multiple uterine fibroids-left lower quadrant pain, bladder pressure. 08/10/17. [facility] [place] Embroidery Supervisor/Onc consult. Recommended Aygestin therapy and surgery if Aygestin not effective. Headache (Acute) Essential hypertension (Chronic 09/20/13) BMI 40.0-44.9, adult (Acute 06/08/17) Aortic valve replaced (Chronic) [facility] Anticoagulated on warfarin (Chronic) AVR/TIA goal 2.5-3.5 Abnormal uterine bleeding (Acute 08/10/17) onset after aortic valve replacement 2005. 08/10/17 EMBx: inactive endometrium with breakdown. No dysplasia. Medical History Abnormal uterine bleeding (AUB) onset 2005 after AVR and chronic anticoagulation. Nl EMBx 2018. Pt will begin Aygestin for menstrual control. Restless leg syndrome Uterine fibroid Uterus [id number] with multiple uterine fibroids. Acute ITP Surgical History Ligation of fallopian tube Tooth extraction WISDOM TEETH REMOVAL Dilation and curettage Family History Mother Neoplasm LUNG Father Essential hypertension Heart disease STENTS Hyperlipidemia Asthma Sister No problems noted. Sister No problems noted. Brother No problems noted. Grandfather No problems noted. Grandfather No problems noted. Grandmother , BLOOD CLOTT Heart disease Grandmother No problems noted. Son Depression Son Substance abuse Depression Son Substance abuse Daughter No problems noted. Social History Smoking/Tobacco Use Status: Current every day Tobacco Type: cigarettes Smoking risk assessment performed?: Yes Alcohol Intake: current Alcohol Intake frequency: holidays/special occasions only Drug use: Never Substance use type: does not use Housing: house Do you feel safe at home: Yes Do you feel safe in your relationship?: Yes Exam Narrative Exam Narrative: Constitutional: Alert and oriented x3. Appears stated age. Normal body habitus. Head: Normocephalic, no trauma. Eyes: Pupils PERRL, Red reflex noted, EOM's intact. Eyelids symmetrical without lesions, discharge, or swelling. ENT: Bilateral TM's WNL, External ear normal to inspection, no mastoid TTP, swelling, or erythema, Nasal turbinates WNL, no nasal discharge. Normal dentition, Posterior pharynx WNL, no exudate. Chest: RRR, Normal S1, S2, distal pulses intact. Resp: Lungs clear to auscultation bilaterally, no wheezes, rales, or rhonchi. Abdomen: Soft, non-distended, Normoactive bowel sounds all 4 quads. Musculoskeletal: Normal gait, 5/5 strength to all four extremities. Skin: No suspicious rashes or lesions. Capillary refill less than 2 sec. Neurologic: Cranial nerves II-XII intact. Alert and oriented x 3. Motor: No deficits noted. Sensory: Intact bilaterally all 4 extremities. Reflexes: DTR's intact bilaterally.. Hematologic/Lymphatic: No ecchymosis, no lymphadenopathy. Course Vital Signs Vital signs: Vital Signs Temperature 36.9 C 05/28/23 13:21 Pulse 84 05/28/23 13:21 Respiratory Rate 18 05/28/23 13:21 Blood Pressure 169/94 H 05/28/23 13:21 Pulse Oximetry 95 05/28/23 13:21 Temperature 36.9 C 05/28/23 13:21 Temperature Source Temporal Artery Scan 05/28/23 13:21 Pulse 84 05/28/23 13:21 Respiratory Rate 18 05/28/23 13:21 Blood Pressure 169/94 H 05/28/23 13:21 Blood Pressure Position Sitting 05/28/23 13:21 Pulse Oximetry 95 05/28/23 13:21 Oxygen Delivery Method Room Air 05/28/23 13:21 Oxygen Flow Rate 0 05/28/23 13:21 Pain Level 5 05/28/23 13:21
[2023-05-28 14:11] VITALS: TEMP 36.9
[2023-05-28] MEDS: Benzonatate 100 MG CAP PO ×2 (14:39)
[2023-05-28 14:49] VITALS: BP 163/90; PULSE 80; RESP 18; O2SAT 94
== END 2023-05-28 14:52 | disposition home or self-care (01) ==
PROVIDERS: Emergency Provider Registered Nurse Emergency; PCP Student in an Organized Health Care Education/Training Program
DX: U09.9 Post COVID-19 condition, unspecified (principal); R53.82 Chronic fatigue, unspecified
CPT/HCPCS: 99283

== ENCOUNTER 2023-06-07 03:11 | Outpatient (CLI) | payer BC, SELFPAY ==
[2023-06-07 12:36] LABS: INR 2.1 (0.9-1.1); Prothrombin Time 19.4 sec (9.1-11.1)
== END 2023-06-07 03:12 | disposition home or self-care (01) ==
LOC: LOS 03:11
PROVIDERS: PCP Student in an Organized Health Care Education/Training Program; Visit Provider Student in an Organized Health Care Education/Training Program
DX: I35.0 Nonrheumatic aortic (valve) stenosis (principal)
CPT/HCPCS: 36415; 85610

== ENCOUNTER 2023-06-28 04:21 | Outpatient (CLI) | payer BC, SELFPAY ==
[2023-06-28 12:38] LABS: Prothrombin Time 13.2 sec (9.1-11.1)
[2023-06-28 12:42] LABS: INR 1.3 (0.9-1.1)
== END 2023-06-28 04:22 | disposition home or self-care (01) ==
LOC: LOS 04:21
PROVIDERS: PCP Student in an Organized Health Care Education/Training Program; Visit Provider Student in an Organized Health Care Education/Training Program
DX: I35.0 Nonrheumatic aortic (valve) stenosis (principal); I10 Essential (primary) hypertension; Z79.01 Long term (current) use of anticoagulants
CPT/HCPCS: 36415; 85610

== ENCOUNTER 2023-07-06 00:46 | Outpatient (CLI) | payer BC, SELFPAY ==
[2023-07-06 12:34] LABS: INR 2.6 (0.9-1.1); Prothrombin Time 23.7 sec (9.1-11.1)
== END 2023-07-06 00:47 | disposition home or self-care (01) ==
LOC: LOS 00:46
PROVIDERS: PCP Student in an Organized Health Care Education/Training Program; Visit Provider Student in an Organized Health Care Education/Training Program
DX: I35.0 Nonrheumatic aortic (valve) stenosis (principal); Z79.01 Long term (current) use of anticoagulants
CPT/HCPCS: 36415; 85610

== ENCOUNTER → 2023-07-21 01:26 | Outpatient (CLI) | payer BC, SELFPAY ==
--- NOTE | 2023-07-21 08:00 | DI.RAD_ITS ---
Exam(s) XR CHEST 2V PA LATERAL EXAM: XR CHEST 2V PA LATERAL CLINICAL HISTORY: COTO R06.09 HX COVID 2 MONTHS AGO TECHNIQUE: 2D digital imaging was performed of the chest. Two images were obtained. PA and lateral views were obtained. COMPARISON: CR,XR XR CHEST 2V PA LATERAL from 12/07/2020 FINDINGS: MEDIASTINUM: Normal. HEART: Normal. There is an aortic valve replacement. PULMONARY VASCULATURE: Normal. LUNGS: Clear. PLEURAL SPACE: No pleural effusion or pneumothorax. BONE:Within normal limits for the patient's age. OTHER FINDINGS:Normal. IMPRESSION: No acute pulmonary findings. DATA REPOSITORY: RADIATION DOSE DELIVERED:
== END ==
PROVIDERS: PCP Student in an Organized Health Care Education/Training Program; Visit Provider Student in an Organized Health Care Education/Training Program
DX: R06.09 Other forms of dyspnea (principal)
CPT/HCPCS: 71046

== ENCOUNTER 2023-07-21 04:26 | Outpatient (CLI) | payer BC, SELFPAY ==
[2023-07-21 12:49] LABS: Abs Immature Grans 0.03 10^3/uL (0.0-0.06); Absolute Basophil Count 0.08 10^3/uL (0.0-0.2); Absolute Eosinophil Count 0.16 10^3/uL (0.0-0.7); Absolute Lymphocyte Count 1.47 10^3/uL (1.2-3.4); Absolute Monocyte Count 1.01 10^3/uL (0.1-0.8); Absolute Neutrophil Count 6.85 10^3/uL (1.2-6.7); Basophils % 0.8; Eosinophils % 1.7; HGB 15.6 g/dL (11.2-15.7); Immature Grans % 0.3; Lymphocytes % 15.3; MCH 28.3 pg (27.0-33.0); MCHC 31.2 % (32.0-36.0); MCV 91 fL (80-95); MPV 11.4 fL (8.0-11.0); Monocytes % 10.5; Neutrophils % 71.4; Platelet Count 223 10^3/uL (130-400); RBC 5.51 10^6/uL (3.93-5.22); RDW 13.5 % (11.7-14.6); RDW-SD 45.6 fL
[2023-07-21 12:53] LABS: Iron 63 ug/dL (50-170); Total Iron Binding Capacity 293 ug/dL (250-450); Transferrin Sat 22 % (15-50)
[2023-07-21 12:54] LABS: Hemoglobin A1C 5.6 % (<5.7)
[2023-07-21 12:59] LABS: ALT 31 U/L (14-59); AST 21 U/L (15-37); Albumin 3.1 g/dL (3.4-5.0); Alkaline Phosphatase 82 U/L (46-116); BUN 8 mg/dL (7-18); Bilirubin, Total 0.7 mg/dL (0.2-1.0); Calcium 8.9 mg/dL (8.5-10.1); Calculated LDL 50 mg/dL (<100); Chloride 105 mmol/L (98-107); Cholesterol 126 mg/dL (<200); Estimated GFR 67.36 (mL/min/1.73m2); Glucose 112 mg/dL (74-106); HDL Cholesterol 59 mg/dL (40-60); NT-proBNP 971 pg/mL (<300); Potassium 3.6 mmol/L (3.5-5.1); Sodium 140 mmol/L (136-145); Total Protein 7.4 g/dL (6.4-8.2); Triglyceride 87 mg/dL (<150)
[2023-07-21 13:15] LABS: D-Dimer 301 ng/mlFEU (<500)
[2023-07-21 13:18] LABS: Prothrombin Time 77.8 sec (9.1-11.1)
[2023-07-21 13:25] LABS: INR 9.4 (0.9-1.1)
[2023-07-21 20:07] LABS: Hepatitis C Ab w Rflx HCV PCR Negative (Negative)
[2023-07-21 20:11] LABS: HIV-1/2 Ag & Ab Screen Negative (Negative)
== END 2023-07-21 04:27 | disposition home or self-care (01) ==
LOC: LOS 04:26
PROVIDERS: PCP Student in an Organized Health Care Education/Training Program; Visit Provider Student in an Organized Health Care Education/Training Program
DX: I35.0 Nonrheumatic aortic (valve) stenosis (principal); R06.09 Other forms of dyspnea
CPT/HCPCS: 36415; 80053; 80061; 86803; 87389; 83036; 83540; 83550; 83880; 85025; 85379; 85610

== ENCOUNTER 2023-07-28 01:00 | Outpatient (CLI) | payer BC, SELFPAY ==
[2023-07-28 12:29] LABS: INR 1.8 (0.9-1.1); Prothrombin Time 17.3 sec (9.1-11.1)
== END 2023-07-28 01:01 | disposition home or self-care (01) ==
LOC: LOS 01:00
PROVIDERS: PCP Student in an Organized Health Care Education/Training Program; Visit Provider Student in an Organized Health Care Education/Training Program
DX: I35.0 Nonrheumatic aortic (valve) stenosis (principal); Z79.01 Long term (current) use of anticoagulants
CPT/HCPCS: 85610

== ENCOUNTER 2023-07-30 16:44 | Emergency (ER) | payer BC, SELFPAY ==
[2023-07-30 16:59] VITALS: BP 206/97; PULSE 63; RESP 18; TEMP 37; O2SAT 95
[2023-07-30 17:09] VITALS: BP 206/97; PULSE 63; RESP 18; TEMP 37; O2SAT 95
--- NOTE | 2023-07-30 17:16 | ED.GENADUL_ITS ---
HPI General Date/Time Provider Initiated Documentation: 07/30/23 17:16 . Limitations to Documentation: no limitations . Information obtained by: patient . HPI Narrative: 53 year old female, multiple medical comorbidities, anticoagulated on coumadin, takes plavix, presents to ED for evaluation of sore throat. multiple family members with similar symptoms. has been eating and drinking well. Related Data Home Medications Medication Instructions Recorded Confirmed acetaminophen 500 mg tablet (Mapap 500 mg PO PRN PRN 08/19/13 07/30/23 Extra Strength) albuterol sulfate 90 mcg/actuation 1 - 2 puff inhalation Q4H PRN PRN 07/17/20 07/30/23 aerosol inhaler ferrous gluconate 324 mg (38 mg 324 mg PO BID 07/17/20 07/30/23 iron) tablet warfarin 10 mg tablet See Rx Instructions .Route .COMPLEX 07/17/20 07/30/23 amlodipine 10 mg tablet 10 mg PO DAILY 09/20/20 07/30/23 aspirin 81 mg chewable tablet 81 mg PO DAILY 09/20/20 07/30/23 atorvastatin 80 mg tablet 80 mg PO QPM 09/20/20 07/30/23 clopidogrel 75 mg tablet 75 mg PO DAILY 09/20/20 07/30/23 metoprolol succinate 100 mg 100 mg PO DAILY 09/20/20 07/30/23 tablet,extended release 24 hr lisinopril 20 mg tablet 20 mg PO DAILY 12/21/20 07/30/23 azithromycin 500 mg tablet 500 mg PO DAILY 5 days #5 tabs 07/30/23 Previous Rx's Medication Instructions Recorded azithromycin 500 mg tablet 500 mg PO DAILY 5 days #5 tabs 07/30/23 Allergies Allergy/AdvReac Type Severity Reaction Status Date / Time adhesive Allergy Intermediate plastic Verified 07/30/23 17:01 tape-blisters Penicillins Allergy Verified 07/30/23 17:01 ibuprofen AdvReac Verified 07/30/23 17:01 General Stated Complaint: Sorethroat SURENDRA: 3 Review of Systems All systems reviewed & are unremarkable except as noted in HPI and below Exam Narrative Exam Narrative: obese, chronically ill appearing female older than stated age. Head is atraumatic oral mucosa is moist eyes nonicteric posterior pharynx with erythema uvula is midline Cardiovascular regular rate and rhythm respirations are even and unlabored neuro awake alert oriented no focal deficits Skin with no rashes or lesions Course Vital Signs Vital signs: Vital Signs Temperature 37 C 07/30/23 16:59 Pulse 63 07/30/23 16:59 Respiratory Rate 18 07/30/23 16:59 Blood Pressure 206/97 H 07/30/23 16:59 Pulse Oximetry 95 07/30/23 16:59 Temperature 37 C 07/30/23 17:09 Temperature Source Temporal Artery Scan 07/30/23 17:09 Pulse 63 07/30/23 17:09 Respiratory Rate 18 07/30/23 17:09 Respiratory Effort Normal, Non-Labored 07/30/23 17:03 Blood Pressure 206/97 H 07/30/23 17:09 Blood Pressure Position Sitting 07/30/23 17:09 Pulse Oximetry 95 07/30/23 17:09 Oxygen Delivery Method Room Air 07/30/23 17:09 Oxygen Flow Rate 0 07/30/23 17:09 Lab/Test Results Lab/Test Results: POC Strep Test-JUAN(Rapid) Start: 07/30/23 16:48 Freq: .Rapid Strep Test Status: Active Protocol: Document 07/30/23 17:03 (Rec: 07/30/23 17:03 [id number]) Strep test-JUAN(Rapid)-POC POC-Strep test-JUAN (Rapid) Negative POC-Strep test-JUAN (Rapid) Negative Medical Decision Making Patient presents with sore throat and chills. Family members with similar symptoms. Although her rapid strep was negative family members are positive so reasonable to treat will use azithromycin based on allergy profile. Able to tolerate oral intake. Work note provided at her request. She should have her blood pressure reevaluated outpatient Medical Records Medical records reviewed: Yes I reviewed the patient's medical records. Quality:SDOH Health Related Social Needs: No Data to Display PFSH All Active Problems (Updated 07/30/23 @ 17:17 by Chelita Cassidy NP) Strep pharyngitis (Acute) COVID-19 (Acute) Acute dyspnea (Acute) Chest pain (Acute) Pharyngitis (Acute) Shortness of breath (Acute) On antibiotic therapy (Acute) Pneumonia (Acute) Acute bronchospasm (Acute) Cough (Acute) Shortness of breath (Acute) Chest pain (Acute) Foodborne gastroenteritis (Acute) IRA on CPAP (Chronic) Discharge planning issues (Acute) Enterocolitis (Acute) Cough with hemoptysis (Acute) Ground glass opacity present on imaging of lung (Acute) Hypokalemia (Acute) Subtherapeutic international normalized ratio (INR) (Acute) NSTEMI (non-ST elevated myocardial infarction) (Acute) Person under investigation for COVID-19 (Acute) Pneumonia (Acute) Hyperglycemia (Acute) Acute myopericarditis (Acute) Chronic anticoagulation (Acute) Internal derangement of right knee (Chronic) TIA due to embolism (Acute 10/04/16) Smoker (Chronic) Intramural leiomyoma of uterus (Acute 06/08/17) Multiple uterine fibroids-left lower quadrant pain, bladder pressure. 08/10/17. 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 Recommended Aygestin therapy and surgery if Aygestin not effective. Headache (Acute) Essential hypertension (Chronic 09/20/13) BMI 40.0-44.9, adult (Acute 06/08/17) Aortic valve replaced (Chronic) [facility] Anticoagulated on warfarin (Chronic) AVR/TIA goal 2.5-3.5 Abnormal uterine bleeding (Acute 08/10/17) onset after aortic valve replacement 2005. 08/10/17 EMBx: inactive endometrium with breakdown. No dysplasia. Medical History Abnormal uterine bleeding (AUB) onset 2005 after AVR and chronic anticoagulation. Nl EMBx 2018. Pt will begin Aygestin for menstrual control. Restless leg syndrome Uterine fibroid Uterus [id number] with multiple uterine fibroids. Acute ITP Surgical History Ligation of fallopian tube Tooth extraction WISDOM TEETH REMOVAL Dilation and curettage Family History Mother Neoplasm LUNG Father Essential hypertension Heart disease STENTS Hyperlipidemia Asthma Sister No problems noted. Sister No problems noted. Brother No problems noted. Grandfather No problems noted. Grandfather No problems noted. Grandmother , BLOOD CLOTT Heart disease Grandmother No problems noted. Son Depression Son Substance abuse Depression Son Substance abuse Daughter No problems noted. Social History Smoking/Tobacco Use Status: Current every day Tobacco Type: cigarettes Smoking risk assessment performed?: Yes Alcohol Intake: current Alcohol Intake frequency: holidays/special occasions only Drug use: Never Substance use type: does not use Housing: house Do you feel safe at home: Yes Do you feel safe in your relationship?: Yes Discharge Plan Disposition Patient Disposition: Home Condition: Stable Discharge Details Clinical Impression: Strep pharyngitis Primary Care Provider: Erin Mon ED Provider: Chelita Cassidy Home Meds and New Rx's Prescriptions: New azithromycin 500 mg tablet 500 mg PO DAILY 5 Days Qty: 5 0RF Continued acetaminophen [Mapap Extra Strength] 500 MG tablet 500 mg PO PRN PRN lisinopril 20 mg tablet 20 mg PO DAILY Patient Comments: TAKE 1 TABLET BY MOUTH EVERY DAY warfarin 10 mg tablet See Rx Instructions .ROUTE .COMPLEX Patient Comments: TAKE 1 TABLET BY MOUTH DAILY EVERY DAY EXCEPT MONDAY, ON MONDAY TAKES 12.5MG Rx Instructions: 10MG PO QPM MONDAY, MONDAY, MONDAY, SUNDAYS 12.5MG PO QPM ON MONDAY, MONDAY, FRIDAYS albuterol sulfate 90 mcg/actuation HFA aerosol inhaler 1 - 2 puff INHALATION Q4H PRN PRN Patient Comments: INL 1 TO 2 INHALATIONS PO Q 4 TO 6 H PRF WHZ Rx Instructions: 1-2 PUFFS Q4-6H PRN WHZ ferrous gluconate 324 mg (38 mg iron) tablet 324 mg PO BID atorvastatin 80 mg tablet 80 mg PO QPM Patient Comments: TAKE ONE TABLET BY MOUTH EVERY EVENING metoprolol succinate 100 mg tablet extended release 24 hr 100 mg PO DAILY Patient Comments: TAKE ONE TABLET BY MOUTH EVERY DAY clopidogrel 75 mg tablet 75 mg PO DAILY Patient Comments: TAKE ONE TABLET BY MOUTH EVERY DAY amlodipine 10 mg tablet 10 mg PO DAILY Patient Comments: TAKE ONE TABLET BY MOUTH EVERY DAY aspirin 81 mg Tablet,Chewable 81 mg PO DAILY Discharge Instructions Instructions: Strep Throat (DC) Additional Instructions: Take antibiotic as prescribed even if you feel better Encourage fluids to stay well-hydrated Can use ibuprofen and/or acetaminophen as directed for pain Make sure to have your INR checked twice weekly while on antibiotics as that might affect your INR level. Adjust Coumadin according to your outpatient providers recommendations Stand Alone Forms: Work Release Referrals: Yaa,Erin [Primary Care Provider] - Discharge Data Discharge Date/Time-TO BE ENTERED AT DEPARTURE: 07/30/23 17:41
--- NOTE | 2023-07-30 18:43 | NUR.NOTE ---
Addendum entered by Christina Cotton 07/30/23 18:46: [facility] fax # [phone] Original Note: Patient called stating [facility] closed just before they got there. Has work note to return Monday. Per Dawit Cassidy start the medication as soon as they open tomorrow and the work note will still be good for Monday. Called the patient @ 1842 and she understood this and will do it. Nursing Note:
== END 2023-07-30 17:41 | disposition home or self-care (01) ==
PROVIDERS: Emergency Provider Nurse Practitioner Acute Care; PCP Student in an Organized Health Care Education/Training Program
DX: J02.0 Streptococcal pharyngitis (principal); I10 Essential (primary) hypertension; I25.2 Old myocardial infarction; F17.210 Nicotine dependence, cigarettes, uncomplicated; Z86.73 Personal history of transient ischemic attack (TIA), and cerebral infarction without residual deficits; Z95.2 Presence of prosthetic heart valve; Z79.01 Long term (current) use of anticoagulants; Z79.02 Long term (current) use of antithrombotics/antiplatelets; Z79.82 Long term (current) use of aspirin
CPT/HCPCS: 87880; 99283

== ENCOUNTER 2023-08-02 02:51 | Outpatient (CLI) | payer BC, SELFPAY ==
[2023-08-02 13:05] LABS: INR 3.9 (0.9-1.1); Prothrombin Time 34.7 sec (9.1-11.1)
== END 2023-08-02 02:52 | disposition home or self-care (01) ==
LOC: LOS 02:51
PROVIDERS: PCP Student in an Organized Health Care Education/Training Program; Visit Provider Student in an Organized Health Care Education/Training Program
DX: I35.0 Nonrheumatic aortic (valve) stenosis (principal); Z79.01 Long term (current) use of anticoagulants
CPT/HCPCS: 36415; 85610

== ENCOUNTER 2023-08-09 04:23 | Outpatient (CLI) | payer BC, SELFPAY ==
[2023-08-09 12:47] LABS: Prothrombin Time 36.4 sec (9.1-11.1)
[2023-08-09 13:13] LABS: INR 4.1 (0.9-1.1)
== END 2023-08-09 04:24 | disposition home or self-care (01) ==
LOC: LOS 04:23
PROVIDERS: PCP Student in an Organized Health Care Education/Training Program; Visit Provider Student in an Organized Health Care Education/Training Program
DX: I35.0 Nonrheumatic aortic (valve) stenosis (principal); Z79.01 Long term (current) use of anticoagulants
CPT/HCPCS: 36415; 85610

== ENCOUNTER 2023-08-16 02:36 | Outpatient (CLI) | payer BC, SELFPAY ==
[2023-08-16 12:39] LABS: Prothrombin Time 42.6 sec (9.1-11.1)
[2023-08-16 12:56] LABS: INR 4.9 (0.9-1.1)
== END 2023-08-16 02:37 | disposition home or self-care (01) ==
LOC: LOS 02:36
PROVIDERS: PCP Student in an Organized Health Care Education/Training Program; Visit Provider Student in an Organized Health Care Education/Training Program
DX: I36.0 Nonrheumatic tricuspid (valve) stenosis (principal)
CPT/HCPCS: 36415; 85610

== ENCOUNTER 2023-08-23 02:53 | Outpatient (CLI) | payer BC, SELFPAY ==
[2023-08-23 12:38] LABS: INR 1.6 (0.9-1.1); Prothrombin Time 15.9 sec (9.1-11.1)
== END 2023-08-23 02:54 | disposition home or self-care (01) ==
LOC: LOS 02:53
PROVIDERS: PCP Student in an Organized Health Care Education/Training Program; Visit Provider Student in an Organized Health Care Education/Training Program
DX: I35.0 Nonrheumatic aortic (valve) stenosis (principal); Z79.01 Long term (current) use of anticoagulants
CPT/HCPCS: 36415; 85610

== ENCOUNTER 2023-08-30 01:46 | Outpatient (CLI) | payer BC, SELFPAY ==
[2023-08-30 08:51] LABS: Prothrombin Time 18.9 sec (9.1-11.1)
== END 2023-08-30 01:47 | disposition home or self-care (01) ==
LOC: LBO 01:46
PROVIDERS: PCP Student in an Organized Health Care Education/Training Program; Visit Provider Student in an Organized Health Care Education/Training Program
DX: I35.0 Nonrheumatic aortic (valve) stenosis (principal); Z79.01 Long term (current) use of anticoagulants
CPT/HCPCS: 36415; 85610

== ENCOUNTER 2023-09-06 03:25 | Outpatient (CLI) | payer BC, SELFPAY ==
[2023-09-06 13:05] LABS: INR 2.9 (0.9-1.1); Prothrombin Time 26.3 sec (9.1-11.1)
== END 2023-09-06 03:26 | disposition home or self-care (01) ==
LOC: LOS 03:26
PROVIDERS: PCP Student in an Organized Health Care Education/Training Program; Visit Provider Student in an Organized Health Care Education/Training Program
DX: I35.0 Nonrheumatic aortic (valve) stenosis (principal); Z79.01 Long term (current) use of anticoagulants
CPT/HCPCS: 36415; 85610

== ENCOUNTER 2023-09-27 05:09 | Outpatient (CLI) | payer BC, SELFPAY ==
[2023-09-27 12:45] LABS: Prothrombin Time 42.6 sec (9.1-11.1)
[2023-09-27 13:24] LABS: INR 4.9 (0.9-1.1)
== END 2023-09-27 05:10 | disposition home or self-care (01) ==
LOC: LOS 05:09
PROVIDERS: PCP Student in an Organized Health Care Education/Training Program; Visit Provider Student in an Organized Health Care Education/Training Program
DX: I35.0 Nonrheumatic aortic (valve) stenosis (principal)
CPT/HCPCS: 36415; 85610

== ENCOUNTER 2023-10-05 05:11 | Outpatient (CLI) | payer BC, SELFPAY ==
[2023-10-05 12:40] LABS: Prothrombin Time 35.6 sec (9.1-11.1)
== END 2023-10-05 05:12 | disposition home or self-care (01) ==
LOC: LOS 05:11
PROVIDERS: PCP Student in an Organized Health Care Education/Training Program; Visit Provider Student in an Organized Health Care Education/Training Program
DX: I35.0 Nonrheumatic aortic (valve) stenosis (principal)
CPT/HCPCS: 36415; 85610

== ENCOUNTER 2023-10-18 13:56 | Outpatient (CLI) | payer BC, SELFPAY ==
[2023-10-18 12:50] LABS: INR 2.7 (0.9-1.1); Prothrombin Time 25.2 sec (9.1-11.1)
== END 2023-10-18 13:57 | disposition home or self-care (01) ==
LOC: LOS 13:57
PROVIDERS: PCP Student in an Organized Health Care Education/Training Program; Visit Provider Student in an Organized Health Care Education/Training Program
DX: I35.0 Nonrheumatic aortic (valve) stenosis (principal)
CPT/HCPCS: 36415; 85610

== ENCOUNTER 2023-11-08 11:33 | Outpatient (CLI) | payer BC, SELFPAY ==
[2023-11-08 13:17] LABS: Prothrombin Time 36.4 sec (9.1-11.1)
[2023-11-08 13:31] LABS: INR 4.1 (0.9-1.1)
== END 2023-11-08 11:34 | disposition home or self-care (01) ==
LOC: LBO 11:33
PROVIDERS: PCP Student in an Organized Health Care Education/Training Program; Visit Provider Student in an Organized Health Care Education/Training Program
DX: I35.0 Nonrheumatic aortic (valve) stenosis (principal)
CPT/HCPCS: 36415; 85610

== ENCOUNTER 2023-11-21 21:47 | Outpatient (REF) | payer BC, SELFPAY | END 2023-11-21 21:48 | disposition home or self-care (01) | LOC: LBN 21:47 | PROVIDERS: PCP Student in an Organized Health Care Education/Training Program; Visit Provider Physician Assistant | DX: J02.9 Acute pharyngitis, unspecified (principal) | CPT/HCPCS: 87070 ==

== ENCOUNTER 2023-11-22 15:31 | Outpatient (CLI) | payer BC, SELFPAY ==
[2023-11-22 17:05] LABS: INR 3.3 (0.9-1.1)
== END 2023-11-22 15:32 | disposition home or self-care (01) ==
LOC: LBO 15:36
PROVIDERS: PCP Student in an Organized Health Care Education/Training Program; Visit Provider Student in an Organized Health Care Education/Training Program
DX: I35.0 Nonrheumatic aortic (valve) stenosis (principal)
CPT/HCPCS: 36415; 85610

== ENCOUNTER 2024-01-03 01:40 | Outpatient (CLI) | payer BC, SELFPAY ==
[2024-01-03 12:29] LABS: INR 3.2 (0.9-1.1); Prothrombin Time 29.3 sec (9.1-11.1)
== END 2024-01-03 01:41 | disposition home or self-care (01) ==
LOC: LOS 01:40
PROVIDERS: PCP Student in an Organized Health Care Education/Training Program; Visit Provider Student in an Organized Health Care Education/Training Program
DX: I35.0 Nonrheumatic aortic (valve) stenosis (principal)
CPT/HCPCS: 36415; 85610

== ENCOUNTER 2024-01-31 01:31 | Outpatient (CLI) | payer BC, SELFPAY ==
[2024-01-31 12:36] LABS: INR 2.1 (0.9-1.1); Prothrombin Time 19.8 sec (9.1-11.1)
== END 2024-01-31 01:32 | disposition home or self-care (01) ==
LOC: LOS 01:31
PROVIDERS: PCP Student in an Organized Health Care Education/Training Program; Visit Provider Student in an Organized Health Care Education/Training Program
DX: I35.0 Nonrheumatic aortic (valve) stenosis (principal)
CPT/HCPCS: 36415; 85610

== ENCOUNTER 2024-02-28 03:19 | Outpatient (CLI) | payer BC, SELFPAY ==
[2024-02-28 12:57] LABS: INR 1.8 (0.9-1.1); Prothrombin Time 17.4 sec (9.1-11.1)
== END 2024-02-28 03:20 | disposition home or self-care (01) ==
LOC: LOS 03:20
PROVIDERS: PCP Student in an Organized Health Care Education/Training Program; Visit Provider Student in an Organized Health Care Education/Training Program
DX: I36.0 Nonrheumatic tricuspid (valve) stenosis (principal)
CPT/HCPCS: 36415; 85610

== ENCOUNTER 2024-03-27 03:02 | Outpatient (CLI) | payer BC, SELFPAY ==
[2024-03-27 12:30] LABS: INR 1.9 (0.9-1.1); Prothrombin Time 17.7 sec (9.1-11.1)
== END 2024-03-27 03:03 | disposition home or self-care (01) ==
LOC: LOS 03:02
PROVIDERS: PCP Student in an Organized Health Care Education/Training Program; Visit Provider Student in an Organized Health Care Education/Training Program
DX: I35.0 Nonrheumatic aortic (valve) stenosis (principal); Z95.2 Presence of prosthetic heart valve
CPT/HCPCS: 36415; 85610

== ENCOUNTER 2024-04-10 02:13 | Outpatient (CLI) | payer BC, SELFPAY ==
[2024-04-10 12:30] LABS: Prothrombin Time 21.1 sec (9.1-11.1)
[2024-04-10 12:33] LABS: INR 2.2 (0.9-1.1)
== END 2024-04-10 02:14 | disposition home or self-care (01) ==
LOC: LOS 02:14
PROVIDERS: PCP Student in an Organized Health Care Education/Training Program; Visit Provider Student in an Organized Health Care Education/Training Program
DX: I35.0 Nonrheumatic aortic (valve) stenosis (principal); Z95.2 Presence of prosthetic heart valve
CPT/HCPCS: 36415; 85610

== ENCOUNTER 2024-04-17 04:54 | Outpatient (CLI) | payer BC, SELFPAY ==
[2024-04-17 12:55] LABS: Prothrombin Time 52.3 sec (9.1-11.1)
[2024-04-17 12:59] LABS: INR 6.1 (0.9-1.1)
== END 2024-04-17 04:55 | disposition home or self-care (01) ==
LOC: LOS 04:55
PROVIDERS: PCP Student in an Organized Health Care Education/Training Program; Visit Provider Student in an Organized Health Care Education/Training Program
DX: I35.0 Nonrheumatic aortic (valve) stenosis (principal); Z95.2 Presence of prosthetic heart valve
CPT/HCPCS: 36415; 85610

== ENCOUNTER 2024-04-22 03:05 | Outpatient (CLI) | payer BC, SELFPAY ==
[2024-04-22 12:34] LABS: INR 2.4 (0.9-1.1)
== END 2024-04-22 03:06 | disposition home or self-care (01) ==
LOC: LOS 03:05
PROVIDERS: PCP Student in an Organized Health Care Education/Training Program; Visit Provider Student in an Organized Health Care Education/Training Program
DX: I35.0 Nonrheumatic aortic (valve) stenosis (principal); Z95.2 Presence of prosthetic heart valve
CPT/HCPCS: 36415; 85610

== ENCOUNTER 2024-04-29 02:36 | Outpatient (CLI) | payer BC, SELFPAY ==
[2024-04-29 12:49] LABS: INR 2.1 (0.9-1.1); Prothrombin Time 20.1 sec (9.1-11.1)
== END 2024-04-29 02:37 | disposition home or self-care (01) ==
LOC: LOS 02:36
PROVIDERS: PCP Student in an Organized Health Care Education/Training Program; Visit Provider Student in an Organized Health Care Education/Training Program
DX: I35.0 Nonrheumatic aortic (valve) stenosis (principal); Z95.2 Presence of prosthetic heart valve
CPT/HCPCS: 36415; 85610

== ENCOUNTER 2024-05-14 02:36 | Outpatient (CLI) | payer BC, SELFPAY ==
[2024-05-14 12:37] LABS: INR 2.2 (0.9-1.1)
== END 2024-05-14 02:37 | disposition home or self-care (01) ==
LOC: LOS 02:36
PROVIDERS: PCP Student in an Organized Health Care Education/Training Program; Visit Provider Student in an Organized Health Care Education/Training Program
DX: I35.0 Nonrheumatic aortic (valve) stenosis (principal); Z95.2 Presence of prosthetic heart valve
CPT/HCPCS: 36415; 85610

== ENCOUNTER 2024-05-28 11:03 | Outpatient (CLI) | payer BC, SELFPAY ==
[2024-05-28 12:33] LABS: Prothrombin Time 22.8 sec (9.1-11.1)
[2024-05-28 12:49] LABS: INR 2.4 (0.9-1.1)
== END 2024-05-28 11:04 | disposition home or self-care (01) ==
LOC: LOS 11:03
PROVIDERS: PCP Student in an Organized Health Care Education/Training Program; Visit Provider Student in an Organized Health Care Education/Training Program
DX: I35.0 Nonrheumatic aortic (valve) stenosis (principal); Z95.2 Presence of prosthetic heart valve
CPT/HCPCS: 36415; 85610

== ENCOUNTER 2024-07-08 03:18 | Outpatient (CLI) | payer BC, SELFPAY ==
[2024-07-08 12:41] LABS: INR 3.9 (0.9-1.1)
== END 2024-07-08 03:19 | disposition home or self-care (01) ==
LOC: LOS 03:18
PROVIDERS: PCP Student in an Organized Health Care Education/Training Program; Visit Provider Student in an Organized Health Care Education/Training Program
DX: I35.0 Nonrheumatic aortic (valve) stenosis (principal); Z95.2 Presence of prosthetic heart valve
CPT/HCPCS: 36415; 85610

== ENCOUNTER 2024-07-26 00:58 | Outpatient (CLI) | payer OTHER, SELFPAY ==
[2024-07-26 12:39] LABS: INR 2.5 (0.9-1.1); Prothrombin Time 23.4 sec (9.1-11.1)
== END 2024-07-26 00:59 | disposition home or self-care (01) ==
LOC: LOS 00:58
PROVIDERS: PCP Student in an Organized Health Care Education/Training Program; Visit Provider Student in an Organized Health Care Education/Training Program
DX: I35.0 Nonrheumatic aortic (valve) stenosis (principal); Z95.2 Presence of prosthetic heart valve
CPT/HCPCS: 36415; 85610

== ENCOUNTER 2024-08-02 02:18 | Outpatient (CLI) | payer OTHER, SELFPAY ==
[2024-08-02 12:58] LABS: Abs Immature Grans 0.04 10^3/uL (0.0-0.06); Absolute Basophil Count 0.07 10^3/uL (0.0-0.2); Absolute Eosinophil Count 0.24 10^3/uL (0.0-0.7); Absolute Lymphocyte Count 1.55 10^3/uL (1.2-3.4); Absolute Monocyte Count 0.81 10^3/uL (0.1-0.8); Basophils % 0.7 %; Eosinophils % 2.4 %; HCT 48.3 % (36.0-46.0); HGB 14.9 g/dL (11.2-15.7); Immature Grans % 0.4 %; Lymphocytes % 15.8 %; MCH 28.4 pg (27.0-33.0); MCHC 30.8 % (32.0-36.0); MCV 92 fL (80-95); MPV 11.2 fL (8.0-11.0); Monocytes % 8.3 %; Neutrophils % 72.4 %; Platelet Count 224 10^3/uL (130-400); RBC 5.25 10^6/uL (3.93-5.22); RDW 12.9 % (11.7-14.6); RDW-SD 44.3 fL; WBC 9.81 10^3/uL (4.4-10.8)
== END 2024-08-02 02:19 | disposition home or self-care (01) ==
PROVIDERS: PCP Student in an Organized Health Care Education/Training Program; Visit Provider Internal Medicine Cardiovascular Disease
DX: T14.8XXA Other injury of unspecified body region, initial encounter (principal)
CPT/HCPCS: 36415; 85025; 85610

== ENCOUNTER 2024-08-19 12:29 | Outpatient (CLI) | payer OTHER, SELFPAY ==
--- NOTE | 2024-08-19 | DI.RAD_ITS ---
Exam(s) XR CHEST 2V PA LATERAL EXAM: XR CHEST 2V PA LATERAL CLINICAL HISTORY: ACUTE EXACERBATION OF COPD, J44.1, COUGH X 5 DAYS, SOB. TECHNIQUE: 2D digital imaging was performed. COMPARISON: CR XR CHEST 2V PA LATERAL from 07/21/2023 FINDINGS: 2 views: Again noted are sternotomy wires prosthetic aortic valve which is unchanged in position. Mild cardiomegaly again noted. Mediastinum not widened. Left lung is clear. There are slightly increased markings in the mid-lower right lung field seen on the frontal view, less evident on the lateral view. There are no pleural effusions. No evidence of pulmonary edema. No Daysi B lines. IMPRESSION: Possible subtle right lower lobe infiltrate. No pleural effusions. Sternotomy. Prosthetic aortic valve. Cardiomegaly. No evidence of airspace pulmonary edema. DATA REPOSITORY: RADIATION DOSE DELIVERED:
== END 2024-08-19 12:49 ==
LOC: DI 12:30
PROVIDERS: PCP Student in an Organized Health Care Education/Training Program; Visit Provider Nurse Practitioner Family
DX: J44.1 Chronic obstructive pulmonary disease with (acute) exacerbation (principal)
CPT/HCPCS: 71046

== ENCOUNTER 2024-08-20 10:21 | Inpatient (IN) | payer OTHER, SELFPAY ==
[2024-08-20] VITALS (47 sets, daily range): BP systolic 140–198; BP diastolic 66–101; PULSE 66–85; RESP 5–36; TEMP 36–36.9; O2SAT 86–99
--- NOTE | 2024-08-20 10:45 | DI.CT_ITS ---
Exam(s) CT CHEST PE CTA EXAM: CT CHEST PE CTA CLINICAL HISTORY: dyspnea, hypoxia. TECHNIQUE: Imaging Protocol: CT angiography of the chest was performed using pulmonary embolus maria del carmen col. Multi planar reconstructions were performed. CONTRAST MATERIAL: Intravenous: Omnipaque 350 Contrast volume: 100 cc COMPARISON: CT CT CHEST PE CTA from 12/02/2020 CR XR CHEST 2V PA LATERAL from 08/19/2024 FINDINGS: CHEST: PULMONARY ARTERIES: There are no intraluminal filling defects to suggest acute pulmonary emboli. LUNGS: There are areas of patchy ground-glass infiltrate in both lungs.. This is most prominent in t he lateral aspect of the left upper into the right middle lobe. There are no pleural effusions. No significant focal findings in the trachea and mainstem bronchi. MEDIASTINUM: There is small bilateral hilar lymph nodes evident. Also mild lymphadenopathy in the hough bcarinal region. There is no adenopathy in the anterior mediastinal fat. CARDIAC: There is sternotomy wires. Prosthetic aortic valve is evident.Diameter of the ascending tho racic aorta is enlarged, measuring 4 cm. There is no evidence of aortic dissection nor pericardial e ffusion. PARTIALLY VISUALIZED UPPERMOST ABDOMEN: CIS exophytic cyst off the lateral aspect of the upper pole t he right kidney. Partially included left kidney exhibits hydronephrosis. Spleen size normal. OSSEOUS: No significant osseous lesions.No fractures.. IMPRESSION: 1. No evidence of acute pulmonary emboli. No evidence of pulmonary infarction.However, there are pat antonia areas of bilateral ground-glass infiltrates in both lung waters. No pleural effusions. 2. Mild bilateral hilar and subcarinal lymphadenopathy noted. 3. Sternotomy wires. Prosthetic aortic valve. 4 cm diameter ascending thoracic aorta. No evidence of aortic dissection nor pericardial effusion. Partially included left kidney exhibits hydronephrosis. Should be further studied. Report called by myself to ER physician 08/20/2024 at 1:50 RADIATION DOSE DELIVERED: 297.79mGy.cm Total DLP DATA REPOSITORY: All CT scans at this facility are submitted to the National Radiology Data Registry (NRDR) Dose Index Registry (DIR) with the [employer] (A[employer]). RADIATION OPTIMIZATION: All CT scans at this facility use at least one of these dose optimization te chniques: automated exposure control; mA and/or kV adjustment per patient size (includes targeted exa ms where dose is matched to clinical indication); or iterative reconstruction.
--- NOTE | 2024-08-20 10:45 | RT.EKG_ITS ---
APPROVED REPORT Exam: Resting ECG Reason for Exam: dyspnea Patient Location: E HR:69 bpm ECG Measurements Heart Rate 69 AXIS VA 207 P 65 QRSd 151 QRS 23 QT 431 T 81 QTc 457 Conclusion Sinus rhythm...normal P axis, V-rate 60- 99 Atrial premature complex...SV complex w/ short R-R interval Borderline prolonged VA interval...VA >202, V-rate 50- 90 Probable left atrial enlargement...P >50mS, <-0.10mV V1 Right bundle branch block...QRSd>120, terminal axis(90,270) Inferior infarct, old...Q >35mS, II III aVF
--- NOTE | 2024-08-20 10:49 | W.ED.GENAD ---
Discharge Plan Disposition Patient Disposition: Admit to [facility] Condition: Serious Discharge Details Chief Complaint: RespSymp Clinical Impression: CAP (community acquired pneumonia), Acute exacerbation of chronic obstructive pulmonary disease Primary Care Provider: Erin Mon ED Provider: Florentin Adams Home Meds and New Rx's Prescriptions: No Action doxycycline hyclate 100 mg capsule 100 mg PO BID Qty: 14 0RF benzonatate 100 mg capsule 100 mg PO TID PRN (Reason: cough) Qty: 14 0RF acetaminophen [Mapap Extra Strength] 500 MG tablet 500 mg PO PRN PRN lisinopril 20 mg tablet 20 mg PO DAILY Patient Comments: TAKE 1 TABLET BY MOUTH EVERY DAY warfarin 10 mg tablet See Rx Instructions .ROUTE .COMPLEX Patient Comments: TAKE 1 TABLET BY MOUTH DAILY EVERY DAY EXCEPT MONDAY, ON MONDAY TAKES 12.5MG Rx Instructions: 10MG PO QPM MONDAY, MONDAY, MONDAY, SUNDAYS 12.5MG PO QPM ON MONDAY, MONDAY, FRIDAYS albuterol sulfate 90 mcg/actuation HFA aerosol inhaler 1 - 2 puff INHALATION Q4H PRN PRN Patient Comments: INL 1 TO 2 INHALATIONS PO Q 4 TO 6 H PRF WHZ Rx Instructions: 1-2 PUFFS Q4-6H PRN WHZ ferrous gluconate 324 mg (38 mg iron) tablet 324 mg PO BID atorvastatin 80 mg tablet 80 mg PO QPM Patient Comments: TAKE ONE TABLET BY MOUTH EVERY EVENING clopidogrel 75 mg tablet 75 mg PO DAILY Patient Comments: TAKE ONE TABLET BY MOUTH EVERY DAY amlodipine 10 mg tablet 10 mg PO DAILY Patient Comments: TAKE ONE TABLET BY MOUTH EVERY DAY aspirin 81 mg Tablet,Chewable 81 mg PO DAILY HPI General Mode of arrival: ambulatory. Date/Time Provider Initiated Documentation: 08/20/24 10:23. Limitations to Documentation: no limitations. Information obtained by: patient. History of Present Illness 54 year old F presents to the emergency department with the chief complaint of cough, dyspnea, described as moderate, Patient started experiencing this day(s) (3) and it has been constant. No relieving factors improve symptom(s), No exacerbating factors reported . Patient notes cough and shortness of breath; denies fever/chills. Patient did receive the following treatments prior to arrival, none Related Data Home Medications ?Medication ?Instructions ?Recorded ?Confirmed acetaminophen 500 mg tablet (Mapap 500 mg PO PRN PRN 08/19/13 08/20/24 Extra Strength) albuterol sulfate 90 mcg/actuation 1 - 2 puff inhalation Q4H PRN PRN 07/17/20 08/20/24 aerosol inhaler ferrous gluconate 324 mg (38 mg 324 mg PO BID 07/17/20 08/20/24 iron) tablet warfarin 10 mg tablet See Rx Instructions .Route .COMPLEX 07/17/20 08/20/24 amlodipine 10 mg tablet 10 mg PO DAILY 09/20/20 08/20/24 aspirin 81 mg chewable tablet 81 mg PO DAILY 09/20/20 08/20/24 atorvastatin 80 mg tablet 80 mg PO QPM 09/20/20 08/20/24 clopidogrel 75 mg tablet 75 mg PO DAILY 09/20/20 08/20/24 lisinopril 20 mg tablet 20 mg PO DAILY 12/21/20 08/20/24 benzonatate 100 mg capsule 100 mg PO TID PRN cough #14 caps 12/11/23 08/20/24 doxycycline hyclate 100 mg capsule 100 mg PO BID #14 caps 12/11/23 08/20/24 Previous Rx's ?Medication ?Instructions ?Recorded benzonatate 100 mg capsule 100 mg PO TID PRN cough #14 caps 12/11/23 doxycycline hyclate 100 mg capsule 100 mg PO BID #14 caps 12/11/23 Allergies Allergy/AdvReac Type Severity Reaction Status Date / Time adhesive Allergy Intermediate plastic Verified 08/20/24 10:29 tape-blisters Penicillins Allergy Skin Rash Verified 08/20/24 10:29 ibuprofen AdvReac Nausea Verified 08/20/24 10:29 General Stated Complaint: RespSymp SURENDRA: 3 Review of Systems All systems reviewed & are unremarkable except as noted in HPI and below Constitutional Constitutional: Denies chills, Denies fever(s) and Denies weakness Cardiovascular Cardiovascular: Denies chest pain and Reports dyspnea Respiratory Respiratory: Reports cough and Reports dyspnea Gastrointestinal Gastrointestinal: Denies abdominal pain and Denies nausea Neurologic Neurologic: Denies weakness Exam Const General: no acute distress Orientation: alert HENMT Head: normal to inspection Ears: external ears normal General nose exam: external nose normal Mouth: moist mucous membranes Eyes General: appearance normal, both eyes and all related structures Neck Neck: normal visual inspection Resp Effort & Inspection: normal respiratory effort and able to speak in complete sentences Auscultation: rhonchi and wheezes Cardio Jugular venous pressure: no JVD Rate: regular rate Heart Sounds: no murmurs Skin General skin exam: no rashes or lesions noted Neuro General: patient alert and patient oriented x3 Extrem General: normal to inspection Psych Mental Status: mental status grossly normal Course Vital Signs Vital signs: Vital Signs Temperature 36.9 C 08/20/24 10:26 Pulse 77 08/20/24 10:26 Respiratory Rate 16 08/20/24 10:26 Blood Pressure 181/87 H 08/20/24 10:26 Pulse Oximetry 86 L 08/20/24 10:26 Temperature 36.9 C 08/20/24 10:26 Pulse 77 08/20/24 10:26 Respiratory Rate 16 08/20/24 10:26 Respiratory Effort Normal, Non-Labored 08/20/24 10:43 Blood Pressure 181/87 H 08/20/24 10:26 Pulse Oximetry 86 L 08/20/24 10:26 Pain Level 5 08/20/24 10:26 Medical Decision Making 54-year-old female with a history of an aortic valve replacement on warfarin, asthma,And chronic smoker who comes in with several days of shortness of breath and cough. Denies any fevers or chest pain. Seen by urgent care yesterday and placed on doxycycline after she had a chest x-ray showing a question of a infiltrate. She says despite that she still has worsening shortness of breath so came here. She was hypoxic to 86 on room air which is new for her. She has rhonchi at the bases bilaterally and apical wheezing. No JVD, no leg swelling or calf tenderness. Given her continued symptoms I suspect asthma versus COPD exacerbation, will check EKG, troponins, CBC, CMP and procalcitonin. Given the question of infiltrate yesterday on the x-ray will obtain a CTA to evaluate for infiltrates less likely PE. Will also treated with DuoNebs and Solu-Medrol and reassess. Patient CTA shows no PE, does have bilateral infiltrates. She has hives from amoxicillin per patient so unfortunately despite her being on warfarin feel levofloxacin is her best antimicrobial agent for community-acquired pneumonia. She is still requiring 1 L nasal cannula to maintain her sats above 90%. Discussed with hospitalist who plans to admit Differential Diagnosis Differential Diagnosis: Pneumonia, PE, COPD exacerbation Medical Records Medical records reviewed: Yes I reviewed the patient's medical records. Lab Data Lab results reviewed: Yes I reviewed the patient's lab results. ECG Data Attestation: I personally reviewed and interpreted this ECG (s) as follows: Prior ECG tracings: available for review Interpretation: sinus rate of 69 pr 207 no stemi Quality:SDOH Health Related Social Needs: No Data to Display PFSH All Active Problems (Updated 08/20/24 @ 13:37 by Florentin Adams MD) Acute exacerbation of chronic obstructive pulmonary disease (Acute) CAP (community acquired pneumonia) (Acute) COVID-19 (Acute) Acute dyspnea (Acute) Chest pain (Acute) Pharyngitis (Acute) Shortness of breath (Acute) On antibiotic therapy (Acute) Pneumonia (Acute) Acute bronchospasm (Acute) Cough (Acute) Shortness of breath (Acute) Chest pain (Acute) Foodborne gastroenteritis (Acute) IRA on CPAP (Chronic) Discharge planning issues (Acute) Enterocolitis (Acute) Cough with hemoptysis (Acute) Ground glass opacity present on imaging of lung (Acute) Hypokalemia (Acute) Subtherapeutic international normalized ratio (INR) (Acute) NSTEMI (non-ST elevated myocardial infarction) (Acute) Person under investigation for COVID-19 (Acute) Pneumonia (Acute) Hyperglycemia (Acute) Acute myopericarditis (Acute) Chronic anticoagulation (Acute) Internal derangement of right knee (Chronic) TIA due to embolism (Acute 10/04/16) Smoker (Chronic) Intramural leiomyoma of uterus (Acute 06/08/17) Multiple uterine fibroids-left lower quadrant pain, bladder pressure. 08/10/17. [facility] [employer]/Onc consult. Recommended Aygestin therapy and surgery if Aygestin not effective. Headache (Acute) Essential hypertension (Chronic 09/20/13) BMI 40.0-44.9, adult (Acute 06/08/17) Aortic valve replaced (Chronic) [facility] Anticoagulated on warfarin (Chronic) AVR/TIA goal 2.5-3.5 Abnormal uterine bleeding (Acute 08/10/17) onset after aortic valve replacement 2005. 08/10/17 EMBx: inactive endometrium with breakdown. No dysplasia. Medical History Abnormal uterine bleeding (AUB) onset 2005 after AVR and chronic anticoagulation. Nl EMBx 2018. Pt will begin Aygestin for menstrual control. Restless leg syndrome Uterine fibroid Uterus [id number] with multiple uterine fibroids. Acute ITP Surgical History Ligation of fallopian tube Tooth extraction WISDOM TEETH REMOVAL Dilation and curettage Family History Mother Neoplasm LUNG Father Essential hypertension Heart disease STENTS Hyperlipidemia Asthma Sister No problems noted. Sister No problems noted. Brother No problems noted. Grandfather No problems noted. Grandfather No problems noted. Grandmother , BLOOD CLOTT Heart disease Grandmother No problems noted. Son Depression Son Substance abuse Depression Son Substance abuse Daughter No problems noted. Social History Smoking/Tobacco Use Status: Current every day Tobacco Type: cigarettes Smoking risk assessment performed?: Yes Alcohol Intake: current Alcohol Intake frequency: holidays/special occasions only Alcohol type: wine Drug use: Never Substance use type: does not use Housing: house Do you feel safe at home: Yes Do you feel safe in your relationship?: Yes PAWSS Have you Been Recently Intoxicated or Drunk Within the Last 30 days?: No Have you Ever Experienced Previous Episodes of Alcohol Withdrawal?: No Have you ever Experienced Withdrawal Seizures?: No Have you ever Experienced Delirium Tremens(DT)s?: No Have you ever undergone Alcohol Rehabilitation Treatment (i.e, inpt ot outpatient treatment programs)?: No Have you ever Experienced Blackouts?: No Have you ever Combined Alcohol with other Downers within the last 90 days?: No Have you ever Combined Alcohol with any other Substance of Abuse during the last 90 days?: No Positive Blood Alcohol level on Presentation? [PCS.BAL]: No Evidence of Increased Autonomic Activity (i.e. HR>120, tremor, sweating, agitation, nausea)?: No Result: 0
[2024-08-20 11:08] LABS: Abs Immature Grans 0.03 10^3/uL (0.0-0.06); Absolute Basophil Count 0.03 10^3/uL (0.0-0.2); Absolute Eosinophil Count 0.01 10^3/uL (0.0-0.7); Absolute Lymphocyte Count 0.94 10^3/uL (1.2-3.4); Absolute Monocyte Count 1.37 10^3/uL (0.1-0.8); Absolute Neutrophil Count 4.16 10^3/uL (1.2-6.7); Basophils % 0.5 %; Eosinophils % 0.2 %; HCT 45.3 % (36.0-46.0); HGB 14.5 g/dL (11.2-15.7); Immature Grans % 0.5 %; Lymphocytes % 14.4 %; MCH 28.7 pg (27.0-33.0); MCV 90 fL (80-95); MPV 10.6 fL (8.0-11.0); Monocytes % 20.9 %; Neutrophils % 63.5 %; Platelet Count 159 10^3/uL (130-400); RBC 5.06 10^6/uL (3.93-5.22); RDW-SD 42.7 fL; WBC 6.54 10^3/uL (4.4-10.8)
[2024-08-20] MEDS: Albuterol/Ipratropium 3 ML UPD VIAL UPD ×3 (11:13→20:35)
[2024-08-20] MEDS: methylPREDNISolone SUCC 125 MG VIAL IVP (11:14)
[2024-08-20 11:20] LABS: PTT Activated 36.8 sec (20.6-30.2); Prothrombin Time 19.5 sec (9.1-11.1)
[2024-08-20 11:39] LABS: ALT 23 U/L (14-59); AST 22 U/L (15-37); Alkaline Phosphatase 69 U/L (46-116); Anion Gap -0.1 mmol/L (3-11); BUN 13 mg/dL (7-18); Bilirubin, Total 0.52 mg/dL (0.2-1.0); CO2 35.1 mmol/L (21.0-32.0); CREATININE 1.6 mg/dL (0.55-1.02); Chloride 103 mmol/L (98-107); Estimated GFR 38.09 (mL/min/1.73m2); Glucose 112 mg/dL (74-106); Magnesium 1.9 mg/dL (1.8-2.4); NT-proBNP 834 pg/mL (<300); Potassium 4.5 mmol/L (3.5-5.1); Sodium 138 mmol/L (136-145); TSH (W/Ref FT4) 2.44 uIU/mL (0.36-3.74); Total Protein 7.6 g/dL (6.4-8.2); Troponin I 49 ng/L (<or=51)
[2024-08-20 11:43] LABS: Procalcitonin < 0.10 ng/mL
[2024-08-20 11:52] LABS: COVID-19 PCR Negative (Negative); Influenza A PCR Negative (Negative); Influenza B PCR Negative (Negative); RSV PCR Negative (Negative)
[2024-08-20 12:17] LABS: Source Nasopharynx
[2024-08-20] MEDS: Omnipaque 350 MG/ML 100 ML BTL IJ (12:31)
[2024-08-20] MEDS: Normal Saline - Diluent 50 ML VIAL IJ (12:31)
[2024-08-20 13:01] LABS: Troponin I 47 ng/L (<or=51)
[2024-08-20] MEDS: Levalbuterol 1.25 MG/3 ML UPD VIAL UPD (14:14)
[2024-08-20] MEDS: levoFLOXacin 750 MG/150 ML BAG 100 MG IVPB (14:15)
[2024-08-20] MEDS: Acetaminophen 500 MG TAB PO (14:29)
--- NOTE | 2024-08-20 14:59 | W.PC.ACHO ---
Registration Status: Primary Language: Preferred Language: ED Information & Data Chief Complaint RespSymp 08/20/24 10:50 Triage Note pt seen yesterday by [facility], had 08/20/24 10:26 xray, dx'd w/ pneumonia. coming to er today increased SOB. Medical / Surgical History (Last Reviewed 12/22/23 @ 20:48 by ELLE Lucas) Abnormal uterine bleeding (AUB) Restless leg syndrome Uterine fibroid Acute ITP (Last Reviewed 12/22/23 @ 20:48 by ELLE Lucas) Ligation of fallopian tube Tooth extraction Dilation and curettage Most Recent Vital Signs Temperature 36.9 C 08/20/24 11:04 Temperature Source Oral 08/20/24 11:04 Pulse 71 08/20/24 14:50 Pulse 71 08/20/24 14:50 Respiratory Rate 31 H 08/20/24 14:50 Respiratory Effort Normal, Non-Labored 08/20/24 10:43 Blood Pressure 198/76 H 08/20/24 14:46 Blood Pressure Mean 113 08/20/24 14:46 Blood Pressure Position Supine 08/20/24 11:04 Pulse Oximetry 91 L 08/20/24 14:50 Oxygen Delivery Method Room Air 08/20/24 11:13 Oxygen Flow Rate 0 08/20/24 11:13 End Tidal Co2 2 08/20/24 11:04 Pain Level 8 08/20/24 14:29 Allergies adhesive Allergy (Intermediate, Verified 08/20/24 10:29) plastic tape-blisters Penicillins Allergy (Verified 08/20/24 10:29) Skin Rash hives ibuprofen Adverse Reaction (Verified 08/20/24 10:29) Nausea Active Medications Generic Name Dose Route Start Last Admin Trade Name Freq PRN Reason Stop Dose Admin Levofloxacin 750 mg in 150 mls @ 100 mls/hr 08/20/24 13:32 08/20/24 14:15 Levaquin Premixed Bag IVPB 08/20/24 15:01 100 mls/hr NOW ONE Administration Iohexol 100 ml 08/20/24 12:45 08/20/24 12:31 Omnipaque 350 Mg/Ml 100 Ml Btl IJ 09/19/24 23:59 100 ml DIRECTED KATHERINE Administration Sodium Chloride 50 ml 08/20/24 12:45 08/20/24 12:31 Normal Saline - Diluent 50 Ml Vial IJ 50 ml .FOR DI USE KATHERINE Administration IV IV Catheter Type [Left Saline Lock Antecubital] IV Catheter Gauge [Left 18 Antecubital] Diet Orders Category Date Time Status Heart Healthy Eating [DIET] Nutrition 08/20/24 Dinner Active Diagnostics 08/20/24 08/20/24 08/20/24 Range/Units 12:00 11:05 11:00 WBC 6.54 (4.4-10.8) 10^3/uL RBC 5.06 (3.93-5.22) 10^6/uL Hgb 14.5 (11.2-15.7) g/dL Hct 45.3 (36.0-46.0) % MCV 90 (80-95) fL MCH 28.7 (27.0-33.0) pg MCHC 32.0 (32.0-36.0) % RDW 13.0 (11.7-14.6) % Plt Count 159 (130-400) 10^3/uL MPV 10.6 (8.0-11.0) fL Immature Gran % 0.5 % Neutrophils % 63.5 % Lymphocytes % 14.4 % Monocytes % 20.9 % Eosinophils % 0.2 % Basophils % 0.5 % Nucleated RBC % 0.0 (0.0-0.3) % Absolute Neutrophils 4.16 (1.2-6.7) 10^3/uL Absolute Lymphocytes 0.94 L (1.2-3.4) 10^3/uL Absolute Monocytes 1.37 H (0.1-0.8) 10^3/uL Absolute Eosinophils 0.01 (0.0-0.7) 10^3/uL Absolute Basophils 0.03 (0.0-0.2) 10^3/uL PT 19.5 H (9.1-11.1) sec INR 2.0 H (0.9-1.1) APTT 36.8 H (20.6-30.2) sec Sodium 138 (136-145) mmol/L Potassium 4.5 (3.5-5.1) mmol/L Chloride 103 (98-107) mmol/L Carbon Dioxide 35.1 H (21.0-32.0) mmol/L Anion Gap -0.1 L (3-11) mmol/L BUN 13 (7-18) mg/dL Creatinine 1.6 H (0.55-1.02) mg/dL Est GFR (CKD-EPI 2020) 38.09 (mL/min/1.73m2) Glucose 112 H (74-106) mg/dL Calcium 9.0 (8.5-10.1) mg/dL Magnesium 1.9 (1.8-2.4) mg/dL Total Bilirubin 0.52 (0.2-1.0) mg/dL AST 22 (15-37) U/L ALT 23 (14-59) U/L Alkaline Phosphatase 69 (46-116) U/L Troponin I 47 49 (<or=51) ng/L NT-Pro-B Natriuret Pep 834 H (<300) pg/mL Total Protein 7.6 (6.4-8.2) g/dL Albumin 3.0 L (3.4-5.0) g/dL Procalcitonin < 0.10 ng/mL TSH 2.44 (0.36-3.74) uIU/mL COVID-19 Source Nasopharynx SARS-CoV-2 (PCR) Negative (Negative) Influenza Type A (PCR) Negative (Negative) Influenza Type B (PCR) Negative (Negative) RSV (PCR) Negative (Negative) 08/20/24 13:17 Blood Culture - Pending Blood 08/20/24 13:17 Blood Culture - Pending Blood Intake and Output - 24 Hour Total 08/20/24 10:21 thru 08/20/24 10:26 Weight 133.356 kg Falls Risk Assessment History of Falls No History 08/20/24 12:01 Contributing Factors Confusion 08/20/24 12:01 Ambulatory Aids Independent 08/20/24 12:01 Tubes/Lines None 08/20/24 12:01 Gait Evaluation No gait disturbance 08/20/24 12:01 Cognition No cognitive impairment 08/20/24 12:01 Fall Total Score 3 08/20/24 12:01 Level of Risk Standard/Low Risk 08/20/24 12:01 v v v v v v v v v Sending and/or Receiving Nurses: Please use comment section below to note any information pertinent to the patient hand-off not included above. Information / Comments: Report received from: niurka walters to surendra tena at [phone]
--- NOTE | 2024-08-20 15:10 | W.PM.HP.N ---
Date of service: 08/20/24 Time of Service: 15:10 Assessment and Plan Assessment and plan (1) CAP (community acquired pneumonia): Status: Acute Assessment and plan: Reports penicillin allergy with hives, so started on levofloxacin, continue this. blood and sputum cultures ordered flu/covid/rsv screens negative See below (2) Acute exacerbation of chronic obstructive pulmonary disease: Status: Acute Assessment and plan: Antibiotics as above, continue solumedrol and bronchodilators. (3) Tobacco use: Status: None Assessment and plan: discussed smoking cessation. She has cut back. she is ambivalent about chantix but willing to try initial dose while in safe setting. (4) Hypertension: Status: None Assessment and plan: continue home BP medication. BP high with missed doses this morning, give now. (5) IRA on CPAP: Status: Chronic Assessment and plan: home cpap (6) Hydronephrosis: Status: Acute Assessment and plan: noted on CT chest, get renal/bladder u/s (7) CAD (coronary artery disease): Assessment and plan: Continue atorvastatin. On anticoagulation and DAPT, which may be too much. No recent stent. Hold clopidogrel for now. (8) Aortic valve replaced: Status: Chronic Assessment and plan: With h/o embolic CVA. INR is under goal of 2-3. Give 15mg rather than the scheduled 10mg today and follow daily INR (9) DVT prophylaxis: Status: Acute Assessment and plan: on warfarin History of Present Illness History of Present Illness Chief Complaint: cough, short of breath Narrative: 54 yo F with histor of HFpEF, atrial fibrillation and mechanical aortic captain cannery tender replacement on warfarin, CAD, COPD with active smoking presenting with progressive cough and SOB x 5-6 days. Started with runny nose and congestion, then cough and some raspy throat, then more SOB. She was seen at [facility] the day prior to admission and had CXR with subtle infiltrate and was started on treatment for pneumonia with doxycycline (PCN allergy of hives). Her symptoms worsened and she come to the emergency room this morning. Some thick sputum. had respiratory infection last week. No chest pain or palpitations. Hasn't been putting on fluid/edema she can tell. Hasn't had heart issues recently. Missed her medications this morning, but has been taking them regularly including warfarin, which she takes in evening. Hasn't smoked in a few days since she has been sick. Feels better after IV steroids and nebs in the ED. Review of Systems All systems reviewed & are unremarkable except as noted in HPI and below Cardiovascular Cardiovascular: Denies chest pain, Denies chest pain with activity, Denies syncope, Denies pedal edema and Denies lightheadedness Respiratory Respiratory: Reports as per HPI and Denies hemoptysis Gastrointestinal Gastrointestinal: Denies abdominal pain, Denies melena, Denies hematochezia, Denies diarrhea, Denies nausea and Denies vomiting Genitourinary Genitourinary: Denies abnormal vaginal bleeding, Denies hematuria and Denies dysuria Neurologic Neurologic: Denies syncope Hematologic/Lymphatic Hematologic/Lymphatic: Denies easy bleeding and Denies easy bruising Comments: no recent bleeding PFSH All Active Problems Hydronephrosis (Acute) DVT prophylaxis (Acute) Acute exacerbation of chronic obstructive pulmonary disease (Acute) CAP (community acquired pneumonia) (Acute) COVID-19 (Acute) Acute dyspnea (Acute) Chest pain (Acute) Pharyngitis (Acute) Shortness of breath (Acute) On antibiotic therapy (Acute) Pneumonia (Acute) Acute bronchospasm (Acute) Cough (Acute) Shortness of breath (Acute) Chest pain (Acute) Foodborne gastroenteritis (Acute) IRA on CPAP (Chronic) Discharge planning issues (Acute) Enterocolitis (Acute) Cough with hemoptysis (Acute) Ground glass opacity present on imaging of lung (Acute) Hypokalemia (Acute) Subtherapeutic international normalized ratio (INR) (Acute) NSTEMI (non-ST elevated myocardial infarction) (Acute) Person under investigation for COVID-19 (Acute) Pneumonia (Acute) Hyperglycemia (Acute) Acute myopericarditis (Acute) Chronic anticoagulation (Acute) Internal derangement of right knee (Chronic) TIA due to embolism (Acute 10/04/16) Smoker (Chronic) Intramural leiomyoma of uterus (Acute 06/08/17) Multiple uterine fibroids-left lower quadrant pain, bladder pressure. 08/10/17. [facility]Onc consult. Recommended Aygestin therapy and surgery if Aygestin not effective. Headache (Acute) Essential hypertension (Chronic 09/20/13) BMI 40.0-44.9, adult (Acute 06/08/17) Aortic valve replaced (Chronic) [facility] Anticoagulated on warfarin (Chronic) AVR/TIA goal 2.5-3.5 Abnormal uterine bleeding (Acute 08/10/17) onset after aortic valve replacement 2005. 08/10/17 EMBx: inactive endometrium with breakdown. No dysplasia. Medical History CAD (coronary artery disease) Abnormal uterine bleeding (AUB) onset 2005 after AVR and chronic anticoagulation. Nl EMBx 2018. Pt will begin Aygestin for menstrual control. Restless leg syndrome Uterine fibroid Uterus [id number] with multiple uterine fibroids. Acute ITP Surgical History Ligation of fallopian tube Tooth extraction WISDOM TEETH REMOVAL Dilation and curettage Family History Mother Neoplasm LUNG Father Essential hypertension Heart disease STENTS Hyperlipidemia Asthma Sister No problems noted. Sister No problems noted. Brother No problems noted. Grandfather No problems noted. Grandfather No problems noted. Grandmother , BLOOD CLOTT Heart disease Grandmother No problems noted. Son Depression Son Substance abuse Depression Son Substance abuse Daughter No problems noted. 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 2 dogs and 3 cats. Many grandkids close. Meds Allergies and Home Medications Allergies Allergy/AdvReac Type Severity Reaction Status Date / Time adhesive Allergy Intermediate plastic Verified 08/20/24 10:29 tape-blisters Penicillins Allergy Skin Rash Verified 08/20/24 10:29 ibuprofen AdvReac Nausea Verified 08/20/24 10:29 Home Medications ?Medication ?Instructions ?Recorded ?Confirmed ?Type acetaminophen 500 mg tablet (Mapap 500 mg PO PRN PRN 08/19/13 08/20/24 History Extra Strength) albuterol sulfate 90 mcg/actuation 1 - 2 puff inhalation Q4H PRN PRN 07/17/20 08/20/24 History aerosol inhaler ferrous gluconate 324 mg (38 mg 324 mg PO BID 07/17/20 08/20/24 History iron) tablet amlodipine 10 mg tablet 10 mg PO DAILY 09/20/20 08/20/24 History aspirin 81 mg chewable tablet 81 mg PO DAILY 09/20/20 08/20/24 History atorvastatin 80 mg tablet 80 mg PO QPM 09/20/20 08/20/24 History clopidogrel 75 mg tablet 75 mg PO DAILY 09/20/20 08/20/24 History lisinopril 20 mg tablet 20 mg PO DAILY 12/21/20 08/20/24 History benzonatate 100 mg capsule 100 mg PO TID PRN cough #14 caps 12/11/23 08/20/24 Rx doxycycline hyclate 100 mg capsule 100 mg PO BID #14 caps 12/11/23 08/20/24 Rx warfarin 5 mg tablet See Rx Instructions .Route .COMPLEX 08/20/24 08/20/24 History Results Imaging Chest x-ray: report reviewed and image reviewed CT scan - chest: report reviewed EKG: report reviewed and image reviewed (NSR, nl axis, RBBB, no acute NM, no significant change from 03/17/21) Imaging Studies: CT chest: 1. No evidence of acute pulmonary emboli. No evidence of pulmonary infarction.However, there are patchy areas of bilateral ground-glass infiltrates in both lung waters. No pleural effusions. 2. Mild bilateral hilar and subcarinal lymphadenopathy noted. 3. Sternotomy wires. Prosthetic aortic valve. 4 cm diameter ascending thoracic aorta. No evidence of aortic dissection nor pericardial effusion. Partially included left kidney exhibits hydronephrosis. Should be further studied. Labs 08/20/24 11:00 08/20/24 11:00 Labs: Laboratory Results - last 24 hr 08/20/24 08/20/24 08/20/24 11:00 11:05 12:00 WBC 6.54 RBC 5.06 Hgb 14.5 Hct 45.3 MCV 90 MCH 28.7 MCHC 32.0 RDW 13.0 Plt Count 159 MPV 10.6 Immature Gran % 0.5 Neutrophils % 63.5 Lymphocytes % 14.4 Monocytes % 20.9 Eosinophils % 0.2 Basophils % 0.5 Nucleated RBC % 0.0 Absolute Neutrophils 4.16 Absolute Lymphocytes 0.94 L Absolute Monocytes 1.37 H Absolute Eosinophils 0.01 Absolute Basophils 0.03 PT 19.5 H INR 2.0 H APTT 36.8 H Sodium 138 Potassium 4.5 Chloride 103 Carbon Dioxide 35.1 H Anion Gap -0.1 L BUN 13 Creatinine 1.6 H Est GFR (CKD-EPI 2020) 38.09 Glucose 112 H Calcium 9.0 Magnesium 1.9 Total Bilirubin 0.52 AST 22 ALT 23 Alkaline Phosphatase 69 Troponin I 49 47 NT-Pro-B Natriuret Pep 834 H Total Protein 7.6 Albumin 3.0 L Procalcitonin < 0.10 TSH 2.44 COVID-19 Source Nasopharynx SARS-CoV-2 (PCR) Negative Influenza Type A (PCR) Negative Influenza Type B (PCR) Negative RSV (PCR) Negative Last Vital Signs Temp 36.9 C 08/20/24 11:04 Pulse 71 08/20/24 14:50 Resp 31 H 08/20/24 14:50 BP 198/76 H 08/20/24 14:46 Pulse Ox 91 L 08/20/24 14:50 PAWSS Have you Been Recently Intoxicated or Drunk Within the Last 30 days?: No Have you Ever Experienced Previous Episodes of Alcohol Withdrawal?: No Have you ever Experienced Withdrawal Seizures?: No Have you ever Experienced Delirium Tremens(DT)s?: No Have you ever undergone Alcohol Rehabilitation Treatment (i.e, inpt ot outpatient treatment programs)?: No Have you ever Experienced Blackouts?: No Have you ever Combined Alcohol with other Downers within the last 90 days?: No Have you ever Combined Alcohol with any other Substance of Abuse during the last 90 days?: No Positive Blood Alcohol level on Presentation? [PCS.BAL]: No Evidence of Increased Autonomic Activity (i.e. HR>120, tremor, sweating, agitation, nausea)?: No Result: 0 Time Spent Time spent with Patient: 55-74 minutes Time was spent: preparing to see the patient(eg.review tests), obtaining and/or reviewing separately otained hiistory, ordering medications,tests, procedures, referring, communicating with other health career services coordinator, indepentently interpreting results, counseling the patient and care coordination
[2024-08-20] MEDS: Lisinopril 20 MG TAB PO (16:55)
[2024-08-20] MEDS: amLODIPine 5 MG TAB 10 MG PO (16:55)
[2024-08-20] MEDS: methylPREDNISolone SUCC 125 MG VIAL 80 MG IVP (17:34)
[2024-08-20] MEDS: Varenicline 1 MG TAB 0.5 MG PO (20:29)
[2024-08-20] MEDS: Atorvastatin 40 MG TAB 80 MG PO (20:30)
[2024-08-20] MEDS: Warfarin 5 MG TAB 15 MG PO (20:30)
[2024-08-20] MEDS: Normal Saline Flush 10 ML SYR IVP (20:31)
[2024-08-21] VITALS (16 sets, daily range): BP systolic 118–148; BP diastolic 58–81; PULSE 59–85; RESP 5–24; TEMP 36.3–36.8; O2SAT 89–99
[2024-08-21] MEDS: Albuterol/Ipratropium 3 ML UPD VIAL UPD ×4 (02:07→20:40)
[2024-08-21] MEDS: Normal Saline Flush 10 ML SYR IVP ×3 (02:19→21:02)
[2024-08-21] MEDS: methylPREDNISolone SUCC 125 MG VIAL 80 MG IVP (02:20)
[2024-08-21 06:50] LABS: INR 2.6 (0.9-1.1); Prothrombin Time 24.4 sec (9.1-11.1)
[2024-08-21 06:53] LABS: Anion Gap 4.3 mmol/L (3-11); BUN 18 mg/dL (7-18); CO2 29.7 mmol/L (21.0-32.0); CREATININE 1.6 mg/dL (0.55-1.02); Calcium 9.1 mg/dL (8.5-10.1); Chloride 104 mmol/L (98-107); Estimated GFR 38.09 (mL/min/1.73m2); Glucose 173 mg/dL (74-106); Potassium 4.5 mmol/L (3.5-5.1); Sodium 138 mmol/L (136-145)
--- NOTE | 2024-08-21 07:00 | DI.US_ITS ---
Exam(s) US RENAL EXAM: US RENAL CLINICAL HISTORY: hydronephrosis on CTA of chest TECHNIQUE: Ultrasound of both kidneys performed using standard protocol. COMPARISON: US US ABDOMEN LIMITED from 08/30/[address] CHEST PE CTA from 08/20/2024 FINDINGS: RIGHT KIDNEY: Measures 11.6 cm in length. There is a 2.5 x 2.6 cm exophytic cyst off the midpole level of the right kidney. This is a benign finding which does not require further workup. Normal cortical thickness and corticomedullary differentiation .No solid masses No intrarenal calculi nor hydronephrosis. LEFT KIDNEY: Measures 12.5 cm in length. No cysts evident. Normal cortical thickness and corticomedullary differe ntiaion. No solids masses. There is moderate-severe unilateral left-sided hydronephrosis. No obviou s calculi seen within the left kidney. URINARY BLADDER: Prevoid volume is 179 cc Postvoid volume is 0 cc No evidence of bladder mass nor diverticuli. Ureterovesical jets: The right ureterovesical jet was identified. The left was not, further evidence that there is left-sided obstruction. IMPRESSION: 1. Left-sided hydronephrosis and hydroureter. Lack of visualization of the left ureterovesical jet within the urinary bladder is also evidence of significant left-sided Obstruction. Recommend follow-up CT scan. DATA REPOSITORY:
[2024-08-21] MEDS: Aspirin 81 MG CHEW PO (08:55)
[2024-08-21] MEDS: predniSONE 20 MG TAB 40 MG PO (08:55)
[2024-08-21] MEDS: Carvedilol 12.5 MG TAB PO ×2 (08:55→21:00)
[2024-08-21] MEDS: Ferrous Gluconate 324 MG TAB PO (08:55)
[2024-08-21] MEDS: Pantoprazole 40 MG TABCR PO (08:55)
[2024-08-21] MEDS: Varenicline 1 MG TAB 0.5 MG PO ×2 (08:55→20:59)
--- NOTE | 2024-08-21 09:24 | PDOC.CMIN ---
Date of service: 08/21/24 Time of Service: 09:24 Care Management Initial Assmt Initial Assessment Reason for Hospitalization: community acquired pneumonia Functional Status/Living Situation Patient Presentation: Juani was lying in bed visiting with her Garcia when CM met with her. She was alert and oriented and easily engaged with CM. Juani was admitted with pneumonis. She has been requiring supplemental oxygen at 3l/min and her oxygen saturation level remains at 89-91%. She does not have home oxygen although she does carry a diagnosis of COPD and IRA. Juani has shared that she has a home Cpap machine but has not used it in a couple of years. Juani lives in a single family home in [place] with her . She has 4 adult children who live locally and who are supportive. Juani is independent at baseline and does not receive any services. She works for [employer]. Town of Residence: [place] Resides with: Spouse ( Garcia) Employment Status: Employed ([employer]) Instrumental Activities of Daily Living (ADLs): Independent Medications Medication Management: No Issues/Barriers identified Physical Functioning/Mobility Assistive Device: none Advance Directives Advance Directives: Do you have an Advance Directive: N 08/20/24 14:58 AD On File at [facility]: N 09/20/12 13:15 Date Asked 08/20/24 08/20/24 13:38 AD Date Reviewed COLST On File at [facility] COLST Date Scanned Code Status Resuscitation Status Full Code Portal Pt does not currently have a portal and education provided: No Insurance Coverage/Financial Issues Insurance: MVP Care Team Visit Care Team Role Provider Type Erin Mon Primary Care Provider [facility] STAFF PHYSICIAN Florentin Adams MD Emergency Provider [facility] STAFF PHYSICIAN Yunior Mcclendon Admit Provider [facility] STAFF PHYSICIAN Attending Provider Discharge Potential Discharge Needs: PCP F/U Appt Anticipated Barriers to Discharge: None Identified Patient/Family Education Needs: Review discharge instructions, discuss Ask Me Three Transportation: Private vehicle Plan: Anticipate Juani will be discharged home with no new services when medically cleared by provider. She will follow up with her PCP and plan of care and transport with family. CM will follow and continue to support discharge planning efforts. Social Determinants of Health Screening Social Determinants of Health last assessed: 08/21/24 Will the Patient Participate in the Screening?: Yes Do you worry about having a steady place to live?: no Problems where you live: no known problems In the past 12 months, have you had to go without electric, gas, oil or water in your home?: no Have you or anyone in your house had to go without enough food to eat?: no Has lack of transportation kept you from medical appointments or from doing things needed for daily living?: no Has anyone in your life made you feel unsafe or unsupported?: no How hard is it for you to pay for the very basics like food, housing, medical care, and heating? Would you say it is:: Not hard at all Do you want help finding or keeping work or a job?: I do not need or want help If for any reason you need help with day-to-day activities such as bathing, preparing meals, shopping, managing finances, etc., do you get the help you need?: I don?t need any help How often do you feel lonely or isolated from those around you?: Never Do you speak a language other than Serbian at home?: No PFSH All Active Problems Hydronephrosis (Acute) DVT prophylaxis (Acute) Acute exacerbation of chronic obstructive pulmonary disease (Acute) CAP (community acquired pneumonia) (Acute) COVID-19 (Acute) Acute dyspnea (Acute) Chest pain (Acute) Pharyngitis (Acute) Shortness of breath (Acute) On antibiotic therapy (Acute) Pneumonia (Acute) Acute bronchospasm (Acute) Cough (Acute) Shortness of breath (Acute) Chest pain (Acute) Foodborne gastroenteritis (Acute) IRA on CPAP (Chronic) Discharge planning issues (Acute) Enterocolitis (Acute) Cough with hemoptysis (Acute) Ground glass opacity present on imaging of lung (Acute) Hypokalemia (Acute) Subtherapeutic international normalized ratio (INR) (Acute) NSTEMI (non-ST elevated myocardial infarction) (Acute) Person under investigation for COVID-19 (Acute) Pneumonia (Acute) Hyperglycemia (Acute) Acute myopericarditis (Acute) Chronic anticoagulation (Acute) Internal derangement of right knee (Chronic) TIA due to embolism (Acute 10/04/16) Smoker (Chronic) Intramural leiomyoma of uterus (Acute 06/08/17) Multiple uterine fibroids-left lower quadrant pain, bladder pressure. 08/10/17. 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 Recommended Aygestin therapy and surgery if Aygestin not effective. Headache (Acute) Essential hypertension (Chronic 09/20/13) BMI 40.0-44.9, adult (Acute 06/08/17) Aortic valve replaced (Chronic) [facility] Anticoagulated on warfarin (Chronic) AVR/TIA goal 2.5-3.5 Abnormal uterine bleeding (Acute 08/10/17) onset after aortic valve replacement 2005. 08/10/17 EMBx: inactive endometrium with breakdown. No dysplasia. Medical History CAD (coronary artery disease) Abnormal uterine bleeding (AUB) onset 2005 after AVR and chronic anticoagulation. Nl EMBx 2018. Pt will begin Aygestin for menstrual control. Restless leg syndrome Uterine fibroid Uterus [id number] with multiple uterine fibroids. Acute ITP Surgical History Ligation of fallopian tube Tooth extraction WISDOM TEETH REMOVAL Dilation and curettage Family History Mother Neoplasm LUNG Father Essential hypertension Heart disease STENTS Hyperlipidemia Asthma Sister No problems noted. Sister No problems noted. Brother No problems noted. Grandfather No problems noted. Grandfather No problems noted. Grandmother , BLOOD CLOTT Heart disease Grandmother No problems noted. Son Depression Son Substance abuse Depression Son Substance abuse Daughter No problems noted. 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 Many grandkids close.
[2024-08-21] MEDS: Furosemide 20 MG TAB PO ×2 (10:26→15:47)
[2024-08-21] MEDS: Acetaminophen 325 MG TAB PO ×2 (11:10→22:06)
[2024-08-21] MEDS: levoFLOXacin 500 MG/100 ML BAG 100 MG IV (13:46)
[2024-08-21] MEDS: levoFLOXacin 250 MG/50 ML BAG 50 MG IV (14:48)
--- NOTE | 2024-08-21 15:41 | W.PM.PROGNOT ---
Date of Service Date of service: 08/21/24 Time of Service: 15:41 Assessment and Plan Assessment and plan (1) CAP (community acquired pneumonia): Status: Acute Assessment and plan: Reports penicillin allergy with hives, so started on levofloxacin, continue this. blood and sputum cultures pending flu/covid/rsv screens negative See below (2) Acute exacerbation of chronic obstructive pulmonary disease: Status: Acute Assessment and plan: Antibiotics as above, continue bronchodilators, transition steroids to oral (3) Tobacco use: Status: None Assessment and plan: discussed smoking cessation. She has cut back. tolerating verenicline, consider continuing on discharge. (4) Hypertension: Status: None Assessment and plan: continue home BP medication, controlled now (5) IRA on CPAP: Status: Chronic Assessment and plan: not using home cpap, contributing to low O2 at night. Plans f/u as outpatient sleep clinic (6) Hydronephrosis: Status: Acute Assessment and plan: Noted on renal/bladder u/s, CT recommended, plan tomorrow as had contrast 08/20 (7) CAD (coronary artery disease): Assessment and plan: Continue atorvastatin. On anticoagulation and DAPT, which may be too much. No recent stent. Holding clopidogrel (8) Aortic valve replaced: Status: Chronic Assessment and plan: With h/o embolic CVA. INR at goal of 2.5-3.5, routine dose today 12.5, follow daily INR as on levofloxacin (9) DVT prophylaxis: Status: Acute Assessment and plan: on warfarin Subjective Subjective Patient reports: no new complaints and tolerating a regular diet; denies diarrhea, nausea, vomiting or fever Interval history since last seen: O2 to 3 liters overnight. Even so, she feels a little better today. No fever, a little more comfortable. Didn't sleep well last night, uses melatonin at times at home Exam Narrative Exam Narrative: Alert and oriented, sitting up in bed, NAD, speaking in full sentences. Lungs: Good air movement bilaterally, slight rhochi more at bases mingo on expiration, normal effort Cardiovascular regular rate and rhythm no murmurs ABD: soft, NT/ND EXT: slightly pitting bilateral LE edema, not tender, no wounds, warm Objective Last Vital Signs Temp 36.6 C 08/21/24 12:31 Pulse 59 L 08/21/24 13:59 Resp 24 08/21/24 13:52 BP 126/65 08/21/24 12:31 Pulse Ox 92 08/21/24 13:52 Laboratory Results - last 24 hr 08/21/24 06:20 PT 24.4 H INR 2.6 H Sodium 138 Potassium 4.5 Chloride 104 Carbon Dioxide 29.7 Anion Gap 4.3 BUN 18 Creatinine 1.6 H Est GFR (CKD-EPI 2020) 38.09 Glucose 173 H Calcium 9.1 PAWSS Have you Been Recently Intoxicated or Drunk Within the Last 30 days?: No Have you Ever Experienced Previous Episodes of Alcohol Withdrawal?: No Have you ever Experienced Withdrawal Seizures?: No Have you ever Experienced Delirium Tremens(DT)s?: No Have you ever undergone Alcohol Rehabilitation Treatment (i.e, inpt ot outpatient treatment programs)?: No Have you ever Experienced Blackouts?: No Have you ever Combined Alcohol with other Downers within the last 90 days?: No Have you ever Combined Alcohol with any other Substance of Abuse during the last 90 days?: No Positive Blood Alcohol level on Presentation? [PCS.BAL]: No Evidence of Increased Autonomic Activity (i.e. HR>120, tremor, sweating, agitation, nausea)?: No Result: 0 Time Spent with Patient Time Spent with Patient: 35-49 minutes Time was spent: preparing to see the patient(eg.review tests), obtaining and/or reviewing separately otained hiistory, ordering medications,tests, procedures, referring, communicating with other health post acute care nurse, indepentently interpreting results, counseling the patient and care coordination
[2024-08-21] MEDS: Warfarin 5 MG TAB 12.5 MG PO (21:00)
[2024-08-21] MEDS: Atorvastatin 40 MG TAB 80 MG PO (21:01)
[2024-08-21] MEDS: Melatonin 3 MG TAB 6 MG PO (21:01)
[2024-08-22] VITALS (13 sets, daily range): BP systolic 116–159; BP diastolic 65–88; PULSE 59–90; RESP 3–24; TEMP 36.2–37.1; O2SAT 91–95
[2024-08-22] MEDS: Albuterol/Ipratropium 3 ML UPD VIAL UPD ×4 (02:54→20:02)
--- NOTE | 2024-08-22 07:00 | DI.CT_ITS ---
Exam(s) CT ABDOMEN PELVIS WO/W EXAM: CT ABDOMEN PELVIS WO/W CLINICAL HISTORY: hydronephrosis on u/s on left, CT recommended. TECHNIQUE: Imaging Protocol: Axial computed tomography images with coronal and sagittal reformatted images were created and reviewed CONTRAST MATERIAL: Intravenous: Omnipaque-350 100cc Oral: None COMPARISON: CT CT ABDOMEN PELVIS W from 10/13/2020 FINDINGS: VISUALIZED LUNG BASES: Atelectasis and mild infiltrate in the left lung base posterior basal segment left lower lobe. Milder increased markings are noted in the right lung base. There are no pleural e ffusions.. ABDOMEN: There is no ascites. LIVER: There are no focal hepatic lesions evident. No dilated intrahepatic ducts. GALLBLADDER/BILIARY: No obvious gallbladder pathology. CBD is not dilated. PANCREAS: No evidence of pancreatic mass nor dilatation of the pancreatic duct. SPLEEN: Spleen is not enlarged. No obvious intrasplenic lesions. Splenic and portal veins arexzx pa tent. ADRENALS: There are no significant adrenal masses. KIDNEYS:There is a benign cyst in the lateral cortex of the right kidney measuring 2.4 by 1.6 cm, not requiring further imaging workup. There is a punctate nonobstructive calculus in the right kidney. No hydronephrosis of the right kidney. No solid mass in the right kidney. Left kidney also exhibits a benign 3 cm x 3 cm inferior pole cyst posteriorly. However, there is sig nificant hydronephrosis of the left kidney which was not present on prior CT scan of 10/13/2020 in th e obstruction appears to be in the upper ureter at the UPJ level with significant dilatation of the i psilateral renal pelvis 4.7 cm diameter. The urine in the dilated left upper system is uniformly hyp erdense. The left renal cortical mantle is not significantly thinned. The left ureter below the UPJ is not dilated and there is no obvious abnormality in the nondistended urinary bladder. ABDOMINAL AORTA: Abdominal aorta is not enlarged. LYMPH NODES:There is no retroperitoneal nor paraaortic adenopathy. ABDOMINAL WALL: There is a midline fat only containing umbilical hernia. In addition, there is an ab normal subcutaneous density over the lower left side of the pannus which was not evident on the prior 2020 study and measures 4 by 3.2 cm and exhibits some overlying skin thickening. This does not cont ain gas bubbles. Possibly represents hematoma from injection site. Cannot exclude abscess. No othe r significant subcutaneous abnormalities are noted. GI: There is no evidence of bowel obstruction, free air, PELVIS: GI: No evidence of appendicitis.Sigmoid diverticuli without evidence of acute diverticulitis. LYMPH NODES: There is no intrapelvic nor inguinal adenopathy. REPRODUCTIVE: Calcified uterine fibroids are noted. No abnormal adnexal masses. URINARY BLADDER: No calculi nor obvious masses evident OSSEOUS: No fractures and no significant osseous lesions. Chronic degenerative disc disease L4-5 and L5-S1 levels. No listhesis. IMPRESSION: 1. There is significant hydronephrosis of the left kidney which appears to be related to the UPJ leve l with significant dilatation above this level and the left ureter not dilated below the UPJ level. There does not appear to be an obvious radiopaque calculus at this level nor obvious impinging mass. I note there is a small punctate radiopaque calculus in the opposite-right kidney. The urine within the dilated left upper collecting system is uniformly hyperdense, either related to infection or blo od. There is no gas within the left kidney. No obvious findings in the urinary bladder. Urology co nsultation is recommended. 2. Sigmoid diverticulosis without evidence of acute diverticulitis. No appendicitis. 3. There is a 4 x 3.2 cm abnormal subcutaneous density in the left side of the fat pannus over the pe lvis with overlying skin thickening. This may be hematoma related to prior injections site. Cannot exclude developing abscess at this level. There is some skin thickening over this region, possibly c ellulitis. 4. Other findings as above. RADIATION DOSE DELIVERED: 3,510.67mGy.cm Total DLP DATA REPOSITORY: All CT scans at this facility are submitted to the National Radiology Data Registry (NRDR) Dose Index Registry (DIR) with the [employer] (ACR). RADIATION OPTIMIZATION: All CT scans at this facility use at least one of these dose optimization te chniques: automated exposure control; mA and/or kV adjustment per patient size (includes targeted exa ms where dose is matched to clinical indication); or iterative reconstruction.
[2024-08-22 07:17] LABS: Prothrombin Time 42.4 sec (9.1-11.1)
[2024-08-22 07:22] LABS: INR 4.7 (0.9-1.1)
[2024-08-22] MEDS: Normal Saline - Diluent 50 ML VIAL IJ ×2 (09:27→09:28)
[2024-08-22] MEDS: Omnipaque 350 MG/ML 500 ML BTL-Imaging package IJ (09:29)
[2024-08-22] MEDS: Furosemide 20 MG TAB PO ×2 (09:50→15:51)
[2024-08-22] MEDS: Varenicline 1 MG TAB 0.5 MG PO ×2 (09:50→20:03)
[2024-08-22] MEDS: predniSONE 20 MG TAB 40 MG PO (09:50)
[2024-08-22] MEDS: Carvedilol 12.5 MG TAB PO ×2 (09:51→20:02)
[2024-08-22] MEDS: Pantoprazole 40 MG TABCR PO (09:51)
[2024-08-22] MEDS: Ferrous Gluconate 324 MG TAB PO (09:51)
[2024-08-22] MEDS: Aspirin 81 MG CHEW PO (09:51)
[2024-08-22] MEDS: Normal Saline Flush 10 ML SYR IVP ×2 (09:52→20:02)
--- NOTE | 2024-08-22 10:32 | PDOC.CMPRO ---
Date of service: 08/22/24 Time of Service: 10:32 Care Management Progress Note Progress Note Text Progress Note Text: Juani was lying in bed and appeared to be sleeping comfortably when CM met with her. She is being treated with steroids and IV abx and still on supplemental O2, currently 95% on 3L NC. CM did not wake her, and will check back with Juani in the morning. Of note, Juani's C-pap machine was recalled and she hasn't use it in years and may benefit from a new sleep study. Discharge Potential Discharge Needs: PCP F/U Appt Anticipated Barriers to Discharge: Medical Status Patient/Family Education Needs: Review discharge instructions, discuss Ask Me Three Transportation: Private vehicle Plan: Anticipate Juani will be discharged home with no new services when medically cleared by provider. She will follow up with her PCP and plan of care and transport with family. CM will follow and continue to support discharge planning efforts. Social Determinants of Health Screening Social Determinants of Health last assessed: 08/22/24 Will the Patient Participate in the Screening?: Yes Do you worry about having a steady place to live?: no Problems where you live: no known problems In the past 12 months, have you had to go without electric, gas, oil or water in your home?: no Have you or anyone in your house had to go without enough food to eat?: no Has lack of transportation kept you from medical appointments or from doing things needed for daily living?: no Has anyone in your life made you feel unsafe or unsupported?: no How hard is it for you to pay for the very basics like food, housing, medical care, and heating? Would you say it is:: Not hard at all Do you want help finding or keeping work or a job?: I do not need or want help If for any reason you need help with day-to-day activities such as bathing, preparing meals, shopping, managing finances, etc., do you get the help you need?: I don?t need any help How often do you feel lonely or isolated from those around you?: Never Do you speak a language other than Kiswahili at home?: No
[2024-08-22] MEDS: levoFLOXacin 500 MG/100 ML BAG 100 MG IV (14:38)
--- NOTE | 2024-08-22 14:53 | CHAPLAIN ---
Juani was sitting up in bed when I visited. She said she is waiting to hear if she has kidney stones along with having pneumonia. She's in touch with family and expects her to visit after work. I explained my role and offered support.
[2024-08-22] MEDS: levoFLOXacin 250 MG/50 ML BAG 50 MG IV (15:51)
--- NOTE | 2024-08-22 18:23 | PGE_ITS ---
Date of Service Date of service: 08/22/24 Time of Service: 18:23 Assessment and Plan Assessment and plan (1) CAP (community acquired pneumonia): Status: Acute Assessment and plan: Reports penicillin allergy with hives, so started on levofloxacin, continue this. blood and sputum cultures pending flu/covid/rsv screens negative See below (2) Acute exacerbation of chronic obstructive pulmonary disease: Status: Acute Assessment and plan: Antibiotics as above, continue bronchodilators, transition steroids to oral (3) Tobacco use: Status: None Assessment and plan: discussed smoking cessation. She has cut back. tolerating verenicline, consider continuing on discharge. (4) Hypertension: Status: None Assessment and plan: continue home BP medication, controlled now (5) IRA on CPAP: Status: Chronic Assessment and plan: not using home cpap, contributing to low O2 at night. Plans f/u as outpatient sleep clinic (6) Hydronephrosis: Status: Acute Assessment and plan: Noted on renal/bladder u/s, CT recommended, plan tomorrow as had contrast 08/2008.22.24 CT scan results below. Will consult Urology IMPRESSION: 1. There is significant hydronephrosis of the left kidney which appears to be related to the UPJ level with significant dilatation above this level and the left ureter not dilated below the UPJ level. There does not appear to be an obvious radiopaque calculus at this level nor obvious impinging mass. I note there is a small punctate radiopaque calculus in the opposite-right kidney. The urine within the dilated left upper collecting system is uniformly hyperdense, either related to infection or blood. There is no gas within the left kidney. No obvious findings in the urinary bladder. Urology consultation is recommended. 2. Sigmoid diverticulosis without evidence of acute diverticulitis. No appendicitis. 3. There is a 4 x 3.2 cm abnormal subcutaneous density in the left side of the fat pannus over the pelvis with overlying skin thickening. This may be hematoma related to prior injections site. Cannot exclude developing abscess at this level. There is some skin thickening over this region, possibly cellulitis. 4. Other findings as above. (7) CAD (coronary artery disease): Assessment and plan: Continue atorvastatin. On anticoagulation and DAPT, which may be too much. No recent stent. Holding clopidogrel (8) Aortic valve replaced: Status: Chronic Assessment and plan: With h/o embolic CVA. INR at goal of 2.5-3.5, routine dose today 12.5, follow daily INR as on levofloxacin 2.13.25 INR at 4.7 Will hold coumadin Pt has had mechanical valve replacement x2 (9) DVT prophylaxis: Status: Acute Assessment and plan: on warfarin Subjective Subjective Interval history since last seen: Pt seen and examined this am. Pt does c/o a history of hematuria. POC d/w pt as well as with bedside nurse during MDR/ Exam Narrative Exam Narrative: Alert and oriented, sitting up in bed, NAD, speaking in full sentences. Lungs: Good air movement bilaterally, slight rhochi more at bases mingo on expiration, normal effort Cardiovascular regular rate and rhythm no murmurs ABD: soft, NT/ND EXT: slightly pitting bilateral LE edema, not tender, no wounds, warm Objective Last Vital Signs Temp 36.2 C L 08/22/24 14:43 Pulse 75 08/22/24 14:43 Resp 20 08/22/24 14:43 BP 116/66 08/22/24 14:43 Pulse Ox 95 08/22/24 14:43 Laboratory Results - last 24 hr 08/22/24 06:40 PT 42.4 H INR 4.7 H* PAWSS Have you Been Recently Intoxicated or Drunk Within the Last 30 days?: No Have you Ever Experienced Previous Episodes of Alcohol Withdrawal?: No Have you ever Experienced Withdrawal Seizures?: No Have you ever Experienced Delirium Tremens(DT)s?: No Have you ever undergone Alcohol Rehabilitation Treatment (i.e, inpt ot outpatient treatment programs)?: No Have you ever Experienced Blackouts?: No Have you ever Combined Alcohol with other Downers within the last 90 days?: No Have you ever Combined Alcohol with any other Substance of Abuse during the last 90 days?: No Positive Blood Alcohol level on Presentation? [PCS.BAL]: No Evidence of Increased Autonomic Activity (i.e. HR>120, tremor, sweating, agitation, nausea)?: No Result: 0 Time Spent with Patient Time Spent with Patient: 25-34 minutes Time was spent: preparing to see the patient(eg.review tests), obtaining and/or reviewing separately otained hiistory, ordering medications,tests, procedures, referring, communicating with other health child care supervisor, indepentently interpreting results, counseling the patient and care coordination
[2024-08-22] MEDS: Atorvastatin 40 MG TAB 80 MG PO (20:02)
[2024-08-22] MEDS: Melatonin 3 MG TAB 6 MG PO (20:02)
[2024-08-22] MEDS: Acetaminophen 325 MG TAB PO (20:26)
[2024-08-23] VITALS (15 sets, daily range): BP systolic 122–146; BP diastolic 64–82; PULSE 57–88; RESP 3–28; TEMP 36.1–36.7; O2SAT 93–96
[2024-08-23] MEDS: Albuterol/Ipratropium 3 ML UPD VIAL UPD ×4 (02:12→21:05)
[2024-08-23 06:59] LABS: Abs Immature Grans 0.07 10^3/uL (0.0-0.06); Absolute Basophil Count 0.02 10^3/uL (0.0-0.2); Absolute Eosinophil Count 0.01 10^3/uL (0.0-0.7); Absolute Lymphocyte Count 1.95 10^3/uL (1.2-3.4); Absolute Monocyte Count 1.38 10^3/uL (0.1-0.8); Absolute Neutrophil Count 8.96 10^3/uL (1.2-6.7); Basophils % 0.2 %; Eosinophils % 0.1 %; HCT 42.6 % (36.0-46.0); HGB 13.6 g/dL (11.2-15.7); Immature Grans % 0.6 %; Lymphocytes % 15.7 %; MCH 29.1 pg (27.0-33.0); MCHC 31.9 % (32.0-36.0); MCV 91 fL (80-95); MPV 10.5 fL (8.0-11.0); Monocytes % 11.1 %; Neutrophils % 72.3 %; Platelet Count 168 10^3/uL (130-400); RBC 4.67 10^6/uL (3.93-5.22); RDW-SD 43.8 fL; WBC 12.39 10^3/uL (4.4-10.8)
[2024-08-23 07:19] LABS: ALT 22 U/L (14-59); AST 12 U/L (15-37); Albumin 2.5 g/dL (3.4-5.0); Alkaline Phosphatase 54 U/L (46-116); Anion Gap 1.3 mmol/L (3-11); BUN 33 mg/dL (7-18); CO2 34.7 mmol/L (21.0-32.0); CREATININE 1.6 mg/dL (0.55-1.02); Calcium 8.7 mg/dL (8.5-10.1); Chloride 105 mmol/L (98-107); Estimated GFR 38.09 (mL/min/1.73m2); Glucose 96 mg/dL (74-106); Potassium 4.2 mmol/L (3.5-5.1); Sodium 141 mmol/L (136-145); Total Protein 6.4 g/dL (6.4-8.2)
[2024-08-23 07:31] LABS: Prothrombin Time 50.7 sec (9.1-11.1)
--- NOTE | 2024-08-23 07:38 | UCONE_ITS ---
Date of service: 08/23/24 Time of Service: 07:38 Assessment and Plan Assessment and plan (1) Hydronephrosis: Status: Acute Assessment and plan: The hydronephrosis appears to be due to to a UPJ obstruction. This is a new finding compared to previous scans of 4 years ago, but she is completely asymptomatic at this time There is no radiographic evidence of a mass in the renal pelvis, but she is a smoker, so I am recommending a voided urine for cytology. The absence of blood in the urine both grossly and microscopically is reassuring but an abnormal cytology would lead us to a recommendation for an invasive procedure such as cystoscopy or even ureteroscopy.. Ultimately, she will need a nuclear renogram with Lasix washout to detect her renal function and degree of obstruction. Depending on her renal function, we would then decide if treatment would be helpful. Treatments to consider would be stenting, endopyelotomy or dismembered pyeloplasty. If her renal function has already been compromised significantly, no treatment would be indicated unless the patient became symptomatic. The remainder of her workup can be done as an outpatient once she is recovered from her pneumonia. If her left hydronephrosis does become symptomatic in the meantime, a temporary ureteral stent can be offered. Clinically, she has no evidence of pyelonephritis. Her urine is reassuring for the absence of infection. History of Present Illness History of Present Illness Chief Complaint: Left UPJ obstruction Narrative: This is a 54-year-old woman who is currently admitted for pneumonia. As part of her evaluation, she had a chest CT. The lower cuts of the CT demonstrated a left hydronephrosis. This finding then prompted a renal ultrasound followed by a CT urogram. She has persistent left hydronephrosis with an apparent UPJ obstruction. No stone or mass is seen at the UPJ. I have been asked to see her for this new finding. The patient has no history of pyelonephritis. She has no flank pain. She does have some bilateral discomfort which she believes is related to excessive coughing recently. She has not seen any gross hematuria. She is a smoker. She has no history of kidney stones or urologic surgery Review of Systems Narrative: She admits to a cough but has no hemoptysis She has no current chest pain or palpitations She has no nausea or vomiting She has easy bruising. She is on anticoagulants chronically She has no seizures or strokes PFSH All Active Problems Hydronephrosis (Acute) DVT prophylaxis (Acute) Acute exacerbation of chronic obstructive pulmonary disease (Acute) CAP (community acquired pneumonia) (Acute) COVID-19 (Acute) Acute dyspnea (Acute) Chest pain (Acute) Pharyngitis (Acute) Shortness of breath (Acute) On antibiotic therapy (Acute) Pneumonia (Acute) Acute bronchospasm (Acute) Cough (Acute) Shortness of breath (Acute) Chest pain (Acute) Foodborne gastroenteritis (Acute) IRA on CPAP (Chronic) Discharge planning issues (Acute) Enterocolitis (Acute) Cough with hemoptysis (Acute) Ground glass opacity present on imaging of lung (Acute) Hypokalemia (Acute) Subtherapeutic international normalized ratio (INR) (Acute) NSTEMI (non-ST elevated myocardial infarction) (Acute) Person under investigation for COVID-19 (Acute) Pneumonia (Acute) Hyperglycemia (Acute) Acute myopericarditis (Acute) Chronic anticoagulation (Acute) Internal derangement of right knee (Chronic) TIA due to embolism (Acute 10/04/16) Smoker (Chronic) Intramural leiomyoma of uterus (Acute 06/08/17) Multiple uterine fibroids-left lower quadrant pain, bladder pressure. 08/10/17. [facility] [place] [facility]Onc consult. Recommended Aygestin therapy and surgery if Aygestin not effective. Headache (Acute) Essential hypertension (Chronic 09/20/13) BMI 40.0-44.9, adult (Acute 06/08/17) Aortic valve replaced (Chronic) [facility] Anticoagulated on warfarin (Chronic) AVR/TIA goal 2.5-3.5 Abnormal uterine bleeding (Acute 08/10/17) onset after aortic valve replacement 2005. 08/10/17 EMBx: inactive endometrium with breakdown. No dysplasia. Medical History CAD (coronary artery disease) Abnormal uterine bleeding (AUB) onset 2005 after AVR and chronic anticoagulation. Nl EMBx 2018. Pt will begin Aygestin for menstrual control. Restless leg syndrome Uterine fibroid Uterus [id number] with multiple uterine fibroids. Acute ITP Surgical History Ligation of fallopian tube Tooth extraction WISDOM TEETH REMOVAL Dilation and curettage Family History Mother Neoplasm LUNG Father Essential hypertension Heart disease STENTS Hyperlipidemia Asthma Sister No problems noted. Sister No problems noted. Brother No problems noted. Grandfather No problems noted. Grandfather No problems noted. Grandmother , BLOOD CLOTT Heart disease Grandmother No problems noted. Son Depression Son Substance abuse Depression Son Substance abuse Daughter No problems noted. 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 2 dogs and 3 cats. Many grandkids close. Exam Narrative Exam Narrative: She does not appear septic or toxic Her abdomen is soft. There is no CVA tenderness She is awake and alert I reviewed her CT scans on the PACS system. There is an apparent left UPJ obstruction with a normal caliber ureter distally. I do not see any sign of a stone or an intrinsic mass in the UPJ region. The radiologist comments about either blood or infection in the renal pelvis, but I suspect it is actually delayed excretion of contrast as I do not see a similar density in the urine on her initial CT of the chest. Results Last Vital Signs Temp 36.6 C 08/23/24 03:29 Pulse 61 08/23/24 03:29 Resp 20 08/23/24 03:29 BP 122/70 08/23/24 03:29 Pulse Ox 96 08/23/24 03:29 Labs 08/23/24 06:43 08/23/24 06:43 Labs: Laboratory Results - last 24 hr 08/23/24 06:43 WBC 12.39 H RBC 4.67 Hgb 13.6 Hct 42.6 MCV 91 MCH 29.1 MCHC 31.9 L RDW 13.0 Plt Count 168 MPV 10.5 Immature Gran % 0.6 Neutrophils % 72.3 Lymphocytes % 15.7 Monocytes % 11.1 Eosinophils % 0.1 Basophils % 0.2 Nucleated RBC % 0.0 Absolute Neutrophils 8.96 H Absolute Lymphocytes 1.95 Absolute Monocytes 1.38 H Absolute Eosinophils 0.01 Absolute Basophils 0.02 Sodium 141 Potassium 4.2 Chloride 105 Carbon Dioxide 34.7 H Anion Gap 1.3 L BUN 33 H Creatinine 1.6 H Est GFR (CKD-EPI 2020) 38.09 Glucose 96 Calcium 8.7 Total Bilirubin 0.30 AST 12 L ALT 22 Alkaline Phosphatase 54 Total Protein 6.4 Albumin 2.5 L
[2024-08-23 07:49] LABS: INR 5.7 (0.9-1.1)
[2024-08-23] MEDS: Varenicline 1 MG TAB 0.5 MG PO ×2 (08:42→20:41)
[2024-08-23] MEDS: predniSONE 20 MG TAB 40 MG PO (08:43)
[2024-08-23] MEDS: Pantoprazole 40 MG TABCR PO (08:44)
[2024-08-23] MEDS: Ferrous Gluconate 324 MG TAB PO (08:44)
[2024-08-23] MEDS: Carvedilol 12.5 MG TAB PO ×2 (08:44→20:40)
[2024-08-23] MEDS: Normal Saline Flush 10 ML SYR IVP ×2 (08:44→20:43)
[2024-08-23] MEDS: Aspirin 81 MG CHEW PO (08:44)
[2024-08-23] MEDS: Furosemide 20 MG TAB PO ×2 (08:45→16:16)
--- NOTE | 2024-08-23 08:57 | PDOC.CMPRO ---
Date of service: 08/23/24 Time of Service: 08:57 Care Management Progress Note Progress Note Text Progress Note Text: Juani is being treated with steroids and IV abx and still on supplemental O2, currently 94% on 2.5 L NC. Juani's INR was 5.7 today and will be rechecked tomorrow as she may need vit k, per provider. Juani is planning on discharging home when she is medically ready. No new services are anticipated, at this time. Of note, Juani's C-pap machine was recalled and she hasn't use it in years and may benefit from a new sleep study. She will likely need a Urology follow up as well. Discharge Potential Discharge Needs: PCP F/U Appt Anticipated Barriers to Discharge: Medical Status Patient/Family Education Needs: Review discharge instructions, discuss Ask Me Three Transportation: Private vehicle Plan: Anticipate Juani will be discharged home with no new services when medically cleared by provider. She will follow up with her PCP and plan of care as directed. Family will provide transportation. CM will follow and continue to support discharge planning needs. Social Determinants of Health Screening Social Determinants of Health last assessed: 08/23/24 Will the Patient Participate in the Screening?: Yes Do you worry about having a steady place to live?: no Problems where you live: no known problems In the past 12 months, have you had to go without electric, gas, oil or water in your home?: no Have you or anyone in your house had to go without enough food to eat?: no Has lack of transportation kept you from medical appointments or from doing things needed for daily living?: no Has anyone in your life made you feel unsafe or unsupported?: no How hard is it for you to pay for the very basics like food, housing, medical care, and heating? Would you say it is:: Not hard at all Do you want help finding or keeping work or a job?: I do not need or want help If for any reason you need help with day-to-day activities such as bathing, preparing meals, shopping, managing finances, etc., do you get the help you need?: I don?t need any help How often do you feel lonely or isolated from those around you?: Never Do you speak a language other than Tunisian at home?: No
--- NOTE | 2024-08-23 14:00 | W.PM.PROGNOT ---
Date of Service Date of service: 08/23/24 Time of Service: 14:00 Assessment and Plan Assessment and plan (1) CAP (community acquired pneumonia): Status: Acute Assessment and plan: Reports penicillin allergy with hives, so started on levofloxacin, continue this. blood and sputum cultures pending flu/covid/rsv screens negative See below 08/23/24 Pt is on levaquin, will review culture results and blood cultures negative at 48 hours (2) Acute exacerbation of chronic obstructive pulmonary disease: Status: Acute Assessment and plan: Antibiotics as above, continue bronchodilators, transition steroids to oral 08.23.24 Pt is on prednisone 40mg po daily (3) Tobacco use: Status: None Assessment and plan: discussed smoking cessation. She has cut back. tolerating verenicline, consider continuing on discharge. (4) Hypertension: Status: None Assessment and plan: continue home BP medication, controlled now 08/23/24 Pt with mild elevation in his BP. Will need to optimize in the outpatient setting (5) IRA on CPAP: Status: Chronic Assessment and plan: not using home cpap, contributing to low O2 at night. Plans f/u as outpatient sleep clinic (6) Hydronephrosis: Status: Acute Assessment and plan: Noted on renal/bladder u/s, CT recommended, plan tomorrow as had contrast 08/2008.22.24 CT scan results below. Will consult Urology IMPRESSION: 1. There is significant hydronephrosis of the left kidney which appears to be related to the UPJ level with significant dilatation above this level and the left ureter not dilated below the UPJ level. There does not appear to be an obvious radiopaque calculus at this level nor obvious impinging mass. I note there is a small punctate radiopaque calculus in the opposite-right kidney. The urine within the dilated left upper collecting system is uniformly hyperdense, either related to infection or blood. There is no gas within the left kidney. No obvious findings in the urinary bladder. Urology consultation is recommended. 2. Sigmoid diverticulosis without evidence of acute diverticulitis. No appendicitis. 3. There is a 4 x 3.2 cm abnormal subcutaneous density in the left side of the fat pannus over the pelvis with overlying skin thickening. This may be hematoma related to prior injections site. Cannot exclude developing abscess at this level. There is some skin thickening over this region, possibly cellulitis. 4. Other findings as above. Consult for Urology noted: (1) Hydronephrosis: Status: Acute Assessment and plan: The hydronephrosis appears to be due to to a UPJ obstruction. This is a new finding compared to previous scans of 4 years ago, but she is completely asymptomatic at this time There is no radiographic evidence of a mass in the renal pelvis, but she is a smoker, so I am recommending a voided urine for cytology. The absence of blood in the urine both grossly and microscopically is reassuring but an abnormal cytology would lead us to a recommendation for an invasive procedure such as cystoscopy or even ureteroscopy.. Ultimately, she will need a nuclear renogram with Lasix washout to detect her renal function and degree of obstruction. Depending on her renal function, we would then decide if treatment would be helpful. Treatments to consider would be stenting, endopyelotomy or dismembered pyeloplasty. If her renal function has already been compromised significantly, no treatment would be indicated unless the patient became symptomatic. The remainder of her workup can be done as an outpatient once she is recovered from her pneumonia. If her left hydronephrosis does become symptomatic in the meantime, a temporary ureteral stent can be offered. Clinically, she has no evidence of pyelonephritis. Her urine is reassuring for the absence of infection (7) CAD (coronary artery disease): Assessment and plan: Continue atorvastatin. On anticoagulation and DAPT, which may be too much. No recent stent. Holding clopidogrel (8) Aortic valve replaced: Status: Chronic Assessment and plan: With h/o embolic CVA. INR at goal of 2.5-3.5, routine dose today 12.5, follow daily INR as on levofloxacin 2..25 INR at 4.7 Will hold coumadin Pt has had mechanical valve replacement x2 08/23/24 INR at 5.7, will recheck in am and if still going up, will reverse with vitamin k (9) DVT prophylaxis: Status: Acute Assessment and plan: on warfarin Subjective Subjective Interval history since last seen: Pt seen and examined in her room this afternoon. PT states that she does feel better but is still weak. Consult from Urology read and appreciate the input. POC d/w pt as well as bedside nurse during MDR Exam Narrative Exam Narrative: Alert and oriented, sitting up in bed, NAD, speaking in full sentences. Lungs: Good air movement bilaterally, slight rhochi more at bases mingo on expiration, normal effort Cardiovascular regular rate and rhythm no murmurs ABD: soft, NT/ND EXT: slightly pitting bilateral LE edema, not tender, no wounds, warm Objective Last Vital Signs Temp 36.7 C 08/23/24 12:05 Pulse 64 08/23/24 13:33 Resp 20 08/23/24 13:25 BP 141/75 H 08/23/24 12:05 Pulse Ox 95 08/23/24 13:25 Laboratory Results - last 24 hr 08/23/24 06:43 WBC 12.39 H RBC 4.67 Hgb 13.6 Hct 42.6 MCV 91 MCH 29.1 MCHC 31.9 L RDW 13.0 Plt Count 168 MPV 10.5 Immature Gran % 0.6 Neutrophils % 72.3 Lymphocytes % 15.7 Monocytes % 11.1 Eosinophils % 0.1 Basophils % 0.2 Nucleated RBC % 0.0 Absolute Neutrophils 8.96 H Absolute Lymphocytes 1.95 Absolute Monocytes 1.38 H Absolute Eosinophils 0.01 Absolute Basophils 0.02 PT 50.7 H INR 5.7 H* Sodium 141 Potassium 4.2 Chloride 105 Carbon Dioxide 34.7 H Anion Gap 1.3 L BUN 33 H Creatinine 1.6 H Est GFR (CKD-EPI 2020) 38.09 Glucose 96 Calcium 8.7 Total Bilirubin 0.30 AST 12 L ALT 22 Alkaline Phosphatase 54 Total Protein 6.4 Albumin 2.5 L PAWSS Have you Been Recently Intoxicated or Drunk Within the Last 30 days?: No Have you Ever Experienced Previous Episodes of Alcohol Withdrawal?: No Have you ever Experienced Withdrawal Seizures?: No Have you ever Experienced Delirium Tremens(DT)s?: No Have you ever undergone Alcohol Rehabilitation Treatment (i.e, inpt ot outpatient treatment programs)?: No Have you ever Experienced Blackouts?: No Have you ever Combined Alcohol with other Downers within the last 90 days?: No Have you ever Combined Alcohol with any other Substance of Abuse during the last 90 days?: No Positive Blood Alcohol level on Presentation? [PCS.BAL]: No Evidence of Increased Autonomic Activity (i.e. HR>120, tremor, sweating, agitation, nausea)?: No Result: 0 Time Spent with Patient Time Spent with Patient: 35-49 minutes Time was spent: preparing to see the patient(eg.review tests), obtaining and/or reviewing separately otained hiistory, ordering medications,tests, procedures, referring, communicating with other health home visit field care manager, indepentently interpreting results, counseling the patient and care coordination
[2024-08-23] MEDS: levoFLOXacin 500 MG/100 ML BAG 100 MG IV (14:37)
[2024-08-23] MEDS: levoFLOXacin 250 MG/50 ML BAG 50 MG IV (15:46)
--- NOTE | 2024-08-23 17:09 | PHA.REVIEW2 ---
Pharmacy Admission Review Admission Clinical Review Admission Pharmacy Review: Hydronephrosis (Acute) DVT prophylaxis (Acute) Acute exacerbation of chronic obstructive pulmonary disease (Acute) CAP (community acquired pneumonia) (Acute) adhesive Allergy (Intermediate, Verified 08/20/24 10:29) plastic tape-blisters Penicillins Allergy (Verified 08/20/24 10:29) Skin Rash ibuprofen Adverse Reaction (Verified 08/20/24 10:29) Nausea Resuscitation Status Full Code Height 5 ft 5 in Weight 135.8 kg Comments Comments/Follow Ups: Watch INR Pharmacy Admission Review Renal Dosing Renal Dosing: BUN 33 mg/dL (7-18) H 08/23/24 06:43 Creatinine 1.6 mg/dL (0.55-1.02) H 08/23/24 06:43 Medications needing adjustments: Reviewed (CrCl 56.1 mL/min, BUN increased from 18) List of meds needing interventions: Current medications are okay Anticoagulation Anticoagulation: Hgb 13.6 g/dL (11.2-15.7) 08/23/24 06:43 Hct 42.6 % (36.0-46.0) 08/23/24 06:43 Plt Count 168 10^3/uL (130-400) 08/23/24 06:43 INR 5.7 (0.9-1.1) H* 08/23/24 06:43 Creatinine 1.6 mg/dL (0.55-1.02) H 08/23/24 06:43 DVT Prophylaxis: Reviewed (takes warfarin at home - on hold due to elevated INR. Per provider will give vitamin K tomorrow if INR continues to increase, INR was 2.6 on 08/21 and 4.7 on 08/22. Last dose of warfarin was 08/21 at 2100. ) Relevant Labs Relevant Labs: Sodium 141 mmol/L (136-145) 08/23/24 06:43 Potassium 4.2 mmol/L (3.5-5.1) 08/23/24 06:43 Chloride 105 mmol/L (98-107) 08/23/24 06:43 Magnesium 1.9 mg/dL (1.8-2.4) 08/20/24 11:00 Electrolytes, C-Reactive P, ESR: Reviewed Cardiac Review Cardiac Review: Troponin I 47 ng/L (<or=51) 08/20/24 12:00 NT-Pro-B Natriuret Pep 834 pg/mL (<300) H 08/20/24 11:00 Blood Pressure 146/79 1537 Blood Pressure 141/75 1205 Blood Pressure 129/82 0839 BP, HR, EF%: Reviewed (HR WNL, on oxygen flow rate 2) List meds needing interventions: Has order for carvedilol 12.5mg BID and furosemide 20mg BID QTc Review QTc: Reviewed (457 from 08/20/24) IV to PO Switch IV Medications: Reviewed (levofloxacin) Home Meds Home Med List reviewed: Reviewed Relevent Home Meds Not ordered & why?: Vitamin D3, clindamycin (predental), vitamin B12, nystatin powder, potassium, Wegovy (last filled 07/02) and warfarin (on hold - see anticoagulation section) Current Meds Current Medication Order Review: Reviewed Pharmacy Antibiotic Review Relevant Labs: WBC 12.39 10^3/uL (4.4-10.8) H 08/23/24 06:43 Procalcitonin < 0.10 ng/mL 08/20/24 11:00 Temperature 36.2 C Temperature 36.7 C Temperature 36.1 C Microbiology 08/20/24 16:56 Sputum Culture - Final Sputum - Expectorated Normal Mary Gram Stain - Final 08/20/24 15:20 Blood Culture - Preliminary Blood NO GROWTH 48 HOURS 08/20/24 15:30 Blood Culture - Preliminary Blood NO GROWTH 48 HOURS Pharmacy Antibiotic Activity: C/S review and Reviewed, no change Comments: Patient is on levofloxacin (potential interaction with warfarin), day 4, for CAP. Cultures normal. Comments Comments/Follow Ups: Watch INR
[2024-08-23] MEDS: Atorvastatin 40 MG TAB 80 MG PO (20:41)
[2024-08-23] MEDS: Melatonin 3 MG TAB 6 MG PO (20:41)
[2024-08-24] VITALS (17 sets, daily range): BP systolic 141–167; BP diastolic 76–92; PULSE 63–82; RESP 3–18; TEMP 36.1–36.7; O2SAT 91–96
[2024-08-24] MEDS: Albuterol/Ipratropium 3 ML UPD VIAL UPD ×4 (02:30→20:50)
[2024-08-24 03:16] LABS: Bilirubin Negative (Negative); Blood Negative (Negative); Clarity Clear (Clear); Glucose Negative (Negative); Ketones Negative (Negative); Leukocyte Esterase Negative (Negative); Nitrite Negative (Negative); Specific Gravity 1.025 (1.005-1.025); Urobilinogen 0.2 mg/dL (Up to 0.2)
[2024-08-24 03:17] LABS: Epithelial Cells Rare HPF (Negative); RBC Negative HPF (0-2); WBC Negative HPF (0-5)
[2024-08-24 03:18] LABS: Bacteria Rare HPF (Negative); C & S Indicated? No; Casts Negative LPF (Negative); Crystals Negative HPF (Negative); Mucus Negative (Negative)
[2024-08-24 06:29] LABS: HCT 41.7 % (36.0-46.0); HGB 13.5 g/dL (11.2-15.7); MCH 29.2 pg (27.0-33.0); MCHC 32.4 % (32.0-36.0); MCV 90 fL (80-95); MPV 10.3 fL (8.0-11.0); Platelet Count 175 10^3/uL (130-400); RBC 4.63 10^6/uL (3.93-5.22); RDW 13.1 % (11.7-14.6); RDW-SD 42.9 fL
[2024-08-24 06:52] LABS: Anion Gap 1.2 mmol/L (3-11); BUN 32 mg/dL (7-18); CO2 34.8 mmol/L (21.0-32.0); CREATININE 1.4 mg/dL (0.55-1.02); Calcium 8.6 mg/dL (8.5-10.1); Chloride 105 mmol/L (98-107); Estimated GFR 44.71 (mL/min/1.73m2); Glucose 95 mg/dL (74-106); Potassium 4.3 mmol/L (3.5-5.1); Sodium 141 mmol/L (136-145)
[2024-08-24] MEDS: Varenicline 1 MG TAB 0.5 MG PO ×2 (08:13→19:45)
[2024-08-24] MEDS: Ferrous Gluconate 324 MG TAB PO (08:14)
[2024-08-24] MEDS: predniSONE 20 MG TAB 40 MG PO (08:14)
[2024-08-24] MEDS: Furosemide 20 MG TAB PO ×2 (08:14→16:04)
[2024-08-24] MEDS: Carvedilol 12.5 MG TAB PO ×2 (08:14→19:45)
[2024-08-24] MEDS: Pantoprazole 40 MG TABCR PO (08:15)
[2024-08-24] MEDS: Aspirin 81 MG CHEW PO (08:15)
[2024-08-24] MEDS: Normal Saline Flush 10 ML SYR IVP ×2 (08:15→19:45)
[2024-08-24 08:43] LABS: INR 3.5 (0.9-1.1); Prothrombin Time 32.2 sec (9.1-11.1)
[2024-08-24] MEDS: Polyethylene Glycol 3350 17 GM PACKET PO (09:32)
[2024-08-24] MEDS: Docusate Sodium 100 MG/10 ML CUP PO (09:32)
--- NOTE | 2024-08-24 13:09 | PGE_ITS ---
Date of Service Date of service: 08/24/24 Time of Service: 13:09 Assessment and Plan Assessment and plan (1) CAP (community acquired pneumonia): Status: Acute Assessment and plan: Reports penicillin allergy with hives, so started on levofloxacin, continue this. blood and sputum cultures pending flu/covid/rsv screens negative See below 08/23/24 Pt is on levaquin, will review culture results and blood cultures negative at 48 hours (2) Acute exacerbation of chronic obstructive pulmonary disease: Status: Acute Assessment and plan: Antibiotics as above, continue bronchodilators, transition steroids to oral 08.23.24 Pt is on prednisone 40mg po daily (3) Tobacco use: Status: None Assessment and plan: discussed smoking cessation. She has cut back. tolerating verenicline, consider continuing on discharge. (4) Hypertension: Status: None Assessment and plan: continue home BP medication, controlled now 08/23/24 Pt with mild elevation in his BP. Will need to optimize in the outpatient setting (5) IRA on CPAP: Status: Chronic Assessment and plan: not using home cpap, contributing to low O2 at night. Plans f/u as outpatient sleep clinic (6) Hydronephrosis: Status: Acute Assessment and plan: Noted on renal/bladder u/s, CT recommended, plan tomorrow as had contrast 08/2008.22.24 CT scan results below. Will consult Urology IMPRESSION: 1. There is significant hydronephrosis of the left kidney which appears to be related to the UPJ level with significant dilatation above this level and the left ureter not dilated below the UPJ level. There does not appear to be an obvious radiopaque calculus at this level nor obvious impinging mass. I note there is a small punctate radiopaque calculus in the opposite-right kidney. The urine within the dilated left upper collecting system is uniformly hyperdense, either related to infection or blood. There is no gas within the left kidney. No obvious findings in the urinary bladder. Urology consultation is recommended. 2. Sigmoid diverticulosis without evidence of acute diverticulitis. No appendicitis. 3. There is a 4 x 3.2 cm abnormal subcutaneous density in the left side of the fat pannus over the pelvis with overlying skin thickening. This may be hematoma related to prior injections site. Cannot exclude developing abscess at this level. There is some skin thickening over this region, possibly cellulitis. 4. Other findings as above. Consult for Urology noted: (1) Hydronephrosis: Status: Acute Assessment and plan: The hydronephrosis appears to be due to to a UPJ obstruction. This is a new finding compared to previous scans of 4 years ago, but she is completely asymptomatic at this time There is no radiographic evidence of a mass in the renal pelvis, but she is a smoker, so I am recommending a voided urine for cytology. The absence of blood in the urine both grossly and microscopically is reassuring but an abnormal cytology would lead us to a recommendation for an invasive procedure such as cystoscopy or even ureteroscopy.. Ultimately, she will need a nuclear renogram with Lasix washout to detect her renal function and degree of obstruction. Depending on her renal function, we would then decide if treatment would be helpful. Treatments to consider would be stenting, endopyelotomy or dismembered pyeloplasty. If her renal function has already been compromised significantly, no treatment would be indicated unless the patient became symptomatic. The remainder of her workup can be done as an outpatient once she is recovered from her pneumonia. If her left hydronephrosis does become symptomatic in the meantime, a temporary ureteral stent can be offered. Clinically, she has no evidence of pyelonephritis. Her urine is reassuring for the absence of infection (7) CAD (coronary artery disease): Assessment and plan: Continue atorvastatin. On anticoagulation and DAPT, which may be too much. No recent stent. Holding clopidogrel (8) Aortic valve replaced: Status: Chronic Assessment and plan: With h/o embolic CVA. INR at goal of 2.5-3.5, routine dose today 12.5, follow daily INR as on levofloxacin 08.22.25 INR at 4.7 Will hold coumadin Pt has had mechanical valve replacement x2 08/23/24 INR at 5.7, will recheck in am and if still going up, will reverse with vitamin k 08/24/24 Patient's INR is 3.5 which is her goal at the upper limit. The question though is once we stop the Levaquin how she can respond and she is currently not on Coumadin. My plan is to complete a course of Levaquin while she is here which is to be finished tomorrow or the next day and then monitor her INR is while she is back on her home Coumadin dose as she does have a mechanical valve in the aorta which is susceptible to thrombosis. Will recheck Coumadin level in the morning will most likely need to restart it. In doing some research on anticoagulation after mechanical valve replacement, the goal is dependant on the type of valve used. INR 2-3 for bileaflet valves and 2.5-3.5 for caged ball or tilting disk. Will ask the pt if she is familiar with her particular valve type. (9) DVT prophylaxis: Status: Acute Assessment and plan: on warfarin Subjective Subjective Interval history since last seen: Pt seen and examined this am. No new complaints. Reclining in bed side chair. POC d/w pt as well as with bedside nurse during MDR Exam Narrative Exam Narrative: Alert and oriented, sitting up in bed, NAD, speaking in full sentences. Lungs: Good air movement bilaterally, slight rhochi more at bases mingo on expiration, normal effort Cardiovascular regular rate and rhythm no murmurs ABD: soft, NT/ND EXT: slightly pitting bilateral LE edema, not tender, no wounds, warm Objective Last Vital Signs Temp 36.1 C L 08/24/24 11:45 Pulse 82 08/24/24 11:45 Resp 16 08/24/24 11:45 BP 141/78 H 08/24/24 11:45 Pulse Ox 94 08/24/24 11:45 Laboratory Results - last 24 hr 08/24/24 08/24/24 08/24/24 02:37 06:19 08:24 WBC 13.50 H RBC 4.63 Hgb 13.5 Hct 41.7 MCV 90 MCH 29.2 MCHC 32.4 RDW 13.1 Plt Count 175 MPV 10.3 PT 32.2 H INR 3.5 H Sodium 141 Potassium 4.3 Chloride 105 Carbon Dioxide 34.8 H Anion Gap 1.2 L BUN 32 H Creatinine 1.4 H Est GFR (CKD-EPI 2020) 44.71 Glucose 95 Calcium 8.6 Urine Color Yellow Urine Clarity Clear Urine pH 6.0 Ur Specific [place] 1.025 Urine Protein 30 H Urine Ketones Negative Urine Blood Negative Urine Nitrite Negative Urine Bilirubin Negative Urine Urobilinogen 0.2 Ur Leukocyte Esterase Negative Urine RBC Negative Urine WBC Negative Ur Epithelial Cells Rare Urine Crystals Negative Urine Bacteria Rare Urine Casts Negative Urine Mucus Negative Ur Culture Indicated? No Urine Glucose Negative PAWSS Have you Been Recently Intoxicated or Drunk Within the Last 30 days?: No Have you Ever Experienced Previous Episodes of Alcohol Withdrawal?: No Have you ever Experienced Withdrawal Seizures?: No Have you ever Experienced Delirium Tremens(DT)s?: No Have you ever undergone Alcohol Rehabilitation Treatment (i.e, inpt ot outpatient treatment programs)?: No Have you ever Experienced Blackouts?: No Have you ever Combined Alcohol with other Downers within the last 90 days?: No Have you ever Combined Alcohol with any other Substance of Abuse during the last 90 days?: No Positive Blood Alcohol level on Presentation? [PCS.BAL]: No Evidence of Increased Autonomic Activity (i.e. HR>120, tremor, sweating, agitation, nausea)?: No Result: 0 Time Spent with Patient Time Spent with Patient: 35-49 minutes Time was spent: preparing to see the patient(eg.review tests), obtaining and/or reviewing separately otained hiistory, ordering medications,tests, procedures, referring, communicating with other health outdoor emergency care technician, indepentently interpreting results, counseling the patient and care coordination
[2024-08-24] MEDS: Warfarin 1 MG TAB PO (13:59)
[2024-08-24] MEDS: levoFLOXacin 500 MG/100 ML BAG 100 MG IV (14:23)
[2024-08-24] MEDS: levoFLOXacin 250 MG/50 ML BAG 50 MG IV (15:32)
[2024-08-24] MEDS: Atorvastatin 40 MG TAB 80 MG PO (19:44)
[2024-08-24] MEDS: Melatonin 3 MG TAB 6 MG PO (19:44)
[2024-08-24] MEDS: Docusate Sodium 100 MG CAP PO (19:45)
[2024-08-25] VITALS (14 sets, daily range): BP systolic 126–164; BP diastolic 72–98; PULSE 60–87; RESP 6–19; TEMP 36.2–36.8; O2SAT 89–96
[2024-08-25 06:39] LABS: Prothrombin Time 21.4 sec (9.1-11.1)
[2024-08-25 06:42] LABS: INR 2.2 (0.9-1.1)
[2024-08-25] MEDS: Varenicline 1 MG TAB 0.5 MG PO ×2 (07:32→20:37)
[2024-08-25] MEDS: Aspirin 81 MG CHEW PO (07:33)
[2024-08-25] MEDS: predniSONE 20 MG TAB 40 MG PO (07:33)
[2024-08-25] MEDS: Furosemide 20 MG TAB PO ×2 (07:34→16:58)
[2024-08-25] MEDS: Ferrous Gluconate 324 MG TAB PO (07:34)
[2024-08-25] MEDS: Carvedilol 12.5 MG TAB PO ×2 (07:34→20:37)
[2024-08-25] MEDS: Pantoprazole 40 MG TABCR PO (07:34)
[2024-08-25] MEDS: Normal Saline Flush 10 ML SYR IVP ×2 (07:35→20:37)
[2024-08-25] MEDS: Albuterol/Ipratropium 3 ML UPD VIAL UPD ×3 (08:45→21:20)
[2024-08-25] MEDS: Warfarin 5 MG TAB 10 MG PO (09:46)
--- NOTE | 2024-08-25 12:08 | PGE_ITS ---
Date of Service Date of service: 08/25/24 Time of Service: 12:08 Assessment and Plan Assessment and plan (1) CAP (community acquired pneumonia): Status: Acute Assessment and plan: Reports penicillin allergy with hives, so started on levofloxacin, continue this. blood and sputum cultures pending flu/covid/rsv screens negative See below 08/23/24 Pt is on levaquin, will review culture results and blood cultures negative at 48 hours 08/25/24 Pt is day 6 of levaquin. Will stop med 08/11 complicating INR treatment (2) Acute exacerbation of chronic obstructive pulmonary disease: Status: Acute Assessment and plan: Antibiotics as above, continue bronchodilators, transition steroids to oral 08.23.24 Pt is on prednisone 40mg po daily (3) Tobacco use: Status: None Assessment and plan: discussed smoking cessation. She has cut back. tolerating verenicline, consider continuing on discharge. (4) Hypertension: Status: None Assessment and plan: continue home BP medication, controlled now 08/23/24 Pt with mild elevation in his BP. Will need to optimize in the outpatient setting (5) IRA on CPAP: Status: Chronic Assessment and plan: not using home cpap, contributing to low O2 at night. Plans f/u as outpatient sleep clinic (6) Hydronephrosis: Status: Acute Assessment and plan: Noted on renal/bladder u/s, CT recommended, plan tomorrow as had contrast 08/[id number] CT scan results below. Will consult Urology IMPRESSION: 1. There is significant hydronephrosis of the left kidney which appears to be related to the UPJ level with significant dilatation above this level and the left ureter not dilated below the UPJ level. There does not appear to be an obvious radiopaque calculus at this level nor obvious impinging mass. I note there is a small punctate radiopaque calculus in the opposite-right kidney. The urine within the dilated left upper collecting system is uniformly hyperdense, either related to infection or blood. There is no gas within the left kidney. No obvious findings in the urinary bladder. Urology consultation is recommended. 2. Sigmoid diverticulosis without evidence of acute diverticulitis. No appendicitis. 3. There is a 4 x 3.2 cm abnormal subcutaneous density in the left side of the fat pannus over the pelvis with overlying skin thickening. This may be hematoma related to prior injections site. Cannot exclude developing abscess at this level. There is some skin thickening over this region, possibly cellulitis. 4. Other findings as above. Consult for Urology noted: (1) Hydronephrosis: Status: Acute Assessment and plan: The hydronephrosis appears to be due to to a UPJ obstruction. This is a new finding compared to previous scans of 4 years ago, but she is completely asymptomatic at this time There is no radiographic evidence of a mass in the renal pelvis, but she is a smoker, so I am recommending a voided urine for cytology. The absence of blood in the urine both grossly and microscopically is reassuring but an abnormal cytology would lead us to a recommendation for an invasive procedure such as cystoscopy or even ureteroscopy.. Ultimately, she will need a nuclear renogram with Lasix washout to detect her renal function and degree of obstruction. Depending on her renal function, we would then decide if treatment would be helpful. Treatments to consider would be stenting, endopyelotomy or dismembered pyeloplasty. If her renal function has already been compromised significantly, no treatment would be indicated unless the patient became symptomatic. The remainder of her workup can be done as an outpatient once she is recovered from her pneumonia. If her left hydronephrosis does become symptomatic in the meantime, a temporary ureteral stent can be offered. Clinically, she has no evidence of pyelonephritis. Her urine is reassuring for the absence of infection (7) CAD (coronary artery disease): Assessment and plan: Continue atorvastatin. On anticoagulation and DAPT, which may be too much. No recent stent. Holding clopidogrel (8) Aortic valve replaced: Status: Chronic Assessment and plan: With h/o embolic CVA. INR at goal of 2.5-3.5, routine dose today 12.5, follow daily INR as on levofloxacin 2..25 INR at 4.7 Will hold coumadin Pt has had mechanical valve replacement x2 08/23/24 INR at 5.7, will recheck in am and if still going up, will reverse with vitamin k 08/24/24 Patient's INR is 3.5 which is her goal at the upper limit. The question though is once we stop the Levaquin how she can respond and she is currently not on Coumadin. My plan is to complete a course of Levaquin while she is here which is to be finished tomorrow or the next day and then monitor her INR is while she is back on her home Coumadin dose as she does have a mechanical valve in the aorta which is susceptible to thrombosis. Will recheck Coumadin level in the morning will most likely need to restart it. In doing some research on anticoagulation after mechanical valve replacement, the goal is dependant on the type of valve used. INR 2-3 for bileaflet valves and 2.5-3.5 for caged ball or tilting disk. Will ask the pt if she is familiar with her particular valve type. 08/25/24 Per my discussion with the pt, she states that she has been told her goal INR is 2.5-3.5 (9) DVT prophylaxis: Status: Acute Assessment and plan: on warfarin Subjective Subjective Interval history since last seen: Pt seen and examined in her room this am. INR results noted. Pt w/o complaints. POC d/w pt and bedside nurse during MDR Exam Narrative Exam Narrative: Alert and oriented, sitting up in bed, NAD, speaking in full sentences. Lungs: Good air movement bilaterally, slight rhochi more at bases mingo on ex piration, normal effort Cardiovascular regular rate and rhythm no murmurs ABD: soft, NT/ND EXT: slightly pitting bilateral LE edema, not tender, no wounds, warm Objective Last Vital Signs Temp 36.4 C L 08/25/24 11:53 Pulse 87 08/25/24 11:53 Resp 19 08/25/24 11:53 BP 164/85 H 08/25/24 11:53 Pulse Ox 91 L 08/25/24 11:53 Laboratory Results - last 24 hr 08/25/24 06:06 PT 21.4 H INR 2.2 H PAWSS Have you Been Recently Intoxicated or Drunk Within the Last 30 days?: No Have you Ever Experienced Previous Episodes of Alcohol Withdrawal?: No Have you ever Experienced Withdrawal Seizures?: No Have you ever Experienced Delirium Tremens(DT)s?: No Have you ever undergone Alcohol Rehabilitation Treatment (i.e, inpt ot outpatient treatment programs)?: No Have you ever Experienced Blackouts?: No Have you ever Combined Alcohol with other Downers within the last 90 days?: No Have you ever Combined Alcohol with any other Substance of Abuse during the last 90 days?: No Positive Blood Alcohol level on Presentation? [PCS.BAL]: No Evidence of Increased Autonomic Activity (i.e. HR>120, tremor, sweating, agitation, nausea)?: No Result: 0 Time Spent with Patient Time Spent with Patient: 25-34 minutes Time was spent: preparing to see the patient(eg.review tests), obtaining and/or reviewing separately otained hiistory, ordering medications,tests, procedures, referring, communicating with other health healthcare receptionist, indepentently interpreting results, counseling the patient and care coordination
[2024-08-25] MEDS: levoFLOXacin 500 MG/100 ML BAG 100 MG IV (15:16)
[2024-08-25] MEDS: levoFLOXacin 250 MG/50 ML BAG 50 MG IV (15:17)
[2024-08-25] MEDS: Atorvastatin 40 MG TAB 80 MG PO (20:37)
[2024-08-25] MEDS: Melatonin 3 MG TAB 6 MG PO (20:37)
[2024-08-25] MEDS: Docusate Sodium 100 MG CAP PO (20:37)
[2024-08-26] VITALS (15 sets, daily range): BP systolic 108–150; BP diastolic 58–91; PULSE 58–91; RESP 3–24; TEMP 36.4–36.7; O2SAT 85–99
[2024-08-26] MEDS: Albuterol/Ipratropium 3 ML UPD VIAL UPD ×4 (01:50→21:12)
[2024-08-26] MEDS: Acetaminophen 325 MG TAB PO (06:27)
[2024-08-26 06:31] LABS: Abs Immature Grans 0.19 10^3/uL (0.0-0.06); Absolute Basophil Count 0.03 10^3/uL (0.0-0.2); Absolute Eosinophil Count 0.12 10^3/uL (0.0-0.7); Absolute Monocyte Count 1.36 10^3/uL (0.1-0.8); Absolute Neutrophil Count 9.52 10^3/uL (1.2-6.7); Basophils % 0.2 %; Eosinophils % 0.9 %; HCT 43.8 % (36.0-46.0); Immature Grans % 1.4 %; Lymphocytes % 16.5 %; MCV 91 fL (80-95); MPV 10.4 fL (8.0-11.0); Monocytes % 10.1 %; Neutrophils % 70.9 %; Platelet Count 189 10^3/uL (130-400); RBC 4.82 10^6/uL (3.93-5.22); RDW-SD 42.7 fL; WBC 13.43 10^3/uL (4.4-10.8)
[2024-08-26 06:36] LABS: INR 2.2 (0.9-1.1); Prothrombin Time 21.2 sec (9.1-11.1)
[2024-08-26 06:41] LABS: Absolute Lymphocyte Count 2.22 10^3/uL (1.2-3.4)
[2024-08-26 06:49] LABS: ALT 22 U/L (14-59); AST 13 U/L (15-37); Albumin 2.5 g/dL (3.4-5.0); Alkaline Phosphatase 53 U/L (46-116); Anion Gap 3.3 mmol/L (3-11); BUN 30 mg/dL (7-18); Bilirubin, Total 0.46 mg/dL (0.2-1.0); CO2 34.7 mmol/L (21.0-32.0); CREATININE 1.5 mg/dL (0.55-1.02); Calcium 8.6 mg/dL (8.5-10.1); Chloride 104 mmol/L (98-107); Estimated GFR 41.16 (mL/min/1.73m2); Glucose 79 mg/dL (74-106); Potassium 4.1 mmol/L (3.5-5.1); Sodium 142 mmol/L (136-145); Total Protein 6.2 g/dL (6.4-8.2)
[2024-08-26] MEDS: Aspirin 81 MG CHEW PO (07:45)
[2024-08-26] MEDS: Ferrous Gluconate 324 MG TAB PO (07:45)
[2024-08-26] MEDS: Carvedilol 12.5 MG TAB PO ×2 (07:45→19:45)
[2024-08-26] MEDS: Furosemide 20 MG TAB PO ×2 (07:45→16:02)
[2024-08-26] MEDS: Pantoprazole 40 MG TABCR PO (07:45)
[2024-08-26] MEDS: predniSONE 20 MG TAB 40 MG PO (07:45)
[2024-08-26] MEDS: Varenicline 1 MG TAB 0.5 MG PO ×2 (07:46→19:45)
--- NOTE | 2024-08-26 12:34 | DSE_ITS ---
Date of service: 08/27/24 Time of Service: 10:07 DS: Diagnosis Discharge Diagnosis (1) CAP (community acquired pneumonia): Status: Acute (2) Acute exacerbation of chronic obstructive pulmonary disease: Status: Acute (3) Tobacco use: Status: None (4) Hypertension: Status: None (5) IRA on CPAP: Status: Chronic (6) Hydronephrosis: Status: Acute (7) Aortic valve replaced: Status: Chronic Discharge Plan Disposition Patient Disposition: Home Condition: Improving Discharge Details Reason For Visit: community acq pneumonia,COPD,hypoxia Admit Date/Time: 08/20/24 13:47 Admit Provider: Yunior Mcclendon Attending Provider: Jefferson Gomez Primary Care Provider: Erin Mon Hospital Course Hospital Course: This is a 54-year-old female patient significant past medical history for AVR on anticoagulation, hypertension, non-STEMI, IRA who presented to the emergency department for evaluation of shortness of breath. Found to have pneumonia. Treated with levofloxacin. INR became supratherapeutic on the antibiotics. She did not need to be reversed. There was no evidence of bleeding. She has completed her course of antibiotics to treat the pneumonia and her INR has normalized. She has been restarted on Coumadin and is therapeutic at 2.5 on day of discharge. She has been weaned off oxygen. Being discharged home on new nystatin powder for rash under her breasts. Also on docusate sodium for constipation. She has completed her course of antibiotics. She is to have her INR drawn tomorrow and will continue Coumadin per outpatient team. Her INR goal is 2.5-3.5 secondary to her mechanical valve. She is being discharged with no new services. discharge discussed with DR Gomez [employer] Meds and New Rx's Prescriptions: New nystatin [Nystop] 100,000 unit/gram powder 1 applic topical TID Qty: 30 0RF docusate sodium [Colace] 100 mg Capsule 100 mg PO BID PRN PRN (Reason: Constipation) Qty: 60 0RF Continued doxycycline hyclate 100 mg capsule 100 mg PO BID Qty: 14 0RF acetaminophen [Mapap Extra Strength] 500 MG tablet 1,000 mg PO PRN PRN warfarin 5 mg tablet See Rx Instructions .ROUTE .COMPLEX Patient Comments: 10 mg sun, mon, tues, wed, thurs, fri 15 mg sat Rx Instructions: TAKE UP TO 2 AND 1/2 TABLETS BY MOUTH EVERY NIGHT DIRECTED carvedilol 12.5 mg tablet 12.5 mg PO BID Patient Comments: TAKE 1 TABLET BY MOUTH TWICE DAILY WITH MEALS Wegovy 1 mg/0.5 mL pen injector 1 mg SUBCUT Q7D Patient Comments: ADMINISTER 1 MG UNDER THE SKIN 1 TIME A WEEK cholecalciferol (vitamin D3) 25 mcg (1,000 unit) capsule 50 mcg PO DAILY Patient Comments: TAKE 2 CAPSULES BY MOUTH DAILY clindamycin HCl 300 mg capsule See Rx Instructions PO ONCE Patient Comments: as directed for dental work Rx Instructions: orally once; cyanocobalamin (vitamin B-12) 1,000 mcg tablet 1,000 mcg PO DAILY Patient Comments: TAKE 1 TABLET BY MOUTH DAILY (DME) ProChamber Spacer MISCELLANEOUS Patient Comments: USE DIRECTED nystatin [Nyamyc] 100,000 unit/gram powder 1 applic topical DAILY pantoprazole 40 mg tablet,delayed release (DR/EC) 40 mg PO DAILY furosemide 20 mg tablet 20 mg PO BID potassium 20 mg tablet,chewable 20 mg PO DAILY Patient Comments: potassium ER 20mg daily albuterol sulfate 90 mcg/actuation HFA aerosol inhaler 2 puff INHALATION Q6H PRN ferrous gluconate 324 mg (38 mg iron) tablet 324 mg PO DAILY atorvastatin 80 mg tablet 80 mg PO QPM Patient Comments: TAKE ONE TABLET BY MOUTH EVERY EVENING aspirin 81 mg Tablet,Chewable 81 mg PO DAILY Discharge Instructions Instructions: Pneumonia in adults Additional Instructions: continue coumadin 10 mg daily for tonight, INR check on Monday and adjust coumadin as directed by your outpatient team. resume usual medications as directed you have completed your course of antibiotics. push fluids to stay well hydrated. Stand Alone Forms: Nursing Discharge Form Referrals: [facility] [OTHER] - Erin Mon [Primary Care Provider] - 09/03/24 11:00 am (10:45 arrival time. ) Activity:: Activity as Tolerated Equipment/Supplies:: No Equipment Needed Diet:: As Tolerated Discharge Orders Discharge Orders: Discharge Order (Routine); Ordered 08/27/24 Ordered By: Chelita Cassidy Other Ambulatory Orders: Prothrombin Time (Routine) Timeframe: [id number] Facility: [facility] - Location: Laboratory Outpatient - [facility] Ordered By: Chelita Cassidy Discharge Data Discharge Date/Time-TO BE ENTERED AT DEPARTURE: 08/27/24 10:50 DS: Summary Time Spent with Patient providing and/or coordinating discharge services: Greater than 30 minutes Status at Discharge Functional status at discharge: independent ambulation Overall status at discharge: patient is progressing back to baseline Mental Status: mental status grossly normal Speech and Movement: speech and movement normal Mood: congruent mood Affect: normal affect Quality:SDOH Health Related Social Needs: No Data to Display Exam Narrative Exam Narrative: obese, chronically ill appearing female older than stated age. Head is atraumatic oral mucosa is moist eyes nonicteric moist mucosa Cardiovascular regular rate and rhythm respirations are even and unlabored neuro awake alert oriented no focal deficits Skin with no rashes or lesions Psych Mental Status: mental status grossly normal Speech and Movement: speech and movement normal Mood: congruent mood Affect: normal affect DS: Data Vitals/I&O Vitals and I&O: Vital Signs Temperature 36.5 C 08/26/24 10:44 Temperature Source Temporal Artery Scan 08/26/24 10:44 Pulse 60 08/26/24 10:44 Pulse Rhythm Regular 08/20/24 15:51 Pulse 70 08/20/24 15:30 Respiratory Rate 20 08/26/24 10:44 Respiratory Effort Incrsd Work of Breathing 08/20/24 15:51 Respiratory Depth Normal 08/20/24 15:51 Respiratory Pattern Normal 08/20/24 15:51 Blood Pressure 125/73 08/26/24 10:44 Blood Pressure Mean 102 08/20/24 15:01 Blood Pressure Position Supine 08/20/24 11:04 Pulse Oximetry 93 08/26/24 10:44 Oxygen Delivery Method Nasal Cannula 08/26/24 10:44 Oxygen Flow Rate 1 08/26/24 10:44 End Tidal Co2 2 08/20/24 11:04 Pain Level 0 08/26/24 08:00 Comment RN Notified 08/25/24 03:23 Intake & Output 08/25/24 08/26/24 08/26/24 23:59 11:59 23:59 Intake Total Output Total 750 / 750 Balance 10 380 -750 / -750 Weight 136.8 kg Intake: IV Output: Urine 750 / 750 Other: Urine Color Yellow Urine Appearance Clear Urine Odor Normal Data Completed and Pending Labs on day of discharge: Labs from last 24 hours 08/26/24 05:46 WBC 13.43 H RBC 4.82 Hgb 14.0 Hct 43.8 MCV 91 MCH 29.0 MCHC 32.0 RDW 13.0 Plt Count 189 MPV 10.4 Immature Gran % 1.4 Neutrophils % 70.9 Lymphocytes % 16.5 Monocytes % 10.1 Eosinophils % 0.9 Basophils % 0.2 Nucleated RBC % 0.0 Absolute Neutrophils 9.52 H Absolute Lymphocytes 2.22 Absolute Monocytes 1.36 H Absolute Eosinophils 0.12 Absolute Basophils 0.03 PT 21.2 H INR 2.2 H Sodium 142 Potassium 4.1 Chloride 104 Carbon Dioxide 34.7 H Anion Gap 3.3 BUN 30 H Creatinine 1.5 H Est GFR (CKD-EPI 2020) 41.16 Glucose 79 Calcium 8.6 Total Bilirubin 0.46 AST 13 L ALT 22 Alkaline Phosphatase 53 Total Protein 6.2 L Albumin 2.5 L PFSH All Active Problems Hydronephrosis (Acute) DVT prophylaxis (Acute) Acute exacerbation of chronic obstructive pulmonary disease (Acute) CAP (community acquired pneumonia) (Acute) COVID-19 (Acute) Acute dyspnea (Acute) Chest pain (Acute) Pharyngitis (Acute) Shortness of breath (Acute) On antibiotic therapy (Acute) Pneumonia (Acute) Acute bronchospasm (Acute) Cough (Acute) Shortness of breath (Acute) Chest pain (Acute) Foodborne gastroenteritis (Acute) IRA on CPAP (Chronic) Discharge planning issues (Acute) Enterocolitis (Acute) Cough with hemoptysis (Acute) Ground glass opacity present on imaging of lung (Acute) Hypokalemia (Acute) Subtherapeutic international normalized ratio (INR) (Acute) NSTEMI (non-ST elevated myocardial infarction) (Acute) Person under investigation for COVID-19 (Acute) Pneumonia (Acute) Hyperglycemia (Acute) Acute myopericarditis (Acute) Chronic anticoagulation (Acute) Internal derangement of right knee (Chronic) TIA due to embolism (Acute 10/04/16) Smoker (Chronic) Intramural leiomyoma of uterus (Acute 06/08/17) Multiple uterine fibroids-left lower quadrant pain, bladder pressure. 08/10/17. [facility] Outside Sales Account Representative/Onc consult. Recommended Aygestin therapy and surgery if Aygestin not effective. Headache (Acute) Essential hypertension (Chronic 09/20/13) BMI 40.0-44.9, adult (Acute 06/08/17) Aortic valve replaced (Chronic) [facility] Anticoagulated on warfarin (Chronic) AVR/TIA goal 2.5-3.5 Abnormal uterine bleeding (Acute 08/10/17) onset after aortic valve replacement 2005. 08/10/17 EMBx: inactive endometrium with breakdown. No dysplasia. Medical History CAD (coronary artery disease) Abnormal uterine bleeding (AUB) onset 2005 after AVR and chronic anticoagulation. Nl EMBx 2018. Pt will begin Aygestin for menstrual control. Restless leg syndrome Uterine fibroid Uterus [id number] with multiple uterine fibroids. Acute ITP Surgical History Ligation of fallopian tube Tooth extraction WISDOM TEETH REMOVAL Dilation and curettage Family History Mother Neoplasm LUNG Father Essential hypertension Heart disease STENTS Hyperlipidemia Asthma Sister No problems noted. Sister No problems noted. Brother No problems noted. Grandfather No problems noted. Grandfather No problems noted. Grandmother , BLOOD CLOTT Heart disease Grandmother No problems noted. Son Depression Son Substance abuse Depression Son Substance abuse Daughter No problems noted. 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 2 dogs and 3 cats. Many grandkids close. Time Spent with Patient Time Spent with Patient: 45-69 minutes Time was spent: preparing to see the patient(eg.review tests), obtaining and/or reviewing separately otained hiistory, ordering medications,tests, procedures, indepentently interpreting results and counseling the patient
[2024-08-26] MEDS: Nystatin POWDER 15 GM JAR TP ×2 (13:07→19:45)
--- NOTE | 2024-08-26 13:28 | W.PM.PROGNOT ---
Date of Service Date of service: 08/26/24 Time of Service: 13:28 Assessment and Plan Assessment and plan (1) CAP (community acquired pneumonia): Status: Acute Assessment and plan: completed 5 days levofloxacin based on allergy profile blood and sputum cultures negative flu/covid/rsv screens negative still requiring oxygen with activity. wean as able. (2) Acute exacerbation of chronic obstructive pulmonary disease: Status: Acute Assessment and plan: continue bronchodilators, prednisone 40mg po daily, will taper (3) Tobacco use: Status: None Assessment and plan: tolerating verenicline, consider continuing on discharge. (4) Hypertension: Status: None Assessment and plan: continue home BP medication, controlled now 08/23/24 Pt with mild elevation in his BP. Will need to optimize in the outpatient setting (5) IRA on CPAP: Status: Chronic Assessment and plan: not using home cpap, contributing to low O2 at night. Plans f/u as outpatient sleep clinic (6) Hydronephrosis: Status: Acute Assessment and plan: urology consulted, per his note: Ultimately, she will need a nuclear renogram with Lasix washout to detect her renal function and degree of obstruction. Depending on her renal function, we would then decide if treatment would be helpful. Treatments to consider would be stenting, endopyelotomy or dismembered pyeloplasty. If her renal function has already been compromised significantly, no treatment would be indicated unless the patient became symptomatic. The remainder of her workup can be done as an outpatient once she is recovered from her pneumonia. If her left hydronephrosis does become symptomatic in the meantime, a temporary ureteral stent can be offered. Clinically, she has no evidence of pyelonephritis. Her urine is reassuring for the absence of infection (7) CAD (coronary artery disease): Assessment and plan: Continue atorvastatin. On anticoagulation and DAPT, which may be too much. No recent stent. Holding clopidogrel (8) Aortic valve replaced: Status: Chronic Assessment and plan: continue coumadin for INR goal 2.5-3.5 (9) DVT prophylaxis: Status: Acute Assessment and plan: on warfarin discussed with DR Gomez Subjective Subjective Patient reports: no new complaints, feels better, tolerating liquids well, tolerating a regular diet and afebrile; denies shortness of breath Exam Narrative Exam Narrative: obese, chronically ill appearing female older than stated age. Head is atraumatic oral mucosa is moist eyes nonicteric moist mucosa Cardiovascular regular rate and rhythm respirations are even and unlabored neuro awake alert oriented no focal deficits Skin with no rashes or lesions Objective Last Vital Signs Temp 36.5 C 08/26/24 10:44 Pulse 77 08/26/24 13:19 Resp 20 08/26/24 13:19 BP 125/73 08/26/24 10:44 Pulse Ox 91 L 08/26/24 13:19 Laboratory Results - last 24 hr 08/26/24 05:46 WBC 13.43 H RBC 4.82 Hgb 14.0 Hct 43.8 MCV 91 MCH 29.0 MCHC 32.0 RDW 13.0 Plt Count 189 MPV 10.4 Immature Gran % 1.4 Neutrophils % 70.9 Lymphocytes % 16.5 Monocytes % 10.1 Eosinophils % 0.9 Basophils % 0.2 Nucleated RBC % 0.0 Absolute Neutrophils 9.52 H Absolute Lymphocytes 2.22 Absolute Monocytes 1.36 H Absolute Eosinophils 0.12 Absolute Basophils 0.03 PT 21.2 H INR 2.2 H Sodium 142 Potassium 4.1 Chloride 104 Carbon Dioxide 34.7 H Anion Gap 3.3 BUN 30 H Creatinine 1.5 H Est GFR (CKD-EPI 2020) 41.16 Glucose 79 Calcium 8.6 Total Bilirubin 0.46 AST 13 L ALT 22 Alkaline Phosphatase 53 Total Protein 6.2 L Albumin 2.5 L PAWSS Have you Been Recently Intoxicated or Drunk Within the Last 30 days?: No Have you Ever Experienced Previous Episodes of Alcohol Withdrawal?: No Have you ever Experienced Withdrawal Seizures?: No Have you ever Experienced Delirium Tremens(DT)s?: No Have you ever undergone Alcohol Rehabilitation Treatment (i.e, inpt ot outpatient treatment programs)?: No Have you ever Experienced Blackouts?: No Have you ever Combined Alcohol with other Downers within the last 90 days?: No Have you ever Combined Alcohol with any other Substance of Abuse during the last 90 days?: No Positive Blood Alcohol level on Presentation? [PCS.BAL]: No Evidence of Increased Autonomic Activity (i.e. HR>120, tremor, sweating, agitation, nausea)?: No Result: 0 Time Spent with Patient Time Spent with Patient: 35-49 minutes Time was spent: preparing to see the patient(eg.review tests), obtaining and/or reviewing separately otained hiistory, ordering medications,tests, procedures, indepentently interpreting results and counseling the patient
--- NOTE | 2024-08-26 15:22 | PDOC.CMPRO ---
Date of service: 08/26/24 Time of Service: 15:22 Care Management Progress Note Progress Note Text Progress Note Text: Juani was sitting up on the edge of the bed, wearing 1L nc, when CM met with her. She was very pleasant and easily engaged. She was hoping to go home today, but was unable to maintain her O2 sats on RA, and she stated she dropped into the 70s when she was ambulating. She is happy to stay another night if it prevents her from readmission. Her came to visit later in the day, and he stated that he wants Juani home only if she is ready, and he will be happy to pick her up anytime. Discharge Potential Discharge Needs: PCP F/U Appt Anticipated Barriers to Discharge: None Identified Patient/Family Education Needs: Review discharge instructions, discuss Ask Me Three Transportation: Private vehicle (with Mark, ) Plan: Anticipate Juani will be discharged home with no new services when medically cleared by provider. She will follow up with her PCP and plan of care as directed. Family will provide transportation. CM will continue to follow and to update the plan as needed. Social Determinants of Health Screening Social Determinants of Health last assessed: 08/26/24 Will the Patient Participate in the Screening?: Yes Do you worry about having a steady place to live?: no Problems where you live: no known problems In the past 12 months, have you had to go without electric, gas, oil or water in your home?: no Have you or anyone in your house had to go without enough food to eat?: no Has lack of transportation kept you from medical appointments or from doing things needed for daily living?: no Has anyone in your life made you feel unsafe or unsupported?: no How hard is it for you to pay for the very basics like food, housing, medical care, and heating? Would you say it is:: Not hard at all Do you want help finding or keeping work or a job?: I do not need or want help If for any reason you need help with day-to-day activities such as bathing, preparing meals, shopping, managing finances, etc., do you get the help you need?: I don?t need any help How often do you feel lonely or isolated from those around you?: Never Do you speak a language other than Turkmen at home?: No
[2024-08-26] MEDS: Warfarin 5 MG TAB 10 MG PO (16:55)
[2024-08-26] MEDS: Atorvastatin 40 MG TAB 80 MG PO (19:45)
[2024-08-26] MEDS: Melatonin 3 MG TAB 6 MG PO (19:45)
[2024-08-27] VITALS (7 sets, daily range): BP systolic 110–114; BP diastolic 59–66; PULSE 56–93; RESP 5–22; TEMP 36.1–36.5; O2SAT 89–95
[2024-08-27] MEDS: Albuterol/Ipratropium 3 ML UPD VIAL UPD ×2 (02:07→08:28)
[2024-08-27 06:10] LABS: INR 2.5 (0.9-1.1)
[2024-08-27] MEDS: predniSONE 20 MG TAB 40 MG PO (08:05)
[2024-08-27] MEDS: Furosemide 20 MG TAB PO (08:05)
[2024-08-27] MEDS: Nystatin POWDER 15 GM JAR TP (08:05)
[2024-08-27] MEDS: Carvedilol 12.5 MG TAB PO (08:06)
[2024-08-27] MEDS: Ferrous Gluconate 324 MG TAB PO (08:06)
[2024-08-27] MEDS: Varenicline 1 MG TAB 0.5 MG PO (08:06)
[2024-08-27] MEDS: Pantoprazole 40 MG TABCR PO (08:06)
[2024-08-27] MEDS: Aspirin 81 MG CHEW PO (08:06)
--- NOTE | 2024-08-27 13:36 | PDOC.CMDIS ---
Date of service: 08/27/24 Time of Service: 13:36 LACE Index Scoring Tool Questions: Length of Stay (in days): 7 - 13 Was the patient admitted via the E.D.?: Yes Comorbidities: Previous M.I., Congestive Heart Failure and Chronic Pulmonary Disease E.D. Visits: 0 Answers: Total Score: 13 Risk of Readmission: High Risk Care Management Discharge Plan Reason for Hospitalization: CAP, COPD, hypoxia Discharge Plan: Juani returned home with no new services today. CM provided a return to work letter, stating that she may return to work after she is cleared by her PCP (PCP appt 09/03/24), per [employer]/Hospitalist. She was driven home via private vehicle by family. She will follow up with her PCP and discharge plan of care. She was happy to be going home. Patient/Family Education Needs: Review discharge instructions and limitations, discussion of self care needs including ask me three. SDOH Health Related Social Needs: No Data to Display
== END 2024-08-27 10:50 | disposition home or self-care (01) | DRG 190 ==
LOC: ER 14:58 → MS 15:40
PROVIDERS: Student in an Organized Health Care Education/Training Program; Admitting Provider Family Medicine; Emergency Provider Emergency Medicine; PCP Student in an Organized Health Care Education/Training Program; Responsible Provider Nurse Practitioner Acute Care; Visit Provider Hospitalist
DX: J44.0 Chronic obstructive pulmonary disease with (acute) lower respiratory infection (principal); J18.9 Pneumonia, unspecified organism; I50.30 Unspecified diastolic (congestive) heart failure; N13.0 Hydronephrosis with ureteropelvic junction obstruction; J44.1 Chronic obstructive pulmonary disease with (acute) exacerbation; F17.210 Nicotine dependence, cigarettes, uncomplicated; G47.33 Obstructive sleep apnea (adult) (pediatric); I25.10 Atherosclerotic heart disease of native coronary artery without angina pectoris; Z95.2 Presence of prosthetic heart valve; Z79.01 Long term (current) use of anticoagulants; I25.2 Old myocardial infarction; Z86.73 Personal history of transient ischemic attack (TIA), and cerebral infarction without residual deficits; I11.0 Hypertensive heart disease with heart failure; I48.91 Unspecified atrial fibrillation; Z88.0 Allergy status to penicillin; K59.00 Constipation, unspecified
CPT/HCPCS: 00123; 36415; 71275; 76770; 80048; 80053; 84145; 85027; 87040; 87637; 93005; 94618; 94640; 96365; 96375; 99285; 74178; 81003; 81015; 83735; 83880; 84443; 84484; 85025; 85610; 85730; 87070; 87205; 88104; 93010; 94667; 94668; 94760; 99223; 99232; 99233; 99239; J1956; J2919; J3490; J7512; J7614; J7620

== ENCOUNTER 2024-08-28 02:28 | Outpatient (CLI) | payer OTHER, SELFPAY ==
[2024-08-28 12:36] LABS: INR 2.7 (0.9-1.1); Prothrombin Time 25.3 sec (9.1-11.1)
== END 2024-08-28 02:29 | disposition home or self-care (01) ==
LOC: LOS 02:28
PROVIDERS: Nurse Practitioner Acute Care; PCP Student in an Organized Health Care Education/Training Program; Visit Provider Student in an Organized Health Care Education/Training Program
DX: I35.0 Nonrheumatic aortic (valve) stenosis (principal); Z95.2 Presence of prosthetic heart valve
CPT/HCPCS: 36415; 85610

== ENCOUNTER 2024-09-13 00:58 | Outpatient (CLI) | payer OTHER, SELFPAY ==
[2024-09-13 12:31] LABS: INR 2.8 (0.9-1.1)
[2024-09-13 12:42] LABS: Abs Immature Grans 0.03 10^3/uL (0.0-0.06); Absolute Basophil Count 0.05 10^3/uL (0.0-0.2); Absolute Eosinophil Count 0.22 10^3/uL (0.0-0.7); Absolute Lymphocyte Count 1.47 10^3/uL (1.2-3.4); Absolute Monocyte Count 0.65 10^3/uL (0.1-0.8); Absolute Neutrophil Count 4.66 10^3/uL (1.2-6.7); Basophils % 0.7 %; Eosinophils % 3.1 %; HCT 46.2 % (36.0-46.0); HGB 14.5 g/dL (11.2-15.7); Immature Grans % 0.4 %; Lymphocytes % 20.8 %; MCH 29.1 pg (27.0-33.0); MCHC 31.4 % (32.0-36.0); MCV 93 fL (80-95); MPV 10.7 fL (8.0-11.0); Monocytes % 9.2 %; Neutrophils % 65.8 %; Platelet Count 183 10^3/uL (130-400); RBC 4.98 10^6/uL (3.93-5.22); RDW 13.3 % (11.7-14.6); RDW-SD 45.7 fL; WBC 7.08 10^3/uL (4.4-10.8)
== END 2024-09-13 00:59 | disposition home or self-care (01) ==
LOC: LOS 00:58
PROVIDERS: PCP Student in an Organized Health Care Education/Training Program; Visit Provider Internal Medicine
DX: I35.0 Nonrheumatic aortic (valve) stenosis (principal); Z95.2 Presence of prosthetic heart valve; D72.821 Monocytosis (symptomatic); D72.829 Elevated white blood cell count, unspecified
CPT/HCPCS: 36415; 85025; 85610

== ENCOUNTER 2024-09-24 00:27 | Outpatient (CLI) | payer OTHER, SELFPAY ==
--- NOTE | 2024-09-24 06:00 | DI.NM_ITS ---
Exam(s) NM MAG 3 RENOGRAM W LASIX CLINICAL HISTORY: ? obstruction/split renal function,hydronephrosis,n13.30. COMPARISON: CT CT ABDOMEN PELVIS W from 10/13/[address] CHEST PE CTA from 12/02/[address] CHEST PE CTA from 08/20/2024 US US RENAL from 08/21/[address] ABDOMEN PELVIS WO/W from 08/22/2024 EXAMINATION: Dose: 10 mCi Tc-99m MAG3 Images: Immediately for 1 minute followed by dynamic for 45 minutes. 40mg Lasix was administered afte r peak uptake in the renal cortex at approximately 15 min. FINDINGS: Time to peak: Right: 2 min (< 5 min normal) Left: 25 min (< 5 min normal) Curve Appearance: Right: T1/2 (9.5 min Left: T1/2 N/A The time activity curve reveals no delay in the washout of the right collecting system. There is sev ere delay in emptying There is decreased flow to the left kidney on flow phase imaging.. There is significant delay in upt randy of the left kidney with a flat curve and no visible excretion status post Lasix. Findings consis tent with severe obstruction. (< 10 min normal, 10-15 min Low grade obstruction, 15-20 min moderate,. 20 min high grade) Split renal function: Right: 76.4 % Left: 23.6 % IMPRESSION: Severe obstruction of the left kidney. Split function 23.6 percent.
[2024-09-24] MEDS: Furosemide 40 MG/4 ML VIAL IVP (13:20)
== END 2024-09-24 00:47 ==
LOC: DI 00:30
PROVIDERS: PCP Student in an Organized Health Care Education/Training Program; Visit Provider Urology
DX: N13.30 Unspecified hydronephrosis (principal)
CPT/HCPCS: 78708; A9540; J1940

== ENCOUNTER 2024-10-11 01:03 | Outpatient (CLI) | payer OTHER, SELFPAY ==
[2024-10-11 12:40] LABS: INR 2.3 (0.9-1.1)
== END 2024-10-11 01:04 | disposition home or self-care (01) ==
LOC: LOS 01:03
PROVIDERS: PCP Student in an Organized Health Care Education/Training Program; Visit Provider Student in an Organized Health Care Education/Training Program
DX: I35.0 Nonrheumatic aortic (valve) stenosis (principal); Z95.2 Presence of prosthetic heart valve
CPT/HCPCS: 36415; 85610

== ENCOUNTER 2024-11-06 01:42 | Outpatient (CLI) | payer OTHER, SELFPAY ==
[2024-11-06 12:29] LABS: INR 2.5 (0.9-1.1); Prothrombin Time 23.7 sec (9.1-11.1)
== END 2024-11-06 01:43 | disposition home or self-care (01) ==
LOC: LOS 01:42
PROVIDERS: PCP Student in an Organized Health Care Education/Training Program; Visit Provider Student in an Organized Health Care Education/Training Program
DX: I35.0 Nonrheumatic aortic (valve) stenosis (principal)
CPT/HCPCS: 36415; 85610

== ENCOUNTER 2025-01-09 02:39 | Outpatient (CLI) | payer OTHER, SELFPAY ==
[2025-01-09 12:38] LABS: INR 2.9 (0.9-1.1); Prothrombin Time 26.7 sec (9.1-11.1)
== END 2025-01-09 02:40 | disposition home or self-care (01) ==
LOC: LOS 02:39
PROVIDERS: PCP Student in an Organized Health Care Education/Training Program; Visit Provider Student in an Organized Health Care Education/Training Program
DX: I35.0 Nonrheumatic aortic (valve) stenosis (principal); Z95.2 Presence of prosthetic heart valve
CPT/HCPCS: 36415; 85610

== ENCOUNTER 2025-02-19 04:14 | Outpatient (CLI) | payer OTHER, SELFPAY ==
[2025-02-19 12:38] LABS: Prothrombin Time 14.2 sec (9.1-11.1)
[2025-02-19 13:52] LABS: INR 1.4 (0.9-1.1)
== END 2025-02-19 04:15 | disposition home or self-care (01) ==
LOC: LOS 04:14
PROVIDERS: PCP Student in an Organized Health Care Education/Training Program; Visit Provider Student in an Organized Health Care Education/Training Program
DX: I35.0 Nonrheumatic aortic (valve) stenosis (principal); Z95.2 Presence of prosthetic heart valve
CPT/HCPCS: 36415; 85610

== ENCOUNTER 2025-03-27 15:28 | Outpatient (CLI) | payer OTHER, SELFPAY ==
[2025-03-27 12:32] LABS: INR 2.0 (0.9-1.1); Prothrombin Time 18.9 sec (9.1-11.1)
== END 2025-03-27 15:29 | disposition home or self-care (01) ==
PROVIDERS: PCP Student in an Organized Health Care Education/Training Program; Visit Provider Physician Assistant Medical
DX: R04.0 Epistaxis (principal)
CPT/HCPCS: 36415; 85610

== ENCOUNTER 2025-04-10 00:32 | Outpatient (CLI) | payer OTHER, SELFPAY ==
[2025-04-10 13:55] LABS: Abs Immature Grans 0.04 10^3/uL (0.0-0.06); HCT 46.3 % (36.0-46.0); HGB 14.7 g/dL (11.2-15.7); Immature Grans % 0.5 %; MCH 28.4 pg (27.0-33.0); MCHC 31.7 % (32.0-36.0); MCV 89 fL (80-95); MPV 11.3 fL (8.0-11.0); Platelet Count 195 10^3/uL (130-400); RBC 5.18 10^6/uL (3.93-5.22); RDW 13.2 % (11.7-14.6); RDW-SD 43.7 fL; WBC 8.68 10^3/uL (4.4-10.8)
[2025-04-10 14:06] LABS: Anion Gap 8.9 mmol/L (3-11); BUN 15 mg/dL (7-18); CO2 29.1 mmol/L (21.0-32.0); Calcium 8.8 mg/dL (8.5-10.1); Chloride 105 mmol/L (98-107); Estimated GFR 48.87 (mL/min/1.73m2); Glucose 94 mg/dL (74-106); Potassium 3.6 mmol/L (3.5-5.1); Sodium 143 mmol/L (136-145)
[2025-04-10 14:10] LABS: INR 3.9 (0.9-1.1); Prothrombin Time 35.4 sec (9.1-11.1)
== END 2025-04-10 00:33 | disposition home or self-care (01) ==
LOC: LOS 00:32
PROVIDERS: PCP Student in an Organized Health Care Education/Training Program; Visit Provider Urology
DX: N13.5 Crossing vessel and stricture of ureter without hydronephrosis (principal)
CPT/HCPCS: 36415; 80048; 85025; 85610

== ENCOUNTER 2025-04-25 04:17 | Outpatient (CLI) | payer OTHER, SELFPAY ==
[2025-04-25 15:08] LABS: INR 2.9 (0.9-1.1); Prothrombin Time 26.8 sec (9.1-11.1)
== END 2025-04-25 04:18 | disposition home or self-care (01) ==
LOC: LBO 04:17
PROVIDERS: PCP Student in an Organized Health Care Education/Training Program; Visit Provider Student in an Organized Health Care Education/Training Program
DX: Z95.2 Presence of prosthetic heart valve (principal)
CPT/HCPCS: 36415; 85610

== ENCOUNTER 2025-05-29 00:54 | Outpatient (CLI) | payer OTHER, SELFPAY ==
[2025-05-29 15:05] LABS: INR 2.5 (0.9-1.1); Prothrombin Time 23.5 sec (9.1-11.1)
== END 2025-05-29 00:55 | disposition home or self-care (01) ==
LOC: LOS 00:54
PROVIDERS: PCP Student in an Organized Health Care Education/Training Program; Visit Provider Student in an Organized Health Care Education/Training Program
DX: Z95.2 Presence of prosthetic heart valve (principal)
CPT/HCPCS: 36415; 85610

== ENCOUNTER 2025-06-23 00:41 | Outpatient (CLI) | payer OTHER, SELFPAY ==
[2025-06-23 15:31] LABS: INR 3.4 (0.9-1.1); Prothrombin Time 31.7 sec (9.1-11.1)
== END 2025-06-23 00:42 | disposition home or self-care (01) ==
LOC: LOS 00:41
PROVIDERS: PCP Student in an Organized Health Care Education/Training Program; Visit Provider Urology
DX: Z95.2 Presence of prosthetic heart valve (principal); N13.5 Crossing vessel and stricture of ureter without hydronephrosis
CPT/HCPCS: 36415; 85610; 87086